=== PATIENT | female | born 1970 | race Caucasian/White ===

== ENCOUNTER 2016-08-11 18:04 | Emergency (ER) | payer MEDICAID ==
[~2016-08-11] VITALS: Ht 172.7 cm; Wt 113.7 kg
[~2016-08-11 18:04] MED LIST: AMLO5TAB2 PO; BENZ100 PO; LANTUS2P SQ; LYRI100C PO; PANT20 PO; ZITHTAB PO
[2016-08-11 18:24] VITALS: BP 126/68; PULSE 84; RESP 16; TEMP 99.2; O2SAT 95
[2016-08-11] MEDS ORDERED: IBUP800T23 PO (18:44)
[2016-08-11] MEDS ORDERED: [UNRECOGNIZED DRUG - OTHER] (18:44)
[2016-08-11] MEDS ORDERED: LOVA40TA PO (18:44)
[2016-08-11] MEDS ORDERED: FURO1TAB60 PO (18:44)
[2016-08-11] MEDS ORDERED: SODIUM CHLORIDE 0.9% FLUSH 5 ML FLUSH IVF PRN (18:45)
--- NOTE | 2016-08-11 18:57 | RADHPO ---
EXAM DATE/TIME: 08/11/2016 18:49 [facility] COMPARISON: CHEST SINGLE AP, July 18, 2016, 20:12. INDICATIONS : Short of breath. cough MEDICAL HISTORY : None. SURGICAL HISTORY : None. ENCOUNTER: Initial ACUITY: 3 weeks PAIN SCORE: 0/10 LOCATION: Bilateral chest FINDINGS: A single view of the chest demonstrates the lungs to be symmetrically aerated without evidence of mas s, infiltrate or effusion. The cardiomediastinal contours are unremarkable. Osseous structures are intact. CONCLUSION: No acute disease. Burak Alvarado MD on August 11, 2016 at 18:55 Board Certified Radiologist. This report was verified electronically.
--- NOTE | 2016-08-11 18:59 | PD ---
HPI . Right knee pain and peripheral edema Chief Complaint: Edema Time Seen by Provider: 18:32 Travel History International Travel<30 days: No Contact w/Intl Traveler<30days: No Traveled to known affect area: No History of Present Illness HPI Patient presents with 2 chief complaints. The first one and she told me about was right knee pain. It is atraumatic. It has been getting progressively worse over the course of the last several weeks. It hurts to move and stand. Her second complaint is peripheral edema. Has also been ongoing for the last 2- 3 weeks. She has been seen by her PCP for same and was treated with Lasix 20 milligrams daily for 15 days. She did not get any better so the dose was increased to 40 mg daily. She states that that was about 5 days ago. She states that her symptoms are not getting any better despite the Lasix. She states that the swelling is associated with dyspnea on exertion and orthopnea. That has been getting progressively worse over the last week or 2. PFSH Past Medical History Arthritis: Yes Cardiovascular Problems: Yes (htn on meds) High Cholesterol: Yes Diabetes: Yes (Insulin dependent ) Patient Takes Glucophage: No Diminished Hearing: No Hypertension: Yes Neurologic: Yes (DIABETIC NEUROPATHY) Influenza Vaccination: No ?: Not Menopausal: Yes Tubal Ligation: Yes Past Surgical History Cholecystectomy: Yes Social History Alcohol Use: No Tobacco Use: Yes (1 PPD) Substance Use: No Allergies-Medications (Allergen,Severity, Reaction): Coded Allergies: Sulfa (Verified Adverse Reaction, Severe, Vomiting, 08/11/16) MILTON Inhibitors (Verified Adverse Reaction, Intermediate, Cough, 08/11/16) Prednisone (Verified Adverse Reaction, Intermediate, Runny nose, cough, ) Reported Meds & Prescriptions Reported Meds & Active Scripts Active Mobic (Meloxicam) 15 Mg Tab 15 Mg PO DAILY Lasix (Furosemide) 80 Mg Tab 80 Mg PO DAILY 5 Days Protonix (Pantoprazole Sodium) 20 Mg Tab 20 Mg PO DAILY Reported Lovastatin 40 Mg Tab 40 Mg PO DAILY [gerd] Lyrica (Pregabalin) 100 Mg Cap 100 Mg PO TID Lantus Inj (Insulin Glargine) 1,000 Unit/10 Ml Vial 40 Units SQ HS Amlodipine (Amlodipine Besylate) 5 Mg Tab 5 Mg PO DAILY Review of Systems Except as stated in HPI: all other systems reviewed are Neg Cardiovascular: Positive: Dyspnea on exertion, Edema, No: Chest Pain or Discomfort Respiratory: Positive: Shortness of Breath, Orthopnea, Other (dyspnea on exertion) Musculoskeletal: Positive: Arthralgias (right knee pain) Physical Exam Narrative GENERAL: This is a 46-year-old woman who appears much older than her stated age. SKIN: Warm and dry. HEAD: Atraumatic. Normocephalic. EYES: Pupils equal and round. ENT: No nasal bleeding or discharge. Mucous membranes pink and moist. NECK: Trachea midline. Neck supple. CARDIOVASCULAR: Regular rate and rhythm. Heart sounds are normal. RESPIRATORY: No accessory muscle use. Lungs are clear with full air movement throughout. GASTROINTESTINAL: Abdomen soft, non-tender, nondistended. She does not have any hitting abdominal wall edema. MUSCULOSKELETAL: No obvious deformities. She has peripheral edema but it is not really pitting. NEUROLOGICAL: Awake and alert. No obvious cranial nerve deficits. Motor grossly within normal limits. Normal speech. PSYCHIATRIC: Appropriate mood and affect; insight and judgment normal. Data Data Last Documented VS Vital Signs Date Time Temp Pulse Resp B/P Pulse Ox O2 Delivery O2 Flow Rate FiO2 08/11/16 20:40 83 18 140/74 94 Room Air 08/11/16 18:24 99.2 Orders Complete Blood Count With Diff (08/11/16 18:35) Basic Metabolic Panel (Bmp) (08/11/16 18:35) B-Type Natriuretic Peptide (08/11/16 18:35) Ckmb (Isoenzyme) Profile (08/11/16 18:35) Troponin I (08/11/16 18:35) Iv Access Insert/Monitor (08/11/16 18:35) Electrocardiogram (08/11/16 18:35) Ecg Monitoring (08/11/16 18:35) Oximetry (08/11/16 18:35) Oxygen Administration (08/11/16 18:35) Chest, Single Ap (08/11/16 18:35) Sodium Chloride 0.9% Flush (Ns Flush) (08/11/16 18:45) Knee, Complete (4vws) (08/11/16 18:59) Furosemide Inj (Lasix Inj) (08/11/16 20:30) Labs Laboratory Tests Test 08/11/16 19:35 White Blood Count 7.7 TH/MM3 Red Blood Count 4.01 MIL/MM3 Hemoglobin 8.6 GM/DL Hematocrit 27.7 % Mean Corpuscular Volume 69.2 FL Mean Corpuscular Hemoglobin 21.4 PG Mean Corpuscular Hemoglobin 30.9 % Concent Red Cell Distribution Width 16.4 % Platelet Count 334 TH/MM3 Mean Platelet Volume 7.8 FL Neutrophils (%) (Auto) 70.2 % Lymphocytes (%) (Auto) 17.5 % Monocytes (%) (Auto) 8.0 % Eosinophils (%) (Auto) 3.9 % Basophils (%) (Auto) 0.4 % Neutrophils # (Auto) 5.5 TH/MM3 Lymphocytes # (Auto) 1.3 TH/MM3 Monocytes # (Auto) 0.6 TH/MM3 Eosinophils # (Auto) 0.3 TH/MM3 Basophils # (Auto) 0.0 TH/MM3 CBC Comment DIFF FINAL Differential Comment Sodium Level 143 MEQ/L Potassium Level 4.1 MEQ/L Chloride Level 104 MEQ/L Carbon Dioxide Level 31.3 MEQ/L Anion Gap 8 MEQ/L Blood Urea Nitrogen 31 MG/DL Creatinine 1.80 MG/DL Estimat Glomerular Filtration 30 ML/MIN Rate Random Glucose 158 MG/DL Calcium Level 7.8 MG/DL Total Creatine Kinase 85 U/L Troponin I LESS THAN 0.02 NG/ML B-Type Natriuretic Peptide 411 PG/ML MDM Medical Decision Making Medical Screen Exam Complete: Yes Emergency Medical Condition: Yes Interpretation(s) EKG shows a sinus rhythm with ventricular rate of 76. She has no ST segment elevation or depression. EKG is unchanged from previous. Differential Diagnosis Differential diagnosis of dyspnea includes but is not limited to congestive heart failure, pneumonia, wheezing, pneumothorax, pulmonary embolism Narrative Course Patient presents with chief complaints. The first is peripheral edema associated with shortness of breath, orthopnea and dyspnea on exertion. She will be evaluated for possible CHF/pulmonary edema. Her second complaint is right knee pain. I suspect arthritic pain as she is obese. Chest x-ray is negative to the radiologist's interpretation. Chest x-ray was independently viewed by me. Right knee x-ray is negative for acute finding. That x-ray was independently reviewed by me. CBC has an H&H of 8.6 and 27.7. The initial aware of her anemia. Blood clots are unremarkable. Troponin is normal. BNP is 411. I will give her a dose of IV Lasix. However, I do not think that she was to be admitted to the hospital. She has no evidence of pulmonary edema. Diagnosis Primary Impression: Peripheral edema Additional Impression: Right knee pain Qualified Code: M25.561 - Acute pain of right knee Scripts Meloxicam (Mobic)15 Mg Tab15 Mg PO DAILY #30 TAB Ref 0 Prov:Mervat Haney MD 08/11/16 Furosemide (Lasix)80 Mg Tab80 Mg PO DAILY 5 Days Ref 0 Prov:Mervat Haney MD 08/11/16 Disposition: 01 DISCHARGE HOME Condition: Stable Mervat Haney MD Aug 11, 2016 18:59
--- NOTE | 2016-08-11 19:30 | RADHPO ---
EXAM DATE/TIME: 08/11/2016 19:02 [facility] COMPARISON: No previous studies available for comparison. INDICATIONS : Right knee pain for two days. No known trauma. MEDICAL HISTORY : None. SURGICAL HISTORY : None. ENCOUNTER: Initial ACUITY: 2 days PAIN SCORE: 10/10 LOCATION: Right knee. FINDINGS: Four view examination of the right knee demonstrates no evidence of fracture or dislocation. Bony mi neralization is normal. The articular surfaces are intact. The suprapatellar soft tissues have a no rmal configuration. There is edema in the subcutaneous tissues. CONCLUSION: No acute bony abnormalities seen. There is superficial soft tissue swelling. Burak Alvarado MD on August 11, 2016 at 19:28 Board Certified Radiologist. This report was verified electronically.
[2016-08-11 19:35] VITALS: O2SAT 96
[2016-08-11 19:55] LABS: AUTOMATED NEUTROPHIL # 5.5 TH/MM3 (1.8-7.7); BASOPHIL % 0.4 % (0.0-2.0); EOSINOPHIL # 0.3 TH/MM3 (0-0.4); EOSINOPHIL % 3.9 % (0.0-4.0); HEMATOCRIT 27.7 % (35.0-46.0); LYMPH % 17.5 % (9.0-44.0); LYMPHOCYTE # 1.3 TH/MM3 (1.0-4.8); MEAN CELL VOLUME 69.2 FL (80.0-100.0); MEAN CORPUSCULAR HEMOGLOBIN 21.4 PG (27.0-34.0); MEAN CORPUSCULAR HGB CONC 30.9 % (32.0-36.0); NEUT % 70.2 % (16.0-70.0); PLATELET COUNT 334 TH/MM3 (150-450); RED BLOOD COUNT 4.01 MIL/MM3 (4.00-5.30); RED CELL DISTRIBUTION WIDTH 16.4 % (11.6-17.2); WHITE BLOOD COUNT 7.7 TH/MM3 (4.0-11.0)
[2016-08-11 19:56] LABS: HEMO FLAGS DIFF FINAL
[2016-08-11 20:01] LABS: CHLORIDE 104 MEQ/L (98-107); POTASSIUM 4.1 MEQ/L (3.5-5.1); SODIUM (NA) 143 MEQ/L (136-145)
[2016-08-11 20:06] LABS: ANION GAP 8 MEQ/L (5-15); BICARBONATE 31.3 MEQ/L (21.0-32.0); BLOOD UREA NITROGEN 31 MG/DL (7-18)
[2016-08-11 20:09] LABS: GLOMERULAR FILTRATION RATE 30 ML/MIN (>89)
[2016-08-11 20:17] LABS: CREATINE KINASE 85 U/L (26-192)
[2016-08-11] MEDS ORDERED: FUROSEMIDE 100 MG/10 ML VIAL IV PUSH ONE (20:30)
[2016-08-11] MEDS ORDERED: MOBI15TA PO (20:30)
[2016-08-11] MEDS ORDERED: FURO1TAB61 PO (20:30)
[2016-08-11 20:40] VITALS: BP 140/74; PULSE 83; RESP 18; O2SAT 94
--- NOTE | 2016-08-12 23:41 | EKG ---
Date Performed: 08/11/2016 Time Performed: 19:00:14 PTAGE: 46 years EKG: Sinus rhythm . Normal ECG PREVIOUS TRACING : 02/09/2015 14.19 Compared to prior tracing no significant change DOCTOR: Zia Ma Interpretating Date/Time 08/12/2016 23:41:23
== END 2016-08-11 21:23 | disposition home or self-care (01) ==
LOC: PHED 18:04
DX: M25.561 Pain in right knee (principal); R60.0 Localized edema; I10 Essential (primary) hypertension; Z79.4 Long term (current) use of insulin; E11.40 Type 2 diabetes mellitus with diabetic neuropathy, unspecified; E78.00 Pure hypercholesterolemia, unspecified; F17.210 Nicotine dependence, cigarettes, uncomplicated
CPT/HCPCS: 71010; 73564; 80048; 82550; 83880; 84484; 85025; 93005; 96374; 99285; J1940

== ENCOUNTER 2016-09-15 14:20 | Emergency (ER) | payer MEDICAID, OTHER ==
[~2016-09-15 14:20] MED LIST changes: -BENZ100 PO; +FURO1TAB61 PO; +LOVA40TA PO; +MOBI15TA PO; -ZITHTAB PO; +[UNRECOGNIZED DRUG - OTHER]
[2016-09-15 14:39] VITALS: BP 143/93; PULSE 90; RESP 16; TEMP 98.4; O2SAT 99
[2016-09-15] MEDS ORDERED: SODIUM CHLOR 0.9% 1000 ML INJ 1,000 ML IV SCH (15:18)
[2016-09-15] MEDS ORDERED: IRON18TA2 PO (15:23)
[2016-09-15] MEDS ORDERED: CHOLESTEROL PILL (15:23)
--- NOTE | 2016-09-15 15:29 | PD ---
HPI . Abdominal pain Chief Complaint: GI Complaint Time Seen by Provider: 15:15 Travel History International Travel<30 days: No Contact w/Intl Traveler<30days: No Traveled to known affect area: No History of Present Illness HPI Patient presents with a 2 day history of left upper quadrant abdominal pain. She's had some dry heaves. She reports one episode of emesis. She denies constipation. She reports chills. She denies any urinary tract symptoms such as dysuria, frequency or urgency. She states that her abdominal pain is worsened by deep respirations. PFSH Past Medical History Arthritis: Yes Cardiovascular Problems: Yes (htn on meds) High Cholesterol: Yes Diabetes: Yes (Insulin dependent ) Diminished Hearing: No Hypertension: Yes Neurologic: Yes (DIABETIC NEUROPATHY) ?: Not LMP: RANI Menopausal: Yes Tubal Ligation: Yes Past Surgical History Cholecystectomy: Yes Social History Alcohol Use: No Tobacco Use: Yes (1 PPD) Substance Use: No Allergies-Medications (Allergen,Severity, Reaction): Coded Allergies: Sulfa (Verified Adverse Reaction, Severe, Vomiting, 09/15/16) MILTON Inhibitors (Verified Adverse Reaction, Intermediate, Cough, 09/15/16) Prednisone (Verified Adverse Reaction, Intermediate, Runny nose, cough, ) Reported Meds & Prescriptions Reported Meds & Active Scripts Active Reported Iron (Ferrous Fumarate) 18 Mg Tab 18 Mg PO DAILY [Cholesterol Pill] Lovastatin 40 Mg Tab 40 Mg PO DAILY Lyrica (Pregabalin) 100 Mg Cap 100 Mg PO TID Lantus Inj (Insulin Glargine) 1,000 Unit/10 Ml Vial 40 Units SQ HS Review of Systems Except as stated in HPI: all other systems reviewed are Neg General / Constitutional: Positive: Chills Gastrointestinal: Positive: Nausea, Vomiting, Abdominal Pain, No: Diarrhea, Constipation Genitourinary: No: Urgency, Frequency, Dysuria Physical Exam Narrative GENERAL: Patient is awake and alert and does not appear to be in any acute distress. SKIN: Warm and dry. HEAD: Atraumatic. Normocephalic. EYES: Pupils equal and round. ENT: No nasal bleeding or discharge. Mucous membranes pink and moist. NECK: Trachea midline. CARDIOVASCULAR: Regular rate and rhythm. Heart sounds are normal. RESPIRATORY: No accessory muscle use. Lungs are clear with full air movement throughout. GASTROINTESTINAL: Abdomen soft. Left upper quadrant tenderness. Nondistended. Normal bowel sounds. MUSCULOSKELETAL: No obvious deformities. No edema. NEUROLOGICAL: Awake and alert. No obvious cranial nerve deficits. Motor grossly within normal limits. Normal speech. PSYCHIATRIC: Appropriate mood and affect; insight and judgment normal. Data Data Last Documented VS Vital Signs Date Time Temp Pulse Resp B/P Pulse Ox O2 Delivery O2 Flow Rate FiO2 09/15/16 14:39 98.4 90 16 143/93 99 Orders Complete Blood Count With Diff (09/15/16 15:18) Comprehensive Metabolic Panel (09/15/16 15:18) Lipase (09/15/16 15:18) Urinalysis - C+S If Indicated (09/15/16 15:18) Iv Access Insert/Monitor (09/15/16 15:18) Morphine Inj (Morphine Inj) (09/15/16 15:30) Ondansetron Inj (Zofran Inj) (09/15/16 15:30) Sodium Chlor 0.9% 1000 Ml Inj (Ns 1000 M (09/15/16 15:18) Sodium Chloride 0.9% Flush (Ns Flush) (09/15/16 15:30) Abdomen, Upright Only (09/15/16 15:18) MDM Medical Decision Making Medical Screen Exam Complete: Yes Emergency Medical Condition: Yes Medical Record Reviewed: Yes (past medical history includes hypertension, chronic kidney disease, diabetes) Differential Diagnosis Differential diagnosis of abdominal pain includes but is not limited to gastritis, pancreatitis, hepatitis, gastroenteritis, gallbladder disease, constipation, urinary retention, UTI, peptic ulcer disease, diverticulitis or appendicitis Narrative Course Patient presents for evaluation of abdominal pain with nausea. She has a benign exam. Her care will be turned over to the oncoming physician. Diagnosis Primary Impression: Abdominal pain Qualified Code: R10.12 - Left upper quadrant pain Condition: Stable Mervat Haney MD Sep 15, 2016 15:29
[2016-09-15] MEDS ORDERED: MORPHINE SULFATE 4 MG/ML INJ IV PUSH ONE (15:30)
[2016-09-15] MEDS ORDERED: SODIUM CHLORIDE 0.9% FLUSH 5 ML FLUSH IVF PRN (15:30)
[2016-09-15] MEDS ORDERED: ONDANSETRON HCL 4 MG/2 ML VIAL IVP ONE (15:30)
[2016-09-15 15:35] LABS: AUTOMATED NEUTROPHIL # 7.1 TH/MM3 (1.8-7.7); BASOPHIL # 0.1 TH/MM3 (0-0.2); BASOPHIL % 0.8 % (0.0-2.0); EOSINOPHIL # 0.1 TH/MM3 (0-0.4); EOSINOPHIL % 0.9 % (0.0-4.0); HEMATOCRIT 33.8 % (35.0-46.0); LYMPH % 14.3 % (9.0-44.0); LYMPHOCYTE # 1.3 TH/MM3 (1.0-4.8); MEAN CORPUSCULAR HEMOGLOBIN 22.4 PG (27.0-34.0); MEAN CORPUSCULAR HGB CONC 32.4 % (32.0-36.0); MONO % 4.4 % (0.0-8.0); NEUT % 79.6 % (16.0-70.0); PLATELET COUNT 368 TH/MM3 (150-450); RED BLOOD COUNT 4.89 MIL/MM3 (4.00-5.30); RED CELL DISTRIBUTION WIDTH 19.4 % (11.6-17.2)
[2016-09-15 15:39] LABS: HEMO FLAGS AUTO DIFF
--- NOTE | 2016-09-15 15:43 | RADHPO ---
EXAM DATE/TIME: 09/15/2016 15:29 [facility] COMPARISON: No previous studies available for comparison. INDICATIONS : Abdomen pain for two days. MEDICAL HISTORY : None. SURGICAL HISTORY : Cholecystectomy. ENCOUNTER: Initial ACUITY: 2 days PAIN SCORE: 9/10 LOCATION: Bilateral upper quadrant FINDINGS: A single erect view of the abdomen demonstrates the lower lungs to be clear. No evidence of free int raperitoneal gas. The visualized bowel loops are unremarkable. Cholecystectomy clips. CONCLUSION: No acute abnormality upper abdomen. Gavin Granados MD on September 15, 2016 at 15:41 Board Certified Radiologist. This report was verified electronically.
[2016-09-15 15:50] LABS: CHLORIDE 106 MEQ/L (98-107); POTASSIUM 4.2 MEQ/L (3.5-5.1); SODIUM (NA) 140 MEQ/L (136-145)
[2016-09-15 15:53] LABS: BLOOD, URINE LARGE (NEG); GLUCOSE,URINE NEG (NEG); KETONE, URINE NEG (NEG); NITRITE,URINE NEG (NEG)
[2016-09-15 15:55] LABS: ANION GAP 7 MEQ/L (5-15); BICARBONATE 26.6 MEQ/L (21.0-32.0); BLOOD UREA NITROGEN 24 MG/DL (7-18)
[2016-09-15 15:56] LABS: METHOD OF COLLECTION CLEAN CATCH; URINE COLOR YELLOW (YELLW/STRAW)
[2016-09-15 15:58] LABS: ALT (GPT) 34 U/L (10-53); AST (GOT) 18 U/L (15-37); GLOMERULAR FILTRATION RATE 44 ML/MIN (>89)
[2016-09-15 15:59] LABS: TOTAL BILIRUBIN ADULT 0.9 MG/DL (0.2-1.0)
[2016-09-15 16:00] LABS: RBC, URINE 15-19 /hpf (0-3)
[2016-09-15 16:01] LABS: COMMENT (UR) CULT NOT INDICATED; COMMENT2 (UR) MUCOUS PRESENT; CULTURE IF INDICATED CULT NOT INDICATED; HYALINE CAST, URINE 0-2 /lpf (RARE); SQUAMOUS EPITHELIAL CELL URINE > 8 /hpf (0-5); TRANSITIONAL EPI CELLS, URINE 0-5 /hpf
[2016-09-15 16:01] LABS: ALKALINE PHOSPHATASE 429 U/L (45-117)
[2016-09-15 16:08] LABS: OVALOCYTES 1+ (NORMAL); PLATELET ESTIMATE SMEAR NORMAL (NORMAL); PLATELET MORPHOLOGY NORMAL (NORMAL); ROULEAUX PRESENT (NORMAL); SCAN/DIFF AUTO DIFF CONFIRMED
--- NOTE | 2016-09-15 16:17 | PD ---
Physical Exam Narrative The patient was initially evaluated by the previous provider and sent out to me at the beginning of my shift pending labs and disposition. See her note for further details. Data Data Last Documented VS Vital Signs Date Time Temp Pulse Resp B/P Pulse Ox O2 Delivery O2 Flow Rate FiO2 09/15/16 18:08 69 15 151/71 98 09/15/16 16:26 Room Air 09/15/16 14:39 98.4 Orders Complete Blood Count With Diff (09/15/16 15:18) Comprehensive Metabolic Panel (09/15/16 15:18) Lipase (09/15/16 15:18) Urinalysis - C+S If Indicated (09/15/16 15:18) Iv Access Insert/Monitor (09/15/16 15:18) Morphine Inj (Morphine Inj) (09/15/16 15:30) Ondansetron Inj (Zofran Inj) (09/15/16 15:30) Sodium Chlor 0.9% 1000 Ml Inj (Ns 1000 M (09/15/16 15:18) Sodium Chloride 0.9% Flush (Ns Flush) (09/15/16 15:30) Abdomen, Upright Only (09/15/16 15:18) Electrocardiogram (09/15/16 ) Ct Abd/Pel W/O Iv Contrast (09/15/16 16:08) Pantoprazole Inj (Protonix Inj) (09/15/16 16:30) Labs Laboratory Tests Test 09/15/16 09/15/16 15:20 15:45 White Blood Count 9.0 TH/MM3 Red Blood Count 4.89 MIL/MM3 Hemoglobin 10.9 GM/DL Hematocrit 33.8 % Mean Corpuscular Volume 69.0 FL Mean Corpuscular Hemoglobin 22.4 PG Mean Corpuscular Hemoglobin 32.4 % Concent Red Cell Distribution Width 19.4 % Platelet Count 368 TH/MM3 Mean Platelet Volume 7.9 FL Neutrophils (%) (Auto) 79.6 % Lymphocytes (%) (Auto) 14.3 % Monocytes (%) (Auto) 4.4 % Eosinophils (%) (Auto) 0.9 % Basophils (%) (Auto) 0.8 % Neutrophils # (Auto) 7.1 TH/MM3 Lymphocytes # (Auto) 1.3 TH/MM3 Monocytes # (Auto) 0.4 TH/MM3 Eosinophils # (Auto) 0.1 TH/MM3 Basophils # (Auto) 0.1 TH/MM3 CBC Comment AUTO DIFF Differential Comment AUTO DIFF CONFIRMED Platelet Estimate NORMAL Platelet Morphology Comment NORMAL Ovalocytes 1+ Rouleau PRESENT Sodium Level 140 MEQ/L Potassium Level 4.2 MEQ/L Chloride Level 106 MEQ/L Carbon Dioxide Level 26.6 MEQ/L Anion Gap 7 MEQ/L Blood Urea Nitrogen 24 MG/DL Creatinine 1.30 MG/DL Estimat Glomerular Filtration 44 ML/MIN Rate Random Glucose 138 MG/DL Calcium Level 9.7 MG/DL Total Bilirubin 0.9 MG/DL Aspartate Amino Transf 18 U/L (AST/SGOT) Alanine Aminotransferase 34 U/L (ALT/SGPT) Alkaline Phosphatase 429 U/L Total Protein 7.8 GM/DL Albumin 3.1 GM/DL Lipase 92 U/L Urine Collection Type CLEAN CATCH Urine Color YELLOW Urine Turbidity SLIGHT Urine pH 6.0 Urine Specific Mcintosh 1.026 Urine Protein 300 OR GREATER mg/dL Urine Glucose (UA) NEG mg/dL Urine Ketones NEG mg/dL Urine Occult Blood LARGE Urine Nitrite NEG Urine Bilirubin NEG Urine Leukocyte Esterase NEG Urine RBC 15-19 /hpf Urine WBC 3-5 /hpf Urine Squamous Epithelial > 8 /hpf Cells Urine Transitional Epithelial 0-5 /hpf Cells Urine Amorphous Sediment LARGE Urine Hyaline Casts 0-2 /lpf Urine Fine Granular Casts 0-2 /lpf Urine Coarse Granular Casts 0-2 /lpf Microscopic Urinalysis Comment CULT NOT INDICATED Urine Collection Time 1545 MDM Supervised Visit with [facility]: No Narrative Course Briefly this a 46-year-old female with history of diabetes with a two-day history of left upper quadrant abdominal pain. Pain is worsened night and after eating. She had one episode of vomiting and dry heaves. No diarrhea or constipation. No urinary symptoms. Pain is worse with movement and palpation as well as deep inspiration. No chest pain. EKG shows sinus, rate 80, normal axis, normal intervals, no stomach abnormalities. Vital signs show slight hypertension with a blood pressure 143/93, otherwise unremarkable. The patient was given morphine and Zofran by the previous provider and on my assessment is feeling much better. Her abdominal exam is benign. CBC is remarkable for hemoglobin of 10.9, hematocrit 33.8 which is around her baseline. CMP is remarkable for BUN 24, creatinine 1.3, GFR 44 which is also around her baseline. Alkaline phosphatase is elevated at 429. Lipase is 92. UA shows 300 protein, large occult blood, 15-19 rbc's, not suggestive of UTI. After I assessed the patient, I decided to order a CT abdomen pelvis to evaluate for possible kidney stone or any other intra-abdominal process to explain her symptoms. CT abdomen pelvis: CONCLUSION: 1. Minimal ascites. 2. Small bilateral pleural effusions and anasarca. 3. No renal calculi or hydronephrosis. 4. Status post cholecystectomy. Upon reassessment the patient is sleeping comfortably. Her abdominal exam is benign. She is stable for discharge home with outpatient follow-up with her primary care physician this week. She was made aware of all findings. I will start her on Protonix that she likely has gastritis or peptic ulcer disease. Patient was also made aware of her hematuria and I stressed importance of follow -up with her primary to make sure that this resolves. She was informed on when to return to the emergency department. She verbalizes understanding and agreement with plan. Diagnosis Primary Impression: Abdominal pain Qualified Code: R10.12 - Left upper quadrant pain Additional Impression: Hematuria Referrals: Primary Care Physician 3 days Additional Instruction: Follow-up with your primary care physician this week. Return to the emergency department for worsening symptoms or any other concerns. Scripts Pantoprazole (Protonix)40 Mg Tab40 Mg PO DAILY #30 TAB Ref 2 Prov:Nakul Yuen MD 09/15/16 Disposition: 01 DISCHARGE HOME Condition: Stable Nakul Yuen MD Sep 15, 2016 16:17
[2016-09-15 16:26] VITALS: BP 163/76; PULSE 81; RESP 17; O2SAT 98
[2016-09-15] MEDS ORDERED: PANTOPRAZOLE SODIUM 40 MG VIAL IV PUSH ONE (16:30)
--- NOTE | 2016-09-15 17:22 | RADHPO ---
EXAM DATE/TIME: 09/15/2016 16:51 [facility] COMPARISON: No previous studies available for comparison. INDICATIONS : Left upper quadrant pain. Evaluate for renal stone. ORAL CONTRAST: No oral contrast ingested. RADIATION DOSE: 23.94 CTDIvol (mGy) MEDICAL HISTORY : Hypertension. SURGICAL HISTORY : Cholecystectomy. Tubal ligation. ENCOUNTER: Initial ACUITY: 2 days PAIN SCALE: 5/10 LOCATION: Left upper quadrant TECHNIQUE: Volumetric scanning of the abdomen and pelvis was performed. Using automated exposure control and ad justment of the mA and/or kV according to patient size, radiation dose was kept as low as reasonably achievable to obtain optimal diagnostic quality images. FINDINGS: LOWER LUNGS: The visualized lower lungs are clear. Small pleural effusions bilaterally. LIVER: Homogeneous density without lesion. There is no dilation of the biliary tree. Cholecystectomy clips. SPLEEN: Normal size without lesion. PANCREAS: Within normal limits. KIDNEYS: Normal in size and shape. There is no mass, stone, or hydronephrosis. ADRENAL GLANDS: Within normal limits. VASCULAR: There is no aortic aneurysm. BOWEL/MESENTERY: The stomach, small bowel, and colon demonstrate no acute abnormality. There is no free intraperitone al air or fluid. ABDOMINAL WALL: Within normal limits. RETROPERITONEUM: There is no lymphadenopathy. BLADDER: No wall thickening or mass. REPRODUCTIVE: Within normal limits. INGUINAL: There is no lymphadenopathy or hernia. MUSCULOSKELETAL: Within normal limits for patient age. CONCLUSION: 1. Minimal ascites. 2. Small bilateral pleural effusions and anasarca. 3. No renal calculi or hydronephrosis. 4. Status post cholecystectomy. Gavin Granados MD on September 15, 2016 at 17:18 Board Certified Radiologist. This report was verified electronically.
[2016-09-15] MEDS ORDERED: PROT40TA PO (17:31)
[2016-09-15 18:08] VITALS: BP 151/71
--- NOTE | 2016-09-15 22:36 | EKG ---
Date Performed: 09/15/2016 Time Performed: 16:11:10 PTAGE: 46 years EKG: Sinus rhythm Normal ECG PREVIOUS TRACING : 08/11/2016 19.00 No significant change from previous tracing noted. DOCTOR: Mynor Singh Interpretating Date/Time 09/15/2016 22:35:34
== END 2016-09-15 17:50 | disposition home or self-care (01) ==
LOC: PHED 14:20
DX: R10.12 Left upper quadrant pain (principal); R31.9 Hematuria, unspecified; I10 Essential (primary) hypertension; E11.40 Type 2 diabetes mellitus with diabetic neuropathy, unspecified; F17.200 Nicotine dependence, unspecified, uncomplicated; Z79.4 Long term (current) use of insulin
CPT/HCPCS: 74000; 74176; 80053; 81001; 83690; 85025; 93005; 96361; 96374; 96375; 99284; C9113; J2270; J2405; J7030

== ENCOUNTER 2016-10-11 19:34 | Inpatient (IN) | payer MEDICAID, OTHER ==
[~2016-10-11] VITALS: Ht 170.2 cm; Wt 111.0 kg
[~2016-10-11 19:34] MED LIST changes: -AMLO5TAB2 PO; +CHOLESTEROL PILL; -FURO1TAB61 PO; +IRON18TA2 PO; -MOBI15TA PO; -PANT20 PO; +PROT40TA PO; -[UNRECOGNIZED DRUG - OTHER]
[2016-10-11 20:24] VITALS: BP 147/82; PULSE 98; RESP 18; TEMP 99.4; O2SAT 97
[2016-10-11 21:50] VITALS: BP 162/76; PULSE 104; RESP 18
[2016-10-11] MEDS ORDERED: SODIUM CHLORIDE 0.9% FLUSH 10 ML FLUSH IV FLUSH PRN (22:00)
[2016-10-11] MEDS ORDERED: VANCOMYCIN INJ 1,650 MG in SODIUM CHLORID 0.9% 500 ML INJ 500 ML IV SCH (22:00)
--- NOTE | 2016-10-11 22:07 | PD ---
HPI Chief Complaint: Bleeding Time Seen by Provider: 21:53 Travel History International Travel<30 days: No Contact w/Intl Traveler<30days: No History of Present Illness HPI Patient is a 46-year-old female with history of hypertension, diabetes, hyperlipidemia, iron deficiency anemia who presents to emergency room with complaints of infection to her left foot. Patient reports that she has had complications after she fell and injured her left heel in 2014. Patient reports that she had to rods placed by Dr. Rajan, reports that after these surgery, she has had increased pain and swelling and has had infection to that foot. Patient reports that 2 weeks ago, she has noticed increased infection to her left foot, reports that she noticed increased redness and swelling and warmth, she did go to her new physician relations manager, Dr. Torre, who started her on antibiotics (Bactrim and Augmentin) and put her in a cam boot and made her non weight bearing for 1 week. Reports that she did go back to the office for follow up last week and she was cleared to go back to work and be weight bearing as long as she wore her Cam Boot. Patient reports that she came home from work today and noticed increased bleeding from a pinpoint area of her left sole of foot. Patient denies any injuries, reports that she did not step on anything, reports that she was wearing her cam boot all day and noticed the bleeding after she took the cam boot off. Reports that she is on a baby aspirin and no other anticoagulations at this time. Patient did call her physician relations manager, Dr. Torre and was instructed to either go to the emergency room or be seen in the office tomorrow. Given her significant bleeding, patient decided to come to emergency room. Patient reports that she has noticed no improvement of the redness to her left lower extremity. Reports no fevers or chills. Patient is a type I diabetic on insulin. Reports that ultimately, she will need these to rods removed by Dr. Torre [facility] Past Medical History Arthritis: Yes Cardiovascular Problems: Yes (htn on meds) High Cholesterol: Yes Diabetes: Yes (Insulin dependent ) Diminished Hearing: No Hypertension: Yes Neurologic: Yes (DIABETIC NEUROPATHY) Menopausal: Yes Tubal Ligation: Yes Past Surgical History Cholecystectomy: Yes Other Surgery: Yes (left foot surgery) Social History Alcohol Use: No Tobacco Use: Yes (1 PPD) Substance Use: No Allergies-Medications (Allergen,Severity, Reaction): Coded Allergies: No Known Allergies (Unverified , 10/11/16) Reported Meds & Prescriptions Reported Meds & Active Scripts Active Reported Ibuprofen 800 Mg Tab 800 Mg PO DAILY Lasix (Furosemide) 40 Mg Tab 40 Mg PO DAILY Bactrim (Sulfamethoxazole-Trimethoprim) 400-80 Mg Tab 1 Tab PO DAILY Tramadol (Tramadol HCl) 50 Mg Tab 50 Mg PO Q4H PRN Losartan (Losartan Potassium) 50 Mg Tab 50 Mg PO DAILY [Cholesterol Pill] Lyrica (Pregabalin) 100 Mg Cap 100 Mg PO TID Lantus Inj (Insulin Glargine) 1,000 Unit/10 Ml Vial 40 Units SQ HS Review of Systems General / Constitutional: No: Fever, Chills Eyes: No: Visual changes HENT: No: Headaches Cardiovascular: No: Chest Pain or Discomfort Respiratory: No: Shortness of Breath Gastrointestinal: No: Abdominal Pain Genitourinary: No: Dysuria Musculoskeletal: Positive: Edema (left foot), Pain (left foot) Skin: No Rash Neurologic: No: Weakness Psychiatric: No: Depression Endocrine: No: Polydipsia Hematologic/Lymphatic: No: Easy Bruising Physical Exam Narrative GENERAL: mild distress SKIN: Warm and dry. HEAD: Atraumatic. Normocephalic. EYES: Pupils equal and round. No scleral icterus. No injection or drainage. ENT: No nasal bleeding or discharge. Mucous membranes pink and moist. NECK: Trachea midline. No JVD. CARDIOVASCULAR: Regular rate and rhythm. No murmur appreciated. RESPIRATORY: No accessory muscle use. Clear to auscultation. Breath sounds equal bilaterally. GASTROINTESTINAL: Abdomen soft, non-tender, nondistended. Hepatic and splenic margins not palpable. MUSCULOSKELETAL: RLE: pt with +2 pitting edema, no calf tenderness, neurovascularly intact LLE: patient with +3 pitting edema, patient with pin point area of bleed to sole of foot, no obvious deformity, pt does have significant swelling as well as increased redness and bruising and increased warmth to her left foot, pulses palpable, neurovascularly intact NEUROLOGICAL: Awake and alert. Normal speech. PSYCHIATRIC: Appropriate mood and affect; insight and judgment normal. Data Data Last Documented VS Vital Signs Date Time Temp Pulse Resp B/P Pulse Ox O2 Delivery O2 Flow Rate FiO2 10/11/16 23:59 18 96 Nasal Cannula 2 10/11/16 23:55 91 154/76 10/11/16 20:24 99.4 Orders Basic Metabolic Panel (Bmp) (10/11/16 21:54) Complete Blood Count With Diff (10/11/16 21:54) Prothrombin Time / Inr (Pt) (10/11/16 21:54) Act Partial Throm Time (Ptt) (10/11/16 21:54) Iv Access Insert/Monitor (10/11/16 21:54) Sodium Chloride 0.9% Flush (Ns Flush) (10/11/16 22:00) Foot, Complete (Cyn0sic) (10/11/16 ) Us Leg Venous Doppler Bilat (10/11/16 ) Vancomycin Inj (Vancomycin Inj) (10/11/16 22:00) Blood Culture (10/11/16 23:14) Consult Podiatry (10/12/16 ) Labs Laboratory Tests Test 10/11/16 22:42 White Blood Count 7.7 TH/MM3 Red Blood Count 4.47 MIL/MM3 Hemoglobin 9.9 GM/DL Hematocrit 30.8 % Mean Corpuscular Volume 69.0 FL Mean Corpuscular Hemoglobin 22.0 PG Mean Corpuscular Hemoglobin 32.0 % Concent Red Cell Distribution Width 19.7 % Platelet Count 316 TH/MM3 Mean Platelet Volume 8.5 FL Neutrophils (%) (Auto) 70.0 % Lymphocytes (%) (Auto) 15.5 % Monocytes (%) (Auto) 10.5 % Eosinophils (%) (Auto) 3.1 % Basophils (%) (Auto) 0.9 % Neutrophils # (Auto) 5.4 TH/MM3 Lymphocytes # (Auto) 1.2 TH/MM3 Monocytes # (Auto) 0.8 TH/MM3 Eosinophils # (Auto) 0.2 TH/MM3 Basophils # (Auto) 0.1 TH/MM3 CBC Comment AUTO DIFF Differential Comment AUTO DIFF CONFIRMED Platelet Estimate NORMAL Platelet Morphology Comment NORMAL Prothrombin Time 11.8 SEC Prothromb Time International 1.1 RATIO Ratio Activated Partial 29.9 SEC Thromboplast Time Sodium Level 138 MEQ/L Potassium Level 4.2 MEQ/L Chloride Level 100 MEQ/L Carbon Dioxide Level 32.0 MEQ/L Anion Gap 6 MEQ/L Blood Urea Nitrogen 33 MG/DL Creatinine 2.10 MG/DL Estimat Glomerular Filtration 25 ML/MIN Rate Random Glucose 180 MG/DL Calcium Level 8.2 MG/DL MDM Medical Decision Making Medical Screen Exam Complete: Yes Emergency Medical Condition: Yes Interpretation(s) Vital Signs Date Time Temp Pulse Resp B/P Pulse Ox O2 Delivery O2 Flow Rate FiO2 10/11/16 20:24 99.4 98 18 147/82 97 Laboratory Tests Test 10/11/16 22:42 White Blood Count 7.7 TH/MM3 (4.0-11.0) Red Blood Count 4.47 MIL/MM3 (4.00-5.30) Hemoglobin 9.9 GM/DL (11.6-15.3) Hematocrit 30.8 % (35.0-46.0) Mean Corpuscular Volume 69.0 FL (80.0-100.0) Mean Corpuscular Hemoglobin 22.0 PG (27.0-34.0) Mean Corpuscular Hemoglobin 32.0 % Concent (32.0-36.0) Red Cell Distribution Width 19.7 % (11.6-17.2) Platelet Count 316 TH/MM3 (150-450) Mean Platelet Volume 8.5 FL (7.0-11.0) Neutrophils (%) (Auto) 70.0 % (16.0-70.0) Lymphocytes (%) (Auto) 15.5 % (9.0-44.0) Monocytes (%) (Auto) 10.5 % (0.0-8.0) Eosinophils (%) (Auto) 3.1 % (0.0-4.0) Basophils (%) (Auto) 0.9 % (0.0-2.0) Neutrophils # (Auto) 5.4 TH/MM3 (1.8-7.7) Lymphocytes # (Auto) 1.2 TH/MM3 (1.0-4.8) Monocytes # (Auto) 0.8 TH/MM3 (0-0.9) Eosinophils # (Auto) 0.2 TH/MM3 (0-0.4) Basophils # (Auto) 0.1 TH/MM3 (0-0.2) CBC Comment AUTO DIFF Differential Comment AUTO DIFF CONFIRMED Platelet Estimate NORMAL (NORMAL) Platelet Morphology Comment NORMAL (NORMAL) Prothrombin Time 11.8 SEC (9.8-11.6) Prothromb Time International 1.1 RATIO Ratio Activated Partial 29.9 SEC Thromboplast Time (24.3-30.1) Sodium Level 138 MEQ/L (136-145) Potassium Level 4.2 MEQ/L (3.5-5.1) Chloride Level 100 MEQ/L (98-107) Carbon Dioxide Level 32.0 MEQ/L (21.0-32.0) Anion Gap 6 MEQ/L (5-15) Blood Urea Nitrogen 33 MG/DL (7-18) Creatinine 2.10 MG/DL (0.50-1.00) Estimat Glomerular Filtration 25 ML/MIN (>89) Rate Random Glucose 180 MG/DL (74-106) Calcium Level 8.2 MG/DL (8.5-10.1) Last Impressions Foot X-Ray 10/11/16 0000 Signed Impressions: Service Date/Time: , October 11, 2016 22:05 - CONCLUSION: 1. Severely comminuted fracture of the calcaneus status post double screw fixation. Pes planus deformity. Locules of air in the soft tissues medially suggest abscess formation. Fracture fragment of distal calcaneus has migrated laterally at the calcaneocuboid joint. Jay Burnett MD Differential Diagnosis Osteomyelitis of left foot, cellulitis which failed outpatient treatment, electrolyte abnormality, anemia, DVT Narrative Course Patient is a 46-year-old female with history of diabetes, hypertension, hyperlipidemia, and the emergency room with complaints of left foot pain, swelling and increased redness. Patient reports that she has been having increased pains to her foot ever since she broke her heel in 2014 and had subsequent surgery with 2 screws placed at that time. Patient reports that 2 weeks ago, she noticed increased swelling, warmth, infection to her left foot. Patient did follow-up with her physician relations manager, now Dr. Torre who started her on antibiotics. Patient reports that she has been compliant with her medications but reports that her infection is not improving and reports that she noticed increased bleeding tonight after she came home from work and took off her cam boot. Patient does have pinpoint area of bleeding to the sole of her foot, pressure dressings were placed. Plan to obtain x-rays of foot to evaluate for possible osteomyelitis. Ultrasound of leg ordered to evaluate for possible DVT. We'll give patient a dose of IV vancomycin for treatment of cellulitis as she failed outpatient treatment and will require admission to the hospital. Last Impressions Foot X-Ray 10/11/16 0000 Signed Impressions: Service Date/Time: September 22:05 - CONCLUSION: 1. Severely comminuted fracture of the calcaneus status post double screw fixation. Pes planus deformity. Locules of air in the soft tissues medially suggest abscess formation. Fracture fragment of distal calcaneus has migrated laterally at the calcaneocuboid joint. Jay Burnett MD Patient will locules of air in the soft tissue medially suggesting abscess formation to her left foot. Call made to physician relations manager Dr. Torre for further recommendations and possible transfer to [facility] for further plan of care. case reviewed with Dr. Luo - reports that patient does need these screws removed, concern as patient does have poor follow up, reports that patient was offered follow up tomorrow in the office but patient could not get a ride there so came to the ER instead. Discussed that it is most likely the best interest the patient admitted to this hospital Call made to on-call physician relations manager, Dr. Garcia Case reviewed with Dr. Garcia, request admission to [facility] if patient is admitted to hospital Patient with abscess and cellulitis to left foot - she has failed course of antibiotics and requires admission to the hospital. I did review previous xrays of foot and the locules of air in the soft tissue is a new findings. Patient will require admission for IV antibiotics. case reviewed with Dr. Garcia who will see patient in consult at [facility]. Request that I order a cerotec wbc scan with spec in the AM. Order placed for Dr. Garcia who will follow up with results of this Case reviewed with Dr. Wolf who accepts pt to service Critical Care Narrative Aggregate critical care time was 30 minutes. Time to perform other separately billable procedures was not included in the critical care time. My time did not include minutes spent treating any other patients simultaneously or on activities that did not directly contribute to the patient's treatment. The services I provided to this patient were to treat and/or prevent clinically significant deterioration that could result in: , decompensation, deterioration I provided critical care services requiring my management, as noted below: Chart data review, documentation time, medication orders and management, vital sign assessments/reviewing monitor data, ordering and reviewing lab tests, ordering and interpreting/reviewing x-rays and diagnostic studies, care of the patient and discussion of the patient with the admitting physicians. Physician Communication Physician Communication case reviewed with Dr. Torre, Dr. Garcia, Dr. Wolf Diagnosis Primary Impression: Abscess of left foot Additional Impressions: Cellulitis and abscess of foot Renal insufficiency Anemia Qualified Code: D64.9 - Anemia, unspecified type Admitting Information Admitting Physician Requests: Admit Sally Cuevas DO Oct 11, 2016 22:07
--- NOTE | 2016-10-11 22:33 | RADHPO ---
EXAM DATE/TIME: 10/11/2016 22:05 [facility] COMPARISON: FOOT LEFT COMPLETE ([id number]), May 25, 2016, 19:43. INDICATIONS : Left foot pain and swelling; infection since foot surgery 2 weeks ago. MEDICAL HISTORY : None. SURGICAL HISTORY : Heel fracture. ENCOUNTER: [facility] ACUITY: 2 weeks PAIN SCORE: 10/10 LOCATION: Left foot. FINDINGS: Today are multiple locules of air and soft tissue swelling over the medial posterior foot suspicious for abscess formation. There is pes planus deformity. There is a severely comminuted fracture of the calcaneus status post screw fixation. There is lateral migration of a fracture fragment of the distal calcaneus at the calcaneocuboid joint compared with May 2016. Bones are osteopenic. CONCLUSION: 1. Severely comminuted fracture of the calcaneus status post double screw fixation. Pes planus deform ity. Locules of air in the soft tissues medially suggest abscess formation. Fracture fragment of dist al calcaneus has migrated laterally at the calcaneocuboid joint. Jay Burnett MD on October 11, 2016 at 22:29 Board Certified Radiologist. This report was verified electronically.
[2016-10-11 23:27] LABS: AUTOMATED NEUTROPHIL # 5.4 TH/MM3 (1.8-7.7); BASOPHIL # 0.1 TH/MM3 (0-0.2); BASOPHIL % 0.9 % (0.0-2.0); EOSINOPHIL # 0.2 TH/MM3 (0-0.4); EOSINOPHIL % 3.1 % (0.0-4.0); HEMATOCRIT 30.8 % (35.0-46.0); LYMPH % 15.5 % (9.0-44.0); LYMPHOCYTE # 1.2 TH/MM3 (1.0-4.8); MONO % 10.5 % (0.0-8.0); PLATELET COUNT 316 TH/MM3 (150-450); RED BLOOD COUNT 4.47 MIL/MM3 (4.00-5.30); RED CELL DISTRIBUTION WIDTH 19.7 % (11.6-17.2); WHITE BLOOD COUNT 7.7 TH/MM3 (4.0-11.0)
[2016-10-11 23:33] LABS: HEMO FLAGS AUTO DIFF
[2016-10-11 23:34] LABS: POTASSIUM 4.2 MEQ/L (3.5-5.1)
[2016-10-11 23:40] LABS: APTT (PATIENT) 29.9 SEC (24.3-30.1); INTERNATIONAL NORMALIZED RATIO 1.1 RATIO; PROTHROMBIN TIME - PATIENT 11.8 SEC (9.8-11.6)
[2016-10-11] MEDS ORDERED: TRAM50TA PO (23:44)
[2016-10-11] MEDS ORDERED: FURO1TAB60 PO (23:44)
[2016-10-11] MEDS ORDERED: IBUP800T23 PO (23:44)
[2016-10-11] MEDS ORDERED: LOSA50TA PO (23:44)
[2016-10-11] MEDS ORDERED: BACT400T PO (23:44)
[2016-10-11 23:45] LABS: PLATELET ESTIMATE SMEAR NORMAL (NORMAL); PLATELET MORPHOLOGY NORMAL (NORMAL); SCAN/DIFF AUTO DIFF CONFIRMED
[2016-10-11 23:55] VITALS: BP 154/76; PULSE 91; RESP 18; O2SAT 96
[2016-10-12] VITALS (8 sets, daily range): BP systolic 123–177; BP diastolic 56–87; PULSE 69–84; RESP 16–20; TEMP 96.8–97.3; O2SAT 93–100
--- NOTE | 2016-10-12 00:25 | RADHPO ---
EXAM DATE/TIME: 10/11/2016 23:21 [facility] COMPARISON: No previous studies available for comparison. INDICATIONS : Bilateral leg swelling. MEDICAL HISTORY : Hypertension. Hypercholesterolemia. Arthritis. Diabetic neuropathy. Diabetes. SURGICAL HISTORY : Cholecystectomy.Tubal ligation. Left heel fracture surgery. ENCOUNTER: Initial ACUITY: 3 months PAIN SCORE: 2/10 LOCATION: Bilateral leg. TECHNIQUE: Venous ultrasound of the left and right leg was performed from the inguinal ligament to the proximal calf. Real-time, color Doppler and spectral tracing, compression and augmentation techniques were us ed. FINDINGS: RIGHT LEG: There is normal compressibility of the deep venous system from the inguinal region to the proximal ca lf. No echogenic clot is seen in the lumen of the common femoral, femoral, popliteal, and posterior tibial veins. There is a normal response of the venous system to proximal and distal augmentation an d respiration. LEFT LEG: There is normal compressibility of the deep venous system from the inguinal region to the proximal ca lf. No echogenic clot is seen in the lumen of the common femoral, femoral, popliteal, and posterior tibial veins. There is a normal response of the venous system to proximal and distal augmentation an d respiration. Bilateral groin adenopathy noted. The largest lymph nodes measure approximately 4 cm. Subcutaneous ed glenroy is seen involving both lower extremities. CONCLUSION: 1. No DVT. 2. Bilateral groin adenopathy. 3. Subcutaneous edema. John Mcintosh Jr., MD on October 12, 2016 at 0:21 Board Certified Radiologist. This report was verified electronically.
[2016-10-12] MEDS ORDERED: NALOXONE HCL 0.4 MG/ML AMP IV PRN (01:15)
[2016-10-12] MEDS ORDERED: SODIUM CHLORIDE 0.9% FLUSH 5 ML FLUSH IV FLUSH PRN (01:15)
[2016-10-12] MEDS ORDERED: PIPERACIL-TAZO 4.5 GM PREMIX 100 ML IV ONE (01:30)
[2016-10-12] MEDS ORDERED: Vancomycin Consult Pharmacy 1 EA OTHER SCH (01:30)
[2016-10-12] MEDS ORDERED: traMADol HCL 50 MG TAB PO PRN (01:30)
[2016-10-12] MEDS ORDERED: PIPERACIL-TAZO 4.5 GM PREMIX 100 ML IV SCH ×2 (01:30→08:00)
[2016-10-12] MEDS ORDERED: PREGABALIN 100 MG CAP PO ONE (02:30)
[2016-10-12] MEDS ORDERED: LOSARTAN 50 MG TAB PO ONE (02:30)
[2016-10-12] MEDS ORDERED: RESP: ALBUTEROL 2.5 MG/IPRATROPIUM 0.5 MG NEB (PRN) NEB (06:15)
[2016-10-12] MEDS ORDERED: SODIUM CHLORIDE 0.9% FLUSH 10 ML FLUSH IV FLUSH SCH (09:00)
[2016-10-12] MEDS ORDERED: LOSARTAN 50 MG TAB PO SCH (09:00)
[2016-10-12] MEDS: FUROSEMIDE 40 MG TAB PO SCH (10:07)
[2016-10-12] MEDS: PREGABALIN 100 MG CAP PO SCH ×3 (10:07→16:52)
[2016-10-12] MEDS: SODIUM CHLORIDE 0.9% FLUSH 5 ML FLUSH IV FLUSH SCH ×2 (10:41→21:00)
[2016-10-12] MEDS: PIPERACIL-TAZO 3.375 GM PREMIX 50 ML IV SCH ×2 (15:12→20:00)
--- NOTE | 2016-10-12 18:02 | PD.POD.CON ---
Patient Intake Chief Complaint Ulceration and infection left heel Consult Requested by Dr. Cuevas from the ER Reason for Consult Evaluation and treatment of a ulceration of the left foot Primary Care Physician Non-Staff History of Present Illness Patient is a 46-year-old diabetic female with peripheral neuropathy and a Charcot deformity of both feet. Patient had a fractured heel bone in 2014 and had placement of 2 surgical screws. She was developing a Charcot deformity of the left foot and heard inspector repairer in town post put her in a fracture brace. Patient went back to work last week and yesterday woke up with draining blood from the left heel. The ED physician thought maybe she had gas in the soft tissues. She was admitted and I ordered a [facility] labeled white blood cell scan which will be completed tomorrow. Patient smokes at least a pack of cigarettes per day. She refuses to quit smoking. Patient was transferred from [facility] to the [facility] for possible surgical management. Coded Allergies: No Known Allergies (Unverified , 10/11/16) Preferred Language to Discuss: Guinean Barriers to Learning: None Teaching Method: Discussion Vital Signs Date Time Temp Pulse Resp B/P Pulse Ox O2 Delivery O2 Flow Rate FiO2 10/12/16 16:00 97.3 19 165/77 94 10/12/16 11:40 69 16 136/66 98 Nasal Cannula 2 10/12/16 09:10 82 20 123/56 100 Nasal Cannula 2 10/12/16 07:08 16 Nasal Cannula 10/12/16 07:08 84 16 143/60 95 2 10/12/16 06:06 80 20 165/87 93 Nasal Cannula 2 10/12/16 04:00 Nasal Cannula 2 10/12/16 04:00 76 18 151/81 96 Nasal Cannula 2 10/12/16 02:04 84 18 177/73 99 Nasal Cannula 2 10/11/16 23:59 18 96 Nasal Cannula 2 10/11/16 23:55 91 18 154/76 96 Nasal Cannula 2 10/11/16 21:50 104 18 162/76 Nasal Cannula 10/11/16 21:50 104 18 96 Room Air 10/11/16 20:24 99.4 98 18 147/82 97 Pain scale used: 0-10 numeric scale Pain score: 1 Medications Current Medications Sodium Chloride 2 ml 2 ml UNSCH PRN IV FLUSH FLUSH AFTER USING IV ACCESS; Start 10/11/16 at 22:00; Stop 10/12/16 at 01:26; Status DC Vancomycin HCl/ Sodium Chloride (Vancomycin Inj/ NS 500 ml Inj) 516.5 ml @ 250 mls/hr Q12H IV Last administered on 10/11/16 23:03; Start 10/11/16 at 22:00; Stop 10/12/16 at 01:27; Status DC IV Flush (NS Flush) 2 ml UNSCH PRN IV FLUSH FLUSH AFTER USING IV ACCESS; Start 10/12/16 at 01:15 Sodium Chloride (NS Flush) 2 ml BID IV FLUSH ; Start 10/12/16 at 09:00; Stop at 10:14; Status DC Naloxone HCl 0.4 mg 0.4 mg UNSCH PRN IV SEE LABEL COMMENTS; Start 10/12/16 at 01:15 Pharmacy Profile Note 0 ml @ 0 mls/hr UNSCH OTHER ; Start 10/12/16 at 01:30 Piperacillin Sod/ Tazobactam Sod (Zosyn 4.5 Gm Premix) 100 ml @ 200 mls/hr Q6H IV ; Start 10/12/16 at 01:30; Stop 10/12/16 at 01:30; Status DC Furosemide (Lasix) 40 mg DAILY PO Last administered on 10/12/16 10:07; Start 10/12/16 at 09:00 Losartan Potassium (Cozaar) 50 mg DAILY PO Last administered on 10/12/16 10:07 ; Start 10/12/16 at 09:00 Pregabalin (Lyrica) 100 mg TID PO Last administered on 10/12/16 16:52; Start 10/12/16 at 09:00 Tramadol HCl 50 mg 50 mg Q4H PRN PO PAIN; Start 10/12/16 at 01:30 Piperacillin Sod/ Tazobactam Sod 100 ml @ 200 mls/hr NOW ONCE IV Last administered on 10/12/16 02:00; Start 10/12/16 at 01:30; Stop 10/12/16 at 01:59 ; Status DC Piperacillin Sod/ Tazobactam Sod (Zosyn 4.5 Gm Premix) 100 ml @ 200 mls/hr Q6H IV Last administered on 10/12/16 08:12; Start 10/12/16 at 08:00; Stop at 09:17; Status DC Losartan Potassium (Cozaar) 50 mg ONCE ONCE PO Last administered on 10/12/16 02:50; Start 10/12/16 at 02:30; Stop 10/12/16 at 02:31; Status DC Pregabalin (Lyrica) 100 mg ONCE ONCE PO Last administered on 10/12/16 02:49; Start 10/12/16 at 02:30; Stop 10/12/16 at 02:31; Status DC Albuterol/ Ipratropium 1 ampule 1 ampule Q4HR NEB PRN NEB wheezing; Start 10/12 at 06:15 Piperacillin Sod/ Tazobactam Sod (Zosyn 3.375 Gm Premix) 50 ml @ 200 mls/hr Q6H IV Last administered on 10/12/16 15:12; Start 10/12/16 at 14:00 IV Flush 2 ml 2 ml BID IV FLUSH Last administered on 10/12/16 10:41; Start at 10:30 Vancomycin HCl/ Sodium Chloride (Vancomycin Inj/ NS 500 ml Inj) 518 ml @ 250 mls/hr Q36H IV ; Start 10/13/16 at 11:00 Miscellaneous Information SPECIFIC LAB TO BE DRAWN:VANCOMY... ONCE ONCE XX ; Start 10/17/16 at 22:45; Stop 10/17/16 at 22:46 Past, Family & Social History Past Medical History Endocrine: REPORTS HX OF: Diabetes mellitus Neurologic: REPORTS HX OF: Peripheral neuropathy Review of Systems Cardiovascular: COMPLAINS OF: Swelling legs / ankles Musculoskeletal: COMPLAINS OF: Deformaties Neurological: COMPLAINS OF: Numbness/tingling, Changes in sensation, Difficulty with balance Exam-Podiatry Constitutional General appearance: comfortable Nutritional status: overweight Orientation: alert and oriented x3 Dermatological Exam Skin Temp - Right: Within Normal Limits Skin Texture - Right: Within Normal Limits Skin Elasticity - Right: Within Normal Limits Skin Tugor - Right: Within Normal Limits Hair Growth - Right: Within Normal Limits Pigmentation - Right: Within Normal Limits Skin Temp - Left: Within Normal Limits Skin Texture - Left: Within Normal Limits Skin Elasticity - Left: Within Normal Limits Skin Tugor - Left: Within Normal Limits Hair Growth - Left: Within Normal Limits Pigmentation - Left: Within Normal Limits Ulcers: Location/Measurements There is an ulceration on the plantar aspect of the left heel which measures 2 mm x 2 mm x 7 cm deep. No areas of fluctuance. No gas expressed with probing. Bloody drainage from the wound is noted. Vascular/Lymphatic Exam R Dorsails Pedis: Palpable L Dorsails Pedis: Palpable R Posterior Tibial: Palpable L Posterior Tibial: Palpable Neurologic Exam Present on right: Tingling, Paraesthesia Present on left: Tingling, Paraesthesia Sensation: Light touch: Dimished Pinprick: Dimished Proprioception: Dimished Vibratory: Dimished Monofilament exam: 1st metatarsal head: absent 5th metatarsal head: absent Great toe: absent Musculoskeletal Exam Details Charcot deformities bilaterally with midfoot breakdown. Muscle Strength Dorsiflexion (Right): Atrophy Plantarflexion (Right): Atrophy Inversion (Right): Atrophy Eversion (Right): Atrophy Digital (Right): Atrophy Dorsiflexion (Left): Atrophy Plantarflexion (Left): Atrophy Inversion (Left): Atrophy Eversion (Left): Atrophy Digital (Left): Atrophy Foot Range of Motion Dorsiflexion (Right): Limited Plantarflexion (Right): Limited Inversion (Right): Limited Eversion (Right): Limited Digital (Right): Limited Dorsiflexion (Left): Limited Plantarflexion (Left): Limited Inversion (Left): Limited Eversion (Left): Limited Digital (Left): Limited Lab and Radiology Results Laboratory Laboratory Tests Test 10/11/16 22:42 White Blood Count 7.7 TH/MM3 Red Blood Count 4.47 MIL/MM3 Hemoglobin 9.9 GM/DL Hematocrit 30.8 % Mean Corpuscular Volume 69.0 FL Mean Corpuscular Hemoglobin 22.0 PG Mean Corpuscular Hemoglobin 32.0 % Concent Red Cell Distribution Width 19.7 % Platelet Count 316 TH/MM3 Mean Platelet Volume 8.5 FL Neutrophils (%) (Auto) 70.0 % Lymphocytes (%) (Auto) 15.5 % Monocytes (%) (Auto) 10.5 % Eosinophils (%) (Auto) 3.1 % Basophils (%) (Auto) 0.9 % Neutrophils # (Auto) 5.4 TH/MM3 Lymphocytes # (Auto) 1.2 TH/MM3 Monocytes # (Auto) 0.8 TH/MM3 Eosinophils # (Auto) 0.2 TH/MM3 Basophils # (Auto) 0.1 TH/MM3 CBC Comment AUTO DIFF Differential Comment AUTO DIFF CONFIRMED Platelet Estimate NORMAL Platelet Morphology Comment NORMAL Laboratory Tests Test 10/11/16 22:42 Sodium Level 138 MEQ/L Potassium Level 4.2 MEQ/L Chloride Level 100 MEQ/L Carbon Dioxide Level 32.0 MEQ/L Anion Gap 6 MEQ/L Blood Urea Nitrogen 33 MG/DL Creatinine 2.10 MG/DL Estimat Glomerular Filtration 25 ML/MIN Rate Random Glucose 180 MG/DL Calcium Level 8.2 MG/DL Microbiology Date/Time Procedure Status Source Growth 10/11/16 22:42 Aerobic Blood Culture - Preliminary Resulted Blood Peripheral NO GROWTH IN 1 DAY 10/11/16 22:42 Anaerobic Blood Culture - Preliminary Resulted Blood Peripheral NO GROWTH IN 1 DAY 10/11/16 22:47 Aerobic Blood Culture - Preliminary Resulted Blood Peripheral NO GROWTH IN 1 DAY 10/11/16 22:47 Anaerobic Blood Culture - Preliminary Resulted Blood Peripheral NO GROWTH IN 1 DAY Radiology Last Impressions Lower Extremity Ultrasound 10/11/16 0000 Signed Impressions: Service Date/Time: September 23:21 - CONCLUSION: 1. No DVT. 2. Bilateral groin adenopathy. 3. Subcutaneous edema. John Mcintosh Jr., MD Foot X-Ray 10/11/16 0000 Signed Impressions: Service Date/Time: September 22:05 - CONCLUSION: 1. Severely comminuted fracture of the calcaneus status post double screw fixation. Pes planus deformity. Locules of air in the soft tissues medially suggest abscess formation. Fracture fragment of distal calcaneus has migrated laterally at the calcaneocuboid joint. Jay Burnett MD Assessment/Plan Problem List: (1) Pathologic calcaneal fracture Status: Chronic (2) Diabetes Status: Acute (3) Cellulitis and abscess of foot Status: Acute (4) Abscess of left foot Status: Acute Additional Plans & Procedures PLAN[facility] If there is no osteomyelitis patient will require I&D of abscess. If the bone is infected she more than likely will need a below-knee amputation. More than likely amputation is the end result was nonfunctional Charcot foot. Discussed with patient. Discussed that her smoking as well as excessive ambulation weightbearing has led her to this point. We'll follow. Problem Qualifiers (1) Pathologic calcaneal fracture: Qualified Code: M84.475A - Pathologic calcaneal fracture, left, initial encounter (2) Diabetes: Qualified Code: E11.42 - Type 2 diabetes mellitus with diabetic polyneuropathy , with long-term current use of insulin Gavin Garcia DPM Oct 12, 2016 18:02
--- NOTE | 2016-10-12 18:44 | HHI.HP ---
HPI Service [facility] Primary Care Physician Non-Staff Admission Diagnosis Foot cellulitis with abscess formation Diagnoses: Chief Complaint: Left foot abscess, bleeding Travel History International Travel<30 Days: No Contact w/Intl Traveler <30 Da: No Traveled to Known Affected Are: No History of Present Illness Ms. Perkins is a 46 year old female with a history of diabetes and fractured left heel who presented to the ED due to infection and bleeding from left foot. She underwent surgical intervention with 2 surgical screw placement back in 2014. She noticed increased pain, swelling and went to her new fleece tier Dr. Torre about two weeks prior to this admission. She was given Bactrim and Augmentin and was advised to use cam boot. Today, patient noticed significant amount of blood from her left heel after she came home from work. Patient's fleece tier advised patient to come to the ED. Patient denies any fever , chills, chest pain, shortness of breath. No changes in bowel or bladder habits. Review of Systems ROS Limitations: Other (Negative except as noted in the HPI. ) Past Family Social History Past Medical History Hypertension Diabetes mellitus Diabetic neuropathy Arthritis Past Surgical History Cholecystectomy Tubal ligation Reported Medications Ibuprofen 800 Mg Tab 800 Mg PO DAILY Lasix (Furosemide) 40 Mg Tab 40 Mg PO DAILY Bactrim (Sulfamethoxazole-Trimethoprim) 400-80 Mg Tab 1 Tab PO DAILY Tramadol (Tramadol HCl) 50 Mg Tab 50 Mg PO Q4H PRN Losartan (Losartan Potassium) 50 Mg Tab 50 Mg PO DAILY [Cholesterol Pill] Lyrica (Pregabalin) 100 Mg Cap 100 Mg PO TID Lantus Inj (Insulin Glargine) 1,000 Unit/10 Ml Vial 40 Units SQ HS Allergies: Coded Allergies: No Known Allergies (Unverified , 10/11/16) Family History Family history significant for stroke, DM, HTN Social History Smokes 1 ppd, does not drink alcohol or use illicit drugs. Physical Exam Vital Signs Vital Signs Date Time Temp Pulse Resp B/P Pulse Ox O2 Delivery O2 Flow Rate FiO2 10/12/16 16:00 97.3 19 165/77 94 10/12/16 11:40 69 16 136/66 98 Nasal Cannula 2 10/12/16 09:10 82 20 123/56 100 Nasal Cannula 2 10/12/16 07:08 16 Nasal Cannula 10/12/16 07:08 84 16 143/60 95 2 10/12/16 06:06 80 20 165/87 93 Nasal Cannula 2 10/12/16 04:00 Nasal Cannula 2 10/12/16 04:00 76 18 151/81 96 Nasal Cannula 2 10/12/16 02:04 84 18 177/73 99 Nasal Cannula 2 10/11/16 23:59 18 96 Nasal Cannula 2 10/11/16 23:55 91 18 154/76 96 Nasal Cannula 2 10/11/16 21:50 104 18 162/76 Nasal Cannula 10/11/16 21:50 104 18 96 Room Air 10/11/16 20:24 99.4 98 18 147/82 97 Physical Exam GENERAL: This is a well-nourished, well-developed patient, in no apparent distress. SKIN: No rashes, ecchymoses or lesions. Warm and dry. HEAD: Atraumatic. Normocephalic. No temporal or scalp tenderness. EYES: Pupils equal round and reactive. No injection or drainage. ENT: Nose without bleeding, purulent drainage or septal hematoma. Airway patent. NECK: Trachea midline. No lymphadenopathy. Supple, nontender, no meningeal signs. CARDIOVASCULAR: Regular rate and rhythm without murmurs, gallops, or rubs. No JVD. RESPIRATORY: Clear to auscultation. Breath sounds equal bilaterally. No wheezes , rales, or rhonchi. GASTROINTESTINAL: Abdomen soft, non-tender, nondistended. No guarding. MUSCULOSKELETAL: Extremities without clubbing, cyanosis, or edema. Left heel is wrapped soaked in blood. NEUROLOGICAL: Awake and alert. Cranial nerves II through XII intact. No focal neurological deficits. Normal speech. Laboratory Laboratory Tests Test 10/11/16 22:42 White Blood Count 7.7 Red Blood Count 4.47 Hemoglobin 9.9 Hematocrit 30.8 Mean Corpuscular Volume 69.0 Mean Corpuscular Hemoglobin 22.0 Mean Corpuscular Hemoglobin 32.0 Concent Red Cell Distribution Width 19.7 Platelet Count 316 Mean Platelet Volume 8.5 Neutrophils (%) (Auto) 70.0 Lymphocytes (%) (Auto) 15.5 Monocytes (%) (Auto) 10.5 Eosinophils (%) (Auto) 3.1 Basophils (%) (Auto) 0.9 Neutrophils # (Auto) 5.4 Lymphocytes # (Auto) 1.2 Monocytes # (Auto) 0.8 Eosinophils # (Auto) 0.2 Basophils # (Auto) 0.1 CBC Comment AUTO DIFF Differential Comment AUTO DIFF CONFIRMED Platelet Estimate NORMAL Platelet Morphology Comment NORMAL Prothrombin Time 11.8 Prothromb Time International 1.1 Ratio Activated Partial 29.9 Thromboplast Time Sodium Level 138 Potassium Level 4.2 Chloride Level 100 Carbon Dioxide Level 32.0 Anion Gap 6 Blood Urea Nitrogen 33 Creatinine 2.10 Estimat Glomerular Filtration 25 Rate Random Glucose 180 Calcium Level 8.2 Date/Time Procedure Status Source Growth 10/11/16 22:47 Aerobic Blood Culture - Preliminary Resulted Blood Peripheral NO GROWTH IN 1 DAY 10/11/16 22:47 Anaerobic Blood Culture - Preliminary Resulted Blood Peripheral NO GROWTH IN 1 DAY Result Diagram: 10/11/162 10/11/16 2242 Imaging Last Impressions Chest X-Ray 10/12/16 0000 Signed Impressions: Service Date/Time: Wednesday, October 12, 2016 20:08 - CONCLUSION: No acute disease. Burak Sibley MD Lower Extremity Ultrasound 10/11/16 0000 Signed Impressions: Service Date/Time: September 23:21 - CONCLUSION: 1. No DVT. 2. Bilateral groin adenopathy. 3. Subcutaneous edema. John Mcintosh Jr., MD Foot X-Ray 10/11/16 0000 Signed Impressions: Service Date/Time: September 22:05 - CONCLUSION: 1. Severely comminuted fracture of the calcaneus status post double screw fixation. Pes planus deformity. Locules of air in the soft tissues medially suggest abscess formation. Fracture fragment of distal calcaneus has migrated laterally at the calcaneocuboid joint. Jay Burnett MD Assessment and Plan Problem List: (1) Abscess of left foot ICD Code: L02.612 Status: Acute (2) DM (diabetes mellitus) ICD Code: E11.9 Status: Acute (3) Hypertension ICD Code: I10 Status: Acute (4) CELSO (acute kidney injury) ICD Code: N17.9 Status: Acute Assessment and Plan Ms. Perkins is a 46 year old female with a history of DM, HTN and previous left heel surgery who presents to the ED with left heel pain, bleeding. - Left heel abscess - Diabetic foot infection - Podiatry following. WBC scan pending. - Continue Vancomycin and Zosyn IV. - Foot x-ray reviewed by me shows calcaneus fracture, soft tissue infection. - Tramadol for pain. - Diabetes mellitus - Diabetic neuropathy - Blood glucose 180 on admission. Last two blood glucose 131, 94. - Will start patient on sliding scale insulin. May need long acting coverage with Levemir. - Hypertension - Hold Losartan for now due to acute on chronic kidney disease. - Start patient on Amlodipine 10mg Qday. - Acute kidney injury - CKD Stage 3 - Monitor BUN, creatinine. - Will hold Losartan for now. Full code. SCDs. Physician Certification 2 Midnight Certification Type: Admission for Inpatient Services Order for Inpatient Services The services are ordered in accordance with Medicare regulations or non- Medicare payer requirements, as applicable. In the case of services not specified as inpatient-only, they are appropriately provided as inpatient services in accordance with the 2-midnight benchmark. Estimated LOS (days): 2 days is the estimated time the patient will need to remain in the hospital, assuming treatment plan goals are met and no additional complications. Post-Hospital Plan: Home Sriram Oh DO Oct 12, 2016 18:44
--- NOTE | 2016-10-12 22:00 | RADRPT ---
EXAM DATE/TIME: 10/12/2016 20:08 [facility] COMPARISON: CHEST SINGLE AP, August 11, 2016, 18:49. INDICATIONS : Evaluate for pneumonia, pneumothorax, or communicable disease. Pre-op foot surgery MEDICAL HISTORY : None. SURGICAL HISTORY : None. ENCOUNTER: Initial ACUITY: 1 day PAIN SCORE: 0/10 LOCATION: Bilateral chest FINDINGS: PA and lateral views of the chest demonstrate the lungs to be symmetrically aerated without evidence of mass, infiltrate or effusion. The cardiomediastinal contours are unremarkable. Osseous structure s are intact. CONCLUSION: No acute disease. Burak Sibley MD on October 12, 2016 at 21:57 Board Certified Radiologist. This report was verified electronically.
[2016-10-12] MEDS ORDERED: DEXTROSE 50% IN WATER 50 ML VIAL(D50) IV PUSH PRN (23:45)
[2016-10-12] MEDS ORDERED: GLUCAGON 1 MG/ML VIAL OTHER PRN (23:45)
[2016-10-13 00:09] VITALS: BP 169/88; PULSE 80; RESP 18; TEMP 98.6; O2SAT 98
[2016-10-13] MEDS: PIPERACIL-TAZO 3.375 GM PREMIX 50 ML IV SCH ×4 (03:22→21:12)
[2016-10-13 04:32] LABS: AUTOMATED NEUTROPHIL # 3.4 TH/MM3 (1.8-7.7); BASOPHIL # 0.1 TH/MM3 (0-0.2); EOSINOPHIL # 0.2 TH/MM3 (0-0.4); EOSINOPHIL % 4.8 % (0.0-4.0); HEMATOCRIT 30.5 % (35.0-46.0); LYMPH % 18.9 % (9.0-44.0); MEAN CELL VOLUME 69.9 FL (80.0-100.0); MEAN CORPUSCULAR HEMOGLOBIN 21.4 PG (27.0-34.0); MEAN CORPUSCULAR HGB CONC 30.6 % (32.0-36.0); NEUT % 65.3 % (16.0-70.0); PLATELET COUNT 246 TH/MM3 (150-450); RED BLOOD COUNT 4.36 MIL/MM3 (4.00-5.30); RED CELL DISTRIBUTION WIDTH 20.2 % (11.6-17.2); WHITE BLOOD COUNT 5.1 TH/MM3 (4.0-11.0)
[2016-10-13 04:39] LABS: HEMO FLAGS AUTO DIFF
[2016-10-13 04:55] LABS: POTASSIUM 4.6 MEQ/L (3.5-5.1)
[2016-10-13] MEDS: INSULIN ASPART SUPPLEMENTAL SCALE SQ SCH ×4 (05:16→21:20)
[2016-10-13 05:31] LABS: OVALOCYTES 1+ (NORMAL)
[2016-10-13 05:32] LABS: SCAN/DIFF AUTO DIFF CONFIRMED
[2016-10-13 08:00] VITALS: BP 168/78; PULSE 88; RESP 18; TEMP 98.5; O2SAT 92
--- NOTE | 2016-10-13 08:41 | HHI.PR ---
Subjective Remarks Follow up for left heel infection. Patient is doing well. She requested nicotine patch but still feels very agitated. No fever, chills. Objective Vitals Vital Signs Date Time Temp Pulse Resp B/P Pulse Ox O2 Delivery O2 Flow Rate FiO2 10/13/16 00:09 98.6 80 18 169/88 98 10/12/16 20:33 96.8 80 18 164/79 95 10/12/16 16:00 97.3 19 165/77 94 10/12/16 11:40 69 16 136/66 98 Nasal Cannula 2 10/12/16 09:10 82 20 123/56 100 Nasal Cannula 2 I/O 10/12/16 10/12/16 10/12/16 10/13/16 10/13/16 10/13/16 07:00 15:00 23:00 07:00 15:00 23:00 Intake Total 588 ml 480 ml Balance 588 ml 480 ml Intake Oral 480 ml 480 ml IV Total 108 ml # Voids 2 3 Result Diagram: 10/13/16 0354 10/13/16 0354 Imaging Last Impressions Tumor Localization 10/12/16 0000 Signed Impressions: Service Date/Time: Wednesday, October 12, 2016 15:28 - CONCLUSION: 1. White cell accumulation within the soft tissues just above the left medial ankle. No definite localization to bone evident. Eric Winkler MD Chest X-Ray 10/12/16 0000 Signed Impressions: Service Date/Time: Wednesday, October 12, 2016 20:08 - CONCLUSION: No acute disease. Burak Sibley MD Lower Extremity Ultrasound 10/11/16 0000 Signed Impressions: Service Date/Time: September 23:21 - CONCLUSION: 1. No DVT. 2. Bilateral groin adenopathy. 3. Subcutaneous edema. John Mcintosh Jr., MD Foot X-Ray 10/11/16 0000 Signed Impressions: Service Date/Time: September 22:05 - CONCLUSION: 1. Severely comminuted fracture of the calcaneus status post double screw fixation. Pes planus deformity. Locules of air in the soft tissues medially suggest abscess formation. Fracture fragment of distal calcaneus has migrated laterally at the calcaneocuboid joint. Jay Burnett MD Objective Remarks GENERAL: Alert, oriented x 3, NAD. SKIN: Warm and dry. HEAD: Normocephalic. EYES: No scleral icterus. No injection or drainage. NECK: Supple, trachea midline. No JVD or lymphadenopathy. CARDIOVASCULAR: Regular rate and rhythm without murmurs, gallops, or rubs. RESPIRATORY: Breath sounds equal bilaterally. No accessory muscle use. GASTROINTESTINAL: Abdomen soft, non-tender, nondistended. MUSCULOSKELETAL: No cyanosis, or edema. Left heel is wrapped - has some drainage. BACK: Nontender without obvious deformity. No CVA tenderness. Procedures None. A/P Problem List: (1) Abscess of left foot ICD Code: L02.612 Status: Acute (2) DM (diabetes mellitus) ICD Code: E11.9 Status: Chronic (3) Hypertension ICD Code: I10 Status: Acute (4) CELSO (acute kidney injury) ICD Code: N17.9 Status: Acute Assessment and Plan Ms. Perkins is a 46 year old female with a history of DM, HTN and previous left heel surgery who presents to the ED with left heel pain, bleeding. - Left heel abscess - Diabetic foot infection - Podiatry following. WBC scan shows no bone involvement. Discussed with Dr. Garcia who will go over the plan with pt. Amputation is not planned at this point. - Continue Vancomycin and Zosyn IV. - Foot x-ray reviewed by me shows calcaneus fracture, soft tissue infection. - Tramadol for pain. - Diabetes mellitus - Diabetic neuropathy - Blood glucose 180 on admission. Blood glucose slightly over 200. - Continue sliding scale and start Levemir 10 units QHS. - Hypertension - Hold Losartan for now due to acute on chronic kidney disease. - Start patient on Amlodipine 10mg Qday. - Acute kidney injury - CKD Stage 3 - Monitor BUN, creatinine. - Will hold Losartan for now. - CBC, BMP in the AM. Full code. SCDs. Problem Qualifiers (1) DM (diabetes mellitus): Qualified Code: E11.42 - Type 2 diabetes mellitus with diabetic polyneuropathy , without long-term current use of insulin Sriram Oh DO Oct 13, 2016 8:41 am
[2016-10-13] MEDS: SODIUM CHLORIDE 0.9% FLUSH 5 ML FLUSH IV FLUSH SCH ×2 (09:00→21:12)
[2016-10-13] MEDS: FUROSEMIDE 40 MG TAB PO SCH (09:17)
[2016-10-13] MEDS: PREGABALIN 100 MG CAP PO SCH ×3 (09:17→18:00)
[2016-10-13] MEDS: NICOTINE 14 MG/24 HR PATCH TD SCH (09:55)
[2016-10-13 12:00] VITALS: BP 169/77; PULSE 89; RESP 18; TEMP 98.5; O2SAT 94
[2016-10-13] MEDS: VANCOMYCIN INJ 1,800 MG in SODIUM CHLORID 0.9% 500 ML INJ 500 ML IV SCH (12:38)
--- NOTE | 2016-10-13 13:06 | RADHPO ---
EXAM DATE/TIME: 10/12/2016 15:28 [facility] COMPARISON: No previous studies available for comparison. INDICATIONS : Left foot abscess for 2 weeks. DOSE: 20.1 mCi Tc99m Ceretec labeled white blood cells IV SPECT IMAGIN hrs, 20 hrs IMAGNG: SPECT/CT imaging with fusion was performed. RADIATION DOSE: 5.53 CTDIvol (mGy) MEDICAL HISTORY : Hypercholesterolemia. Hypertension. Diabetes mellitus type 2. Anemia. SURGICAL HISTORY : Left foot. ENCOUNTER: Initial ACUITY: 2 weeks PAIN SCALE: 2/10 LOCATION: Left Foot. TECHNIQUE: Following the in vitro labeling of autologous white cells and reinjection, whole body scan was perfor med at the specified times. SPECT imaging was performed at the specified time in sagittal, axial and coronal planes. Attenuation correction was performed with the computed tomography and both the atten uation correction and non-attenuation corrected data sets were reviewed. FINDINGS: The examination demonstrates increased tracer accumulation within the medial aspect of the left dista l calf and ankle corresponding to the underlying gas seen on the patient's CT portion of the images. I do not see evidence of localization to bone to indicate osteomyelitis at this time. There are destr uctive changes about the ankle. CONCLUSION: 1. White cell accumulation within the soft tissues just above the left medial ankle. No definite loca lization to bone evident. Eric Winkler MD on October 13, 2016 at 12:59 Board Certified Radiologist. This report was verified electronically.
[2016-10-13 16:00] VITALS: BP 161/72; PULSE 83; RESP 18; TEMP 97.3; O2SAT 96
--- NOTE | 2016-10-13 17:21 | EKG ---
Date Performed: 10/12/2016 Time Performed: 20:46:59 PTAGE: 46 years EKG: Sinus rhythm NONSPECIFIC T-WAVE ABNORMALITY T wave flattening new from the prior tracing BORDERLINE ECG PREVIOUS TRACING : 09/15/2016 16.11 DOCTOR: Charles Rivas Interpretating Date/Time 10/13/2016 17:20:47
[2016-10-13 20:00] VITALS: BP 147/65; PULSE 79; RESP 18; TEMP 97.9; O2SAT 97
[2016-10-13] MEDS: REMOVE OLD NICODERM (NICOTINE) PATCH TD SCH (21:00)
[2016-10-13] MEDS: clonazePAM 0.5 MG TAB PO SCH (21:12)
[2016-10-14] MEDS: PIPERACIL-TAZO 3.375 GM PREMIX 50 ML IV SCH ×4 (02:56→20:16)
[2016-10-14] MEDS: INSULIN ASPART SUPPLEMENTAL SCALE SQ SCH ×4 (05:22→20:24)
[2016-10-14 08:00] VITALS: BP 165/76; PULSE 83; RESP 18; TEMP 98.9; O2SAT 90
[2016-10-14] MEDS: clonazePAM 0.5 MG TAB PO SCH ×2 (08:27→20:15)
[2016-10-14] MEDS: FUROSEMIDE 40 MG TAB PO SCH (08:28)
[2016-10-14] MEDS: NICOTINE 14 MG/24 HR PATCH TD SCH (08:28)
[2016-10-14] MEDS: PREGABALIN 100 MG CAP PO SCH ×3 (08:28→17:18)
[2016-10-14] MEDS: SODIUM CHLORIDE 0.9% FLUSH 5 ML FLUSH IV FLUSH SCH ×2 (09:00→20:16)
--- NOTE | 2016-10-14 10:48 | PD.POD ---
Subjective Podiatric Problems 46-year-old diabetic female with Charcot feet bilaterally. She has an old calcaneal fracture with screws that are not holding the fracture pieces. Patient has a tobacco abuse history which likely led to her nonunion. She's also been ambulating against instructions with the fracture brace at work. She presented to [place] for possible foot infection. She has been afebrile and her white count has been normal. She underwent a [facility] labeled white blood cell scan yesterday which was negative for osteomyelitis. She has small pockets of air and all her soft tissues. I had probed the area and it does not appear to be gas gangrene. Pain scale used: 0-10 numeric scale Pain score: 1 Past Med/Surg/Social History Past Medical History Endocrine: REPORTS HX OF: Diabetes mellitus Neurologic: REPORTS HX OF: Peripheral neuropathy Social History Smoking Status: Current Every Day Smoker Review of Systems Musculoskeletal: COMPLAINS OF: Deformaties Neurological: COMPLAINS OF: Numbness/tingling, Changes in sensation Objective Vital Signs Vital Signs Date Time Temp Pulse Resp B/P Pulse Ox O2 Delivery O2 Flow Rate FiO2 10/14/16 08:00 98.9 83 18 165/76 90 10/13/16 20:00 97.9 79 18 147/65 97 10/13/16 16:00 97.3 83 18 161/72 96 10/13/16 12:00 98.5 89 18 169/77 94 Coded Allergies: No Known Allergies (Unverified , 10/11/16) Medications and IVs Current Medications Sodium Chloride 2 ml 2 ml UNSCH PRN IV FLUSH FLUSH AFTER USING IV ACCESS; Start 10/11/16 at 22:00; Stop 10/12/16 at 01:26; Status DC Vancomycin HCl/ Sodium Chloride (Vancomycin Inj/ NS 500 ml Inj) 516.5 ml @ 250 mls/hr Q12H IV Last administered on 10/11/16t 23:03; Start 10/11/16 at 22:00; Stop 10/12/16 at 01:27; Status DC IV Flush (NS Flush) 2 ml UNSCH PRN IV FLUSH FLUSH AFTER USING IV ACCESS; Start 10/12/16 at 01:15 Sodium Chloride (NS Flush) 2 ml BID IV FLUSH ; Start 10/12/16 at 09:00; Stop at 10:14; Status DC Naloxone HCl 0.4 mg 0.4 mg UNSCH PRN IV SEE LABEL COMMENTS; Start 10/12/16 at 01:15 Pharmacy Profile Note 0 ml @ 0 mls/hr UNSCH OTHER ; Start 10/12/16 at 01:30 Piperacillin Sod/ Tazobactam Sod (Zosyn 4.5 Gm Premix) 100 ml @ 200 mls/hr Q6H IV ; Start 10/12/16 at 01:30; Stop 10/12/16 at 01:30; Status DC Furosemide (Lasix) 40 mg DAILY PO Last administered on 10/13/16 09:17; Start 10/12/16 at 09:00 Losartan Potassium (Cozaar) 50 mg DAILY PO Last administered on 10/12/16 10:07 ; Start 10/12/16 at 09:00; Status Hold Pregabalin (Lyrica) 100 mg TID PO Last administered on 10/14/16 08:28; Start 10/12/16 at 09:00 Tramadol HCl 50 mg 50 mg Q4H PRN PO PAIN Last administered on 10/12/16 21:22; Start 10/12/16 at 01:30; Stop 10/13/16 at 09:21; Status DC Piperacillin Sod/ Tazobactam Sod 100 ml @ 200 mls/hr NOW ONCE IV Last administered on 10/12/16 02:00; Start 10/12/16 at 01:30; Stop 10/12/16 at 01:59 ; Status DC Piperacillin Sod/ Tazobactam Sod (Zosyn 4.5 Gm Premix) 100 ml @ 200 mls/hr Q6H IV Last administered on 10/12/16 08:12; Start 10/12/16 at 08:00; Stop at 09:17; Status DC Losartan Potassium (Cozaar) 50 mg ONCE ONCE PO Last administered on 10/12/16 02:50; Start 10/12/16 at 02:30; Stop 10/12/16 at 02:31; Status DC Pregabalin (Lyrica) 100 mg ONCE ONCE PO Last administered on 10/12/16 02:49; Start 10/12/16 at 02:30; Stop 10/12/16 at 02:31; Status DC Albuterol/ Ipratropium 1 ampule 1 ampule Q4HR NEB PRN NEB wheezing; Start 10/12 at 06:15 Piperacillin Sod/ Tazobactam Sod (Zosyn 3.375 Gm Premix) 50 ml @ 200 mls/hr Q6H IV Last administered on 10/14/16 08:27; Start 10/12/16 at 14:00 IV Flush 2 ml 2 ml BID IV FLUSH Last administered on 10/13/16 21:12; Start at 10:30 Vancomycin HCl/ Sodium Chloride (Vancomycin Inj/ NS 500 ml Inj) 518 ml @ 250 mls/hr Q36H IV Last administered on 10/13/16 12:38; Start 10/13/16 at 11:00 Miscellaneous Information SPECIFIC LAB TO BE DRAWN:VANCOMY... ONCE ONCE XX ; Start 10/17/16 at 22:45; Stop 10/17/16 at 22:46 Amlodipine Besylate (Norvasc) 10 mg DAILY PO Last administered on 10/14/16 08: 27; Start 10/13/16 at 09:00 Dextrose (D50w (Vial) Inj) 25 ml UNSCH PRN IV PUSH HYPOGLYCEMIA-SEE COMMENTS; Start 10/12/16 at 23:45 Glucagon (Glucagon Inj) 1 mg UNSCH PRN OTHER HYPOGLYCEMIA-SEE COMMENTS; Start 10/12/16 at 23:45 Insulin Aspart (NovoLOG SUPPLEMENTAL SCALE) 1 ACHS SLIDING SCALE SQ Last administered on 10/13/16 21:20; Start 10/13/16 at 07:00 Nicotine (Habitrol 14 Mg Patch.24 Hr) 1 patch DAILY TD Last administered on 08:28; Start 10/13/16 at 10:00 Miscellaneous Information 1 HS TD ; Start 10/13/16 at 21:00 Clonazepam (KlonoPIN) 0.5 mg Q12HR PO Last administered on 10/14/16 08:27; Start 10/13/16 at 21:00 Other Results Laboratory Tests Test 10/13/16 03:54 White Blood Count 5.1 TH/MM3 Red Blood Count 4.36 MIL/MM3 Hemoglobin 9.3 GM/DL Hematocrit 30.5 % Mean Corpuscular Volume 69.9 FL Mean Corpuscular Hemoglobin 21.4 PG Mean Corpuscular Hemoglobin 30.6 % Concent Red Cell Distribution Width 20.2 % Platelet Count 246 TH/MM3 Mean Platelet Volume 8.1 FL Neutrophils (%) (Auto) 65.3 % Lymphocytes (%) (Auto) 18.9 % Monocytes (%) (Auto) 10.0 % Eosinophils (%) (Auto) 4.8 % Basophils (%) (Auto) 1.0 % Neutrophils # (Auto) 3.4 TH/MM3 Lymphocytes # (Auto) 1.0 TH/MM3 Monocytes # (Auto) 0.5 TH/MM3 Eosinophils # (Auto) 0.2 TH/MM3 Basophils # (Auto) 0.1 TH/MM3 CBC Comment AUTO DIFF Differential Comment AUTO DIFF CONFIRMED Ovalocytes 1+ Laboratory Tests Test 10/13/16 03:54 Sodium Level 139 MEQ/L Potassium Level 4.6 MEQ/L Chloride Level 103 MEQ/L Carbon Dioxide Level 32.0 MEQ/L Anion Gap 4 MEQ/L Blood Urea Nitrogen 27 MG/DL Creatinine 1.83 MG/DL Estimat Glomerular Filtration 29 ML/MIN Rate Random Glucose 117 MG/DL Calcium Level 8.4 MG/DL Microbiology Date/Time Procedure Status Source Growth 10/11/16 22:42 Aerobic Blood Culture - Preliminary Resulted Blood Peripheral NO GROWTH IN 2 DAYS 10/11/16 22:42 Anaerobic Blood Culture - Preliminary Resulted Blood Peripheral NO GROWTH IN 2 DAYS 10/11/16 22:47 Aerobic Blood Culture - Preliminary Resulted Blood Peripheral NO GROWTH IN 2 DAYS 10/11/16 22:47 Anaerobic Blood Culture - Preliminary Resulted Blood Peripheral NO GROWTH IN 2 DAYS Objective Remarks Last Impressions Tumor Localization 10/12/16 0000 Signed Impressions: Service Date/Time: Wednesday, October 12, 2016 15:28 - CONCLUSION: 1. White cell accumulation within the soft tissues just above the left medial ankle. No definite localization to bone evident. Eric Winkler MD Chest X-Ray 10/12/16 0000 Signed Impressions: Service Date/Time: Wednesday, October 12, 2016 20:08 - CONCLUSION: No acute disease. Burak Sibley MD Lower Extremity Ultrasound 10/11/16 0000 Signed Impressions: Service Date/Time: September 23:21 - CONCLUSION: 1. No DVT. 2. Bilateral groin adenopathy. 3. Subcutaneous edema. John Mcintosh Jr., MD Foot X-Ray 10/11/16 0000 Signed Impressions: Service Date/Time: September 22:05 - CONCLUSION: 1. Severely comminuted fracture of the calcaneus status post double screw fixation. Pes planus deformity. Locules of air in the soft tissues medially suggest abscess formation. Fracture fragment of distal calcaneus has migrated laterally at the calcaneocuboid joint. Jay Burnett MD Exam-Podiatry Constitutional General appearance: comfortable Nutritional status: overweight Orientation: alert and oriented x3 Dermatological Exam Skin Temp - Right: Within Normal Limits Skin Texture - Right: Within Normal Limits Skin Elasticity - Right: Within Normal Limits Skin Tugor - Right: Within Normal Limits Hair Growth - Right: Within Normal Limits Pigmentation - Right: Within Normal Limits Skin Temp - Left: Within Normal Limits Skin Texture - Left: Within Normal Limits Skin Elasticity - Left: Within Normal Limits Skin Tugor - Left: Within Normal Limits Hair Growth - Left: Within Normal Limits Pigmentation - Left: Within Normal Limits Vascular/Lymphatic Exam R Dorsails Pedis: Doppler L Dorsails Pedis: Doppler R Posterior Tibial: Doppler L Posterior Tibial: Doppler Neurologic Exam Present on right: Tingling, Anesthesia Present on left: Tingling, Anesthesia Sensation: Light touch: Absence Pinprick: Absence Proprioception: Absence Vibratory: Absence Monofilament exam: 1st metatarsal head: absent 5th metatarsal head: absent Great toe: absent Musculoskeletal Exam Details Charcot deformities bilaterally Muscle Strength Dorsiflexion (Right): Normal Plantarflexion (Right): Normal Inversion (Right): Normal Eversion (Right): Normal Digital (Right): Normal Dorsiflexion (Left): Normal Plantarflexion (Left): Normal Inversion (Left): Normal Eversion (Left): Normal Digital (Left): Normal Foot Range of Motion Dorsiflexion (Right): Normal Plantarflexion (Right): Normal Inversion (Right): Normal Eversion (Right): Normal Digital (Right): Normal Dorsiflexion (Left): Normal Plantarflexion (Left): Normal Inversion (Left): Normal Eversion (Left): Normal Digital (Left): Normal Joint Instability Present (Right): Pes Planus Present (Left): Pes Planus Assessment & Plan Diagnosis: (1) Cellulitis and abscess of foot Status: Acute (2) DM (diabetes mellitus) Status: Chronic (3) Calcaneal fracture Status: Chronic (4) Charcot foot due to diabetes mellitus Status: Chronic A/P PLAN: Because the patient is afebrile with normal white count and no signs of osteomyelitis I feel she can be discharged on Saturday on oral antibiotics. She can follow-up with her regular learning designer in [place]. Discussed patient with Dr. Oh. We will send her home tomorrow. She was instructed to return if her infection worsens. 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
[2016-10-14 12:00] VITALS: BP 160/72; PULSE 80; RESP 18; TEMP 98.7; O2SAT 89
--- NOTE | 2016-10-14 12:32 | HHI.PR ---
Subjective Remarks Follow up for left heel diabetic infection. Patient is doing well. No fever, chills. Wants to know plan with regards to her foot. Objective Vitals Vital Signs Date Time Temp Pulse Resp B/P Pulse Ox O2 Delivery O2 Flow Rate FiO2 10/14/16 08:00 98.9 83 18 165/76 90 10/13/16 20:00 97.9 79 18 147/65 97 10/13/16 16:00 97.3 83 18 161/72 96 I/O 10/13/16 10/13/16 10/13/16 10/14/16 10/14/16 10/14/16 07:00 15:00 23:00 07:00 15:00 23:00 Intake Total 480 ml 978 ml 530 ml 290 ml Output Total 240 ml Balance 480 ml 978 ml 530 ml 50 ml Intake Oral 480 ml 480 ml 480 ml 240 ml IV Total 498 ml 50 ml 50 ml Output Urine Total 240 ml # Voids 3 5 1 # Bowel Movements 1 Result Diagram: 10/13/16 0354 10/13/16 0354 Imaging Last Impressions Tumor Localization 10/12/16 0000 Signed Impressions: Service Date/Time: Wednesday, October 12, 2016 15:28 - CONCLUSION: 1. White cell accumulation within the soft tissues just above the left medial ankle. No definite localization to bone evident. Eric Winkler MD Chest X-Ray 10/12/16 0000 Signed Impressions: Service Date/Time: Wednesday, October 12, 2016 20:08 - CONCLUSION: No acute disease. Burak Sibley MD Lower Extremity Ultrasound 10/11/16 0000 Signed Impressions: Service Date/Time: September 23:21 - CONCLUSION: 1. No DVT. 2. Bilateral groin adenopathy. 3. Subcutaneous edema. John Mcintosh Jr., MD Foot X-Ray 10/11/16 0000 Signed Impressions: Service Date/Time: September 22:05 - CONCLUSION: 1. Severely comminuted fracture of the calcaneus status post double screw fixation. Pes planus deformity. Locules of air in the soft tissues medially suggest abscess formation. Fracture fragment of distal calcaneus has migrated laterally at the calcaneocuboid joint. Jay Burnett MD Objective Remarks GENERAL: Alert, oriented x 3, NAD. SKIN: Warm and dry. HEAD: Normocephalic. EYES: No scleral icterus. No injection or drainage. NECK: Supple, trachea midline. No JVD or lymphadenopathy. CARDIOVASCULAR: Regular rate and rhythm without murmurs, gallops, or rubs. RESPIRATORY: Breath sounds equal bilaterally. No accessory muscle use. GASTROINTESTINAL: Abdomen soft, non-tender, nondistended. MUSCULOSKELETAL: No cyanosis, or edema. Left heel is wrapped - has some drainage. BACK: Nontender without obvious deformity. No CVA tenderness. Procedures None. A/P Problem List: (1) Abscess of left foot ICD Code: L02.612 Status: Acute (2) DM (diabetes mellitus) ICD Code: E11.9 Status: Chronic (3) Hypertension ICD Code: I10 Status: Acute (4) CELSO (acute kidney injury) ICD Code: N17.9 Status: Acute Assessment and Plan Ms. Perkins is a 46 year old female with a history of DM, HTN and previous left heel surgery who presents to the ED with left heel pain, bleeding. - Left heel abscess - Diabetic foot infection - Podiatry following. WBC scan shows no bone involvement. Discussed with Dr. Garcia who will go over the plan with pt. Amputation is not planned at this point. - Continue Vancomycin and Zosyn IV. - Foot x-ray reviewed by me shows calcaneus fracture, soft tissue infection. - Tramadol for pain. - Diabetes mellitus - Diabetic neuropathy - Blood glucose 180 on admission. Blood glucose slightly over 200. - Continue sliding scale and start Levemir 10 units QHS. May need to add pre- meal coverage. - Hypertension - Hold Losartan for now due to acute on chronic kidney disease. - Start patient on Amlodipine 10mg Qday. - Acute kidney injury - Improving. - CKD Stage 3 - Monitor BUN, creatinine. - Will hold Losartan for now. - CBC, BMP in the AM. Full code. SCDs. Problem Qualifiers (1) DM (diabetes mellitus): Qualified Code: E11.42 - Type 2 diabetes mellitus with diabetic polyneuropathy , without long-term current use of insulin Sriram Oh DO Oct 14, 2016 12:32 pm
[2016-10-14 16:00] VITALS: BP 155/75; PULSE 80; RESP 18; TEMP 98.6; O2SAT 89
[2016-10-14 20:00] VITALS: BP 143/66; PULSE 83; RESP 18; TEMP 98.6; O2SAT 95
[2016-10-14] MEDS ORDERED: INSULIN DETEMIR 100 UNITS/ML VIAL SQ SCH (21:00)
[2016-10-14] MEDS: REMOVE OLD NICODERM (NICOTINE) PATCH TD SCH (21:00)
[2016-10-14] MEDS: VANCOMYCIN INJ 1,800 MG in SODIUM CHLORID 0.9% 500 ML INJ 500 ML IV SCH (23:51)
[2016-10-15] VITALS: BP 129/62; PULSE 80; RESP 17; TEMP 97.9; O2SAT 96
[2016-10-15] MEDS: PIPERACIL-TAZO 3.375 GM PREMIX 50 ML IV SCH ×2 (02:50→08:53)
[2016-10-15] MEDS: INSULIN ASPART SUPPLEMENTAL SCALE SQ SCH (07:32)
[2016-10-15 08:00] VITALS: BP 164/76; PULSE 88; RESP 18; TEMP 98.4; O2SAT 92
[2016-10-15] MEDS: PREGABALIN 100 MG CAP PO SCH (08:53)
[2016-10-15] MEDS: clonazePAM 0.5 MG TAB PO SCH (08:53)
[2016-10-15] MEDS: FUROSEMIDE 40 MG TAB PO SCH (08:53)
[2016-10-15] MEDS: SODIUM CHLORIDE 0.9% FLUSH 5 ML FLUSH IV FLUSH SCH (08:54)
[2016-10-15] MEDS: NICOTINE 14 MG/24 HR PATCH TD SCH (08:54)
[2016-10-15 09:01] LABS: AUTOMATED NEUTROPHIL # 4.1 TH/MM3 (1.8-7.7); BASOPHIL # 0.1 TH/MM3 (0-0.2); BASOPHIL % 1.4 % (0.0-2.0); EOSINOPHIL # 0.3 TH/MM3 (0-0.4); HEMATOCRIT 32.3 % (35.0-46.0); LYMPH % 18.5 % (9.0-44.0); LYMPHOCYTE # 1.1 TH/MM3 (1.0-4.8); MEAN CELL VOLUME 69.8 FL (80.0-100.0); MEAN CORPUSCULAR HEMOGLOBIN 21.4 PG (27.0-34.0); MEAN CORPUSCULAR HGB CONC 30.6 % (32.0-36.0); MONO % 7.2 % (0.0-8.0); NEUT % 67.9 % (16.0-70.0); PLATELET COUNT 278 TH/MM3 (150-450); RED BLOOD COUNT 4.62 MIL/MM3 (4.00-5.30); RED CELL DISTRIBUTION WIDTH 20.3 % (11.6-17.2); WHITE BLOOD COUNT 6.1 TH/MM3 (4.0-11.0)
[2016-10-15 09:05] LABS: HEMO FLAGS AUTO DIFF
[2016-10-15 09:22] LABS: BICARBONATE 33.2 MEQ/L (21.0-32.0); POTASSIUM 4.8 MEQ/L (3.5-5.1)
[2016-10-15] MEDS ORDERED: LANTUS2P SQ (09:37)
[2016-10-15] MEDS ORDERED: BACT800T5 PO (09:37)
[2016-10-15] MEDS ORDERED: CLON.5 PO (09:37)
[2016-10-15] MEDS ORDERED: CEPH-460 PO (09:37)
--- NOTE | 2016-10-15 09:42 | HHI.DS ---
Discharge Summary Admission Date Oct 12, 2016 at 12:30 am Discharge Date: Oct 15, 2016 Admitting Diagnosis Foot cellulitis with abscess formation (1) Abscess of left foot ICD Code: L02.612 Diagnosis: Principal (2) DM (diabetes mellitus) ICD Code: E11.9 Diagnosis: Principal (3) Hypertension ICD Code: I10 (4) CELSO (acute kidney injury) ICD Code: N17.9 Procedures None. Brief History - From Admission Ms. Perkins is a 46 year old female with a history of diabetes and fractured left heel who presented to the ED due to infection and bleeding from left foot. She underwent surgical intervention with 2 surgical screw placement back in 2014. She noticed increased pain, swelling and went to her new construction pit worker Dr. Torre about two weeks prior to this admission. She was given Bactrim and Augmentin and was advised to use cam boot. Today, patient noticed significant amount of blood from her left heel after she came home from work. Patient's construction pit worker advised patient to come to the ED. Patient denies any fever , chills, chest pain, shortness of breath. No changes in bowel or bladder habits. CBC/BMP: 10/15/16 0838 10/15/16 0838 Significant Findings Laboratory Tests Test 10/13/16 10/15/16 03:54 08:38 Hemoglobin 9.3 GM/DL 9.9 GM/DL (11.6-15.3) (11.6-15.3) Hematocrit 30.5 % 32.3 % (35.0-46.0) (35.0-46.0) Mean Corpuscular Volume 69.9 FL 69.8 FL (80.0-100.0) (80.0-100.0) Mean Corpuscular Hemoglobin 21.4 PG 21.4 PG (27.0-34.0) (27.0-34.0) Mean Corpuscular Hemoglobin 30.6 % 30.6 % Concent (32.0-36.0) (32.0-36.0) Red Cell Distribution Width 20.2 % 20.3 % (11.6-17.2) (11.6-17.2) Monocytes (%) (Auto) 10.0 % (0.0-8.0) Eosinophils (%) (Auto) 4.8 % (0.0-4.0) 5.0 % (0.0-4.0) Ovalocytes 1+ (NORMAL) Anion Gap 4 MEQ/L (5-15) Blood Urea Nitrogen 27 MG/DL (7-18) 19 MG/DL (7-18) Creatinine 1.83 MG/DL 1.88 MG/DL (0.50-1.00) (0.50-1.00) Estimat Glomerular Filtration 29 ML/MIN (>89) 29 ML/MIN (>89) Rate Random Glucose 117 MG/DL 187 MG/DL (74-106) (74-106) Calcium Level 8.4 MG/DL (8.5-10.1) Carbon Dioxide Level 33.2 MEQ/L (21.0-32.0) Imaging Last Impressions Tumor Localization 10/12/16 0000 Signed Impressions: Service Date/Time: Wednesday, October 12, 2016 15:28 - CONCLUSION: 1. White cell accumulation within the soft tissues just above the left medial ankle. No definite localization to bone evident. Eric Winkler MD Chest X-Ray 10/12/16 0000 Signed Impressions: Service Date/Time: Wednesday, October 12, 2016 20:08 - CONCLUSION: No acute disease. Burak Sibley MD Lower Extremity Ultrasound 10/11/16 0000 Signed Impressions: Service Date/Time: September 23:21 - CONCLUSION: 1. No DVT. 2. Bilateral groin adenopathy. 3. Subcutaneous edema. John Mcintosh Jr., MD Foot X-Ray 10/11/16 0000 Signed Impressions: Service Date/Time: September 22:05 - CONCLUSION: 1. Severely comminuted fracture of the calcaneus status post double screw fixation. Pes planus deformity. Locules of air in the soft tissues medially suggest abscess formation. Fracture fragment of distal calcaneus has migrated laterally at the calcaneocuboid joint. Jay Burnett MD PE at Discharge GENERAL: Alert, oriented x 3, NAD. SKIN: Warm and dry. HEAD: Normocephalic. EYES: No scleral icterus. No injection or drainage. NECK: Supple, trachea midline. No JVD or lymphadenopathy. CARDIOVASCULAR: Regular rate and rhythm without murmurs, gallops, or rubs. RESPIRATORY: Breath sounds equal bilaterally. No accessory muscle use. GASTROINTESTINAL: Abdomen soft, non-tender, nondistended. MUSCULOSKELETAL: No cyanosis, or edema. Left heel is wrapped - has some drainage. BACK: Nontender without obvious deformity. No CVA tenderness. Pt update on day of discharge Patient is doing well. No fever, chills. No acute concerns. Patient is advised to follow up with her PCP and construction pit worker. Hospital Course Ms. Perkins is a 46 year old female with a history of DM, HTN and previous left heel surgery who presents to the ED with left heel pain, bleeding. - Left heel abscess - Diabetic foot infection - Podiatry following. WBC scan shows no bone involvement. Discussed with Dr. Garcia who will go over the plan with pt. Amputation is not planned at this point. - Continued Vancomycin and Zosyn IV while in the hospital. We switched to PO abx on discharge. - Foot x-ray reviewed by me shows calcaneus fracture, soft tissue infection. - Tramadol for pain. - Diabetes mellitus - Diabetic neuropathy - Blood glucose 180 on admission. Blood glucose slightly over 200. - Patient takes 40 units of Levemir QHS. In the hospital, we gave her 10 units QHS and sliding scale insulin - this regimen kept her blood glucose in the low 200s. - Will increase Levemir to 15 units QHS upon discharge. I would recommend gradual titration in coordination with PCP. 40 units of Levemir QHS may be risky. - Hypertension - Continue Losartan and Amlodipine on discharge. - Anxiety - will discharge on Clonazepam - Acute kidney injury - Improving. - CKD Stage 3 Full code. Pt Condition on Discharge: Good Discharge Disposition: Discharge Home Discharge Time: > 30 minutes Discharge Instructions DIET: Follow Instructions for: Diabetic Diet Activities you can perform: Regular-No Restrictions Follow up Referrals: PCP Follow-up - 1 Week Podiatry - 3-5 Days New Medications: Cephalexin (Keflex) 500 Mg Cap 500 MG PO Q6H Infection #40 Ref 0 CAP Sulfamethoxazole-Trimethoprim (Bactrim DS) 800-160 Mg Tab 1 TAB PO BID Infection #20 Ref 0 TAB Amlodipine (Norvasc) 10 Mg Tab 10 MG PO DAILY Blood Pressure Management #30 TAB Clonazepam (Klonopin) 0.5 Mg Tab 0.5 MG PO Q12HR Anxiety #20 TAB Nicotine Patch (Nicotine Patch) 14 Mg/24 Hr Patch 1 PATCH TD DAILY tobacco cessation #14 BOX Changed Medications: Insulin Glargine Inj (Lantus Inj) 1,000 Unit/10 Ml Vial 15 UNITS SQ HS Blood Sugar Management Days 30 Ref 0 VIAL (Changed from: 40 UNITS ) Continued Medications: Furosemide (Lasix) 40 Mg Tab 40 MG PO DAILY #30 Ref 0 TAB Losartan (Losartan) 50 Mg Tab 50 MG PO DAILY Blood Pressure Management #30 Ref 0 TAB Pregabalin (Lyrica) 100 Mg Cap 100 MG PO TID #90 Ref 0 CAP Tramadol (Tramadol) 50 Mg Tab 50 MG PO Q4H PRN PAIN Ref 0 TAB ([Cholesterol Pill]) Discontinued Medications: Ibuprofen (Ibuprofen) 800 Mg Tab 800 MG PO DAILY Arthritis Pain Ref 0 TAB Sulfamethoxazole-Trimethoprim (Bactrim) 400-80 Mg Tab 1 TAB PO DAILY Infection Ref 0 TAB Sriram Oh DO Oct 15, 2016 09:42
[2016-10-15] MEDS ORDERED: AMLO10 PO (09:43)
[2016-10-15] MEDS ORDERED: NICO14DI TD (09:43)
[2016-10-15 09:44] LABS: SCAN/DIFF AUTO DIFF CONFIRMED
[2016-10-17] MEDS ORDERED: VANCOMYCIN TROUGH XX ONE (22:45)
== END 2016-10-15 11:09 | disposition home or self-care (01) | DRG 638 ==
LOC: PHED 19:34 → PHEDA 10-12 00:30 → PHEDH 10-12 04:30 → N07B 10-12 14:57
PROVIDERS: ADMIT Hospitalist; ATTEND Hospitalist
DX: E10.628 Type 1 diabetes mellitus with other skin complications (principal); L02.612 Cutaneous abscess of left foot; N17.9 Acute kidney failure, unspecified; E10.22 Type 1 diabetes mellitus with diabetic chronic kidney disease; E10.42 Type 1 diabetes mellitus with diabetic polyneuropathy; N18.3 Chronic kidney disease, stage 3 (moderate); L03.116 Cellulitis of left lower limb; S92.012K Displaced fracture of body of left calcaneus, subsequent encounter for fracture with nonunion; I12.9 Hypertensive chronic kidney disease with stage 1 through stage 4 chronic kidney disease, or unspecified chronic kidney disease; E10.610 Type 1 diabetes mellitus with diabetic neuropathic arthropathy; Z79.4 Long term (current) use of insulin; M19.90 Unspecified osteoarthritis, unspecified site; E78.00 Pure hypercholesterolemia, unspecified; E78.5 Hyperlipidemia, unspecified; D64.9 Anemia, unspecified; F17.210 Nicotine dependence, cigarettes, uncomplicated; R45.1 Restlessness and agitation; X58.XXXD Exposure to other specified factors, subsequent encounter; Z91.19 Patient's noncompliance with other medical treatment and regimen; M21.42 Flat foot [pes planus] (acquired), left foot; M21.41 Flat foot [pes planus] (acquired), right foot; E10.65 Type 1 diabetes mellitus with hyperglycemia; F41.9 Anxiety disorder, unspecified
CPT/HCPCS: 71020; 73630; 76937; 78807; 78999; 80048; 82948; 85025; 85610; 85730; 87040; 93005; 93970; 96365; A9569; J1815; J2543; J3370; J7040

== ENCOUNTER 2017-01-09 15:48 | Inpatient (IN) | payer OTHER ==
[~2017-01-09] VITALS: Ht 172.7 cm; Wt 100.3 kg
[~2017-01-09 15:48] MED LIST changes: +AMLO10 PO; +BACT800T5 PO; +CEPH-460 PO; +CLON.5 PO; +FURO1TAB60 PO; -IRON18TA2 PO; +LOSA50TA PO; -LOVA40TA PO; +NICO14DI TD; -PROT40TA PO; +TRAM50TA PO
[2017-01-09 15:52] VITALS: BP 121/66; PULSE 82; RESP 16; TEMP 99.9; O2SAT 95
[2017-01-09] MEDS ORDERED: FERR325C PO (16:04)
[2017-01-09] MEDS ORDERED: LANTUS2P SQ (16:04)
[2017-01-09] MEDS ORDERED: VANCOMYCIN INJ 1,000 MG in SODIUM CHLOR 0.9% 250 ML INJ 250 ML IV STA (16:09)
[2017-01-09] MEDS ORDERED: SODIUM CHLOR 0.9% 1000 ML INJ 1,000 ML IV ONE ×3 (16:09)
[2017-01-09] MEDS ORDERED: PIPERACIL-TAZO 4.5 GM PREMIX 100 ML IV STA (16:09)
[2017-01-09] MEDS ORDERED: ACETAMINOPHEN 325 MG TAB PO ONE (16:15)
--- NOTE | 2017-01-09 16:19 | PD ---
HPI Chief Complaint: Fever Time Seen by Provider: 16:03 Travel History International Travel<30 days: No Contact w/Intl Traveler<30days: No Traveled to known affect area: No History of Present Illness HPI The patient is a 46-year-old female who presents to the emergency department for fever. The patient is a 2 day history of fevers high as 101.3 at home. The patient does have a history of sepsis, cellulitis, foot abscess, and osteomyelitis in the past. The patient is followed by her ironer machine, Dr. Torre, and [place], [place]. The patient notes fever over the last 2 days with some mild myalgias, and occasional headache with cough which she has the fever with chills. However, she denies any chronic cough, sore throat, nausea, diarrhea, abdominal pain, or dysuria. She does complain of drainage out of the right and left foot, recently had an abscess to the right foot with previous prolonged hospitalization per her report. The patient's primary physician is Dr. Hedrick. Symptoms are moderate, possibly exacerbated by chronic feet infection him previous bone infections, and there are no current alleviating factors. The patient took Motrin approximately 3 hours prior to arrival. PFSH Past Medical History Anemia: Yes Arthritis: Yes Cancer: No Cardiovascular Problems: Yes (htn on meds) High Cholesterol: Yes Diabetes: Yes Patient Takes Glucophage: No Diminished Hearing: No Endocrine: Yes Gastrointestinal Disorders: Yes (LEFT SIDED ABDOMINAL PAIN) Genitourinary: Yes Hypertension: Yes Immune Disorder: Yes Implanted Vascular Access Dvce: Yes Musculoskeletal: Yes Neurologic: Yes (DIABETIC NEUROPATHY) Psychiatric: No Reproductive: No Respiratory: No ?: Not LMP: RANI Menopausal: Yes Tubal Ligation: Yes Past Surgical History Abdominal Surgery: Yes (CHOLECYSTECTOMY) Body Medical Devices: 2 SCREWS IN LEFT Cholecystectomy: Yes Gynecologic Surgery: Yes (TUBAL LIGATION) Other Surgery: Yes (left foot surgery) Social History Alcohol Use: No Tobacco Use: Yes (1 PACK/DAY) Substance Use: No Allergies-Medications (Allergen,Severity, Reaction): Coded Allergies: Sulfa (Verified Allergy, Unknown, 01/09/17) Reported Meds & Prescriptions Reported Meds & Active Scripts Active Norvasc (Amlodipine Besylate) 10 Mg Tab 10 Mg PO DAILY Reported Iron (Ferrous Sulfate) 325 Mg Capsule.er 325 Mg PO DAILY Lantus Inj (Insulin Glargine) 1,000 Unit/10 Ml Vial 30 Units SQ HS Lyrica (Pregabalin) 100 Mg Cap 100 Mg PO TID Review of Systems Except as stated in HPI: all other systems reviewed are Neg General / Constitutional: Positive: Fever, Chills HENT: Positive: Headaches, No: Sore Throat, Neck Pain Respiratory: No: Cough, Shortness of Breath Gastrointestinal: Positive: Nausea, No: Vomiting, Diarrhea, Abdominal Pain Genitourinary: No: Dysuria Musculoskeletal: Positive: Edema, Pain Physical Exam Narrative GENERAL: Awake, alert, pleasant 46-year-old female who appears older than her stated age and is in no acute respiratory distress. SKIN: Focused skin assessment warm/dry. HEAD: Atraumatic. Normocephalic. EYES: Pupils equal and round. No scleral icterus. No injection or drainage. ENT: No nasal bleeding or discharge. Mucous membranes pink and moist. No visible upper or lower teeth. NECK: Trachea midline. No JVD. CARDIOVASCULAR: Regular rate and rhythm. No murmur appreciated. Heart rate in the 80s. RESPIRATORY: No accessory muscle use. Clear to auscultation. Breath sounds equal bilaterally. GASTROINTESTINAL: Abdomen soft, obese, no rebound tenderness. MUSCULOSKELETAL: Patient has obvious edema lower extremities with chronic changes to the feet. The patient has an open ulcer on the bottom of the right foot but no drainage. There is slight appears be an old open incision on the plantar surface the left foot but no obvious drainage from the wound, however, the dressing did have serosanguineous type drainage. NEUROLOGICAL: Awake and alert. No obvious cranial nerve deficits. Motor grossly within normal limits. Normal speech. PSYCHIATRIC: Appropriate mood and affect; insight and judgment normal. Data Data Last Documented VS Vital Signs Date Time Temp Pulse Resp B/P Pulse Ox O2 Delivery O2 Flow Rate FiO2 01/09/17 17:06 73 20 114/54 91 01/09/17 15:52 99.9 Orders Electrocardiogram (01/09/17 16:09) Complete Blood Count With Diff (01/09/17 16:09) Comprehensive Metabolic Panel (01/09/17 16:09) Prothrombin Time / Inr (Pt) (01/09/17 16:09) Act Partial Throm Time (Ptt) (01/09/17 16:09) Lactic Acid Sepsis Protocol (01/09/17 16:09) Urinalysis - C+S If Indicated (01/09/17 16:09) Blood Culture (01/09/17 16:09) Chest, Single Ap (01/09/17 16:09) Blood Gas Venous (Vbg) (01/09/17 16:09) Blood Glucose (01/09/17 16:09) Ecg Monitoring (01/09/17 16:09) Iv Access Insert/Monitor (01/09/17 16:09) Oximetry (01/09/17 16:09) Oxygen Administration (01/09/17 16:09) Acetaminophen (Tylenol) (01/09/17 16:15) Piperacil-Tazo 4.5 Gm Premix (Zosyn 4.5 (01/09/17 16:09) Vancomycin Inj (Vancomycin Inj) (01/09/17 16:09) Sodium Chlor 0.9% 1000 Ml Inj (Ns 1000 M (01/09/17 16:09) Sodium Chlor 0.9% 1000 Ml Inj (Ns 1000 M (01/09/17 16:09) Sodium Chlor 0.9% 1000 Ml Inj (Ns 1000 M (01/09/17 16:09) Urine Culture (01/09/17 17:00) Admit Order (Ed Use Only) (01/09/17 17:43) Labs Laboratory Tests Test 01/09/17 01/09/17 01/09/17 01/09/17 16:15 16:18 16:20 17:00 White Blood Count 12.0 TH/MM3 Red Blood Count 3.96 MIL/MM3 Hemoglobin 9.2 GM/DL Hematocrit 28.6 % Mean Corpuscular Volume 72.2 FL Mean Corpuscular Hemoglobin 23.2 PG Mean Corpuscular Hemoglobin 32.1 % Concent Red Cell Distribution Width 17.7 % Platelet Count 246 TH/MM3 Mean Platelet Volume 8.3 FL Neutrophils (%) (Auto) 83.0 % Lymphocytes (%) (Auto) 5.6 % Monocytes (%) (Auto) 7.2 % Eosinophils (%) (Auto) 0.1 % Basophils (%) (Auto) 4.1 % Neutrophils # (Auto) 9.9 TH/MM3 Lymphocytes # (Auto) 0.7 TH/MM3 Monocytes # (Auto) 0.9 TH/MM3 Eosinophils # (Auto) 0.0 TH/MM3 Basophils # (Auto) 0.5 TH/MM3 CBC Comment AUTO DIFF Differential Total Cells 100 Counted Neutrophils % (Manual) 93 % Lymphocytes % 1 % Monocytes % 5 % Neutrophils # (Manual) 11.3 TH/MM3 Metamyelocytes 1 % Differential Comment FINAL DIFF MANUAL Platelet Estimate NORMAL Platelet Morphology Comment NORMAL Rouleau PRESENT Prothrombin Time 12.6 SEC Prothromb Time International 1.1 RATIO Ratio Activated Partial 33.3 SEC Thromboplast Time Sodium Level 135 MEQ/L Potassium Level 3.8 MEQ/L Chloride Level 99 MEQ/L Carbon Dioxide Level 25.2 MEQ/L Anion Gap 11 MEQ/L Blood Urea Nitrogen 40 MG/DL Creatinine 1.90 MG/DL Estimat Glomerular Filtration 28 ML/MIN Rate Random Glucose 246 MG/DL Calcium Level 8.2 MG/DL Total Bilirubin 1.0 MG/DL Aspartate Amino Transf 10 U/L (AST/SGOT) Alanine Aminotransferase 18 U/L (ALT/SGPT) Alkaline Phosphatase 565 U/L Total Protein 7.3 GM/DL Albumin 2.3 GM/DL Blood Gas Puncture Site LT BRACHIAL Blood Gas Patient Temperature 98.6 Venous Blood pH 7.41 Venous Blood Partial Pressure 40 mmHg CO2 Venous Blood Partial Pressure 32 mmHg O2 Venous Blood HCO3 25 mmol/L Venous Blood Oxygen Saturation 57 % Venous Blood Oxygen Content 7.3 Vol % Venous Blood Base Excess 0.3 mmol/L Oxygen Delivery Device NONE Blood Gas Inspired Oxygen 21 % Lactic Acid Level 0.9 mmol/L Urine Color YELLOW Urine Turbidity CLOUDY Urine pH 5.5 Urine Specific Carpenter 1.020 Urine Protein 300 OR GREATER mg/dL Urine Glucose (UA) 100 mg/dL Urine Ketones NEG mg/dL Urine Occult Blood LARGE Urine Nitrite NEG Urine Bilirubin NEG Urine Leukocyte Esterase TRACE Urine RBC 0-3 /hpf Urine WBC Clumps FEW Urine Squamous Epithelial 6-8 /hpf Cells Urine Bacteria FEW /hpf Urine Hyaline Casts 0-2 /lpf Urine Granular Casts 0-2 /lpf Urine White Blood Cell Casts 0-2 /lpf Microscopic Urinalysis Comment CULTURE INDICATED MDM Medical Decision Making Medical Screen Exam Complete: Yes Emergency Medical Condition: Yes Medical Record Reviewed: Yes Interpretation(s) EKG reveals normal sinus rhythm with a rate of 73. Nonspecific T-wave abnormalities. Laboratory Tests Test 6/21/17 6/21/17 6/21/17 6/21/17 16:15 16:18 16:20 17:00 White Blood Count 12.0 TH/MM3 Red Blood Count 3.96 MIL/MM3 Hemoglobin 9.2 GM/DL Hematocrit 28.6 % Mean Corpuscular Volume 72.2 FL Mean Corpuscular Hemoglobin 23.2 PG Mean Corpuscular Hemoglobin 32.1 % Concent Red Cell Distribution Width 17.7 % Platelet Count 246 TH/MM3 Mean Platelet Volume 8.3 FL Neutrophils (%) (Auto) 83.0 % Lymphocytes (%) (Auto) 5.6 % Monocytes (%) (Auto) 7.2 % Eosinophils (%) (Auto) 0.1 % Basophils (%) (Auto) 4.1 % Neutrophils # (Auto) 9.9 TH/MM3 Lymphocytes # (Auto) 0.7 TH/MM3 Monocytes # (Auto) 0.9 TH/MM3 Eosinophils # (Auto) 0.0 TH/MM3 Basophils # (Auto) 0.5 TH/MM3 CBC Comment AUTO DIFF Prothrombin Time 12.6 SEC Prothromb Time International 1.1 RATIO Ratio Activated Partial 33.3 SEC Thromboplast Time Sodium Level 135 MEQ/L Potassium Level 3.8 MEQ/L Chloride Level 99 MEQ/L Carbon Dioxide Level 25.2 MEQ/L Anion Gap 11 MEQ/L Blood Urea Nitrogen 40 MG/DL Creatinine 1.90 MG/DL Estimat Glomerular Filtration 28 ML/MIN Rate Random Glucose 246 MG/DL Calcium Level 8.2 MG/DL Total Bilirubin 1.0 MG/DL Aspartate Amino Transf 10 U/L (AST/SGOT) Alanine Aminotransferase 18 U/L (ALT/SGPT) Alkaline Phosphatase 565 U/L Total Protein 7.3 GM/DL Albumin 2.3 GM/DL Blood Gas Puncture Site LT BRACHIAL Blood Gas Patient Temperature 98.6 Venous Blood pH 7.41 Venous Blood Partial Pressure 40 mmHg CO2 Venous Blood Partial Pressure 32 mmHg O2 Venous Blood HCO3 25 mmol/L Venous Blood Oxygen Saturation 57 % Venous Blood Oxygen Content 7.3 Vol % Venous Blood Base Excess 0.3 mmol/L Oxygen Delivery Device NONE Blood Gas Inspired Oxygen 21 % Lactic Acid Level 0.9 mmol/L Urine Color YELLOW Urine Turbidity CLOUDY Urine pH 5.5 Urine Specific Carpenter 1.020 Urine Protein 300 OR GREATER mg/dL Urine Glucose (UA) 100 mg/dL Urine Ketones NEG mg/dL Urine Occult Blood LARGE Urine Nitrite NEG Urine Bilirubin NEG Urine Leukocyte Esterase TRACE Urine RBC 0-3 /hpf Urine WBC Clumps FEW Urine Squamous Epithelial 6-8 /hpf Cells Urine Bacteria FEW /hpf Urine Hyaline Casts 0-2 /lpf Urine Granular Casts 0-2 /lpf Urine White Blood Cell Casts 0-2 /lpf Microscopic Urinalysis Comment CULTURE INDICATED Last Impressions Chest X-Ray 01/09/17 1609 Signed Impressions: Service Date/Time: Monday, January 09, 2017 16:15 - CONCLUSION: No acute disease. Burak Alvarado MD Differential Diagnosis Differential diagnosis includes sepsis, osteomyelitis, foot abscess, wound infection, UTI, pneumonia, viral syndrome, influenza. Narrative Course IV was established, labs are drawn and sent, and the patient was placed on cardiac telemetry monitoring and continuous pulse oximetry monitoring. The patient was administered IV fluids. Blood cultures and lactic acid were sent to lab and then the patient receive Zosyn and vancomycin. Chest x-rays negative. White count is mildly elevated greater than 12, lactic acid is reassuring at 0.9. Patient does note a temperature at home as high as 101.3, was 99.9 in the emergency department. The patient did take Motrin prior to arrival. The patient does have a history of previous foot abscess and cellulitis with underlying diabetes. She does have open wound infections in the bottom of the feet bilaterally, she may benefit from 23 hour observation for initial blood culture results and possible MRI of the feet to evaluate for underlying abscess and/or osteomyelitis. The patient's primary physician is Dr. Hedrick, therefore, [facility]. UA reveals a few WBC clumps and small leukocyte esterase, I doubt this is the source of the patient's fever, however, Zosyn will cover for her UTI. Sepsis Criteria SIRS Criteria (2 or more): WBC > 51736, < 4000 or > 10% bands Physician Communication Physician Communication [facility] were paged for 23 hour observation. I discussed the patient with Dr. Armas who agrees with 23 hour observation. Diagnosis Primary Impression: Cellulitis and abscess of foot Admitting Information Admitting Physician Requests: Observation Condition: Stable Joel Moore MD Jan 09, 2017 16:19
[2017-01-09 16:25] LABS: BLOOD GAS VENOUS BASE EXCESS 0.3 mmol/L (-2-2); BLOOD GAS VENOUS HCO3 25 mmol/L (22-26); BLOOD GAS VENOUS O2 CONTENT 7.3 Vol % (9.0-17.0); BLOOD GAS VENOUS O2 HGB SAT 57 % (70-76); BLOOD GAS VENOUS PCO2 40 mmHg (44-48); BLOOD GAS VENOUS PO2 32 mmHg (35-40); BLOOD GAS VENOUS pH 7.41 (7.360-7.400); CRITICAL VALUE NO; TEMP CORR TO 98.6
[2017-01-09 16:26] LABS: DRAW SITE LT BRACHIAL; FIO2 21 %; STAT YES
[2017-01-09 16:28] VITALS: O2SAT 97
[2017-01-09 16:33] LABS: AUTOMATED NEUTROPHIL # 9.9 TH/MM3 (1.8-7.7); BASOPHIL # 0.5 TH/MM3 (0-0.2); BASOPHIL % 4.1 % (0.0-2.0); EOSINOPHIL % 0.1 % (0.0-4.0); HEMATOCRIT 28.6 % (35.0-46.0); LYMPH % 5.6 % (9.0-44.0); LYMPHOCYTE # 0.7 TH/MM3 (1.0-4.8); MEAN CELL VOLUME 72.2 FL (80.0-100.0); MEAN CORPUSCULAR HEMOGLOBIN 23.2 PG (27.0-34.0); MEAN CORPUSCULAR HGB CONC 32.1 % (32.0-36.0); MONO % 7.2 % (0.0-8.0); PLATELET COUNT 246 TH/MM3 (150-450); RED BLOOD COUNT 3.96 MIL/MM3 (4.00-5.30); RED CELL DISTRIBUTION WIDTH 17.7 % (11.6-17.2)
[2017-01-09 16:40] LABS: CHLORIDE 99 MEQ/L (98-107); POTASSIUM 3.8 MEQ/L (3.5-5.1); SODIUM (NA) 135 MEQ/L (136-145)
[2017-01-09 16:44] LABS: ANION GAP 11 MEQ/L (5-15); APTT (PATIENT) 33.3 SEC (24.3-30.1); BICARBONATE 25.2 MEQ/L (21.0-32.0); BLOOD UREA NITROGEN 40 MG/DL (7-18); INTERNATIONAL NORMALIZED RATIO 1.1 RATIO; PROTHROMBIN TIME - PATIENT 12.6 SEC (9.8-11.6)
[2017-01-09 16:47] LABS: ALT (GPT) 18 U/L (10-53); AST (GOT) 10 U/L (15-37); GLOMERULAR FILTRATION RATE 28 ML/MIN (>89)
[2017-01-09 16:50] LABS: ALKALINE PHOSPHATASE 565 U/L (45-117)
[2017-01-09 16:54] LABS: HEMO FLAGS AUTO DIFF
--- NOTE | 2017-01-09 16:59 | RADRPT ---
EXAM DATE/TIME: 01/09/2017 16:15 [facility] COMPARISON: CHEST SINGLE AP, August 11, 2016, 18:49. INDICATIONS : Fever. MEDICAL HISTORY : Hypertension. Diabetes mellitus type II. SURGICAL HISTORY : None. ENCOUNTER: Initial ACUITY: 2 days PAIN SCORE: 3/10 LOCATION: Bilateral chest FINDINGS: A single view of the chest demonstrates the lungs to be symmetrically aerated without evidence of mas s, infiltrate or effusion. The cardiomediastinal contours are unremarkable. Osseous structures are intact. CONCLUSION: No acute disease. Burak Alvarado MD on January 09, 2017 at 16:56 Board Certified Radiologist. This report was verified electronically.
[2017-01-09 17:06] VITALS: BP 114/54; PULSE 73; RESP 20; O2SAT 91
[2017-01-09 17:09] LABS: BLOOD, URINE LARGE (NEG); GLUCOSE,URINE 100 mg/dL (NEG); KETONE, URINE NEG (NEG); NITRITE,URINE NEG (NEG); PH, URINE 5.5 (5.0-8.5)
[2017-01-09 17:15] LABS: URINE COLOR YELLOW (YELLW/STRAW)
[2017-01-09 17:16] LABS: HYALINE CAST, URINE 0-2 /lpf (RARE)
[2017-01-09 17:17] LABS: BACTERIA, URINE FEW /hpf; COMMENT (UR) CULTURE INDICATED; CULTURE IF INDICATED CULTURE INDICATED; GRANULAR CAST, URINE 0-2 /lpf; RBC, URINE 0-3 /hpf (0-3); WHITE BLOOD CELL CAST, URINE 0-2 /lpf
[2017-01-09 17:29] LABS: METAMYELOCYTES 1 % (0-1); NEUTROPHIL # MANUAL DIFF 11.3 TH/MM3 (1.8-7.7); POLYS (SEG NEUTROPHILS) 93 % (16-70); WBC DIFF SAMPLE 100
[2017-01-09 17:30] LABS: PLATELET ESTIMATE SMEAR NORMAL (NORMAL); PLATELET MORPHOLOGY NORMAL (NORMAL); ROULEAUX PRESENT (NORMAL)
[2017-01-09 17:31] LABS: SCAN/DIFF FINAL DIFF MANUAL
[2017-01-09 17:51] VITALS: BP 115/57; PULSE 70; RESP 18; O2SAT 94
[2017-01-09] MEDS ORDERED: Vancomycin Consult Pharmacy 1 EA OTHER SCH (18:00)
[2017-01-09] MEDS ORDERED: NALOXONE HCL 0.4 MG/ML AMP IV PRN (18:00)
[2017-01-09] MEDS ORDERED: ACETAMINOPHEN/HYDROcodone 325 MG/5 MG TAB PO PRN (18:00)
[2017-01-09] MEDS ORDERED: TEMAZEPAM 15 MG CAP PO PRN (18:00)
[2017-01-09] MEDS ORDERED: ACETAMINOPHEN 325 MG TAB PO PRN (18:00)
[2017-01-09] MEDS ORDERED: MAGNESIUM HYDROXIDE SUSP 30 ML CUP PO PRN (18:00)
[2017-01-09] MEDS ORDERED: DEXTROSE 50% IN WATER 50 ML VIAL(D50) IV PRN (18:00)
[2017-01-09] MEDS ORDERED: GLUCAGON 1 MG/ML VIAL OTHER PRN (18:00)
[2017-01-09] MEDS ORDERED: SODIUM CHLORIDE 0.9% FLUSH 10 ML FLUSH IV FLUSH PRN (18:00)
[2017-01-09] MEDS ORDERED: ONDANSETRON HCL 4 MG/2 ML VIAL IVP PRN (18:00)
[2017-01-09] MEDS: PREGABALIN 100 MG CAP PO SCH (18:05)
[2017-01-09 20:00] VITALS: BP 108/65; PULSE 69; RESP 18; TEMP 97.2; O2SAT 95
[2017-01-09] MEDS: HEPARIN SODIUM - SQ 10,000 UNITS/ML VIAL SQ SCH ×2 (20:00→22:14)
[2017-01-09] MEDS: INSULIN ASPART SUPPLEMENTAL SCALE SQ SCH (21:00)
[2017-01-09] MEDS: ACETAMINOPHEN 325 MG TAB PO PRN (22:11)
[2017-01-09] MEDS: LACTOBACILLUS ACIDOPHILUS TAB PO SCH (22:13)
[2017-01-09] MEDS: INSULIN DETEMIR 100 UNITS/ML VIAL SQ SCH (22:14)
[2017-01-09] MEDS: SODIUM CHLORIDE 0.9% FLUSH 10 ML FLUSH IV FLUSH SCH (22:16)
[2017-01-10] VITALS: BP 143/83; PULSE 82; RESP 18; TEMP 98.3; O2SAT 96
[2017-01-10 04:00] VITALS: BP 131/71; PULSE 90; RESP 18; TEMP 99.5; O2SAT 96
[2017-01-10] MEDS: PIPERACIL-TAZO 3.375 GM PREMIX 50 ML IV SCH ×3 (04:46→18:40)
[2017-01-10] MEDS: ACETAMINOPHEN/HYDROcodone 325 MG/7.5 MG TAB PO PRN ×2 (04:47→11:31)
[2017-01-10 06:19] LABS: AUTOMATED NEUTROPHIL # 9.4 TH/MM3 (1.8-7.7); BASOPHIL % 0.2 % (0.0-2.0); EOSINOPHIL % 0.4 % (0.0-4.0); HEMATOCRIT 26.2 % (35.0-46.0); HEMO FLAGS AUTO DIFF; LYMPH % 7.9 % (9.0-44.0); LYMPHOCYTE # 0.9 TH/MM3 (1.0-4.8); MEAN CELL VOLUME 72.3 FL (80.0-100.0); MEAN CORPUSCULAR HEMOGLOBIN 22.9 PG (27.0-34.0); MEAN CORPUSCULAR HGB CONC 31.6 % (32.0-36.0); NEUT % 82.5 % (16.0-70.0); PLATELET COUNT 273 TH/MM3 (150-450); RED BLOOD COUNT 3.62 MIL/MM3 (4.00-5.30); RED CELL DISTRIBUTION WIDTH 17.6 % (11.6-17.2); WHITE BLOOD COUNT 11.3 TH/MM3 (4.0-11.0)
[2017-01-10 06:27] LABS: CHLORIDE 102 MEQ/L (98-107); POTASSIUM 3.5 MEQ/L (3.5-5.1); SODIUM (NA) 138 MEQ/L (136-145)
[2017-01-10 06:32] LABS: ANION GAP 9 MEQ/L (5-15); BICARBONATE 26.7 MEQ/L (21.0-32.0)
[2017-01-10 06:38] LABS: PLATELET ESTIMATE SMEAR NORMAL (NORMAL); PLATELET MORPHOLOGY NORMAL (NORMAL); ROULEAUX PRESENT (NORMAL); SCAN/DIFF AUTO DIFF CONFIRMED
[2017-01-10 06:41] LABS: ALKALINE PHOSPHATASE 539 U/L (45-117); ALT (GPT) 17 U/L (10-53); AST (GOT) 14 U/L (15-37); BLOOD UREA NITROGEN 41 MG/DL (7-18); GLOMERULAR FILTRATION RATE 28 ML/MIN (>89); TOTAL BILIRUBIN ADULT 1.6 MG/DL (0.2-1.0)
[2017-01-10] MEDS: INSULIN ASPART SUPPLEMENTAL SCALE SQ SCH ×4 (07:00→20:32)
[2017-01-10 08:00] VITALS: BP 123/70; PULSE 73; RESP 16; TEMP 97.9; O2SAT 95
[2017-01-10] MEDS: HEPARIN SODIUM - SQ 10,000 UNITS/ML VIAL SQ SCH ×2 (08:00→19:25)
[2017-01-10] MEDS: SODIUM CHLORIDE 0.9% FLUSH 10 ML FLUSH IV FLUSH SCH ×2 (09:00→20:36)
[2017-01-10] MEDS ORDERED: VANCOMYCIN INJ 1,000 MG in SODIUM CHLOR 0.9% 250 ML INJ 250 ML IV SCH (09:00)
[2017-01-10] MEDS: PREGABALIN 100 MG CAP PO SCH ×3 (09:03→18:40)
[2017-01-10] MEDS: VANCOMYCIN 1,500 MG/NS 500 ML IV SCH ×2 (09:03)
[2017-01-10] MEDS: LACTOBACILLUS ACIDOPHILUS TAB PO SCH ×2 (09:03→20:36)
[2017-01-10] MEDS: FERROUS SULFATE 325 MG (65 MG ELEMENTAL IRON) TAB PO SCH (09:03)
--- NOTE | 2017-01-10 09:08 | HHI.HP ---
[facility] Primary Care Physician Reyna Hedrick M.D. Admission Diagnosis febrile illness rule out osteomyelitis of the foot, diabetic foot ul Diagnoses: (1) Cellulitis and abscess of foot Diagnosis: Principal (2) Charcot foot due to diabetes mellitus Diagnosis: Principal (3) Diabetes Diagnosis: Secondary (4) Chronic kidney disease, stage 3 Diagnosis: Secondary (5) UTI (urinary tract infection) Chief Complaint: Left foot wound Travel History International Travel<30 Days: No Contact w/Intl Traveler <30 Da: No Traveled to Known Affected Are: No History of Present Illness Written by Markus Sawyer, acting as scribe for Dr. Armas on 01/10/17 at 09: 06. 46-year-old female with known history of diabetes, diabetic neuropathy , hypertension, Charcot's foot, history of osteomyelitis of the foot, chronic kidney disease stage III who presented to hospital because of febrile illness. Patient states that she is in normal state of health until Saturday when she woke up and was just not feeling 100%. Saturday she started spiking fevers 101.4. She noticed that she may have scraped her left foot on Saturday and noticed some blood afterwards. Throughout the next couple days she continued to have fever and developed exudative drainage from the left foot. She did not call her primary medical doctor or facility mechanic for recommendations. Patient came to emergency department to get checked. Patient does have significant problems with her feet with recurrent surgeries due to diabetic Charcot's foot. Approximately 2 month ago she had her bone scraped and screws removed from her right foot area she is being followed by facility mechanic in [place]. Patient denies any runny nose, cough, shortness of breath, dyspnea, abdominal pain, diarrhea. Patient is relatively wheelchair bound, she can ambulate but was told only to his wheelchair due to her bilateral feet condition. Patient had evaluation done emergency department and was recommended by ER physician the patient be admitted for continued management and treatment. Review of Systems Constitutional: DENIES: Diaphoretic episodes, Fatigue, Fever, Weight gain, Weight loss, Chills, Dizziness, Change in appetite, Night Sweats Endocrine: DENIES: Abnorml menstrual pattern, Heat/cold intolerance, Polydipsia , Polyuria, Polyphagia Eyes: DENIES: Blurred vision, Diplopia, Eye inflammation, Eye pain, Vision loss , Double Vision Ears, nose, mouth, throat: DENIES: Hearing loss, Nasal discharge, Throat pain, Ear Pain, Running Nose, Sinus Pain Respiratory: DENIES: Apneas, Cough, Snoring, Wheezing, Hemoptysis, Sputum production, Shortness of breath Cardiovascular: DENIES: Chest pain, Palpitations, Syncope, Dyspnea on Exertion , Lower Extremity Edema, Orthopnea Gastrointestinal: DENIES: Abdominal pain, Black stools, Bloody stools, Constipation, Diarrhea, Nausea, Vomiting, Difficulty Swallowing, Anorexia Genitourinary: DENIES: Dysmenorrhea, Dyspareunia, Urinary frequency, Urinary incontinence, Urgency, Hematuria, Dysuria, Nocturia Musculoskeletal: DENIES: Joint pain, Muscle aches, Stiffness, Joint Swelling Integumentary: DENIES: Abnormal pigmentation, Pruritus, Rash, Nail changes, Breast skin changes, Nipple discharge Hematologic/lymphatic: DENIES: Bruising, Lymphadenopathy Immunologic/allergic: DENIES: Eczema, Urticaria Neurologic: COMPLAINS OF: Abnormal gait Psychiatric: DENIES: Anxiety, Confusion, Mood changes, Depression, Hallucinations, Agitation, Suicidal Ideation, Homicidal Ideation, Delusions Except as stated in HPI: all other systems reviewed are Neg Past Family Social History Past Medical History Hypertension Diabetes Diabetic neuropathy Charcot's foot History of osteomyelitis Chronic kidney disease stage III Past Surgical History Cholecystectomy Tubal ligation Multiple surgeries on her feet due to Charcot's joint, screw removal Reported Medications Reported Meds & Active Scripts Active Norvasc (Amlodipine Besylate) 10 Mg Tab 10 Mg PO DAILY Reported Iron (Ferrous Sulfate) 325 Mg Capsule.er 325 Mg PO DAILY Lantus Inj (Insulin Glargine) 1,000 Unit/10 Ml Vial 30 Units SQ HS Lyrica (Pregabalin) 100 Mg Cap 100 Mg PO TID Allergies: Coded Allergies: Sulfa (Verified Allergy, Unknown, 01/09/17) Family History Reviewed is significant for mother having heart disease, stroke, seizures. Social History Patient continues to smoke one pack a cigarettes a day since she was 13 years old. Denies any alcohol or illicit drugs Physical Exam Vital Signs Vital Signs Date Time Temp Pulse Resp B/P Pulse Ox O2 Delivery O2 Flow Rate FiO2 01/10/17 08:00 97.9 73 16 123/70 95 01/10/17 04:00 99.5 90 18 131/71 96 01/10/17 00:00 98.3 82 18 143/83 96 01/09/17 20:00 97.2 69 18 108/65 95 01/09/17 17:51 70 18 115/57 94 01/09/17 17:06 73 20 114/54 91 01/09/17 16:28 97 01/09/17 15:52 99.9 82 16 121/66 95 Physical Exam GENERAL: Well-developed, well-nourished, in no acute distress. alert and orientated HEENT: Head is normocephalic without any lesions or masses noted. Facial features are symmetric. Eyes: Pupils equal round reactive to light. Extraocular muscles are intact. Conjunctivae were clear. Oropharyngeal: Pharynx without any erythema edema. Tongue is midline without deviation. Buccal mucosa is moist without any masses or lesions NECK: Supple without any masses. Trachea midline no deviation. No JVD, no bruits are appreciated CARDIAC: Regular rhythm, regular rate. S1/S2 are heard. 2/6 ejection murmur noted and tricuspid region. Gallops or rubs. LUNGS: Clear to auscultation bilaterally. No wheeze, rhonchi or rales. No use of accessory muscles on inspiration or expiration. ABDOMEN: Soft, nontender. Nondistended. Bowel sounds heard in all 4 quadrants. No organomegaly or masses. Negative rebound, negative guarding EXTREMITIES: No edema, pulses are equal bilaterally. No cyanosis or clubbing NEUROLOGY: Mood and affect appear appropriate. Cranial nerves II through XII grossly intact. Muscle strength 5/5 in upper and lower extremities bilaterally. Deep tendon reflexes are 2+ in upper and lower extremities bilaterally. RIGHT FOOT: Patient with obvious foot deformities from Charcot's joint. There is a small puncture wound noted in the arch of the foot without any occult drainage LEFT FOOT: Patient with obvious foot deformities from Charcot's joint. There is an avulsion laceration noted in the arch of the foot with mild edema, was unable to express any exudate Laboratory Laboratory Tests Test 01/09/17 01/09/17 01/09/17 01/09/17 16:15 16:18 16:20 17:00 White Blood Count 12.0 Red Blood Count 3.96 Hemoglobin 9.2 Hematocrit 28.6 Mean Corpuscular Volume 72.2 Mean Corpuscular Hemoglobin 23.2 Mean Corpuscular Hemoglobin 32.1 Concent Red Cell Distribution Width 17.7 Platelet Count 246 Mean Platelet Volume 8.3 Neutrophils (%) (Auto) 83.0 Lymphocytes (%) (Auto) 5.6 Monocytes (%) (Auto) 7.2 Eosinophils (%) (Auto) 0.1 Basophils (%) (Auto) 4.1 Neutrophils # (Auto) 9.9 Lymphocytes # (Auto) 0.7 Monocytes # (Auto) 0.9 Eosinophils # (Auto) 0.0 Basophils # (Auto) 0.5 CBC Comment AUTO DIFF Differential Total Cells 100 Counted Neutrophils % (Manual) 93 Lymphocytes % 1 Monocytes % 5 Neutrophils # (Manual) 11.3 Metamyelocytes 1 Differential Comment FINAL DIFF MANUAL Platelet Estimate NORMAL Platelet Morphology Comment NORMAL Rouleau PRESENT Prothrombin Time 12.6 Prothromb Time International 1.1 Ratio Activated Partial 33.3 Thromboplast Time Sodium Level 135 Potassium Level 3.8 Chloride Level 99 Carbon Dioxide Level 25.2 Anion Gap 11 Blood Urea Nitrogen 40 Creatinine 1.90 Estimat Glomerular Filtration 28 Rate Random Glucose 246 Calcium Level 8.2 Total Bilirubin 1.0 Aspartate Amino Transf 10 (AST/SGOT) Alanine Aminotransferase 18 (ALT/SGPT) Alkaline Phosphatase 565 Total Protein 7.3 Albumin 2.3 Blood Gas Puncture Site LT BRACHIAL Blood Gas Patient Temperature 98.6 Venous Blood pH 7.41 Venous Blood Partial Pressure 40 CO2 Venous Blood Partial Pressure 32 O2 Venous Blood HCO3 25 Venous Blood Oxygen Saturation 57 Venous Blood Oxygen Content 7.3 Venous Blood Base Excess 0.3 Oxygen Delivery Device NONE Blood Gas Inspired Oxygen 21 Lactic Acid Level 0.9 Urine Color YELLOW Urine Turbidity CLOUDY Urine pH 5.5 Urine Specific [place] 1.020 Urine Protein 300 OR GREATER Urine Glucose (UA) 100 Urine Ketones NEG Urine Occult Blood LARGE Urine Nitrite NEG Urine Bilirubin NEG Urine Leukocyte Esterase TRACE Urine RBC 0-3 Urine WBC Clumps FEW Urine Squamous Epithelial 6-8 Cells Urine Bacteria FEW Urine Hyaline Casts 0-2 Urine Granular Casts 0-2 Urine White Blood Cell Casts 0-2 Microscopic Urinalysis Comment CULTURE INDICATED Test 01/10/17 05:50 White Blood Count 11.3 Red Blood Count 3.62 Hemoglobin 8.3 Hematocrit 26.2 Mean Corpuscular Volume 72.3 Mean Corpuscular Hemoglobin 22.9 Mean Corpuscular Hemoglobin 31.6 Concent Red Cell Distribution Width 17.6 Platelet Count 273 Mean Platelet Volume 8.4 Neutrophils (%) (Auto) 82.5 Lymphocytes (%) (Auto) 7.9 Monocytes (%) (Auto) 9.0 Eosinophils (%) (Auto) 0.4 Basophils (%) (Auto) 0.2 Neutrophils # (Auto) 9.4 Lymphocytes # (Auto) 0.9 Monocytes # (Auto) 1.0 Eosinophils # (Auto) 0.0 Basophils # (Auto) 0.0 CBC Comment AUTO DIFF Differential Comment AUTO DIFF CONFIRMED Platelet Estimate NORMAL Platelet Morphology Comment NORMAL Rouleau PRESENT Sodium Level 138 Potassium Level 3.5 Chloride Level 102 Carbon Dioxide Level 26.7 Anion Gap 9 Blood Urea Nitrogen 41 Creatinine 1.90 Estimat Glomerular Filtration 28 Rate Random Glucose 37 Calcium Level 8.2 Total Bilirubin 1.6 Aspartate Amino Transf 14 (AST/SGOT) Alanine Aminotransferase 17 (ALT/SGPT) Alkaline Phosphatase 539 Total Protein 6.8 Albumin 2.1 Date/Time Procedure Status Source Growth 01/09/17 18:25 Gram Stain - Final Resulted Wound Foot 01/09/17 18:25 Wound Culture Resulted Wound Foot Pending 01/09/17 17:00 Urine Culture Received Urine Catheterized Urine Pending 01/09/17 16:20 Aerobic Blood Culture Resulted Blood Peripheral Pending 01/09/17 16:20 Anaerobic Blood Culture - Preliminary Resulted Gram Positive Cocci Result Diagram: 01/10/17 0550 01/10/17 0550 Imaging Last Impressions Chest X-Ray 01/09/17 1609 Signed Impressions: Service Date/Time: Monday, January 09, 2017 16:15 - CONCLUSION: No acute disease. Burak Alvarado MD Assessment and Plan Problem List: (1) Cellulitis and abscess of foot ICD Code: L03.119 Status: Acute (2) Charcot foot due to diabetes mellitus ICD Code: E11.610 Status: Chronic (3) Chronic kidney disease, stage 3 ICD Code: N18.3 Status: Acute (4) Diabetes ICD Code: E11.9 Status: Acute (5) UTI (urinary tract infection) ICD Code: N39.0 Status: Acute Assessment and Plan 46-year-old female with Left foot wound with cellulitis Rather complicated foot wound in a patient with diabetes, Charcot's joint, previous osteomyelitis in a patient who presented with subjective febrile illness Patient started on empirical antibiotics to include vancomycin, Zosyn Wound culture is pending [place] for pain control UTI Currently on Zosyn pending urine culture Positive blood culture 1/4 positive culture gram-positive cocci, possible contamination, however, patient did present with fever and foot wound with history of osteomyelitis Repeat blood cultures Leukocytosis with left shift, resolved Continue follow CBC Diabetes Accu-Cheks with sliding scale insulin Levemir 30 units at bedtime Hypertension Amlodipine continued Chronic kidney disease stage III due to diabetic nephropathy Renal functions appear to be stable, continue monitor Avoid nephrotoxins Tobacco abuse Tobacco counseling provided Start nicotine patch DVT prevention Subcutaneous heparin This note was transcribed by mando Sawyer. I, Dr. Gavin Armas personally performed the history, physical exam, and medical decision making; and confirmed the accuracy of the information in the transcribed note. Authenticated by Dr. Gavin Armas on 01/10/17 at 09:09. Code Status Full code Discussed Condition With Patient Physician Certification 2 Midnight Certification Type: Admission for Inpatient Services Order for Inpatient Services The services are ordered in accordance with Medicare regulations or non- Medicare payer requirements, as applicable. In the case of services not specified as inpatient-only, they are appropriately provided as inpatient services in accordance with the 2-midnight benchmark. Estimated LOS (days): 2 days is the estimated time the patient will need to remain in the hospital, assuming treatment plan goals are met and no additional complications. Post-Hospital Plan: Not yet determined Problem Qualifiers (1) Diabetes: Qualified Code: E10.621 - Type 1 diabetes mellitus with foot ulcer Markus Sawyer Jan 10, 2017 09:08 Gavin Armas MD Jan 10, 2017 09:09
[2017-01-10] MEDS: NICOTINE 21 MG/24 HR PATCH T-DERMAL SCH (11:28)
[2017-01-10 12:00] VITALS: BP 150/75; PULSE 89; RESP 20; TEMP 100; O2SAT 93
--- NOTE | 2017-01-10 13:27 | RADRPT ---
EXAM DATE/TIME: 01/10/2017 12:26 [facility] COMPARISON: FOOT LEFT COMPLETE ([id number]), October 11, 2016, 22:05. MRI FOOT LEFT W/O CONTRAST, February 07, 2015, 12:4 2. INDICATIONS : Osteomyelitis. Charcot foot and wound on plantar aspect of left heel. MEDICAL HISTORY : Diabetes mellitus type 2. Hypertension. SURGICAL HISTORY : Tubal ligation. Cholecystectomy. ENCOUNTER: Subsequent ACUITY: 3 months PAIN SCORE: 0/10 LOCATION: Left Foot. TECHNIQUE: Multiplanar, multisequence MRI examination was performed without contrast. FINDINGS: Bone marrow signal within the kidney of forearms, metatarsals, and phalanges are within normal limits . There is abnormal appearance to the hindfoot are characteristic of a Charcot joint. The calcaneus h as an abnormal appearance with what appears to be a chronically ununited fracture. The distal aspect of the calcaneus, talus, cuboid, and navicular bone demonstrate increased T2 signal and decreased T1 signal. There is also increased T2 and decreased T1 signal in the distal aspect of the tibia and fibu la. There is a fluid collection at the plantar aspect of the foot measuring approximately 2.5 x 1.4 c m adjacent to an osseous fragment which may be the distal aspect of the calcaneus. The tendons appear intact. Achilles tendon is not thickened. There is diffuse subcutaneous edema and swelling of the foot. CONCLUSION: 1. Abnormal marrow edema is identified within the talus, calcaneus, navicular, cuboid, and distal tib ia and fibula. No contrast was administered to assess enhancement. However, findings could be related to edema related to Charcot joint but cannot definitely exclude infection in these locations. White blood cell scan may help differentiate. 2. 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 Adjacent to the distal aspect of th e calcaneus is a fluid collection measuring up to 2.5 cm. Burak Aggarwal MD on January 10, 2017 at 13:17 Board Certified Radiologist. This report was verified electronically.
--- NOTE | 2017-01-10 13:48 | RADRPT ---
EXAM DATE/TIME: 01/10/2017 12:51 [facility] COMPARISON: No previous studies available for comparison. INDICATIONS : Osteomyelitis. Charcot foot and wound on plantar aspect of right heel. MEDICAL HISTORY : Hypertension. Diabetes mellitus type 2. SURGICAL HISTORY : Tubal ligation. Cholecystectomy. ENCOUNTER: Initial ACUITY: 2 day PAIN SCORE: 0/10 LOCATION: Right Foot. TECHNIQUE: Multiplanar, multisequence MRI examination was performed without contrast. FINDINGS: There is collapse of the midfoot with loss of the normal plantar arch. There is subluxation at the ar ticulations between the calcaneus and cuboid as well as the talus and navicular and the articulations between the cuneiforms and proximal bones of the foot. This is associated with extensive bone marrow edema and there is soft tissue swelling. There is a possible sinus tract extending from the skin joni face towards the area of the fifth tarsometatarsal joint. There is multiloculated abnormal fluid juancho ection measuring up to 4.7 x 3.8 cm in the posterior aspect of the ankle joint. There may also be ulc eration of the soft tissues of the heel. There is a benign appearing subchondral bone lesion in the c alcaneus is below the subtalar joint. CONCLUSION: 1. Complete collapse of the midfoot with subluxations at the intertarsal joints as above. This is ass ociated with extensive marrow edema and soft tissue edema, abnormal fluid in the intertarsal region a nd abnormal fluid along the posterior aspect of the ankle joint. There is a possible sinus tract exte nding from the skin surface towards the fifth tarsometatarsal joint. The findings are characteristic of a Charcot arthropathy. No contrast administered and cannot exclude associated infection. Jay Burnett MD on January 10, 2017 at 13:35 Board Certified Radiologist. This report was verified electronically.
--- NOTE | 2017-01-10 13:54 | EKG ---
Date Performed: 01/09/2017 Time Performed: 16:29:20 PTAGE: 46 years EKG: Sinus rhythm NONSPECIFIC T-WAVE ABNORMALITY BORDERLINE ECG Compared to prior tracing no significant change PREVIOUS TRACING : 10/12/2016 20.46 DOCTOR: Mariah Sherman Interpretating Date/Time 01/10/2017 13:47:48
[2017-01-10 16:00] VITALS: BP 126/67; PULSE 72; RESP 20; TEMP 99.5; O2SAT 92
[2017-01-10] MEDS: ACETAMINOPHEN 325 MG TAB PO PRN (19:26)
[2017-01-10 20:00] VITALS: BP 146/86; PULSE 87; RESP 20; TEMP 100.1; O2SAT 96
[2017-01-10] MEDS: INSULIN DETEMIR 100 UNITS/ML VIAL SQ SCH (20:33)
[2017-01-11] VITALS: BP 155/79; PULSE 87; RESP 18; TEMP 100; O2SAT 95
[2017-01-11] MEDS: PIPERACIL-TAZO 3.375 GM PREMIX 50 ML IV SCH ×3 (01:45→19:02)
[2017-01-11] MEDS: ACETAMINOPHEN/HYDROcodone 325 MG/7.5 MG TAB PO PRN (02:18)
[2017-01-11 06:46] LABS: AUTOMATED NEUTROPHIL # 5.7 TH/MM3 (1.8-7.7); BASOPHIL % 0.4 % (0.0-2.0); EOSINOPHIL # 0.2 TH/MM3 (0-0.4); HEMATOCRIT 25.3 % (35.0-46.0); LYMPH % 11.9 % (9.0-44.0); LYMPHOCYTE # 0.9 TH/MM3 (1.0-4.8); MEAN CELL VOLUME 72.9 FL (80.0-100.0); MEAN CORPUSCULAR HEMOGLOBIN 23.1 PG (27.0-34.0); MEAN CORPUSCULAR HGB CONC 31.7 % (32.0-36.0); MONO % 10.8 % (0.0-8.0); NEUT % 74.9 % (16.0-70.0); PLATELET COUNT 302 TH/MM3 (150-450); RED BLOOD COUNT 3.47 MIL/MM3 (4.00-5.30); RED CELL DISTRIBUTION WIDTH 17.6 % (11.6-17.2); WHITE BLOOD COUNT 7.6 TH/MM3 (4.0-11.0)
[2017-01-11 06:55] LABS: POTASSIUM 3.7 MEQ/L (3.5-5.1)
[2017-01-11 06:57] LABS: HEMO FLAGS AUTO DIFF
[2017-01-11] MEDS: INSULIN ASPART SUPPLEMENTAL SCALE SQ SCH ×4 (07:00→21:00)
[2017-01-11 07:01] LABS: BICARBONATE 25.3 MEQ/L (21.0-32.0)
[2017-01-11 07:29] LABS: PLATELET ESTIMATE SMEAR NORMAL (NORMAL); PLATELET MORPHOLOGY NORMAL (NORMAL); ROULEAUX PRESENT (NORMAL); SCAN/DIFF AUTO DIFF CONFIRMED
[2017-01-11 08:00] VITALS: BP 148/84; PULSE 81; RESP 20; TEMP 100; O2SAT 91
[2017-01-11] MEDS: HEPARIN SODIUM - SQ 10,000 UNITS/ML VIAL SQ SCH ×3 (08:00→21:16)
[2017-01-11] MEDS: REMOVE OLD PATCH T-DERMAL SCH (09:00)
[2017-01-11] MEDS: VANCOMYCIN 1,500 MG/NS 500 ML IV SCH ×2 (09:50)
[2017-01-11] MEDS: NICOTINE 21 MG/24 HR PATCH T-DERMAL SCH (09:51)
[2017-01-11] MEDS: LACTOBACILLUS ACIDOPHILUS TAB PO SCH ×2 (09:51→21:15)
[2017-01-11] MEDS: FERROUS SULFATE 325 MG (65 MG ELEMENTAL IRON) TAB PO SCH (09:51)
[2017-01-11] MEDS: SODIUM CHLORIDE 0.9% FLUSH 10 ML FLUSH IV FLUSH SCH ×2 (09:55→21:06)
[2017-01-11] MEDS: PREGABALIN 100 MG CAP PO SCH ×3 (10:03→19:02)
--- NOTE | 2017-01-11 11:18 | HHI.PR ---
Subjective Remarks Follow-up left diabetic foot infection/UTI/Charcot foot disease 01/11/17-patient seen and examined, still spiking fevers. Denies any chills overnight however. Left foot MRI with inconclusive results. Leukocytosis resolved. Objective Vitals Vital Signs Date Time Temp Pulse Resp B/P Pulse Ox O2 Delivery O2 Flow Rate FiO2 01/11/17 08:00 100.0 81 20 148/84 91 01/11/17 00:00 100.0 87 18 155/79 95 01/10/17 20:00 100.1 87 20 146/86 96 01/10/17 16:00 99.5 72 20 126/67 92 01/10/17 12:00 100.0 89 20 150/75 93 I/O 01/10/17 01/10/17 01/10/17 01/11/17 01/11/17 01/11/17 07:00 15:00 23:00 07:00 15:00 23:00 Intake Total 240 ml 480 ml 240 ml Balance 240 ml 480 ml 240 ml Intake Oral 240 ml 480 ml 240 ml # Voids 4 5 2 3 # Bowel Movements 0 2 0 1 Result Diagram: 01/11/17 0500 01/11/17 0500 Imaging Last Impressions Foot MRI 01/10/17 0000 Signed Impressions: Service Date/Time: December 12:26 - CONCLUSION: 1. Abnormal marrow edema is identified within the talus, calcaneus, navicular, cuboid, and distal tibia and fibula. No contrast was administered to assess enhancement. However, findings could be related to edema related to Charcot joint but cannot definitely exclude infection in these locations. White blood cell scan may help differentiate. 2. 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 Adjacent to the distal aspect of the calcaneus is a fluid collection measuring up to 2.5 cm. Burak Aggarwal MD Chest X-Ray 01/09/17 1603 Signed Impressions: Service Date/Time: Monday, January 09, 2017 16:15 - CONCLUSION: No acute disease. Burak Alvarado MD Objective Remarks GENERAL: NAD SKIN: Warm and dry. HEAD: Normocephalic. EYES: No scleral icterus. No injection or drainage. NECK: Supple, trachea midline. No JVD or lymphadenopathy. CARDIOVASCULAR: Regular rate and rhythm without murmurs, gallops, or rubs. RESPIRATORY: Breath sounds equal bilaterally. No accessory muscle use. GASTROINTESTINAL: Abdomen soft, non-tender, nondistended. MUSCULOSKELETAL: No cyanosis, or edema. RIGHT FOOT: Patient with obvious foot deformities from Charcot's joint. There is a small puncture wound noted in the arch of the foot without any occult drainage LEFT FOOT: Patient with obvious foot deformities from Charcot's joint. There is an avulsion laceration noted in the arch of the foot with mild edema, was unable to express any exudate BACK: Nontender without obvious deformity. No CVA tenderness. A/P Problem List: (1) Cellulitis and abscess of foot ICD Code: L03.119 Status: Acute (2) Charcot foot due to diabetes mellitus ICD Code: E11.610 Status: Chronic (3) Chronic kidney disease, stage 3 ICD Code: N18.3 Status: Acute (4) Diabetes ICD Code: E11.9 Status: Acute (5) UTI (urinary tract infection) ICD Code: N39.0 Status: Acute Assessment and Plan 46-year-old female with Left foot wound with cellulitis Rather complicated foot wound in a patient with diabetes, Charcot's joint, previous osteomyelitis in a patient who presented with subjective febrile illness Left foot MRI noted and review with abnormal and completely resolved pending [facility] as podiatry consultation Currently on IV antibiotics including vancomycin, Zosyn Wound culture positive for Escherichia coli and beta strep [place] for pain control UTI Urine culture positive for Escherichia coli and beta strep Currently on Zosyn Positive blood culture 1/4 positive culture gram-positive cocci, possible contamination, however, patient did present with fever and foot wound with history of osteomyelitis Repeat blood cultures NTD Leukocytosis with left shift, resolved Continue follow CBC Diabetes Accu-Cheks with sliding scale insulin Levemir 30 units at bedtime Hypertension Amlodipine continued 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
[2017-01-11 12:00] VITALS: BP 135/73; PULSE 82; RESP 20; TEMP 99.3; O2SAT 91
[2017-01-11] MEDS: ACETAMINOPHEN 325 MG TAB PO PRN (14:30)
[2017-01-11 14:31] VITALS: TEMP 100.4
[2017-01-11 16:00] VITALS: BP 143/78; PULSE 86; RESP 20; TEMP 99.5; O2SAT 92
[2017-01-11 20:18] VITALS: BP 121/65; PULSE 77; RESP 18; TEMP 98.1; O2SAT 93
[2017-01-11] MEDS: INSULIN DETEMIR 100 UNITS/ML VIAL SQ SCH (21:05)
--- NOTE | 2017-01-11 22:02 | MB ---
cc: MELANIA YOUNG DPM DATE OF CONSULTATION: 01/11/2017. REASON FOR CONSULTATION: Rule out osteomyelitis of diabetic foot. HISTORY OF PRESENT ILLNESS: The patient is a 46-year-old female with a longstanding history of diabetes, neuropathy, hypertension, Charcot's, osteomyelitis, chronic kidney disease stage III. She presented to the hospital with ill feeling. She related to fevers of 101.4. She noticed that she may have scraped her left foot and there was some blood afterwards. The patient has a longstanding history of Charcot's deformity with previous history of open reduction internal fixation of the left calcaneus with recent hardware removal times 2 months of the left heel from Dr. Torre in [place]. She did see her engine tester approximately a week ago and has a follow up in a weeks time. The patient was seen at bedside today resting comfortably without any discomfort and no shortness of breath. REVIEW OF SYSTEMS: A six point review of systems is unremarkable. PAST MEDICAL HISTORY: 1. Hypertension. 2. Diabetes. 3. Diabetic neuropathy. 4. Charcot's. 5. Osteomyelitis. 6. Chronic kidney disease. PAST SURGICAL HISTORY: 1. Cholecystectomy. 2. Tubal ligation. 3. Multiple bilateral surgical interventions bilateral feet due to Charcot's and calcaneal fractures. MEDICATIONS: Reported medications include: 1. Iron. 2. Lantus. 3. Lyrica. MEDICATION ALLERGIES: 1. SULFA. FAMILY HISTORY: Noncontributory. SOCIAL HISTORY: The patient continues to smoke one pack per day of cigarettes. Denies alcohol or illicit drug use. PHYSICAL EXAMINATION: On the left medial heel, there is mild erythema. There is no active drainage. There is no purulence. There is a significant Charcot's deformity of the foot, ankle and heel areas. There is no warmth. There is no streaking. Protective sensation is grossly absent. +1 pitting edema. On the right foot, there is a plantar central opening that is mildly macerated and once again, no active streaking. No active drainage. No purulence. No fluctuance noted. Muscle strength intact. LABORATORY STUDIES: WBC on 01/11/2017 was 7.6, RBC of 3.47, H&H 8.1 and 25.3, respectively. IMAGING STUDIES: The patient is currently pending a SPECT CT bilateral lower extremity to identify osteomyelitis. MRI of the right foot completed 01/10/[address] Burnett with midfoot subluxations and collapse, positive marrow edema with some fluid along the posterior ankle joint. MRI left foot completed January 10, [address] Aggarwal with marrow edema within the talus, calcaneus, cuboid, navicular and distal tibia. There is an ununited calcaneal fracture and fluid collection 2.5 cm. ASSESSMENT: 1. Left foot cellulitis. 2. Bilateral Charcot's. 3. Diabetes with neuropathy. 4. Chronic kidney disease stage III. PLAN: 1. The patient is pending a stereotactic bone scan. 2. After the bone scan is completed, we can make additional interventions. I did touch on the risks, benefits, and pros and cons and the risk of a lower extremity amputation with significant osteomyelitis and history of Charcot's. The patient understands these risks. She is currently pending [place] boots which have been molded for bilateral feet and follow up with her engine tester in [place]. I will continue to follow the patient while in-house. Melania Young DPM SR/MELODIE /9:26 PM /9:46 PM
[2017-01-12 00:21] VITALS: BP 142/71; PULSE 79; RESP 22; TEMP 98.9; O2SAT 90
[2017-01-12] MEDS: PIPERACIL-TAZO 3.375 GM PREMIX 50 ML IV SCH ×3 (02:59→17:45)
[2017-01-12] MEDS: INSULIN ASPART SUPPLEMENTAL SCALE SQ SCH ×4 (07:00→20:54)
[2017-01-12 08:00] VITALS: BP 128/77; PULSE 79; RESP 18; TEMP 98; O2SAT 95
[2017-01-12] MEDS: NICOTINE 21 MG/24 HR PATCH T-DERMAL SCH (08:45)
[2017-01-12] MEDS: LACTOBACILLUS ACIDOPHILUS TAB PO SCH ×2 (08:45→20:45)
[2017-01-12] MEDS: FERROUS SULFATE 325 MG (65 MG ELEMENTAL IRON) TAB PO SCH (08:45)
[2017-01-12] MEDS: PREGABALIN 100 MG CAP PO SCH ×3 (08:45→17:44)
[2017-01-12] MEDS ORDERED: PHARMACY ORDERED LAB ONE (08:45)
[2017-01-12] MEDS: HEPARIN SODIUM - SQ 10,000 UNITS/ML VIAL SQ SCH (08:46)
[2017-01-12] MEDS: SODIUM CHLORIDE 0.9% FLUSH 10 ML FLUSH IV FLUSH SCH ×2 (08:47→16:38)
--- NOTE | 2017-01-12 08:55 | HHI.PR ---
Subjective Remarks Follow-up left diabetic foot infection/UTI/Charcot foot disease 01/11/17-patient seen and examined, still spiking fevers. Denies any chills overnight however. Left foot MRI with inconclusive results. Leukocytosis resolved. 01/12/17-patient seen and examined; currently afebrile. Seen by podiatry yesterday. Pending second part of WBC SPECT today Objective Vitals Vital Signs Date Time Temp Pulse Resp B/P Pulse Ox O2 Delivery O2 Flow Rate FiO2 01/12/17 08:00 98.0 79 18 128/77 95 01/12/17 04:43 01/12/17 01:30 Nasal Cannula 2.00 01/12/17 00:21 98.9 79 22 142/71 90 01/11/17 20:18 98.1 77 18 121/65 93 01/11/17 16:00 99.5 86 20 143/78 92 01/11/17 14:31 100.4 01/11/17 12:00 99.3 82 20 135/73 91 I/O 01/11/17 01/11/17 01/11/17 01/12/17 01/12/17 01/12/17 07:00 15:00 23:00 07:00 15:00 23:00 Intake Total 240 ml 1020 ml Balance 240 ml 1020 ml Intake Oral 240 ml 720 ml IV Total 300 ml # Voids 3 3 3 # Bowel Movements 1 Result Diagram: 01/11/17 0500 01/11/17 0500 Objective Remarks GENERAL: NAD SKIN: Warm and dry. HEAD: Normocephalic. EYES: No scleral icterus. No injection or drainage. NECK: Supple, trachea midline. No JVD or lymphadenopathy. CARDIOVASCULAR: Regular rate and rhythm without murmurs, gallops, or rubs. RESPIRATORY: Breath sounds equal bilaterally. No accessory muscle use. GASTROINTESTINAL: Abdomen soft, non-tender, nondistended. MUSCULOSKELETAL: No cyanosis, or edema. RIGHT FOOT: Patient with obvious foot deformities from Charcot's joint. There is a small puncture wound noted in the arch of the foot without any occult drainage LEFT FOOT: Patient with obvious foot deformities from Charcot's joint. There is an avulsion laceration noted in the arch of the foot with mild edema, was unable to express any exudate BACK: Nontender without obvious deformity. No CVA tenderness. A/P Problem List: (1) Cellulitis and abscess of foot ICD Code: L03.119 Status: Acute (2) Charcot foot due to diabetes mellitus ICD Code: E11.610 Status: Chronic (3) Chronic kidney disease, stage 3 ICD Code: N18.3 Status: Acute (4) Diabetes ICD Code: E11.9 Status: Acute (5) UTI (urinary tract infection) ICD Code: N39.0 Status: Acute Assessment and Plan 46-year-old female with Left foot wound with cellulitis Rather complicated foot wound in a patient with diabetes, Charcot's joint, previous osteomyelitis in a patient who presented with subjective febrile illness Left foot MRI noted and review with abnormal and completely resolved pending 2nd part of WBC SPECT Appreciate input from podiatry Currently on IV antibiotics including vancomycin, Zosyn Wound culture positive for Escherichia coli and beta strep [place] for pain control UTI Urine culture positive for Escherichia coli and beta strep Currently on Zosyn Positive blood culture 1/4 positive culture gram-positive cocci, possible contamination, however, patient did present with fever and foot wound with history of osteomyelitis Repeat blood cultures NTD Leukocytosis with left shift, resolved Continue follow CBC Diabetes Accu-Cheks with sliding scale insulin Levemir 30 units at bedtime Hypertension Amlodipine continued Chronic kidney disease stage III due to diabetic nephropathy Renal functions appear to be stable, continue monitor Avoid nephrotoxins Tobacco abuse Tobacco counseling provided On nicotine patch DVT prevention Subcutaneous heparin Problem Qualifiers (1) Diabetes: Qualified Code: E10.621 - Type 1 diabetes mellitus with foot ulcer Gavin Armas MD Jan 12, 2017 08:55
[2017-01-12] MEDS: REMOVE OLD PATCH T-DERMAL SCH (09:00)
[2017-01-12] MEDS: VANCOMYCIN 1,500 MG/NS 500 ML IV SCH ×2 (10:26)
--- NOTE | 2017-01-12 10:35 | RADRPT ---
EXAM DATE/TIME: 01/11/2017 12:19 [facility] COMPARISON: MRI FOOT RIGHT W/O CONTRAST, January 10, 2017, 12:51. WBC SPECT CERETEC, October 12, 2016, 15:28. INDICATIONS : Bilateral charcot foot and history of osteomyelitis. DOSE: 20.1 mCi Tc99m Ceretec labeled white blood cells IV SPECT IMAGIN hrs IMAGNG: SPECT/CT imaging with fusion was performed. RADIATION DOSE: 2.66 CTDIvol (mGy) MEDICAL HISTORY : Renal failure, chrnoic. Diabetes mellitus type 2. Hypertension. SURGICAL HISTORY : Tubal ligation. Cholecystectomy. Left foot surgery. ENCOUNTER: Initial ACUITY: 2 days PAIN SCALE: 3/10 LOCATION: Bilateral Foot. TECHNIQUE: Following the in vitro labeling of autologous white cells and reinjection, whole body scan was perfor med at the specified times. SPECT imaging was performed at the specified time in sagittal, axial and coronal planes. Attenuation correction was performed with the computed tomography and both the atten uation correction and non-attenuation corrected data sets were reviewed. FINDINGS: Today's exam is compared to the prior study of 10/12/2016. Today's exam there now appears to be some a ccumulation of white cells within the right mortise joint anteriorly. This is a new finding compared to the prior examination. The previously noted accumulation of white cells in the soft tissue surroun ding the left ankle has improved compared to the prior examination. There continue to be chronic kelly ges at both ankles, left greater than right.. CONCLUSION: 1. There now appears to be accumulation of white cells within the right mortise joint anteriorly sug gesting an inflammatory process of the right mortise joint. 2. The previously noted accumulation of tracer activity in the soft tissues are normal left ankle has improved and essentially resolved. Tyrell Thomas MD on January 12, 2017 at 10:26 Board Certified Radiologist. This report was verified electronically.
[2017-01-12 12:00] VITALS: BP 152/79; PULSE 77; RESP 18; TEMP 98.6; O2SAT 96
[2017-01-12 12:03] VITALS: O2SAT 92
[2017-01-12 16:00] VITALS: BP 136/77; PULSE 76; RESP 17; TEMP 98.5; O2SAT 95
[2017-01-12] MEDS: ACETAMINOPHEN/HYDROcodone 325 MG/7.5 MG TAB PO PRN (16:39)
--- NOTE | 2017-01-12 18:07 | PD.CONS ---
History of Present Illness Service Infectious disease Consult Requested By Arnold Cuenca PA-C Reason for Consult Evaluate patient with [facility] Primary Care Physician Reyna Hedrick M.D. Diagnoses: History of Present Illness Patient seen and examined. Records reviewed. Patient is a 46-year-old female with known diabetes, neuropathy, and Charcot foot, admitted to the hospital for further evaluation of generalized malaise, and fever. She started noticing bloody drainage from her left foot, and she wasn't sure whether she scraped on her left foot couple days prior to coming into the hospital. She has not had any respiratory complaint. She denies any nausea or vomiting, diarrhea, abdominal pain, back pain, or any urinary complaints. On evaluation she had some pyuria on her urinalysis. She has 2 open wounds on both feet, and MRI of both feet is showing findings of Charcot deformity. She also has that chronic finding of fracture on her left calcaneus. 1 out of the 2 blood culture done and had group B strep. Urine culture has Escherichia coli and group B strep. The left foot wound culture has MSSA and group B strep. Tagged WBC scan was done and it lit up the right ankle, but it did not let up the left foot or the right foot. Patient's temperature is better. Her initial WBC was 12,000 and it's down to normal. Patient has some mild serous drainage from her right foot wound. She has bloody drainage and quite a bit on her left foot wound. Infectious disease consultation has been requested to evaluate the patient. Review of Systems Constitutional: COMPLAINS OF: Fever, Chills Eyes: DENIES: Eye pain Ears, nose, mouth, throat: DENIES: Nasal discharge, Oral lesions, Throat pain, Ear Pain, Sinus Pain, Toothache Respiratory: DENIES: Cough, Shortness of breath Cardiovascular: DENIES: Chest pain, Palpitations Gastrointestinal: DENIES: Abdominal pain, Nausea, Vomiting, Difficulty Swallowing Genitourinary: DENIES: Urgency, Dysuria Musculoskeletal: COMPLAINS OF: Joint pain, Joint Swelling, DENIES: Back pain Integumentary: DENIES: Rash Neurologic: DENIES: Headache, Localized weakness Psychiatric: DENIES: Confusion, Hallucinations Past Family Social History Allergies: Coded Allergies: Sulfa (Verified Allergy, Unknown, 01/09/17) Past Medical History Hypertension Diabetes Diabetic neuropathy Charcot's foot History of osteomyelitis Chronic kidney disease stage III Past Surgical History Cholecystectomy Tubal ligation Multiple surgeries on her feet due to Charcot's joint, screw removal Active Ordered Medications Tylenol Carpio Norvasc Ferrous sulfate Heparin Insulin Lactinex MOM Nicotine patch Zofran Lyrica Restoril Zosyn Vancomycin Family History Family history significant for heart disease, stroke, and seizures Social History Patient continues to smoke one pack a cigarettes a day since she was 13 years old. Denies any alcohol or illicit drugs Physical Exam Vital Signs Vital Signs Date Time Temp Pulse Resp B/P Pulse Ox O2 Delivery O2 Flow Rate FiO2 01/12/17 16:00 98.5 76 17 136/77 95 01/12/17 14:24 20 01/12/17 12:03 92 21 01/12/17 12:00 98.6 77 18 152/79 96 01/12/17 08:00 98.0 79 18 128/77 95 01/12/17 04:43 01/12/17 01:30 Nasal Cannula 2.00 01/12/17 00:21 98.9 79 22 142/71 90 01/11/17 20:18 98.1 77 18 121/65 93 Physical Exam GENERAL: Patient is a well-nourished, well-developed CF, awake and alert, not in respiratory distress. SKIN: Warm and dry. No generalized rash, no ecchymoses and no evidence of embolic lesions. HEAD: Atraumatic. Normocephalic. No temporal wasting, or tenderness. EYES: [place] conjunctiva. No petechia or hemorrhage. Pupils equal, round and reactive to light. Extraocular movements full and intact. No scleral icterus. No injection or drainage. EARS, NOSE AND THROAT: Nose without bleeding or purulent nasal discharge. No sinus tenderness. Mucous membranes pink and moist. No oral lesions noted. No exudate. No oral thrush. NECK: Trachea midline. Supple and not tender, no meningeal signs CARDIOVASCULAR: Regular rate and rhythm. No murmurs, rubs or gallops heard RESPIRATORY: Clear to auscultation. Breath sounds equal bilaterally. No rales , wheezing or rhonchi ABDOMEN: Soft, non-tender, nondistended. Bowel sounds present and normoactive. No guarding. No rebound. No organomegaly. EXTREMITIES: No clubbing, cyanosis. Both feet are swollen. R foot has Charcot deformity and there is an ulcer about 1/2 cm size with small amount of serous drainage, no cellulitis, no tenderness, no odor. R ankle has no redness or tenderness or open wound. L foot has Charcot deformity with a slightly larger ulcer that has copious bloody drainage, no odor, no cellulitis, no tenderness on palpation, no crepitus. No calf tenderness. Well perfused and warm. NEUROLOGICAL: Awake and alert. Cranial nerves grossly intact. Motor grossly within normal limits. PSYCHIATRIC: Normal affect, calm and cooperative. LINE: No evidence of infection Laboratory Laboratory Tests Test 01/12/17 09:39 Vancomycin Level Trough 20.1 Date/Time Procedure Status Source Growth 01/10/17 10:30 Aerobic Blood Culture - Preliminary Resulted Blood Peripheral NO GROWTH IN 2 DAYS 01/10/17 10:30 Anaerobic Blood Culture - Preliminary Resulted Blood Peripheral NO GROWTH IN 2 DAYS 01/09/17 18:25 Gram Stain - Final Complete Wound Foot 01/09/17 18:25 Wound Culture - Final Complete Staphylococcus Aureus Group B Beta Strep 01/09/17 17:00 Urine Culture - Final Complete Urine Catheterized Urine Escherichia Coli Group B Beta Strep 01/09/17 16:20 Aerobic Blood Culture Received Blood Peripheral Pending 01/09/17 16:20 Anaerobic Blood Culture Received Blood Peripheral Pending Result Diagram: 01/11/17 0500 01/11/17 0500 Imaging RADIOLOGY STUDIES/FILMS REVIEWED Tumor Localization 01/10/17 0000 Signed Impressions: Service Date/Time: Wednesday, January 11, 2017 12:19 - CONCLUSION: 1. There now appears to be accumulation of white cells within the right mortise joint anteriorly suggesting an inflammatory process of the right mortise joint. 2. The previously noted accumulation of tracer activity in the soft tissues are normal left ankle has improved and essentially resolved. Tyrell Thomas MD Foot MRI 01/10/17 0000 Signed Impressions: Service Date/Time: December 12:26 - CONCLUSION: 1. Abnormal marrow edema is identified within the talus, calcaneus, navicular, cuboid, and distal tibia and fibula. No contrast was administered to assess enhancement. However, findings could be related to edema related to Charcot joint but cannot definitely exclude infection in these locations. White blood cell scan may help differentiate. 2. 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 Adjacent to the distal aspect of the calcaneus is a fluid collection measuring up to 2.5 cm. Burak Aggarwal MD Chest X-Ray 01/09/17 1609 Signed Impressions: Service Date/Time: Monday, January 09, 2017 16:15 - CONCLUSION: No acute disease. Burak Alvarado MD Assessment and Plan Assessment and Plan IMPRESSION GBS sepsis, source, ?, ?cellulitis L foot - has Charcit deformity both feet, WBC scan did not lit up L foot [place] Charcot foot deformity, with ulcers bilaterally Known non-union fracture L calcaneus, previously with hardware, has been removed CKD Tobacco abuse DM RECOMMENDATION Change to Rocephin Follow repeat BC US kidneys to eval for obstruction Wound care per podiatry Monitor temps Monitor progress If no further (+) BC, and US ok, plan to give Levaquin x 14 days I will follow along with you Thank you for this consultation Discussed Condition With D/W Arnold Sawyer PA-C D/W Dr Young (podiatry) Judith Vaughan MD Jan 12, 2017 18:07
--- NOTE | 2017-01-12 19:05 | RADRPT ---
EXAM DATE/TIME: 01/12/2017 18:41 [facility] COMPARISON: No previous studies available for comparison. INDICATIONS : Obstruction. MEDICAL HISTORY : Hypertension. Renal failure. Charcot's foot. herniated disc. diabetes. SURGICAL HISTORY : Tubal ligation. Cholecystectomy. Left foot surgery. ENCOUNTER: Initial ACUITY: 1 day PAIN SCORE: 10 LOCATION: Bilateral flank MEASUREMENTS: RIGHT KIDNEY: 13.2 x 5.2 x 5.1 cm LEFT KIDNEY: 11.7 x 6.1 x 6.2 cm FINDINGS: RIGHT KIDNEY: Renal cortex is normal in thickness and echotexture. No hydronephrosis, stone, or mass. There is an upper pole cyst measuring 1.2 x 1.4 x 1.0 cm. LEFT KIDNEY: Renal cortex is normal in thickness and echotexture. No hydronephrosis, stone, or mass. BLADDER: Within normal limits given the degree of distension. CONCLUSION: Right upper pole renal cyst measuring 1.4 cm. No evidence of hydronephrosis. Abel Issa MD on January 12, 2017 at 19:01 Board Certified Radiologist. This report was verified electronically.
[2017-01-12] MEDS ORDERED: cefTRIAXone INJ 2,000 MG in SODIUM CHLORIDE 0.9% INJ 100 ML IV SCH (20:00)
[2017-01-12 20:24] VITALS: BP 115/62; PULSE 65; RESP 16; TEMP 99.2; O2SAT 93
[2017-01-12] MEDS: INSULIN DETEMIR 100 UNITS/ML VIAL SQ SCH (20:54)
[2017-01-13 00:36] VITALS: BP 148/82; PULSE 63; RESP 20; TEMP 97.7; O2SAT 91
[2017-01-13] MEDS: INSULIN ASPART SUPPLEMENTAL SCALE SQ SCH ×3 (06:38→16:00)
[2017-01-13 08:00] VITALS: BP 120/71; PULSE 64; RESP 17; TEMP 98; O2SAT 95
[2017-01-13] MEDS: HEPARIN SODIUM - SQ 10,000 UNITS/ML VIAL SQ SCH (08:00)
[2017-01-13] MEDS: LACTOBACILLUS ACIDOPHILUS TAB PO SCH (08:22)
[2017-01-13] MEDS: PREGABALIN 100 MG CAP PO SCH ×2 (08:22→14:41)
[2017-01-13] MEDS: FERROUS SULFATE 325 MG (65 MG ELEMENTAL IRON) TAB PO SCH (08:22)
[2017-01-13] MEDS: NICOTINE 21 MG/24 HR PATCH T-DERMAL SCH (08:23)
[2017-01-13 08:40] VITALS: O2SAT 96
[2017-01-13] MEDS: SODIUM CHLORIDE 0.9% FLUSH 10 ML FLUSH IV FLUSH SCH (09:00)
[2017-01-13] MEDS ORDERED: VANCOMYCIN INJ 1,400 MG in SODIUM CHLORID 0.9% 500 ML INJ 500 ML IV SCH (09:00)
--- NOTE | 2017-01-13 09:50 | HHI.PR ---
Subjective Remarks Follow-up left diabetic foot infection/UTI/Charcot foot disease 01/11/17-patient seen and examined, still spiking fevers. Denies any chills overnight however. Left foot MRI with inconclusive results. Leukocytosis resolved. 01/12/17-patient seen and examined; currently afebrile. Seen by podiatry yesterday. Pending second part of WBC SPECT today 01/13/17-patient seen and examined no acute event overnight; WBC SPECT completed. Afebrile. Currently on Rocephin and blood culture NTD Objective Vitals Vital Signs Date Time Temp Pulse Resp B/P Pulse Ox O2 Delivery O2 Flow Rate FiO2 01/13/17 08:40 96 21 01/13/17 08:00 98.0 64 17 120/71 95 01/13/17 05:08 01/13/17 00:36 97.7 63 20 148/82 91 01/13/17 00:00 91 Nasal Cannula 2.00 01/12/17 23:50 Nasal Cannula 3.00 01/12/17 20:38 21 01/12/17 20:24 99.2 65 16 115/62 93 01/12/17 18:44 20 01/12/17 17:39 20 01/12/17 16:00 98.5 76 17 136/77 95 01/12/17 12:03 92 21 01/12/17 12:00 98.6 77 18 152/79 96 I/O 01/12/17 01/12/17 01/12/17 01/13/17 01/13/17 01/13/17 07:00 15:00 23:00 07:00 15:00 23:00 Intake Total 925 ml Balance 925 ml Intake Oral 310 ml IV Total 615 ml # Voids 3 1 # Bowel Movements 1 Result Diagram: 01/11/17 0500 01/11/17 0500 Imaging Last Impressions Renal Ultrasound 01/12/17 0000 Signed Impressions: Service Date/Time: Thursday, January 12, 2017 18:41 - CONCLUSION: Right upper pole renal cyst measuring 1.4 cm. No evidence of hydronephrosis. Abel Issa MD Tumor Localization 01/10/17 0000 Signed Impressions: Service Date/Time: Wednesday, January 11, 2017 12:19 - CONCLUSION: 1. There now appears to be accumulation of white cells within the right mortise joint anteriorly suggesting an inflammatory process of the right mortise joint. 2. The previously noted accumulation of tracer activity in the soft tissues are normal left ankle has improved and essentially resolved. Tyrell Thomas MD Foot MRI 01/10/17 0000 Signed Impressions: Service Date/Time: December 12:26 - CONCLUSION: 1. Abnormal marrow edema is identified within the talus, calcaneus, navicular, cuboid, and distal tibia and fibula. No contrast was administered to assess enhancement. However, findings could be related to edema related to Charcot joint but cannot definitely exclude infection in these locations. White blood cell scan may help differentiate. 2. 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 Adjacent to the distal aspect of the calcaneus is a fluid collection measuring up to 2.5 cm. Burak Aggarwal MD Chest X-Ray 01/09/17 1609 Signed Impressions: Service Date/Time: Monday, January 09, 2017 16:15 - CONCLUSION: No acute disease. Burak Alvarado MD Objective Remarks GENERAL: NAD SKIN: Warm and dry. HEAD: Normocephalic. EYES: No scleral icterus. No injection or drainage. NECK: Supple, trachea midline. No JVD or lymphadenopathy. CARDIOVASCULAR: Regular rate and rhythm without murmurs, gallops, or rubs. RESPIRATORY: Breath sounds equal bilaterally. No accessory muscle use. GASTROINTESTINAL: Abdomen soft, non-tender, nondistended. MUSCULOSKELETAL: No cyanosis, or edema. RIGHT FOOT: Patient with obvious foot deformities from Charcot's joint. There is a small puncture wound noted in the arch of the foot without any occult drainage LEFT FOOT: Patient with obvious foot deformities from Charcot's joint. There is an avulsion laceration noted in the arch of the foot with mild edema, was unable to express any exudate BACK: Nontender without obvious deformity. No CVA tenderness. A/P Problem List: (1) Cellulitis and abscess of foot ICD Code: L03.119 Status: Acute (2) Charcot foot due to diabetes mellitus ICD Code: E11.610 Status: Chronic (3) Chronic kidney disease, stage 3 ICD Code: N18.3 Status: Acute (4) Diabetes ICD Code: E11.9 Status: Acute (5) UTI (urinary tract infection) ICD Code: N39.0 Status: Acute (6) GBS (group B streptococcus) infection ICD Code: A49.1 Status: Acute Assessment and Plan 46-year-old female with Left foot wound with cellulitis Rather complicated foot wound in a patient with diabetes, Charcot's joint, previous osteomyelitis in a patient who presented with subjective febrile illness Left foot MRI noted and review with abnormal and WBC SPECT noted and review pending further recommendation from podiatry Appreciate input from podiatry Currently on IV antibiotics including Rocephin Wound culture positive for Escherichia coli and beta strep [place] for pain control UTI Urine culture positive for Escherichia coli and beta strep Currently on Rocephin Renal ultrasound noted and reviewed by me without any hydronephrosis GBS sepsis Currently on Rocephin / positive culture gram-positive cocci, possible contamination, however, patient did present with fever and foot wound with history of osteomyelitis Repeat blood cultures NTD Appreciate input from infectious disease specialist Leukocytosis with left shift, resolved Continue follow CBC Diabetes Accu-Cheks with sliding scale insulin Levemir 30 units at bedtime Hypertension Amlodipine continued Chronic kidney disease stage III due to diabetic nephropathy Renal functions appear to be stable, continue monitor Avoid nephrotoxins Renal ultrasound noted and review by me Tobacco abuse Tobacco counseling provided On nicotine patch DVT prevention Subcutaneous heparin Problem Qualifiers (1) Diabetes: Qualified Code: E10.621 - Type 1 diabetes mellitus with foot ulcer Gavin Armas MD Jan 13, 2017 09:50
[2017-01-13] MEDS: REMOVE OLD PATCH T-DERMAL SCH (10:05)
[2017-01-13 12:00] VITALS: BP 118/79; PULSE 69; RESP 18; TEMP 97.8; O2SAT 96
--- NOTE | 2017-01-13 14:49 | HHI.IDPN ---
Subjective Subjective Remarks Patient is a 46-year-old female with known diabetes, neuropathy, and Charcot foot, admitted to the hospital for further evaluation of generalized malaise, and fever. She started noticing bloody drainage from her left foot, and she wasn't sure whether she scraped on her left foot couple days prior to coming into the hospital. She has not had any respiratory complaint. She denies any nausea or vomiting, diarrhea, abdominal pain, back pain, or any urinary complaints. On evaluation she had some pyuria on her urinalysis. She has 2 open wounds on both feet, and MRI of both feet is showing findings of Charcot deformity. She also has that chronic finding of fracture on her left calcaneus. 1 out of the 2 blood culture done and had group B strep. Urine culture has Escherichia coli and group B strep. The left foot wound culture has MSSA and group B strep. Tagged WBC scan was done and it lit up the right ankle, but it did not let up the left foot or the right foot. Patient's temperature is better. Her initial WBC was 12,000 and it's down to normal. Patient has some mild serous drainage from her right foot wound. She has bloody drainage and quite a bit on her left foot wound. Notes reviewed Temps normal No new (+) BC Only one out of 2 from admission Renal US ok, no obstruction No new complaint Antibiotics Rocephin Lines PIV Past Medical History Hypertension Diabetes Diabetic neuropathy Charcot's foot History of osteomyelitis Chronic kidney disease stage III Past Surgical History Cholecystectomy Tubal ligation Multiple surgeries on her feet due to Charcot's joint, screw removal Allergies: Coded Allergies: Sulfa (Verified Allergy, Unknown, 01/09/17) Objective . Vital Signs Date Time Temp Pulse Resp B/P Pulse Ox O2 Delivery O2 Flow Rate FiO2 01/13/17 12:00 97.8 69 18 118/79 96 01/13/17 09:22 20 01/13/17 08:40 96 21 01/13/17 08:00 98.0 64 17 120/71 95 01/13/17 05:08 01/13/17 00:36 97.7 63 20 148/82 91 01/13/17 00:00 91 Nasal Cannula 2.00 01/12/17 23:50 Nasal Cannula 3.00 01/12/17 20:38 21 01/12/17 20:24 99.2 65 16 115/62 93 01/12/17 17:39 20 01/12/17 16:00 98.5 76 17 136/77 95 01/12/17 01/12/17 01/13/17 15:00 23:00 07:00 Intake Total 925 ml Balance 925 ml Intake Oral 310 ml IV Total 615 ml # Voids 1 # Bowel Movements 1 Imaging Renal Ultrasound 01/12/17 0000 Signed Impressions: Service Date/Time: Thursday, January 12, 2017 18:41 - CONCLUSION: Right upper pole renal cyst measuring 1.4 cm. No evidence of hydronephrosis. Abel Issa MD Tumor Localization 01/10/17 0000 Signed Impressions: Service Date/Time: Wednesday, January 11, 2017 12:19 - CONCLUSION: 1. There now appears to be accumulation of white cells within the right mortise joint anteriorly suggesting an inflammatory process of the right mortise joint. 2. The previously noted accumulation of tracer activity in the soft tissues are normal left ankle has improved and essentially resolved. Tyrell Thomas MD Foot MRI 01/10/17 0000 Signed Impressions: Service Date/Time: December 12:26 - CONCLUSION: 1. Abnormal marrow edema is identified within the talus, calcaneus, navicular, cuboid, and distal tibia and fibula. No contrast was administered to assess enhancement. However, findings could be related to edema related to Charcot joint but cannot definitely exclude infection in these locations. White blood cell scan may help differentiate. 2. 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 Adjacent to the distal aspect of the calcaneus is a fluid collection measuring up to 2.5 cm. Burak Aggarwal MD Chest X-Ray 01/09/17 1609 Signed Impressions: Service Date/Time: Monday, January 09, 2017 16:15 - CONCLUSION: No acute disease. Burak Alvarado MD Physical Exam GENERAL: awake and alert, not in respiratory distress. SKIN: Warm and dry. No generalized rash, no ecchymoses and no evidence of embolic lesions. HEAD: Atraumatic. Normocephalic. No temporal wasting, or tenderness. EYES: [place] conjunctiva. No petechia or hemorrhage. Pupils equal, round and reactive to light. Extraocular movements full and intact. No scleral icterus. No injection or drainage. EARS, NOSE AND THROAT: Nose without bleeding or purulent nasal discharge. No sinus tenderness. Mucous membranes pink and moist. No oral lesions noted. No exudate. No oral thrush. NECK: Trachea midline. Supple and not tender, no meningeal signs CARDIOVASCULAR: Regular rate and rhythm. No murmurs, rubs or gallops heard RESPIRATORY: Clear to auscultation. Breath sounds equal bilaterally. No rales , wheezing or rhonchi ABDOMEN: Soft, non-tender, nondistended. Bowel sounds present and normoactive. No guarding. No rebound. No organomegaly. EXTREMITIES: No clubbing, cyanosis. Both feet are swollen. R foot has Charcot deformity and there is an ulcer about 1/2 cm size with small amount of serous drainage, no cellulitis, no tenderness, no odor. R ankle has no redness or tenderness or open wound. L foot has Charcot deformity with a slightly larger ulcer with bloody drainage, no odor, no cellulitis, no tenderness on palpation, no crepitus. No calf tenderness. Well perfused and warm. NEUROLOGICAL: Non-focal PSYCHIATRIC: Normal affect, calm and cooperative. LINE: No evidence of infection Assessment & Plan Remarks IMPRESSION GBS sepsis, source, ?, ?cellulitis L foot - has Charcot deformity both feet, WBC scan did not lit up L foot Alonzo Charcot foot deformity, with ulcers bilaterally Known non-union fracture L calcaneus, previously with hardware, has been removed CKD Tobacco abuse DM RECOMMENDATION Continue Raman Spoke with LISA to find out if Levaquin covered by her insurance - will give Levaquin 250 mg daily x 14 days Wound care per podiatry patient has appointment with podiatry this week She also has appointment to get the special boot prescribed by her podiatry Will start Levaquin now. If CM can work on her Levaquin, she should be ok for D/C today from ID standpoint Judith Vaughan MD Jan 13, 2017 14:49
[2017-01-13] MEDS ORDERED: LEVA250T14 OROPHARYNG (14:54)
[2017-01-13] MEDS ORDERED: LEVOFLOXACIN 250 MG TAB PO SCH (15:00)
[2017-01-13] MEDS ORDERED: LACT PO (15:40)
[2017-01-13 15:41] VITALS: RESP 20
--- NOTE | 2017-01-13 15:45 | HHI.DS ---
Discharge Summary Admission Date Jan 09, 2017 at 17:54 Discharge Date: Jan 13, 2017 Admitting Diagnosis febrile illness rule out osteomyelitis of the foot, diabetic foot ul (1) Cellulitis and abscess of foot ICD Code: L03.119 (2) Charcot foot due to diabetes mellitus ICD Code: E11.610 (3) Chronic kidney disease, stage 3 ICD Code: N18.3 (4) Diabetes ICD Code: E11.9 (5) UTI (urinary tract infection) ICD Code: N39.0 (6) GBS (group B streptococcus) infection ICD Code: A49.1 Procedures none Brief History - From Admission Written by Markus Sawyer, acting as scribe for Dr. Armas on 01/10/17 at 09: 06. 46-year-old female with known history of diabetes, diabetic neuropathy , hypertension, Charcot's foot, history of osteomyelitis of the foot, chronic kidney disease stage III who presented to hospital because of febrile illness. Patient states that she is in normal state of health until Saturday when she woke up and was just not feeling 100%. Saturday she started spiking fevers 101.4. She noticed that she may have scraped her left foot on Saturday and noticed some blood afterwards. Throughout the next couple days she continued to have fever and developed exudative drainage from the left foot. She did not call her primary medical doctor or plaster machine operator for recommendations. Patient came to emergency department to get checked. Patient does have significant problems with her feet with recurrent surgeries due to diabetic Charcot's foot. Approximately 2 month ago she had her bone scraped and screws removed from her right foot area she is being followed by plaster machine operator in [place]. Patient denies any runny nose, cough, shortness of breath, dyspnea, abdominal pain, diarrhea. Patient is relatively wheelchair bound, she can ambulate but was told only to his wheelchair due to her bilateral feet condition. Patient had evaluation done emergency department and was recommended by ER physician the patient be admitted for continued management and treatment. CBC/BMP: 01/11/17 0500 01/11/17 0500 Significant Findings Laboratory Tests Test 01/11/17 01/12/17 05:00 09:39 Red Blood Count 3.47 MIL/MM3 (4.00-5.30) Hemoglobin 8.0 GM/DL (11.6-15.3) Hematocrit 25.3 % (35.0-46.0) Mean Corpuscular Volume 72.9 FL (80.0-100.0) Mean Corpuscular Hemoglobin 23.1 PG (27.0-34.0) Mean Corpuscular Hemoglobin 31.7 % Concent (32.0-36.0) Red Cell Distribution Width 17.6 % (11.6-17.2) Neutrophils (%) (Auto) 74.9 % (16.0-70.0) Monocytes (%) (Auto) 10.8 % (0.0-8.0) Lymphocytes # (Auto) 0.9 TH/MM3 (1.0-4.8) Rouleau PRESENT (NORMAL) Blood Urea Nitrogen 42 MG/DL (7-18) Creatinine 1.90 MG/DL (0.50-1.00) Estimat Glomerular Filtration 28 ML/MIN (>89) Rate Calcium Level 7.9 MG/DL (8.5-10.1) Vancomycin Level Trough 20.1 MCG/ML (5.0-10.0) Imaging Last Impressions Renal Ultrasound 01/12/17 0000 Signed Impressions: Service Date/Time: Thursday, January 12, 2017 18:41 - CONCLUSION: Right upper pole renal cyst measuring 1.4 cm. No evidence of hydronephrosis. Abel Issa MD Tumor Localization 01/10/17 0000 Signed Impressions: Service Date/Time: Wednesday, January 11, 2017 12:19 - CONCLUSION: 1. There now appears to be accumulation of white cells within the right mortise joint anteriorly suggesting an inflammatory process of the right mortise joint. 2. The previously noted accumulation of tracer activity in the soft tissues are normal left ankle has improved and essentially resolved. Tyrell Thomas MD Foot MRI 01/10/17 0000 Signed Impressions: Service Date/Time: December 12:26 - CONCLUSION: 1. Abnormal marrow edema is identified within the talus, calcaneus, navicular, cuboid, and distal tibia and fibula. No contrast was administered to assess enhancement. However, findings could be related to edema related to Charcot joint but cannot definitely exclude infection in these locations. White blood cell scan may help differentiate. 2. 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 Adjacent to the distal aspect of the calcaneus is a fluid collection measuring up to 2.5 cm. Burak Aggarwal MD Chest X-Ray 01/09/17 1609 Signed Impressions: Service Date/Time: Saturday, January 09, 2017 16:15 - CONCLUSION: No acute disease. Burak Alvarado MD PE at Discharge GENERAL: NAD SKIN: Warm and dry. HEAD: Normocephalic. EYES: No scleral icterus. No injection or drainage. NECK: Supple, trachea midline. No JVD or lymphadenopathy. CARDIOVASCULAR: Regular rate and rhythm without murmurs, gallops, or rubs. RESPIRATORY: Breath sounds equal bilaterally. No accessory muscle use. GASTROINTESTINAL: Abdomen soft, non-tender, nondistended. MUSCULOSKELETAL: No cyanosis, or edema. RIGHT FOOT: Patient with obvious foot deformities from Charcot's joint. There is a small puncture wound noted in the arch of the foot without any occult drainage LEFT FOOT: Patient with obvious foot deformities from Charcot's joint. There is an avulsion laceration noted in the arch of the foot with mild edema, was unable to express any exudate BACK: Nontender without obvious deformity. No CVA tenderness. Hospital Course Patient was admitted secondary to left foot wound with cellulitis and started on IV antibiotics according vancomycin and Zosyn initially. Secondary to GBS sepsis, infectious disease specialist was consulted and patient switched to Rocephin and podiatry was also consulted. To to abnormal left foot MRI patient underwent WBC SPECT to rule out osteomyelitis. Wound care was provided. She was put back on her long-acting vessel insulin and started on sliding scale insulin. Prior to discharge patient was started on Levaquin 250 mg for total of 14 days per ID. Patient declined HHC with wound care as she does her own per instructions from her plaster machine operator Pt Condition on Discharge: Stable Discharge Disposition: Discharge Home Discharge Time: > 30 minutes Discharge Instructions DIET: Follow Instructions for: Diabetic Diet Activities you can perform: Regular-No Restrictions Follow up Referrals: PCP Follow-up - 1 Week Podiatry New Medications: Levofloxacin (Levaquin) 250 Mg Tablet 250 MG OROPHARYNG DAILY Infection Days 14 Ref 0 TAB Lactobacillus Acidophilus (Acidophilus/l-Sporogenes) 1 Tab Tab 1 TAB PO Q12HR Immunosuppression #60 TAB Continued Medications: Amlodipine (Norvasc) 10 Mg Tab 10 MG PO DAILY Blood Pressure Management #30 TAB Ferrous Sulfate (Iron) 325 Mg Capsule.er 325 MG PO DAILY Insulin Glargine Inj (Lantus Inj) 1,000 Unit/10 Ml Vial 30 UNITS SQ HS Blood Sugar Management Ref 0 VIAL Pregabalin (Lyrica) 100 Mg Cap 100 MG PO TID #90 Ref 0 CAP Gavin Armas MD Jan 13, 2017 15:45
[2017-01-15] MEDS ORDERED: PHARMACY ORDERED LAB ONE (08:45)
== END 2017-01-13 18:08 | disposition home or self-care (01) | DRG 872 ==
LOC: PHED 15:48 → PHEDA 17:44 → OBSVTOIN 17:54 → PH3B 18:41
PROVIDERS: ADMIT Hospitalist; ATTEND Hospitalist
DX: A40.1 Sepsis due to streptococcus, group B (principal); E11.22 Type 2 diabetes mellitus with diabetic chronic kidney disease; E11.610 Type 2 diabetes mellitus with diabetic neuropathic arthropathy; L03.116 Cellulitis of left lower limb; L02.612 Cutaneous abscess of left foot; N39.0 Urinary tract infection, site not specified; E11.69 Type 2 diabetes mellitus with other specified complication; I12.9 Hypertensive chronic kidney disease with stage 1 through stage 4 chronic kidney disease, or unspecified chronic kidney disease; N18.3 Chronic kidney disease, stage 3 (moderate); F17.210 Nicotine dependence, cigarettes, uncomplicated; Z79.4 Long term (current) use of insulin
CPT/HCPCS: 71010; 73718; 76775; 78807; 78999; 80048; 80053; 80202; 81001; 82805; 82948; 83605; 85007; 85025; 85027; 85610; 85730; 86403; 87040; 87070; 87077; 87086; 87147; 87149; 87186; 87205; 93005; A9569; J0696; J1644; J1815; J2405; J2543; J3370; J7030; J7040; J7050

== ENCOUNTER 2017-03-21 18:50 | Inpatient (IN) | payer MEDICAID, OTHER ==
[~2017-03-21] VITALS: Ht 172.7 cm; Wt 99.0 kg
[~2017-03-21 18:50] MED LIST changes: -BACT800T5 PO; -CEPH-460 PO; -CHOLESTEROL PILL; -CLON.5 PO; +FERR325C PO; -FURO1TAB60 PO; +LACT PO; +LACTATED RINGER'S 1000 ML INJ 1,000 ML IV ONE; +LEVA250T14 OROPHARYNG; -LOSA50TA PO; -NICO14DI TD; +ONDANSETRON HCL 4 MG/2 ML VIAL IV PUSH ONE; +PHENYLEPH/NS 1000 MCG/10 ML SYR IV ONE; +PROPOFOL 200 MG/20 ML AMP IV ONE; +SUGAMMADEX SODIUM 200 MG/2 ML VIAL IV PUSH ONE; -TRAM50TA PO
[2017-03-21] MEDS ORDERED: SODIUM CHLOR 0.9% 1000 ML INJ 800 ML IV ONE (19:44)
[2017-03-21] MEDS ORDERED: SODIUM CHLOR 0.9% 1000 ML INJ 1,000 ML IV ONE ×2 (19:44→21:45)
[2017-03-21] MEDS ORDERED: VANCOMYCIN INJ 1,000 MG in SODIUM CHLOR 0.9% 250 ML INJ 250 ML IV STA (19:44)
[2017-03-21] MEDS ORDERED: PIPERACIL-TAZO 4.5 GM PREMIX 100 ML IV STA (19:44)
--- NOTE | 2017-03-21 19:57 | PD ---
HPI Chief Complaint: right foot pain Time Seen by Provider: 19:40 Travel History International Travel<30 days: No Contact w/Intl Traveler<30days: No History of Present Illness HPI Patient comes in complaining of discoloration her right foot at first noticed last night. Patient she had an itch scratch foot and noticed a foul-smell afterwards. Patient states she looked down and noticed some discoloration and a wound from where she had scratched. Patient states she placed a Band-Aid over and went to bed. Patient states when she awoke this morning she noticed there to being more discolored. Patient describes sharp stabbing pain around the site but only with movement of her foot. Denies any radiation of the pain. Patient reports she has neuropathy and is on clindamycin currently for a wound on the bottom of her foot that was prescribed by her multiple punch press operator, Dr. Torre in [place]. Patient denies any fevers, nausea, vomiting, chest pain or shortness breath, or headaches. Patient states she slept most the day today , which caused her to delay coming to the emergency department. PFSH Past Medical History Anemia: Yes Arthritis: No Asthma: No Autoimmune Disease: No Heart Rhythm Problems: No Cancer: No Cardiovascular Problems: No High Cholesterol: No Chemotherapy: No Chest Pain: No Congestive Heart Failure: No COPD: No Cerebrovascular Accident: No Diabetes: Yes Diminished Hearing: No Endocrine: No Gastrointestinal Disorders: Yes (LEFT SIDED ABDOMINAL PAIN) GERD: No Genitourinary: No Hiatal Hernia: No Hypertension: Yes Immune Disorder: No Implanted Vascular Access Dvce: Yes Kidney Stones: No Musculoskeletal: Yes (charkow's foot bilaterally affects her walking) Neurologic: No Psychiatric: No Reproductive: No Respiratory: No Migraines: No Radiation Therapy: No Renal Failure: Yes ( stated to pt shes in 3rd stage renal failure due to DM) Seizures: No Sickle Cell Disease: No Sleep Apnea: No Thyroid Disease: No Ulcer: No Menopausal: Yes Tubal Ligation: Yes Past Surgical History Abdominal Surgery: Yes (lap cholecystectomy) AICD: No Arteriovenous Shunt: No Body Medical Devices: 2 SCREWS IN LEFT Cardiac Surgery: No Cholecystectomy: Yes Ear Surgery: No Endocrine Surgery: No Eye Surgery: No Genitourinary Surgery: No Gynecologic Surgery: Yes (tubal ligation) Insulin Pump: No Joint Replacement: No Oral Surgery: No Thoracic Surgery: No Other Surgery: Yes (left foot surgery) Social History Alcohol Use: No Tobacco Use: Yes (1 PACK/DAY) Substance Use: No Allergies-Medications (Allergen,Severity, Reaction): Coded Allergies: Sulfa (Sulfonamide Antibiotics) (Unverified Allergy, Unknown, 03/06/17) Reported Meds & Prescriptions Reported Meds & Active Scripts Active Acidophilus/l-Sporogenes (Lactobacillus Acidophilus) 1 Tab Tab 1 Tab PO Q12HR Norvasc (Amlodipine Besylate) 10 Mg Tab 10 Mg PO DAILY Reported Iron (Ferrous Sulfate) 325 Mg Capsule.er 325 Mg PO DAILY Lantus Inj (Insulin Glargine) 1,000 Unit/10 Ml Vial 45 Units SQ HS Lyrica (Pregabalin) 100 Mg Cap 100 Mg PO TID Review of Systems Except as stated in HPI: all other systems reviewed are Neg Physical Exam Narrative GENERAL: Well-developed, overly nourished, in no acute distress, and non-ill appearing. SKIN: Necrotic-appearing tissue noted dorsal aspect right foot over the third fourth partial-thickness distal metatarsals and including the fourth toe and part of the third toe. There is no crepitus or fluctuation. There may be an air pocket underneath. There is a foul smell coming from it. HEAD: Atraumatic. Normocephalic. EYES: Pupils equal and round. EOMI. No scleral icterus. No injection or drainage. ENT: No nasal bleeding or discharge. Mucous membranes pink and moist. NECK: Trachea midline. Supple. No nuclear rigidity. RESPIRATORY: No accessory muscle use. No respiratory distress. MUSCULOSKELETAL: No obvious deformities. No clubbing. No cyanosis. No edema. Full range of motion. NEUROLOGICAL: Awake and alert. No obvious cranial nerve deficits. Motor grossly within normal limits. Normal speech. PSYCHIATRIC: Appropriate mood and affect; insight and judgment normal. Data Data Last Documented VS Vital Signs Date Time Temp Pulse Resp B/P (MAP) Pulse Ox O2 Delivery O2 Flow Rate FiO2 03/21/17 21:00 115 16 125/59 (81) 93 Room Air 03/21/17 20:00 103.1 Orders Orders Complete Blood Count With Diff (03/21/17 19:44) Comprehensive Metabolic Panel (03/21/17 19:44) Prothrombin Time / Inr (Pt) (03/21/17 19:44) Act Partial Throm Time (Ptt) (03/21/17 19:44) Lactic Acid Sepsis Protocol (03/21/17 19:44) Magnesium (Mg) (03/21/17 19:44) Urinalysis - C+S If Indicated (03/21/17 19:44) Blood Culture (03/21/17 19:44) Chest, Single Ap (03/21/17 19:44) Blood Glucose (03/21/17 19:44) Ecg Monitoring (03/21/17 19:44) Iv Access Insert/Monitor (03/21/17 19:44) Oximetry (03/21/17 19:44) Oxygen Administration (03/21/17 19:44) Piperacil-Tazo 4.5 Gm Premix (Zosyn 4.5 (03/21/17 19:44) Vancomycin Inj (Vancomycin Inj) (03/21/17 19:44) Sodium Chlor 0.9% 1000 Ml Inj (Ns 1000 M (03/21/17 19:44) Sodium Chlor 0.9% 1000 Ml Inj (Ns 1000 M (03/21/17 19:44) Foot, Complete ([id number]) (03/21/17 ) Clindamycin Inj (Cleocin Inj) (03/21/17 20:30) Tibia/Fibula (Ap/Lat) (03/21/17 ) Femur (Ap & Lat/2vws) (03/21/17 ) Labs Laboratory Tests Test 03/21/17 20:25 MDM Medical Decision Making Medical Screen Exam Complete: Yes Emergency Medical Condition: Yes Differential Diagnosis Cellulitis, gangrene, cellulitis, abscess, sepsis, other Narrative Course Patient was seen and examined. Initial laboratory and radiology studies ordered. Discussed patient with Dr. Yuen, who saw and evaluated patient. After reviewing initial x-ray, patient was signed out to Dr. Yuen. Please see his documentation for final diagnosed with disposition. González Medina Mar 21, 2017 19:57
[2017-03-21 20:00] VITALS: BP 133/62; PULSE 133; RESP 16; TEMP 103.1; O2SAT 92
[2017-03-21] MEDS ORDERED: CLINDAMYCIN INJ 600 MG in SODIUM CHLORIDE 0.9% INJ 100 ML IV ONE (20:30)
--- NOTE | 2017-03-21 20:43 | RADRPT ---
EXAM DATE/TIME: 03/21/2017 20:00 [facility] COMPARISON: No previous studies available for comparison. INDICATIONS : Right foot pain, swelling, and inflammation. MEDICAL HISTORY : Diabetes mellitus type II. Hypertension. Renal failure. Charcot's foot. herniat ed disc. diabetes SURGICAL HISTORY : Tubal ligation. Cholecystectomy. Left foot surgery. ENCOUNTER: Initial ACUITY: 3 days PAIN SCORE: 10/10 LOCATION: Right foot FINDINGS: There are destructive changes seen at the midfoot and the hindfoot. There is some juancho apse at the anterior subtalar joint. There is disruption of the talonavicular joint. There is destr uction of much of the cuneiform bones. There is some lucency at the proximal aspect of the fourth me tatarsal and questionably at the proximal aspect of the fifth metatarsal. The bony structures within the digits appear grossly intact. There is extensive soft tissue swelling and air throughout the so ft tissues. Air is seen in the dorsal aspect of the foot, at the lower leg posteriorly and around th e second through fifth metatarsal regions and the third and fourth digits. CONCLUSION: 1. Extensive very prominent soft tissue swelling with air within the soft tissues concerning for a la rge area of infection. 2. Destructive change is identified at the hind and midfoot. These could be from a Charcot joint. S ome degree of acute ongoing destruction and infection cannot be ruled out. Burak Alvarado MD on March 21, 2017 at 20:15 Board Certified Radiologist. This report was verified electronically.
--- NOTE | 2017-03-21 20:45 | RADRPT ---
EXAM DATE/TIME: 03/21/2017 20:32 [facility] COMPARISON: No previous studies available for comparison. INDICATIONS : Unhealing wound on bottom right foot. MEDICAL HISTORY : Hypertension. Renal failure. Charcot's foot. herniated disc. diabetes SURGICAL HISTORY : Cholecystectomy. Tubal ligation. left foot surgery ENCOUNTER: Initial ACUITY: 3 days PAIN SCORE: 8/10 LOCATION: Right lower extremity FINDINGS: Two view examination of the right tibia demonstrates gas within the soft tissues at the superior and inferior aspects of the lower leg. Superiorly, the gas is seen lateral to the fibula and overlying th e medial proximal tibia on AP view. Air is seen posteriorly at the ankle region around the tibia. The re is prominent soft tissue swelling at the ankle. There is chronic destructive change seen at the hi ndfoot. The knee joint appears grossly normal. CONCLUSION: Air within the soft tissues of the lower leg. Burak Alvarado MD on March 21, 2017 at 20:42 Board Certified Radiologist. This report was verified electronically.
--- NOTE | 2017-03-21 20:47 | RADRPT ---
EXAM DATE/TIME: 03/21/2017 19:57 [facility] COMPARISON: CHEST SINGLE AP, January 09, 2017, 16:15. INDICATIONS : Fever. MEDICAL HISTORY : Hypertension. Renal failure. Charcot's foot. herniated disc. diabetes. SURGICAL HISTORY : Tubal ligation. Cholecystectomy. Left foot surgery. ENCOUNTER: Initial ACUITY: 3 days PAIN SCORE: 0/10 LOCATION: Bilateral chest FINDINGS: The heart size is upper limits of normal for an AP portable chest x-ray. The lungs demonstrate mild prominence of the interstitium. A focal alveolar consolidation is not seen. No effusion is seen. CONCLUSION: Prominence of the interstitium markings which may represent some pulmonary venous hyp ertension or mild edema. Burak Alvarado MD on March 21, 2017 at 20:41 Board Certified Radiologist. This report was verified electronically.
[2017-03-21 21:00] VITALS: BP 125/59; PULSE 115; RESP 16; O2SAT 93
[2017-03-21 21:10] LABS: AUTOMATED NEUTROPHIL # 15.6 TH/MM3 (1.8-7.7); BASOPHIL % 0.2 % (0.0-2.0); HEMATOCRIT 29.3 % (35.0-46.0); HEMO FLAGS DIFF FINAL; LYMPH % 4.9 % (9.0-44.0); LYMPHOCYTE # 0.9 TH/MM3 (1.0-4.8); MEAN CELL VOLUME 68.1 FL (80.0-100.0); MEAN CORPUSCULAR HEMOGLOBIN 21.1 PG (27.0-34.0); NEUT % 87.9 % (16.0-70.0); PLATELET COUNT 405 TH/MM3 (150-450); RED BLOOD COUNT 4.31 MIL/MM3 (4.00-5.30); RED CELL DISTRIBUTION WIDTH 18.7 % (11.6-17.2); WHITE BLOOD COUNT 17.7 TH/MM3 (4.0-11.0)
--- NOTE | 2017-03-21 21:10 | PD ---
Data Data Last Documented VS Vital Signs Date Time Temp Pulse Resp B/P (MAP) Pulse Ox O2 Delivery O2 Flow Rate FiO2 03/21/17 21:00 115 16 125/59 (81) 93 Room Air 03/21/17 20:00 103.1 Orders Orders Complete Blood Count With Diff (03/21/17 19:44) Comprehensive Metabolic Panel (03/21/17 19:44) Prothrombin Time / Inr (Pt) (03/21/17 19:44) Act Partial Throm Time (Ptt) (03/21/17 19:44) Lactic Acid Sepsis Protocol (03/21/17 19:44) Magnesium (Mg) (03/21/17 19:44) Urinalysis - C+S If Indicated (03/21/17 19:44) Blood Culture (03/21/17 19:44) Chest, Single Ap (03/21/17 19:44) Blood Glucose (03/21/17 19:44) Ecg Monitoring (03/21/17 19:44) Iv Access Insert/Monitor (03/21/17 19:44) Oximetry (03/21/17 19:44) Oxygen Administration (03/21/17 19:44) Piperacil-Tazo 4.5 Gm Premix (Zosyn 4.5 (03/21/17 19:44) Vancomycin Inj (Vancomycin Inj) (03/21/17 19:44) Sodium Chlor 0.9% 1000 Ml Inj (Ns 1000 M (03/21/17 19:44) Sodium Chlor 0.9% 1000 Ml Inj (Ns 1000 M (03/21/17 19:44) Foot, Complete ([id number]) (03/21/17 ) Clindamycin Inj (Cleocin Inj) (03/21/17 20:30) Tibia/Fibula (Ap/Lat) (03/21/17 ) Femur (Ap & Lat/2vws) (03/21/17 ) Labs Laboratory Tests Test 03/21/17 20:25 White Blood Count 17.7 TH/MM3 Red Blood Count 4.31 MIL/MM3 Hemoglobin 9.1 GM/DL Hematocrit 29.3 % Mean Corpuscular Volume 68.1 FL Mean Corpuscular Hemoglobin 21.1 PG Mean Corpuscular Hemoglobin Concent 31.0 % Red Cell Distribution Width 18.7 % Platelet Count 405 TH/MM3 Mean Platelet Volume 7.6 FL Neutrophils (%) (Auto) 87.9 % Lymphocytes (%) (Auto) 4.9 % Monocytes (%) (Auto) 7.0 % Eosinophils (%) (Auto) 0.0 % Basophils (%) (Auto) 0.2 % Neutrophils # (Auto) 15.6 TH/MM3 Lymphocytes # (Auto) 0.9 TH/MM3 Monocytes # (Auto) 1.2 TH/MM3 Eosinophils # (Auto) 0.0 TH/MM3 Basophils # (Auto) 0.0 TH/MM3 CBC Comment DIFF FINAL Differential Comment MDM Supervised Visit with CARLOTTA: Yes Narrative Course I, Dr. Yuen, have reviewed the advance practice practitioner's documentation and am in agreement, met with the patient face to face, made the diagnosis, and the medical decision making was done by me. See his note for further details. Briefly this is a 47-year-old female with history of diabetes with Charcot's foot here for evaluation of right foot pain and swelling and possible infection. The patient reports that she scratched the top of her foot yesterday evening. Prior to going to bed she placed a Band-Aid and went to sleep. This morning when she woke up she noticed that her foot was red and swollen and there was an area of dark skin on the dorsum of her foot. Immediately after my PA examined the patient, he asked that I evaluate the patient at the bedside. Patient has significant edema to the right foot with area of necrosis to the dorsum of her foot as well as her fourth toe. The foot is diffusely erythematous and warm and is also foul smelling. There are no signs of lymphangitis. The entire foot is tender to palpation. X-ray of the foot shows gas and soft tissue swelling. This is concerning for necrotizing fasciitis. I discussed case with on-call supervisor paint roller covers Dr. Couch who will present to the emergency department to evaluate the patient. X-ray of the tib-fib was ordered to see how far the gas extends. Before tib-fib x-rays were ordered, the patient was reexamined. There is crepitus to her right foot and ankle, however there is no crepitus to her right calf. Tib-fib x-ray shows gas/free air in the soft tissue up to her knee. 8:50 PM: Case discussed with on-call orthopedic surgeon Dr. Oconnor. I expect my concern that this is a rapidly spreading infection in his likely necrotizing fasciitis that requires immediate attention/OR debridement, however he recommends IV antibiotics, medical admission, and routine orthopedic consultation tomorrow. Sweatband Flanger Dr. Couch was at the patient's bedside during this conversation. Neither he nor I agree with this plan, and believe that the patient should go to the OR as soon as possible for debridement. Vascular surgeon Dr. Burleson was then called and he agrees to evaluate the patient at the bedside and likely take her to the OR. 9:15 PM: Vascular surgeon Dr. Burleson at the bedside and plan to take the patient to the operating room. At the same time orthopedic surgeon Dr. Oconnor was made aware that Dr. Barrett plans on operating on the patient. Critical Care Narrative Aggregate critical care time was 40 minutes. Time to perform other separately billable procedures was not included in the critical care time. My time did not include minutes spent treating any other patients simultaneously or on activities that did not directly contribute to the patient's treatment. The services I provided to this patient were to treat and/or prevent clinically significant deterioration that could result in: , permanent disability, septic shock. I provided critical care services requiring my management, as noted below: Chart data review, documentation time, medication orders and management, vital sign assessments/reviewing monitor data, ordering and reviewing lab tests, ordering and interpreting/reviewing x-rays and diagnostic studies, care of the patient and discussion of the patient with the admitting physicians. Diagnosis Primary Impression: Necrotizing fasciitis Additional Impression: Sepsis Qualified Codes: A41.9 - Sepsis, unspecified organism Admitting Information Admitting Physician Requests: Admit Nakul Yuen MD Mar 21, 2017 21:10
[2017-03-21 21:19] LABS: APTT (PATIENT) 34.4 SEC (24.3-30.1); PROTHROMBIN TIME - PATIENT 11.6 SEC (9.8-11.6)
[2017-03-21 21:24] LABS: ALKALINE PHOSPHATASE 434 U/L (45-117); ALT (GPT) 12 U/L (10-53); ANION GAP 11 MEQ/L (5-15); AST (GOT) 23 U/L (15-37); BICARBONATE 23.2 MEQ/L (21.0-32.0); BLOOD UREA NITROGEN 52 MG/DL (7-18); CHLORIDE 96 MEQ/L (98-107); GLOMERULAR FILTRATION RATE 19 ML/MIN (>89); MAGNESIUM 1.8 MG/DL (1.5-2.5); SODIUM (NA) 130 MEQ/L (136-145); TOTAL BILIRUBIN ADULT 0.7 MG/DL (0.2-1.0)
[2017-03-21 21:25] LABS: POTASSIUM 4.3 MEQ/L (3.5-5.1)
[2017-03-21] MEDS ORDERED: LOSA50TA PO (21:31)
--- NOTE | 2017-03-21 21:48 | RADRPT ---
EXAM DATE/TIME: 03/21/2017 20:37 [facility] COMPARISON: No previous studies available for comparison. INDICATIONS : Patient has oozing wound on bottom of right foot. MEDICAL HISTORY : Diabetes mellitus type II. Hypertension. Renal failure. Charcot's foot. herniated disc. diabete s SURGICAL HISTORY : ENCOUNTER: Initial ACUITY: 2 days PAIN SCORE: 8/10 LOCATION: Right lower extremity FINDINGS: Two view examination of the right femur demonstrates no evidence of fracture or dislocation. There i s air in the soft tissues posterior to the knee seen on the lateral view. Bony mineralization is norm al. CONCLUSION: Air within the soft tissues posterior to the knee. No air is seen above this level. Burak Alvarado MD on March 21, 2017 at 21:45 Board Certified Radiologist. This report was verified electronically.
[2017-03-21] MEDS ORDERED: Post-op Orders (for Pharmacy) MISC XX ONE (22:00)
[2017-03-21] MEDS ORDERED: DEXTROSE 50% IN WATER 50 ML VIAL(D50) IV PRN (22:00)
[2017-03-21] MEDS ORDERED: NALOXONE HCL 0.4 MG/ML AMP IV PRN (22:00)
[2017-03-21] MEDS ORDERED: SODIUM CHLORIDE 0.9% FLUSH 10 ML FLUSH IV FLUSH PRN (22:00)
[2017-03-21] MEDS ORDERED: GLUCAGON 1 MG/ML VIAL OTHER PRN (22:00)
[2017-03-21] MEDS ORDERED: ONDANSETRON HCL 4 MG/2 ML VIAL IV PRN (22:00)
--- NOTE | 2017-03-21 23:42 | PD.CONS ---
HPI Service Critical Care Medicine Consult Requested By Primary Care Physician Reyna Hedrick M.D. History of Present Illness 47-year-old female with history of diabetes with Charcot's foot presented to emergency department today for evaluation of right foot pain and swelling and possible infection. Per chart documentation she scratched the top of her foot yesterday evening. Prior to going to bed she placed a Band-Aid and went to sleep. This morning when she woke up she noticed that her foot was red and swollen and there was an area of dark skin on the dorsum of her foot. In the emergency department the patient has had significant edema to the right foot with area of necrosis to the dorsum of her foot as well as her fourth toe. The foot was diffusely erythematous and warm and is also foul smelling. X-ray of the foot showed a gas and soft tissue swelling. He was taken emergently to operating room for BKA by Dr. Finch. Review of Systems Constitutional: DENIES: Diaphoretic episodes, Fatigue, Fever, Weight gain, Weight loss, Chills, Dizziness, Change in appetite, Night Sweats Endocrine: DENIES: Abnorml menstrual pattern, Heat/cold intolerance, Polydipsia , Polyuria, Polyphagia Eyes: DENIES: Blurred vision, Diplopia, Eye inflammation, Eye pain, Vision loss , Photosensitivity, Double Vision Ears, nose, mouth, throat: DENIES: Tinnitus, Hearing loss, Vertigo, Nasal discharge, Oral lesions, Throat pain, Hoarseness, Ear Pain, Running Nose, Epistaxis, Sinus Pain, Toothache, Odynophagia Respiratory: DENIES: Apneas, Cough, Snoring, Wheezing, Hemoptysis, Sputum production, Shortness of breath Cardiovascular: DENIES: Chest pain, Palpitations, Syncope, Dyspnea on Exertion , PND, Lower Extremity Edema, Orthopnea, Claudication Gastrointestinal: DENIES: Abdominal pain, Black stools, Bloody stools, Constipation, Diarrhea, Nausea, Vomiting, Difficulty Swallowing, Anorexia Genitourinary: DENIES: Abnormal vaginal bleeding, Dysmenorrhea, Dyspareunia, Sexual dysfunction, Urinary frequency, Urinary incontinence, Urgency, Hematuria , Dysuria, Nocturia, Vaginal discharge Musculoskeletal: COMPLAINS OF: Joint pain, Muscle aches, Stiffness, Joint Swelling, DENIES: Back pain, Neck pain Integumentary: COMPLAINS OF: Abnormal pigmentation, DENIES: Pruritus, Rash, Nail changes, Breast masses, Breast skin changes, Nipple discharge Hematologic/lymphatic: DENIES: Bruising, Lymphadenopathy Immunologic/allergic: DENIES: Eczema, Urticaria Neurologic: DENIES: Abnormal gait, Headache, Localized weakness, Paresthesias, Seizures, Speech Problems, Tremor, Poor Balance Psychiatric: DENIES: Anxiety, Confusion, Mood changes, Depression, Hallucinations, Agitation, Suicidal Ideation, Homicidal Ideation, Delusions Past Family Social History Allergies: Coded Allergies: Sulfa (Sulfonamide Antibiotics) (Unverified Allergy, Unknown, 03/06/17) Past Medical History Hypertension Diabetes Diabetic neuropathy Charcot's foot History of osteomyelitis Chronic kidney disease stage III Past Surgical History Cholecystectomy Tubal ligation Multiple surgeries on her feet due to Charcot's joint, screw removal Reported Medications Reported Meds & Active Scripts Active Acidophilus/l-Sporogenes (Lactobacillus Acidophilus) 1 Tab Tab 1 Tab PO Q12HR Norvasc (Amlodipine Besylate) 10 Mg Tab 10 Mg PO DAILY Reported Losartan (Losartan Potassium) Unknown Strength Tab Unknown Dose PO DAILY Iron (Ferrous Sulfate) 325 Mg Capsule.er 325 Mg PO DAILY Lantus Inj (Insulin Glargine) 1,000 Unit/10 Ml Vial 45 Units SQ HS Lyrica (Pregabalin) 100 Mg Cap 100 Mg PO TID Active Ordered Medications Current Medications Medications (Trade) Dose Ordered Sig/Joelle Route PRN Reason Start Time Stop Time Status Last Admin Dose Admin Sodium Chloride 1,000 ml @ 100 mls/hr Q10H IV 03/21/17 21:53 03/22/17 00:51 Sodium Chloride (NS Flush) 2 ml UNSCH PRN IV FLUSH FLUSH AFTER USING IV ACCESS 03/21/17 22:00 Sodium Chloride (NS Flush) 2 ml BID IV FLUSH 03/22/17 09:00 Ondansetron HCl (Zofran Inj) 4 mg Q6H PRN IV NAUSEA OR VOMITING 03/21/17 22:00 03/22/17 00:27 Famotidine (Pepcid Inj) 20 mg Q12HR IV PUSH 03/22/17 09:00 Docusate Sodium (Colace) 100 mg BID PO 03/22/17 09:00 Vancomycin HCl 800 mg/Sodium Chloride 250 ml @ 250 mls/hr Q12H IV 03/22/17 09:00 Clindamycin Phosphate 600 mg/ Sodium Chloride 54 ml @ 108 mls/hr Q8H IV 03/22/17 06:00 Oxycodone/ Acetaminophen (Percocet 5-325 Mg) 1 tab Q4H PRN PO PAIN SCALE 3 TO 5 03/21/17 22:00 03/22/17 01:00 Hydromorphone HCl (Dilaudid Pf Inj) 1 mg Q3H PRN IV Pain 6-10 03/21/17 22:00 03/22/17 04:16 Hydromorphone HCl (Dilaudid) 2 mg Q4H PRN PO PAIN SCALE 6 TO 10 03/21/17 22:00 Naloxone HCl (Narcan Inj) 0.4 mg UNSCH PRN IV SEE LABEL COMMENTS 03/21/17 22:00 Piperacillin Sod/ Tazobactam Sod 50 ml @ 100 mls/hr Q8H IV 03/22/17 04:00 03/22/17 04:15 Dextrose (D50w (Vial) Inj) 50 ml UNSCH PRN IV HYPOGLYCEMIA-SEE COMMENTS 03/21/17 22:00 Glucagon (Glucagon Inj) 1 mg UNSCH PRN OTHER HYPOGLYCEMIA-SEE COMMENTS 03/21/17 22:00 Insulin Human Regular (NovoLIN R SUPPLEMENTAL SCALE) 1 ACHS SLIDING SCALE SQ 03/22/17 07:00 Miscellaneous Information ALL NURSING DEPARTME... UNSCH PRN .XX SEE LABEL COMMENTS 03/22/17 00:15 03/23/17 00:14 Family History Positive for mother had coronary artery disease, seizures, stroke Social History She smokes since she was 13. She denies alcohol or illicit drug abuse Physical Exam Vital Signs Vital Signs Date Time Temp Pulse Resp B/P (MAP) Pulse Ox O2 Delivery O2 Flow Rate FiO2 03/21/17 21:40 03/21/17 21:00 115 16 125/59 (81) 93 Room Air 03/21/17 21:00 Nasal Cannula 2.00 03/21/17 20:00 103.1 133 16 133/62 (85) 92 Physical Exam GENERAL: Well-nourished, well-developed patient. Somewhat lethargic from general anesthesia. SKIN: Warm and dry. HEAD: Normocephalic. EYES: No scleral icterus. No injection or drainage. NECK: Supple, trachea midline. No JVD or lymphadenopathy. CARDIOVASCULAR: Regular rate and rhythm without murmurs, gallops, or rubs. RESPIRATORY: Breath sounds equal bilaterally. No accessory muscle use. GASTROINTESTINAL: Abdomen soft, non-tender, nondistended. MUSCULOSKELETAL: No cyanosis, or edema. Status post right BKA. Dressing dry. BACK: Nontender without obvious deformity. NEURO EXAM: GCS: M6 V5 E4 Mental Status: The patient is alert and oriented to person, place, and time with normal speech. Cranial Nerves: Visual acuity intact bilaterally. Visual wiggins normal in all quadrants. Pupils are round, reactive to light. Extraocular movements are intact without ptosis. Hearing is normal bilaterally. Voice is normal. Tongue protrudes midline and moves symmetrically. Laboratory Laboratory Tests Test 03/21/17 20:25 White Blood Count 17.7 Red Blood Count 4.31 Hemoglobin 9.1 Hematocrit 29.3 Mean Corpuscular Volume 68.1 Mean Corpuscular Hemoglobin 21.1 Mean Corpuscular Hemoglobin Concent 31.0 Red Cell Distribution Width 18.7 Platelet Count 405 Mean Platelet Volume 7.6 Neutrophils (%) (Auto) 87.9 Lymphocytes (%) (Auto) 4.9 Monocytes (%) (Auto) 7.0 Eosinophils (%) (Auto) 0.0 Basophils (%) (Auto) 0.2 Neutrophils # (Auto) 15.6 Lymphocytes # (Auto) 0.9 Monocytes # (Auto) 1.2 Eosinophils # (Auto) 0.0 Basophils # (Auto) 0.0 CBC Comment DIFF FINAL Differential Comment Prothrombin Time 11.6 Prothromb Time International Ratio 1.0 Activated Partial Thromboplast Time 34.4 Blood Urea Nitrogen 52 Creatinine 2.71 Random Glucose 92 Total Protein 7.5 Albumin 1.8 Calcium Level 8.8 Magnesium Level 1.8 Alkaline Phosphatase 434 Aspartate Amino Transf (AST/SGOT) 23 Alanine Aminotransferase (ALT/SGPT) 12 Total Bilirubin 0.7 Sodium Level 130 Potassium Level 4.3 Chloride Level 96 Carbon Dioxide Level 23.2 Anion Gap 11 Estimat Glomerular Filtration Rate 19 Lactic Acid Level 0.8 Date/Time Source Procedure Growth Status 03/21/17 20:25 Blood Peripheral Aerobic Blood Culture Pending Received 03/21/17 20:25 Blood Peripheral Anaerobic Blood Culture Pending Received Result Diagram: 03/21/17202403/21/172024 Imaging Last 24 hours Impressions Chest X-Ray 03/21/17 1944 Signed Impressions: Service Date/Time: February 19:57 - CONCLUSION: Prominence of the interstitium markings which may represent some pulmonary venous hypertension or mild edema. Burak Alvarado MD Assessment and Plan Assessment and Plan Gangrene of the right foot - Status post BKA by Dr. Finch - Empiric antibiotic - Further per infectious disease - Follow-up blood culture - Management per vascular surgery Hypertension - Hold antihypertensive meds due to possibility of septic shock - Only when necessary meds to keep SBP less than 160 - Telemetry Diabetes - Insulin sliding scale Diabetic neuropathy - Gabapentin as an outpatient Chronic kidney disease stage III - IV hydration - Monroy - Strict I's and O's - Monitor creatinine and electrolytes DVT GI prophylaxis - Teds SCDs - Pharmacological DVT prophylaxis per vascular surgeon - Pantoprazole Critical Care: The total critical care time was 35 minutes. Time to perform other separately billable procedures was not included in the critical care time. Thomas Aguilera MD Mar 21, 2017 23:42
[2017-03-21 23:59] LABS: HEMATOCRIT 23.7 % (35.0-46.0); REVIEW FLAG FINAL
[2017-03-22] VITALS (19 sets, daily range): BP systolic 82–120; BP diastolic 44–61; PULSE 59–94; RESP 10–28; TEMP 97.3–99.3; O2SAT 94–98
[2017-03-22] MEDS ORDERED: DO NOT ADM ANY ANTICOAGULANT DRUGS PRN (00:15)
[2017-03-22] MEDS: HYDROmorphone HCL PF 1 MG/ML VIAL IV PRN ×4 (00:27→23:09)
[2017-03-22] MEDS: SODIUM CHLOR 0.9% 1000 ML INJ 1,000 ML IV SCH ×3 (00:51→17:53)
[2017-03-22] MEDS: oxyCODONE/ACETAMINOPHEN 5 MG/325 MG TAB PO PRN ×3 (01:00→22:47)
[2017-03-22 02:02] LABS: AUTOMATED NEUTROPHIL # 14.2 TH/MM3 (1.8-7.7); BASOPHIL % 0.2 % (0.0-2.0); EOSINOPHIL % 0.1 % (0.0-4.0); HEMATOCRIT 23.5 % (35.0-46.0); HEMO FLAGS DIFF FINAL; LYMPH % 6.5 % (9.0-44.0); LYMPHOCYTE # 1.1 TH/MM3 (1.0-4.8); MEAN CELL VOLUME 68.2 FL (80.0-100.0); MEAN CORPUSCULAR HEMOGLOBIN 21.7 PG (27.0-34.0); MEAN CORPUSCULAR HGB CONC 31.8 % (32.0-36.0); MONO % 8.4 % (0.0-8.0); NEUT % 84.8 % (16.0-70.0); PLATELET COUNT 335 TH/MM3 (150-450); RED BLOOD COUNT 3.45 MIL/MM3 (4.00-5.30); RED CELL DISTRIBUTION WIDTH 18.2 % (11.6-17.2); WHITE BLOOD COUNT 16.8 TH/MM3 (4.0-11.0)
[2017-03-22 02:10] LABS: BACTERIA, URINE RARE /hpf; BLOOD, URINE MOD (NEG); GLUCOSE,URINE NEG (NEG); HYALINE CAST, URINE 3 /lpf (RARE); KETONE, URINE NEG (NEG); MUCUS URINE FEW /lpf (OCC); NITRITE,URINE NEG (NEG); PH, URINE 5.5 (5.0-8.5); SQUAMOUS EPITHELIAL CELL URINE 1 /hpf (0-5); URINE COLOR YELLOW (YELLW/STRAW)
[2017-03-22 02:14] LABS: COMMENT (UR) CATH-CULTURE IND; CULTURE IF INDICATED CATH CULTURE IND
[2017-03-22 02:22] LABS: BICARBONATE 24.1 MEQ/L (21.0-32.0); INDIRECT BILIRUBIN 0.2 MG/DL (0.0-0.8); POTASSIUM 3.9 MEQ/L (3.5-5.1); TOTAL BILIRUBIN ADULT 0.8 MG/DL (0.2-1.0)
[2017-03-22] MEDS: PIPERACIL-TAZO 3.375 GM PREMIX 50 ML IV SCH ×3 (04:15→21:52)
[2017-03-22] MEDS: CLINDAMYCIN INJ 600 MG in SODIUM CHLORIDE 0.9% INJ 50 ML IV SCH ×3 (05:32→22:10)
--- NOTE | 2017-03-22 06:36 | MH ---
cc: CHRISTIANO SALINAS MD DATE OF ADMISSION: 03/21/2017 ADMITTING PHYSICIAN MD Benjy ADMISSION DIAGNOSES 1. Gangrene of the right foot. 2. Gas gangrene of the right leg. 3. Septic shock. 4. Diabetes mellitus. HISTORY OF PRESENT DISEASE This 47-year-old female presents to the emergency room with swelling and gangrene of the right foot. Patient says that she scratched her foot a few days ago and had an ulcer before but now suddenly the patient's foot is now discolored and foul-smelling. The patient was seen by the ER physician and three consults were placed in for Dr. Renard Couch, myself and orthopedic surgeon. I discussed with Dr. Couch and the orthopedics and the patient is now being admitted to my service and taken to the operating room because this seemed to be the simplest of the three options. PAST MEDICAL HISTORY 1. Diabetes mellitus, longstanding. 2. Bilateral Charcot joint. 3. Cholelithiasis. 4. Hypertension. 5. Hypercholesteremia. PAST SURGICAL HISTORY 1. Cholecystectomy. 2. Tubal ligation. 3. Left foot surgery of some sort. MEDICATIONS Can find on the record. SOCIAL HISTORY The patient smokes one to 1-1/2 pack-a-day of cigarettes most of her adult life which is over 35 years. PHYSICAL EXAMINATION GENERAL: A 47-year-old female appearing much older than her actual age. HEENT: Normocephalic. No trauma to the head. Pupils equally reactive. Extraocular muscles intact. NECK: Supple. Bilateral carotid pulses, left side with a 3/6 bruit. CHEST: Bilateral breath sounds decreased over both lung wiggins consistent with a moderate degree of COPD. Some degree of pulmonary cachexia noted and loss of chest wall musculature. ABDOMEN: Soft. Active bowel sounds. EXTREMITIES: The patient actually has palpable femoral pulses and palpable popliteal pulses. On the left side she has dopplerable dorsalis pedis and posterior tibial. On the right side she has no distal pulses. The distal foot is involved in wet gangrene in the lateral aspect as well as the fifth, fourth and third toes. The foot is massively stolen with gas distending it and gas gangrene is extending all the way to the calf and almost to the popliteal fossa. The patient has crepitus in the leg, although it is soft in this area and very firm below. The patient also has Charcot's joint. On the left side the situation is better. There is Charcot joint but there is no sign of infection. NEUROLOGICALLY: The patient is grossly intact. IMPRESSION AND PLAN Patient when sepsis and has developing gas gangrene of the leg. The patient needs to go to the operating room immediately. She will undergo below-knee guillotine amputation, opening of the tissue planes and debridement, wound VAC placement and then we will see how she does. This is clearly not only in infection but necrotizing fasciitis and gas myonecrosis so the amount of tissue loss may be significant and in the and patient may and up with above-knee amputation While there is a good chance that the patient may lose leg eventually above the knee and I have explained that to her, there is also a chance that the patient may succumb to all this in the next few days. This is a dire emergency and will be addressed immediately. Appropriate services consulted. The patient will go to ICU. CRITICAL CARE TIME 40 minutes. Christiano ROSENBERG/SSB /10:03 PM /6:01 AM SUSANNA
[2017-03-22] MEDS: INSULIN NovoLIN REGULAR SUPPLEMENTAL SCALE SQ SCH ×3 (07:00→16:00)
[2017-03-22] MEDS: DOCUSATE SODIUM 100 MG CAP PO SCH ×2 (08:11→21:00)
[2017-03-22] MEDS: SODIUM CHLORIDE 0.9% FLUSH 10 ML FLUSH IV FLUSH SCH ×2 (08:12→21:52)
[2017-03-22] MEDS ORDERED: FAMOTIDINE 20 MG/2 ML VIAL IV PUSH SCH (09:00)
[2017-03-22] MEDS ORDERED: VANCOMYCIN INJ 800 MG in SODIUM CHLOR 0.9% 250 ML INJ 250 ML IV SCH (09:00)
--- NOTE | 2017-03-22 09:34 | MB ---
cc: JONATHAN FALLON DPM DATE OF CONSULTATION 03/21/2017 REASON FOR CONSULTATION Right foot gas gangrene necrotizing fasciitis. HISTORY OF PRESENT ILLNESS This is a 47-year-old female who correlates a history of having Charcot foot. She had a small scratch on her foot within the last 1-2 days. A small black area developed and she felt ill and stayed in bed most of the day. Her brother who lives with her noticed that there was an odor about the room and the patient was not feeling well. The patient was then brought into the ED by the patient's brother. Upon evaluating the patient in the ED, Dr. Yuen did plain film x-rays of the foot and clinical examination that this was a gas gangrene with necrotizing fasciitis event. I was notified of this shortly at about 08:15pm. I arrived at the ED approximately 15 minutes after I received this call at which time x-rays of the tib-fib was then ordered and there was noted to be gas along the posterior lateral knee. Currently I am seeing the patient bedside correlating the story. She is verbal, appropriate which she is uncomfortable and not feeling well. PAST MEDICAL HISTORY 1. Positive for diabetes. 2. Peripheral neuropathy. 3. Bilateral Charcot feet. 4. Chronic wounds, currently seen a wrestling coach, Soila Torre. SOCIAL HISTORY She smokes one pack per day. ALLERGIES SULFA. REPORTED MEDICATIONS 1. Iron. 2. Lantus. 3. Lyrica. 4. She apparently took an antibiotic but it made her sick. MEDICATIONS At this point she is receiving - 1. IV Clindamycin. 2. Zosyn. 3. Vancomycin. PHYSICAL EXAMINATION VITAL SIGNS: Temperature is 103.1, pulse rate is 115, blood pressure is 125/59. She is sating 93% on room air. GENERAL: This is an alert and oriented female seen bedside exhibiting nonlabored respirations. She appears to be very uncomfortable. EXTREMITIES: The bilateral lower extremities are examined. In the right lower extremity there is noted to be necrosis of the third digit, severe swelling, erythema and edema and a foul odor is noted. Upon pressure to the dorsum of the foot there is a soft tissue crepitus evidence of air in the tissue. Upon palpating pulses the dorsalis pedis is very hard to palpate. The posterior tibialis is decreased as well. Upon palpating the posterior lateral calf and posterior knee there is noted be soft tissue crepitus that extends to the knee. The left foot is noted to have a rocker bottom type deformity with obvious signs of clinical Charcot. Pulses are palpable. Sensation decreased to light touch. LABORATORY DATA White blood cells 17.7, hemoglobin/hematocrit is 9 and 29. Chem-7 - Sodium is 130, potassium is 4.3, chloride 96, CO2 is 23.2, BUN is 52, creatinine 2.7. Coagulation profile - PT 11.6. INR 1.0. Blood cultures ordered and pending. IMAGING FINDINGS On foot x-ray there is noted to be gas within the tissue. It appears to course along the plantar arch. Tib-fib x-ray showed that there is also gas within the tissue of the posterior lateral just below the ankle. Back to the foot, there are obvious multiple neuropathic fractures consistent with Charcot deformity. ASSESSMENT AND PLAN Right foot gas gangrene with necrotizing fasciitis coursing up the ankle and possibly up to the knee and beyond. Upon discussing the case with Dr. Yuen, we agreed that we should discuss operative intervention beyond my scope. Dr. Oconnor was consulted. He preferred a more passive management, admit for IV antibiotics and routine consult in the a.m. Given the extent of the gas and the possible progression beyond the area, Dr. Egan and I discussed the case further and we opted to consult application release manager vascular surgery. Dr. Burleson was available. I saw the bedside with Dr. Burleson who correlated the extent of the gas and the severity of the infection. He also spoke with Dr. Oconnor and they both discussed the management and they agreed upon a disarticulation of the ankle with open fasciotomy and wound VAC. The patient will be leaving to the OR to have this performed by Dr. Burleson. Dr. Yuen and I have reviewed the case as well. This was out of my scope. I have evaluated the patient in the ED, however, my services are no longer needed. Dr. Burleson is the surgeon of management. SULMA Gonzalez/MEHUL /9:27 PM /9:14 AM SUSANNA
--- NOTE | 2017-03-22 10:55 | HHI.CCPN ---
Subjective Remarks/Hospital Course 47-year-old female with history of diabetes with Charcot's foot presented to emergency department today for evaluation of right foot pain and swelling and possible infection. Per chart documentation she scratched the top of her foot yesterday evening. Prior to going to bed she placed a Band-Aid and went to sleep. This morning when she woke up she noticed that her foot was red and swollen and there was an area of dark skin on the dorsum of her foot. In the emergency department the patient has had significant edema to the right foot with area of necrosis to the dorsum of her foot as well as her fourth toe. The foot was diffusely erythematous and warm and is also foul smelling. X-ray of the foot showed a gas and soft tissue swelling. He was taken emergently to operating room for BKA by Dr. Finch. 03/22: s/p RBKA for necrotizing fasciitis. Remains septic, hypotensive. Hb 7.5 today getting 1 unit of PRBC. WBC count remains elevated at 16.8, it was 17.7 yesterday. Urine output is marginal. I have ordered 1.5 L normal saline bolus , IV albumin 25 g, in addition to the PRBC. Continue normal saline maintenance fluid at 100 ML per hour Objective Vital Signs Date Time Temp Pulse Resp B/P (MAP) Pulse Ox O2 Delivery O2 Flow Rate FiO2 03/22/17 09:30 97.3 62 12 87/50 95 03/22/17 07:53 Nasal Cannula 4.00 Intake and Output 03/22/17 03/22/17 03/22/17 07:59 15:59 23:59 Intake Total 2577 ml 450 ml Output Total 100 ml Balance 2477 ml 450 ml Result Diagram: 03/22/17 0140 03/22/17 0140 Imaging Last 24 hours Impressions Chest X-Ray 03/21/171943 Signed Impressions: Service Date/Time: February 19:57 - CONCLUSION: Prominence of the interstitium markings which may represent some pulmonary venous hypertension or mild edema. Burak Alvarado MD Objective Remarks GENERAL: Well-nourished, well-developed patient. Somewhat lethargic from general anesthesia. SKIN: Warm and dry. HEAD: Normocephalic. EYES: No scleral icterus. No injection or drainage. NECK: Supple, trachea midline. No JVD or lymphadenopathy. CARDIOVASCULAR: Regular rate and rhythm without murmurs, gallops, or rubs. RESPIRATORY: Breath sounds equal bilaterally. No accessory muscle use. GASTROINTESTINAL: Abdomen soft, non-tender, nondistended. MUSCULOSKELETAL: No cyanosis, or edema. Status post right BKA. Dressing, Wound vac in place BACK: Nontender without obvious deformity. NEURO EXAM: Alert oriented x3. no focal deficits Urinary Catheter: Yes Assessment to: Continue A/P Assessment and Plan NEURO: - As needed Dilaudid for pain. Otherwise minimize sedation RESP: - Nasal cannula oxygen. DuoNeb every 6 hours when necessary CV: Severe sepsis Hypotension - Normal saline 1.5 L bolus and 100 ml per hour. IV Albumin 25 GM x1 - Check lactic acid and trend if high. Hold all home antihypertensives - Use Levophed if needed to keep map above 65 GI: - 1800 ADA diet. Protonix : Chronic kidney disease stage III - Baseline creatinine is 1.8-2.2 - IV hydration, [place] - Strict I's and O's ID: Necrotizing fascitis and myonecrosis of RLE Severe sepsis - Status post BKA by Dr. Finch 03/21 - Empiric antibiotic with Vanc and Zosyn, Added clindamycin - Infectious disease - Follow-up blood culture - Management per vascular surgery, multiple washouts planned before closure HEME: Anemia requiring transfusion - Monitor CBC, CMP - Received 2 units PRBC. - Continue home iron supplements ENDO: Type 2 diabetes Diabetic neuropathy - Sliding-scale insulin - Continue Neurontin DVT GI prophylaxis - SCDs to LLE - Pharmacological DVT prophylaxis with Heparin sq - Pantoprazole Critical Care: The total critical care time was 35 minutes. Time to perform other separately billable procedures was not included in the critical care time. Isaac Sumner MD Mar 22, 2017 10:55
[2017-03-22] MEDS ORDERED: ALBUMIN HUMAN 25% 25 GM/100 ML BAGP IV ONE (11:00)
[2017-03-22] MEDS ORDERED: SODIUM CHLOR 0.9% 1000 ML INJ 1,000 ML IV ONE (11:00)
--- NOTE | 2017-03-22 11:29 | PD.CAR.PN ---
CVT Progress Note Subjective/Hospital Course: 03/22/17 Patient is status post below-knee amputation and opening of fascial planes for gas gangrene of the leg and sepsis Patient is doing much better today. She is still slightly hypotensive which is very much expected Besides critical care management, we plan to take patient to the operating room on Saturday for washout of the BKA which is open and placement of a new wound VAC. The same will be repeated again on Saturday and then possibly by the end of next week patient will have a final washout and closure of the stump There is still significant chance that this may not be sufficient patient is still at risk of losing the leg above the knee. Will transfer patient to Dr. Sumner cupola worker service and Dr. Hagan will follow patient in my absence and take her to the OR for washouts. Objective: Vital Signs Date Time Temp Pulse Resp B/P (MAP) Pulse Ox O2 Delivery O2 Flow Rate FiO2 03/22/17 09:30 97.3 62 12 87/50 95 03/22/17 09:15 97.3 62 12 86/51 94 03/22/17 07:53 98 Nasal Cannula 4.00 03/22/17 06:00 67 03/22/17 04:35 98.2 81 26 107/54 97 03/22/17 04:34 98.4 81 26 113/59 97 03/22/17 04:00 81 03/22/17 04:00 98.4 81 26 119/61 (80) 97 03/22/17 02:49 97 Simple Mask 8.00 03/22/17 02:00 85 03/22/17 00:30 99.3 92 10 119/61 (80) 95 03/22/17 00:30 94 03/22/17 00:05 99.8 99 18 100 Simple Mask 10 03/22/17 00:00 98 16 118/57 (77) 100 Simple Mask 10 03/21/17 23:45 102 16 99/55 (70) 100 Simple Mask 10 03/21/17 23:35 99.6 110 16 97/61 (73) 92 Nasal Cannula 6 03/21/17 21:40 03/21/17 21:00 115 16 125/59 (81) 93 Room Air 03/21/17 21:00 Nasal Cannula 2.00 03/21/17 20:00 103.1 133 16 133/62 (85) 92 Labs: Laboratory Tests Test 03/22/17 00:30 03/22/17 01:15 03/22/17 01:40 Nasal Screen MRSA (PCR) MRSA NOT DETECTED (NOT Urine Color YELLOW (YELLW/STRAW) Urine Turbidity HAZY (CLEAR) Urine pH 5.5 (5.0-8.5) Urine Specific [place] 1.024 (1.002-1.035) Urine Protein 100 mg/dL (NEG-TRACE) Urine Glucose (UA) NEG mg/dL (NEG) Urine Ketones NEG mg/dL (NEG) Urine Occult Blood MOD (NEG) Urine Nitrite NEG (NEG) Urine Bilirubin NEG (NEG) Urine Urobilinogen 2.0 MG/DL (LESS THAN Urine Leukocyte Esterase NEG (NEG) Urine RBC 5 /hpf (0-3) Urine WBC 8 /hpf (0-5) Urine Squamous Epithelial Cells 1 /hpf (0-5) Urine Amorphous Sediment RARE Urine Bacteria RARE /hpf (NONE) Urine Hyaline Casts 3 /lpf (RARE) Urine Mucus FEW /lpf (OCC) Microscopic Urinalysis Comment CATH-CULTURE IND White Blood Count 16.8 TH/MM3 (4.0-11.0) Red Blood Count 3.45 MIL/MM3 (4.00-5.30) Hemoglobin 7.5 GM/DL (11.6-15.3) Hematocrit 23.5 % (35.0-46.0) Mean Corpuscular Volume 68.2 FL (80.0-100.0) Mean Corpuscular Hemoglobin 21.7 PG (27.0-34.0) Mean Corpuscular Hemoglobin Concent 31.8 % (32.0-36.0) Red Cell Distribution Width 18.2 % (11.6-17.2) Platelet Count 335 TH/MM3 (150-450) Mean Platelet Volume 7.7 FL (7.0-11.0) Neutrophils (%) (Auto) 84.8 % (16.0-70.0) Lymphocytes (%) (Auto) 6.5 % (9.0-44.0) Monocytes (%) (Auto) 8.4 % (0.0-8.0) Eosinophils (%) (Auto) 0.1 % (0.0-4.0) Basophils (%) (Auto) 0.2 % (0.0-2.0) Neutrophils # (Auto) 14.2 TH/MM3 (1.8-7.7) Lymphocytes # (Auto) 1.1 TH/MM3 (1.0-4.8) Monocytes # (Auto) 1.4 TH/MM3 (0-0.9) Eosinophils # (Auto) 0.0 TH/MM3 (0-0.4) Basophils # (Auto) 0.0 TH/MM3 (0-0.2) CBC Comment DIFF FINAL Differential Comment Blood Urea Nitrogen 49 MG/DL (7-18) Creatinine 2.57 MG/DL (0.50-1.00) Random Glucose 98 MG/DL (74-106) Total Protein 6.4 GM/DL (6.4-8.2) Albumin 1.6 GM/DL (3.4-5.0) Calcium Level 7.7 MG/DL (8.5-10.1) Alkaline Phosphatase 269 U/L (45-117) Aspartate Amino Transf (AST/SGOT) 14 U/L (15-37) Alanine Aminotransferase (ALT/SGPT) 10 U/L (10-53) Total Bilirubin 0.8 MG/DL (0.2-1.0) Direct Bilirubin 0.6 MG/DL (0.0-0.2) Sodium Level 135 MEQ/L (136-145) Potassium Level 3.9 MEQ/L (3.5-5.1) Chloride Level 103 MEQ/L (98-107) Carbon Dioxide Level 24.1 MEQ/L (21.0-32.0) Anion Gap 8 MEQ/L (5-15) Estimat Glomerular Filtration Rate 20 ML/MIN (>89) Indirect Bilirubin 0.2 MG/DL (0.0-0.8) Result Diagram: 03/22/1713903/22/17139 Manuelito Burleson MD Mar 22, 2017 11:29
[2017-03-22] MEDS ORDERED: CLINDAMYCIN INJ 600 MG in SODIUM CHLORIDE 0.9% INJ 100 ML IV SCH (12:00)
[2017-03-22] MEDS: HEPARIN SODIUM - SQ 10,000 UNITS/ML VIAL SQ SCH ×2 (13:11→21:52)
--- NOTE | 2017-03-22 15:34 | PD.ID.CON ---
History of Present Illness Service ID Consult Requested By / Reason for Consult Evaluation and Mment of Sepsis,Necrotizing fascitis and gangrene of foot. Primary Care Physician No Primary Care Physician Diagnoses: History of Present Illness Ms. Perkins is a 47-year-old female with past medical history significant for diabetes type 2 uncontrolled(last A1c 6.9 per patient), with diabetic nephropathy CK V stage III, diabetic retinopathy, Charcot joints bilaterally. Patient reports that she has been treated multiple times with multiple rounds of IV antibiotics using PICC lines. Patient reports that approximately 2 weeks back she noticed swelling and redness of her right foot. She saw her primary care doctor who put her on Bactrim which she stopped because she has a known allergy. She reports having taken an alternative which is sulfa for about 2 days and then stopped because she started having vomiting. Patient also reports the foot started getting progressively worse and she started developing fever chills night sweats. Patient reports that eventually the night before admission for started turning black. Patient's son reports that this has probably been going on for 2-3 days prior to admission and that his mom was very adamant and refused to come to the hospital. Patient's son called 911 and patient was admitted to the hospital for worsening infection and gangrene of the right foot. Upon arrival in the emergency department patient was evaluated by podiatry as well as vascular surgery. Based on clinical presentation and imaging it appeared that patient had gas and soft tissue swelling concerning for necrotizing fasciitis and gangrene. Patient was emergently taken to the OR and patient underwent right below-knee amputation. Postop she is currently in the intensive surgical care unit. At the time of my evaluation she is sitting up in bed having a pleasant conversation with her family members were surrounding her. She was actually joking and laughing when I saw her. Patient is currently not on any pressors. Reports to me that she is normally oliguric. Patient was showing signs of sepsis with fever and tachycardia as well as white count on admission in the source of her infection was a necrotizing fasciitis of the right foot. Patient underwent a sepsis workup. Blood cultures on admission so far negative. Wound cultures so far no growth. Intraoperative cultures are currently pending. Patient has been started on empiric Zosyn IV, vancomycin IV as well as clindamycin IV. ID was consulted for evaluation and management of sepsis, necrotizing fasciitis and gangrene of the foot. Review of Systems ROS Limitations: Poor Historian Constitutional: COMPLAINS OF: Diaphoretic episodes, Fever, Chills, DENIES: Fatigue, Weight gain, Weight loss, Dizziness, Change in appetite, Night Sweats Endocrine: DENIES: Abnorml menstrual pattern, Heat/cold intolerance, Polydipsia , Polyuria, Polyphagia Eyes: DENIES: Blurred vision, Diplopia, Eye inflammation, Eye pain, Vision loss , Photosensitivity, Double Vision Ears, nose, mouth, throat: DENIES: Tinnitus, Hearing loss, Vertigo, Nasal discharge, Oral lesions, Throat pain, Hoarseness, Ear Pain, Running Nose, Epistaxis, Sinus Pain, Toothache, Odynophagia Respiratory: DENIES: Apneas, Cough, Snoring, Wheezing, Hemoptysis, Sputum production, Shortness of breath Cardiovascular: DENIES: Chest pain, Palpitations, Syncope, Dyspnea on Exertion , PND, Lower Extremity Edema, Orthopnea, Claudication Gastrointestinal: DENIES: Abdominal pain, Black stools, Bloody stools, Constipation, Diarrhea, Nausea, Vomiting, Difficulty Swallowing, Anorexia Genitourinary: DENIES: Abnormal vaginal bleeding, Dysmenorrhea, Dyspareunia, Sexual dysfunction, Urinary frequency, Urinary incontinence, Urgency, Hematuria , Dysuria, Nocturia, Vaginal discharge Musculoskeletal: COMPLAINS OF: Joint pain, Joint Swelling, DENIES: Muscle aches , Stiffness, Back pain, Neck pain Integumentary: COMPLAINS OF: Abnormal pigmentation, DENIES: Pruritus, Rash, Nail changes, Breast masses, Breast skin changes, Nipple discharge Hematologic/lymphatic: DENIES: Bruising, Lymphadenopathy Immunologic/allergic: DENIES: Eczema, Urticaria Neurologic: DENIES: Abnormal gait, Headache, Localized weakness, Paresthesias, Seizures, Speech Problems, Tremor, Poor Balance Psychiatric: DENIES: Anxiety, Confusion, Mood changes, Depression, Hallucinations, Agitation, Suicidal Ideation, Homicidal Ideation, Delusions Except as stated in HPI: all other systems reviewed are Neg Past Family Social History Allergies: Coded Allergies: Sulfa (Sulfonamide Antibiotics) (Unverified Allergy, Unknown, 03/06/17) Past Medical History Hypertension Diabetes Diabetic neuropathy Charcot's foot History of osteomyelitis Chronic kidney disease stage III not on HD. Has been on HD Past Surgical History Cholecystectomy Tubal ligation Multiple surgeries on her feet due to Charcot's joint, screw removal Reported Medications Reported Meds & Active Scripts Active Acidophilus/l-Sporogenes (Lactobacillus Acidophilus) 1 Tab Tab 1 Tab PO Q12HR Norvasc (Amlodipine Besylate) 10 Mg Tab 10 Mg PO DAILY Reported Losartan (Losartan Potassium) Unknown Strength Tab Unknown Dose PO DAILY Iron (Ferrous Sulfate) 325 Mg Capsule.er 325 Mg PO DAILY Lantus Inj (Insulin Glargine) 1,000 Unit/10 Ml Vial 45 Units SQ HS Lyrica (Pregabalin) 100 Mg Cap 100 Mg PO TID Active Ordered Medications Current Medications Medications (Trade) Dose Ordered Sig/Joelle Route Start Time Stop Time Status Last Admin Sodium Chloride 1,000 ml @ 100 mls/hr Q10H IV 03/21/17 21:53 03/22/17 00:51 (NS Flush) 2 ml UNSCH PRN IV FLUSH 03/21/17 22:00 (NS Flush) 2 ml BID IV FLUSH 03/22/17 09:00 03/22/17 08:12 (Zofran Inj) 4 mg Q6H PRN IV 03/21/17 22:00 03/22/17 00:27 (Colace) 100 mg BID PO 03/22/17 09:00 03/22/17 08:11 Vancomycin HCl 800 mg/Sodium Chloride 258 ml @ 250 mls/hr Q12H IV 03/22/17 09:00 03/22/17 09:36 Clindamycin Phosphate 600 mg/ Sodium Chloride 54 ml @ 108 mls/hr Q8H IV 03/22/17 06:00 03/22/17 23:00 03/22/17 13:11 (Percocet 5-325 Mg) 1 tab Q4H PRN PO 03/21/17 22:00 03/22/17 14:08 (Dilaudid) 2 mg Q4H PRN PO 03/21/17 22:00 (Narcan Inj) 0.4 mg UNSCH PRN IV 03/21/17 22:00 Piperacillin Sod/ Tazobactam Sod 50 ml @ 100 mls/hr Q8H IV 03/22/17 04:00 03/22/17 11:45 (D50w (Vial) Inj) 50 ml UNSCH PRN IV 03/21/17 22:00 (Glucagon Inj) 1 mg UNSCH PRN OTHER 03/21/17 22:00 (NovoLIN R SUPPLEMENTAL SCALE) 1 ACHS SLIDING SCALE SQ 03/22/17 07:00 Miscellaneous Information ALL NURSING DEPARTME... UNSCH PRN .XX 03/22/17 00:15 03/23/17 00:14 (Dilaudid Pf Inj) 0.5 mg Q3H PRN IV 03/22/17 13:00 (Heparin Inj) 5,000 units Q12HR SQ 03/22/17 13:15 03/22/17 13:11 (Ferrous Sulfate) 325 mg DAILY PO 03/23/17 09:00 Clindamycin Phosphate 600 mg/ Sodium Chloride 104 ml @ 208 mls/hr Q6H IV 03/23/17 04:00 (Lyrica) 100 mg TID PO 03/22/17 14:44 (Pepcid Inj) 10 mg Q12HR IV PUSH 03/22/17 21:00 Family History Positive for mother had coronary artery disease, seizures, stroke Social History She smokes since she was 13. She denies alcohol or illicit drug abuse. Physical Exam Vital Signs Vital Signs Date Time Temp Pulse Resp B/P (MAP) Pulse Ox O2 Delivery O2 Flow Rate FiO2 03/22/17 09:30 97.3 62 12 87/50 95 03/22/17 09:15 97.3 62 12 86/51 94 03/22/17 07:53 98 Nasal Cannula 4.00 03/22/17 06:00 67 03/22/17 04:35 98.2 81 26 107/54 97 03/22/17 04:34 98.4 81 26 113/59 97 03/22/17 04:00 81 03/22/17 04:00 98.4 81 26 119/61 (80) 97 03/22/17 02:49 97 Simple Mask 8.00 03/22/17 02:00 85 03/22/17 00:30 99.3 92 10 119/61 (80) 95 03/22/17 00:30 94 03/22/17 00:05 99.8 99 18 100 Simple Mask 10 03/22/17 00:00 98 16 118/57 (77) 100 Simple Mask 10 03/21/17 23:45 102 16 99/55 (70) 100 Simple Mask 10 03/21/17 23:35 99.6 110 16 97/61 (73) 92 Nasal Cannula 6 03/21/17 21:40 03/21/17 21:00 115 16 125/59 (81) 93 Room Air 03/21/17 21:00 Nasal Cannula 2.00 03/21/17 20:00 103.1 133 16 133/62 (85) 92 Physical Exam GENERAL: This is a well-nourished, well-developed patient, in no apparent distress. SKIN: No rashes, ecchymoses or lesions. Cool and dry. HEAD: Atraumatic. Normocephalic. No temporal or scalp tenderness. EYES: Pupils equal round and reactive. Extraocular motions intact. No scleral icterus. No injection or drainage. ENT: Nose without bleeding, purulent drainage or septal hematoma. NECK: Trachea midline. Supple, nontender, no meningeal signs. CARDIOVASCULAR: Regular rate and rhythm without murmurs. RESPIRATORY: Clear to auscultation. Breath sounds equal bilaterally. GASTROINTESTINAL: Abdomen soft, non-tender, nondistended. MUSCULOSKELETAL: Right BKA site with wound vac in place with minimal surrounding erythema. Left foot with charcot deformity with dry scab but with no e.o active infection. NEUROLOGICAL: Awake and alert. Grossly non focal. Psych: cooperative. IV line sites with no e.o infection. Laboratory Laboratory Tests Test 03/21/17 20:25 03/21/17 22:53 03/22/17 00:30 03/22/17 01:15 White Blood Count 17.7 Red Blood Count 4.31 Hemoglobin 9.1 7.5 Hematocrit 29.3 23.7 Mean Corpuscular Volume 68.1 Mean Corpuscular Hemoglobin 21.1 Mean Corpuscular Hemoglobin Concent 31.0 Red Cell Distribution Width 18.7 Platelet Count 405 Mean Platelet Volume 7.6 Neutrophils (%) (Auto) 87.9 Lymphocytes (%) (Auto) 4.9 Monocytes (%) (Auto) 7.0 Eosinophils (%) (Auto) 0.0 Basophils (%) (Auto) 0.2 Neutrophils # (Auto) 15.6 Lymphocytes # (Auto) 0.9 Monocytes # (Auto) 1.2 Eosinophils # (Auto) 0.0 Basophils # (Auto) 0.0 CBC Comment DIFF FINAL Differential Comment Prothrombin Time 11.6 Prothromb Time International Ratio 1.0 Activated Partial Thromboplast Time 34.4 Blood Urea Nitrogen 52 Creatinine 2.71 Random Glucose 92 Total Protein 7.5 Albumin 1.8 Calcium Level 8.8 Magnesium Level 1.8 Alkaline Phosphatase 434 Aspartate Amino Transf (AST/SGOT) 23 Alanine Aminotransferase (ALT/SGPT) 12 Total Bilirubin 0.7 Sodium Level 130 Potassium Level 4.3 Chloride Level 96 Carbon Dioxide Level 23.2 Anion Gap 11 Estimat Glomerular Filtration Rate 19 Lactic Acid Level 0.8 Nasal Screen MRSA (PCR) MRSA NOT DETECTED Urine Color YELLOW Urine Turbidity HAZY Urine pH 5.5 Urine Specific [place] 1.024 Urine Protein 100 Urine Glucose (UA) NEG Urine Ketones NEG Urine Occult Blood MOD Urine Nitrite NEG Urine Bilirubin NEG Urine Urobilinogen 2.0 Urine Leukocyte Esterase NEG Urine RBC 5 Urine WBC 8 Urine Squamous Epithelial Cells 1 Urine Amorphous Sediment RARE Urine Bacteria RARE Urine Hyaline Casts 3 Urine Mucus FEW Microscopic Urinalysis Comment CATH-CULTURE IND Test 03/22/17 01:40 03/22/17 11:33 03/22/17 14:59 White Blood Count 16.8 Red Blood Count 3.45 Hemoglobin 7.5 Hematocrit 23.5 Mean Corpuscular Volume 68.2 Mean Corpuscular Hemoglobin 21.7 Mean Corpuscular Hemoglobin Concent 31.8 Red Cell Distribution Width 18.2 Platelet Count 335 Mean Platelet Volume 7.7 Neutrophils (%) (Auto) 84.8 Lymphocytes (%) (Auto) 6.5 Monocytes (%) (Auto) 8.4 Eosinophils (%) (Auto) 0.1 Basophils (%) (Auto) 0.2 Neutrophils # (Auto) 14.2 Lymphocytes # (Auto) 1.1 Monocytes # (Auto) 1.4 Eosinophils # (Auto) 0.0 Basophils # (Auto) 0.0 CBC Comment DIFF FINAL Differential Comment Blood Urea Nitrogen 49 Creatinine 2.57 Random Glucose 98 Total Protein 6.4 Albumin 1.6 Calcium Level 7.7 Alkaline Phosphatase 269 Aspartate Amino Transf (AST/SGOT) 14 Alanine Aminotransferase (ALT/SGPT) 10 Total Bilirubin 0.8 Direct Bilirubin 0.6 Sodium Level 135 Potassium Level 3.9 Chloride Level 103 Carbon Dioxide Level 24.1 Anion Gap 8 Estimat Glomerular Filtration Rate 20 Indirect Bilirubin 0.2 Lactic Acid Level 0.7 Date/Time Source Procedure Growth Status 03/21/17 20:25 Blood Peripheral Aerobic Blood Culture - Preliminary NO GROWTH IN 1 DAY Resulted 03/21/17 20:25 Blood Peripheral Anaerobic Blood Culture - Preliminary NO GROWTH IN 1 DAY Resulted 03/22/17 01:15 Urine Catheterized Urine Urine Culture Pending Received 03/21/17 22:30 Abscess Leg Fungal Smear Pending Received 03/21/17 22:30 Abscess Leg Fungal Culture Pending Received Result Diagram: 03/22/17 0140 03/22/17 0140 Imaging Last Impressions Chest X-Ray 03/21/17 1944 Signed Impressions: Service Date/Time: , March 21, 2017 19:57 - CONCLUSION: Prominence of the interstitium markings which may represent some pulmonary venous hypertension or mild edema. Burak Alvarado MD Tibia/Fibula X-Ray 03/21/17 0000 Signed Impressions: Service Date/Time: , March 21, 2017 20:32 - CONCLUSION: Air within the soft tissues of the lower leg. Burak Alvarado MD Foot X-Ray 03/21/17 0000 Signed Impressions: Service Date/Time: , March 21, 2017 20:00 - CONCLUSION: 1. Extensive very prominent soft tissue swelling with air within the soft tissues concerning for a large area of infection. 2. Destructive change is identified at the hind and midfoot. These could be from a Charcot joint. Some degree of acute ongoing destruction and infection cannot be ruled out. Burak Alvarado MD Femur X-Ray 03/21/17 0000 Signed Impressions: Service Date/Time: , March 21, 2017 20:37 - CONCLUSION: Air within the soft tissues posterior to the knee. No air is seen above this level. Burak Alvarado MD Assessment and Plan Assessment and Plan Sepsis present on admission. Right foot necrotizing infection s/p Right BKA infection and wound vac placement 03/20/17. DM2 uncontrolled, with nephropathy, retinopathy, Charcot foot deformities. CKD stage 3 not on HD. Has had only 1 session of HD. Recs DC Vanco IV Avoid Nephrotoxins. Continue Clinda IV for 1 more day then stop if no further tissue destruction. Discuss with about tissue status on follow up exam. Continue Zosyn IV Start Daptomycin IV (8mg/kg IV q24hrs equivalent) Follow cultures Follow clinically to cover for me this weekend. Nemani,Taylor MD Mar 22, 2017 15:34
[2017-03-22 15:50] LABS: HEMATOCRIT 24.1 % (35.0-46.0); REVIEW FLAG FINAL
--- NOTE | 2017-03-22 16:10 | PD.CONS ---
HPI Service Nephrology Consult Requested By Reason for Consult Acute on CKD Primary Care Physician No Primary Care Physician History of Present Illness Ms. Perkins is a 47 y/o female admitted on 03/21 for right foot infection. PMH listed below includes HTN, DM II, iron deficiency anemia, and Charcot's foot bilaterally. She was taken emergently to the OR for a right BKA for gaseous gangrene. Her creatinine is 2.7 on arrival, is 2.5 today. Her potassium is normal. 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 She is on 0.9% NS @ 100 cc/hr. We were consulted for renal management. Of note she reports taking Motrin 800 mg TID at home. (Kerry Arriola) Review of Systems Constitutional: COMPLAINS OF: Fatigue, DENIES: Fever Musculoskeletal: COMPLAINS OF: Joint pain, Muscle aches, Back pain (Kerry Arriola) Past Family Social History Allergies: Coded Allergies: Sulfa (Sulfonamide Antibiotics) (Unverified Allergy, Unknown, 03/06/17) Past Medical History Hypertension Diabetes Diabetic neuropathy Charcot's foot History of osteomyelitis Chronic kidney disease stage III Past Surgical History Cholecystectomy Tubal ligation Multiple surgeries on her feet due to Charcot's joint, screw removal Reported Medications Acidophilus/l-Sporogenes (Lactobacillus Acidophilus) 1 Tab Tab 1 Tab PO Q12HR Norvasc (Amlodipine Besylate) 10 Mg Tab 10 Mg PO DAILY Iron (Ferrous Sulfate) 325 Mg Capsule.er 325 Mg PO DAILY Lantus Inj (Insulin Glargine) 1,000 Unit/10 Ml Vial 45 Units SQ HS Lyrica (Pregabalin) 100 Mg Cap 100 Mg PO TID Active Ordered Medications Current Medications Medications (Trade) Dose Ordered Sig/Joelle Route Start Time Stop Time Status Last Admin Sodium Chloride 1,000 ml @ 100 mls/hr Q10H IV 03/21/17 21:53 03/22/17 00:51 (NS Flush) 2 ml UNSCH PRN IV FLUSH 03/21/17 22:00 (NS Flush) 2 ml BID IV FLUSH 03/22/17 09:00 03/22/17 08:12 (Zofran Inj) 4 mg Q6H PRN IV 03/21/17 22:00 03/22/17 00:27 (Colace) 100 mg BID PO 03/22/17 09:00 03/22/17 08:11 Clindamycin Phosphate 600 mg/ Sodium Chloride 54 ml @ 108 mls/hr Q8H IV 03/22/17 06:00 03/22/17 23:00 03/22/17 13:11 (Percocet 5-325 Mg) 1 tab Q4H PRN PO 03/21/17 22:00 03/22/17 14:08 (Dilaudid) 2 mg Q4H PRN PO 03/21/17 22:00 (Narcan Inj) 0.4 mg UNSCH PRN IV 03/21/17 22:00 Piperacillin Sod/ Tazobactam Sod 50 ml @ 100 mls/hr Q8H IV 03/22/17 04:00 03/22/17 11:45 (D50w (Vial) Inj) 50 ml UNSCH PRN IV 03/21/17 22:00 (Glucagon Inj) 1 mg UNSCH PRN OTHER 03/21/17 22:00 (NovoLIN R SUPPLEMENTAL SCALE) 1 ACHS SLIDING SCALE SQ 03/22/17 07:00 Miscellaneous Information ALL NURSING DEPARTME... UNSCH PRN .XX 03/22/17 00:15 03/23/17 00:14 (Dilaudid Pf Inj) 0.5 mg Q3H PRN IV 03/22/17 13:00 (Heparin Inj) 5,000 units Q12HR SQ 03/22/17 13:15 03/22/17 13:11 (Ferrous Sulfate) 325 mg DAILY PO 03/23/17 09:00 Clindamycin Phosphate 600 mg/ Sodium Chloride 104 ml @ 208 mls/hr Q6H IV 03/23/17 04:00 (Lyrica) 100 mg TID PO 03/22/17 14:44 (Pepcid Inj) 10 mg Q12HR IV PUSH 03/22/17 21:00 Daptomycin 750 mg/ Sodium Chloride 100 ml @ 200 mls/hr Q24H IV 03/22/17 16:00 UNV Family History No hx of renal disorders Social History active smoker denies etoh and illicit substances lives with brother formerly independent full code (Kerry Arriola) Physical Exam Vital Signs Vital Signs Date Time Temp Pulse Resp B/P (MAP) Pulse Ox O2 Delivery O2 Flow Rate FiO2 03/22/17 15:08 13 03/22/17 14:00 69 03/22/17 12:00 65 03/22/17 12:00 97.5 65 17 92/55 (67) 95 03/22/17 10:00 59 03/22/17 09:30 97.3 62 12 87/50 95 03/22/17 09:15 97.3 62 12 86/51 94 03/22/17 08:00 97.3 62 12 82/49 (60) 94 03/22/17 08:00 62 03/22/17 07:53 98 Nasal Cannula 4.00 03/22/17 06:00 67 03/22/17 04:35 98.2 81 26 107/54 97 03/22/17 04:34 98.4 81 26 113/59 97 03/22/17 04:00 81 03/22/17 04:00 98.4 81 26 119/61 (80) 97 03/22/17 02:49 97 Simple Mask 8.00 03/22/17 02:00 85 03/22/17 00:30 99.3 92 10 119/61 (80) 95 03/22/17 00:30 94 03/22/17 00:05 99.8 99 18 100 Simple Mask 10 03/22/17 00:00 98 16 118/57 (77) 100 Simple Mask 10 03/21/17 23:45 102 16 99/55 (70) 100 Simple Mask 10 03/21/17 23:35 99.6 110 16 97/61 (73) 92 Nasal Cannula 6 03/21/17 21:40 03/21/17 21:00 115 16 125/59 (81) 93 Room Air 03/21/17 21:00 Nasal Cannula 2.00 03/21/17 20:00 103.1 133 16 133/62 (85) 92 Physical Exam Middle aged female awake/alert, no neuro deficit S1/S2, RRR no murmurs Lungs clear in all wiggins abdomen soft, non tender no edema; s/p right BKA, mona wrap in place without drainage love in place draining Laboratory Laboratory Tests Test 03/21/17 20:25 03/21/17 22:53 03/22/17 00:30 03/22/17 01:15 White Blood Count 17.7 Red Blood Count 4.31 Hemoglobin 9.1 7.5 Hematocrit 29.3 23.7 Mean Corpuscular Volume 68.1 Mean Corpuscular Hemoglobin 21.1 Mean Corpuscular Hemoglobin Concent 31.0 Red Cell Distribution Width 18.7 Platelet Count 405 Mean Platelet Volume 7.6 Neutrophils (%) (Auto) 87.9 Lymphocytes (%) (Auto) 4.9 Monocytes (%) (Auto) 7.0 Eosinophils (%) (Auto) 0.0 Basophils (%) (Auto) 0.2 Neutrophils # (Auto) 15.6 Lymphocytes # (Auto) 0.9 Monocytes # (Auto) 1.2 Eosinophils # (Auto) 0.0 Basophils # (Auto) 0.0 CBC Comment DIFF FINAL Differential Comment Prothrombin Time 11.6 Prothromb Time International Ratio 1.0 Activated Partial Thromboplast Time 34.4 Blood Urea Nitrogen 52 Creatinine 2.71 Random Glucose 92 Total Protein 7.5 Albumin 1.8 Calcium Level 8.8 Magnesium Level 1.8 Alkaline Phosphatase 434 Aspartate Amino Transf (AST/SGOT) 23 Alanine Aminotransferase (ALT/SGPT) 12 Total Bilirubin 0.7 Sodium Level 130 Potassium Level 4.3 Chloride Level 96 Carbon Dioxide Level 23.2 Anion Gap 11 Estimat Glomerular Filtration Rate 19 Lactic Acid Level 0.8 Nasal Screen MRSA (PCR) MRSA NOT DETECTED Urine Color YELLOW Urine Turbidity HAZY Urine pH 5.5 Urine Specific [place] 1.024 Urine Protein 100 Urine Glucose (UA) NEG Urine Ketones NEG Urine Occult Blood MOD Urine Nitrite NEG Urine Bilirubin NEG Urine Urobilinogen 2.0 Urine Leukocyte Esterase NEG Urine RBC 5 Urine WBC 8 Urine Squamous Epithelial Cells 1 Urine Amorphous Sediment RARE Urine Bacteria RARE Urine Hyaline Casts 3 Urine Mucus FEW Microscopic Urinalysis Comment CATH-CULTURE IND Test 03/22/17 01:40 03/22/17 11:33 03/22/17 14:59 White Blood Count 16.8 Red Blood Count 3.45 Hemoglobin 7.5 7.5 Hematocrit 23.5 24.1 Mean Corpuscular Volume 68.2 Mean Corpuscular Hemoglobin 21.7 Mean Corpuscular Hemoglobin Concent 31.8 Red Cell Distribution Width 18.2 Platelet Count 335 Mean Platelet Volume 7.7 Neutrophils (%) (Auto) 84.8 Lymphocytes (%) (Auto) 6.5 Monocytes (%) (Auto) 8.4 Eosinophils (%) (Auto) 0.1 Basophils (%) (Auto) 0.2 Neutrophils # (Auto) 14.2 Lymphocytes # (Auto) 1.1 Monocytes # (Auto) 1.4 Eosinophils # (Auto) 0.0 Basophils # (Auto) 0.0 CBC Comment DIFF FINAL Differential Comment Blood Urea Nitrogen 49 Creatinine 2.57 Random Glucose 98 Total Protein 6.4 Albumin 1.6 Calcium Level 7.7 Alkaline Phosphatase 269 Aspartate Amino Transf (AST/SGOT) 14 Alanine Aminotransferase (ALT/SGPT) 10 Total Bilirubin 0.8 Direct Bilirubin 0.6 Sodium Level 135 Potassium Level 3.9 Chloride Level 103 Carbon Dioxide Level 24.1 Anion Gap 8 Estimat Glomerular Filtration Rate 20 Indirect Bilirubin 0.2 Lactic Acid Level 0.7 Date/Time Source Procedure Growth Status 03/21/17 20:25 Blood Peripheral Aerobic Blood Culture - Preliminary NO GROWTH IN 1 DAY Resulted 03/21/17 20:25 Blood Peripheral Anaerobic Blood Culture - Preliminary NO GROWTH IN 1 DAY Resulted 03/22/17 01:15 Urine Catheterized Urine Urine Culture Pending Received 03/21/17 22:30 Abscess Leg Fungal Smear Pending Received 03/21/17 22:30 Abscess Leg Fungal Culture Pending Received (Kerry Arriola [facility]) Result Diagram: 03/22/17 1459 03/22/17 0140 Imaging Last Impressions Chest X-Ray 03/21/17 194 Signed Impressions: Service Date/Time: February 19:57 - CONCLUSION: Prominence of the interstitium markings which may represent some pulmonary venous hypertension or mild edema. Burak Alvarado MD Tibia/Fibula X-Ray 03/21/17 0000 Signed Impressions: Service Date/Time: February 20:32 - CONCLUSION: Air within the soft tissues of the lower leg. Burak Alvarado MD Foot X-Ray 03/21/17 0000 Signed Impressions: Service Date/Time: February 20:00 - CONCLUSION: 1. Extensive very prominent soft tissue swelling with air within the soft tissues concerning for a large area of infection. 2. Destructive change is identified at the hind and midfoot. These could be from a Charcot joint. Some degree of acute ongoing destruction and infection cannot be ruled out. Burak Alvarado MD Femur X-Ray 03/21/17 0000 Signed Impressions: Service Date/Time: February 20:37 - CONCLUSION: Air within the soft tissues posterior to the knee. No air is seen above this level. Burak Alvarado MD (Kerry Arriola) Assessment and Plan Problem List: (1) CELSO (acute kidney injury) ICD Codes: N17.9 - Acute kidney failure, unspecified Status: Acute Plan: In a patient with Baseline CKD 3-4, creatinine 1.9, GFR 28 may have underlying diabetic nephropathy CELSO due to infection, hypotension, sepsis syndrome her renal function improved slightly overnight she is non oliguric quantify proteinuria recommend removing love if able obtain renal US avoid nephrotoxic medications, renally dose medications when appropriate continue IVF, taper off if tolerating oral fluids (2) Necrotizing fasciitis ICD Codes: M72.6 - Necrotizing fasciitis Status: Acute Plan: On clindamycin, daptomycin, Zosyn ID following s/p right BKA with Dr. Barrett vascular monitor clinically (3) Hypertension ICD Codes: I10 - Hypertension Status: Acute Plan: she is hypotensive today hold antihypertensive medications continue IVF, treat infection (Kerry Arriola) Assessment and Plan patient was seen and examined. Agree with above assessment and plan. Urine output is low. Also is hypotensive. To receive blood transfusion. May need pressors. Monitor urine output and renal function. (George Somers MD) Kerry Arriola Mar 22, 2017 16:10 George Somers MD Mar 22, 2017 18:19
[2017-03-22] MEDS ORDERED: CALCIUM GLUCONATE INJ 2 GM in SODIUM CHLORIDE 0.9% INJ 100 ML IV ONE (16:45)
[2017-03-22] MEDS ORDERED: HYDROCORTISONE SOD SUCCINATE 100 MG VIAL IV PUSH ONE (17:45)
[2017-03-22] MEDS ORDERED: PHENYLEPHRINE INJ 40 MG in DEXTROSE 5% IN WATE 500 ML INJ 496 ML IV PRN ×2 (17:45)
[2017-03-22] MEDS ORDERED: TERBUTALINE INJ 1 MG/ML AMP SQ PRN (17:45)
[2017-03-22] MEDS: DAPTOmycin INJ 750 MG in SODIUM CHLORIDE 0.9% INJ 100 ML IV SCH (17:58)
[2017-03-22] MEDS: PREGABALIN 100 MG CAP PO SCH ×2 (17:58→18:00)
--- NOTE | 2017-03-22 18:25 | PD.PROCEDR ---
Procedure Note Procedure Procedure: Arterial Line Placement Right radial arterial line Diagnosis: Septic shock Indications: For beat to beat hemodynamic monitoring Consent: Verbal Consent was obtained from the patient Description of the Procedure: The right wrist was prepped and draped sterilely. 1% lidocaine was used for local anesthesia. The pulse was located and a needle was advanced into the artery. A 20 gauge, 12 cm catheter was advanced into the artery using a modified Seldinger technique. The catheter was sutured to the skin and a sterile dressing was applied. The catheter was connected to a pressure transducer and an arterial waveform was noted. There were no immediate complications noted. There was minimal EBL. I personally performed the procedure. Shayne Graham MD Mar 22, 2017 18:25
[2017-03-22 18:34] LABS: HEMATOCRIT 27.7 % (35.0-46.0); REVIEW FLAG FINAL
[2017-03-22] MEDS: FAMOTIDINE 20 MG/2 ML VIAL IV PUSH SCH (21:52)
[2017-03-23] VITALS (12 sets, daily range): BP systolic 119–132; BP diastolic 58–69; PULSE 70–84; RESP 10–20; TEMP 97.1–98.1; O2SAT 95–98
[2017-03-23] MEDS: PIPERACIL-TAZO 3.375 GM PREMIX 50 ML IV SCH ×3 (03:43→20:05)
[2017-03-23] MEDS: CLINDAMYCIN INJ 600 MG in SODIUM CHLORIDE 0.9% INJ 100 ML IV SCH ×4 (04:16→21:38)
[2017-03-23] MEDS: HYDROmorphone HCL 2 MG TAB PO PRN ×2 (04:38→20:05)
[2017-03-23] MEDS: SODIUM CHLOR 0.9% 1000 ML INJ 1,000 ML IV SCH ×2 (06:21→17:36)
[2017-03-23] MEDS: INSULIN NovoLIN REGULAR SUPPLEMENTAL SCALE SQ SCH ×3 (06:33→17:37)
[2017-03-23 07:17] LABS: BICARBONATE 19.3 MEQ/L (21.0-32.0); POTASSIUM 4.3 MEQ/L (3.5-5.1)
--- NOTE | 2017-03-23 08:15 | HHI.CCPN ---
Subjective Remarks/Hospital Course 47-year-old female with history of diabetes with Charcot's foot presented to emergency department today for evaluation of right foot pain and swelling and possible infection. Per chart documentation she scratched the top of her foot yesterday evening. Prior to going to bed she placed a Band-Aid and went to sleep. This morning when she woke up she noticed that her foot was red and swollen and there was an area of dark skin on the dorsum of her foot. In the emergency department the patient has had significant edema to the right foot with area of necrosis to the dorsum of her foot as well as her fourth toe. The foot was diffusely erythematous and warm and is also foul smelling. X-ray of the foot showed a gas and soft tissue swelling. He was taken emergently to operating room for BKA by Dr. Finch. 03/22: s/p RBKA for necrotizing fasciitis. Remains septic, hypotensive. Hb 7.5 today getting 1 unit of PRBC. WBC count remains elevated at 16.8, it was 17.7 yesterday. Urine output is marginal. I have ordered 1.5 L normal saline bolus , IV albumin 25 g, in addition to the PRBC. Continue normal saline maintenance fluid at 100 ML per hour 03/23: Urine output marginal. Glucose intolerance expected. Objective Vital Signs Date Time Temp Pulse Resp B/P (MAP) Pulse Ox O2 Delivery O2 Flow Rate FiO2 03/23/17 02:00 74 03/23/17 00:00 97.4 15 119/58 (78) 98 03/22/17 19:00 Nasal Cannula 3.00 Result Diagram: 03/22/17 1808 03/23/17 0542 Imaging Last 24 hours Impressions Chest X-Ray 03/21/171943 Signed Impressions: Service Date/Time: February 19:57 - CONCLUSION: Prominence of the interstitium markings which may represent some pulmonary venous hypertension or mild edema. Burak Alvarado MD Objective Remarks GENERAL: Ill-appearing woman. SKIN: Warm and dry. HEAD: Normocephalic. EYES: No scleral icterus. No injection or drainage. NECK: Supple, trachea midline. No obstruction. CARDIOVASCULAR: Regular rate and rhythm without murmurs, gallops, or rubs. No JVD. RESPIRATORY: Breath sounds equal bilaterally. No accessory muscle use. GASTROINTESTINAL: Abdomen soft, non-tender, nondistended. BS active. MUSCULOSKELETAL: No cyanosis, or edema. Status post right BKA. Dressing, Wound vac in place NEURO EXAM: Alert, oriented x3. no focal deficits A/P Assessment and Plan NEURO: - As needed Dilaudid for pain. Otherwise minimize sedation RESP: - Nasal cannula oxygen. DuoNeb every 6 hours when necessary CV: Severe sepsis Hypotension - Normal saline 1.5 L bolus and 100 ml per hour. IV Albumin 25 GM x1 - Check lactic acid and trend if high. Hold all home antihypertensives - Use Levophed if needed to keep map above 65 GI: - 1800 ADA diet. Protonix : Chronic kidney disease stage III - Baseline creatinine is 1.8-2.2 - IV hydration, Monroy - Strict I's and O's ID: Necrotizing fascitis and myonecrosis of RLE Severe sepsis - Status post BKA by Dr. Finch 03/21 - Empiric antibiotic with Vanc and Zosyn, Added clindamycin - Infectious disease - Follow-up blood culture - Management per vascular surgery, multiple washouts planned before closure HEME: Anemia requiring transfusion - Monitor CBC, CMP - Received 2 units PRBC. - Continue home iron supplements ENDO: Type 2 diabetes Diabetic neuropathy - Sliding-scale insulin - Continue Neurontin - Add bid levemir DVT GI prophylaxis - SCDs to LLE - Pharmacological DVT prophylaxis with Heparin sq - Pantoprazole Overall impression: Critically ill following source-control amputation for septic shock. Remains unstable. Critical Care 36 mins Jim Wray MD Mar 23, 2017 08:15
[2017-03-23] MEDS: HEPARIN SODIUM - SQ 10,000 UNITS/ML VIAL SQ SCH ×2 (08:41→21:09)
[2017-03-23] MEDS: DOCUSATE SODIUM 100 MG CAP PO SCH ×2 (08:41→21:00)
[2017-03-23] MEDS: FAMOTIDINE 20 MG/2 ML VIAL IV PUSH SCH ×2 (08:41→21:13)
[2017-03-23] MEDS: FERROUS SULFATE 325 MG (65 MG ELEMENTAL IRON) TAB PO SCH (08:41)
[2017-03-23] MEDS: SODIUM CHLORIDE 0.9% FLUSH 10 ML FLUSH IV FLUSH SCH ×2 (08:41→21:11)
[2017-03-23] MEDS: PREGABALIN 100 MG CAP PO SCH ×3 (08:41→17:36)
[2017-03-23] MEDS: HYDROCORTISONE SOD SUCCINATE 100 MG VIAL IV PUSH SCH ×2 (09:41→21:08)
[2017-03-23] MEDS: INSULIN DETEMIR 100 UNITS/ML VIAL SQ SCH ×2 (09:41→21:10)
[2017-03-23] MEDS: oxyCODONE/ACETAMINOPHEN 5 MG/325 MG TAB PO PRN ×2 (10:15→21:10)
--- NOTE | 2017-03-23 11:58 | HHI.NPPN ---
Subjective Renal Failure: Acute, Stage IV History of Present Illness 47 y/o female admitted on 03/21 for right foot infection. PMH listed below includes HTN, DM II, iron deficiency anemia, and Charcot's foot bilaterally. She was taken emergently to the OR for a right BKA for gaseous gangrene. Her creatinine is 2.7 on arrival, is 2.5 today. Her potassium is normal. 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 Additional Remarks Patient is alert, feeling better, now off pressors, and the BP is stable. Objective Data Data Vital Signs Date Time Temp Pulse Resp B/P (MAP) Pulse Ox O2 Delivery O2 Flow Rate FiO2 03/23/17 10:00 77 03/23/17 08:00 97.6 84 20 130/69 (89) 95 03/23/17 08:00 81 03/23/17 07:00 96 Nasal Cannula 2.00 03/23/17 06:00 76 03/23/17 04:00 70 03/23/17 04:00 97.6 70 13 97 125/69 (87) 03/23/17 02:00 74 03/23/17 00:00 74 03/23/17 00:00 97.4 75 15 119/58 (78) 98 03/22/17 22:00 74 03/22/17 20:00 97.5 74 21 120/44 (69) 96 Automatic Cuff 03/22/17 20:00 74 03/22/17 19:00 Nasal Cannula 3.00 03/22/17 18:51 71 107/41 03/22/17 18:00 75 03/22/17 16:56 97.6 62 16 89/51 94 03/22/17 16:00 97.6 69 28 82/50 (61) 96 03/22/17 16:00 69 03/22/17 16:00 69 03/22/17 15:08 13 03/22/17 14:00 69 03/22/17 12:00 65 03/22/17 12:00 97.5 65 17 92/55 (67) 95 -: 03/22/17 1808 03/23/17 0542 Physical Exam General Appearance: No Acute Distress, Comfortable Eyes Eye Exam: Pupils Equal Pulmonary Resp Exam: Breath Sounds Equal, No Distress, Rhonchi, Decreased Bases Cardiology CV Exam: Regular, Normal Sinus Rhythm Gastrointestinal/Abdomen GI Exam: Soft, Non-Tender, Bowel Sounds Present Extremeties Extremities Exam: Trace Edema Neurologic Neuro Exam: Alert, Awake, Oriented Assessment/Plan Assessment Summary: CELSO/Acute Renal Failure, CKD Stage IV Problem List: (1) CELSO (acute kidney injury) ICD Codes: N17.9 - Acute kidney failure, unspecified Status: Acute Plan: In a patient with Baseline CKD 3-4, creatinine 1.9, GFR 28 Possibly have underlying diabetic nephropathy CELSO due to infection, hypotension, sepsis syndrome her renal function improved slightly overnight she is non oliguric quantify proteinuria obtain renal US avoid nephrotoxic medications, renally dose medications when appropriate continue IVF and antibiotics. Now the BP is stable. (2) Necrotizing fasciitis ICD Codes: M72.6 - Necrotizing fasciitis Status: Acute Plan: On clindamycin, daptomycin, Zosyn ID following s/p right BKA with Dr. Barrett vascular monitor clinically (3) Hypertension ICD Codes: I10 - Hypertension Status: Acute Plan: she is hypotensive today hold antihypertensive medications continue IVF, treat infection Marychuy Gomez MD Mar 23, 2017 11:58
--- NOTE | 2017-03-23 12:27 | PD.CAR.PN ---
CVT Progress Note Subjective/Hospital Course: 03/22/17 Patient is status post below-knee amputation and opening of fascial planes for gas gangrene of the leg and sepsis Patient is doing much better today. She is still slightly hypotensive which is very much expected Besides critical care management, we plan to take patient to the operating room on Saturday for washout of the BKA which is open and placement of a new wound VAC. The same will be repeated again on Saturday and then possibly by the end of next week patient will have a final washout and closure of the stump There is still significant chance that this may not be sufficient patient is still at risk of losing the leg above the knee. Will transfer patient to Dr. Sumner ice skater service and Dr. Hagan will follow patient in my absence and take her to the OR for washouts. 03/23/17 Doing better, off pressors. Floor transfer orders have been placed. Will take to OR tomorrow for Wound washout, possible debridement and VAC placement. Objective: A&O, NAD, pain controlled CTA, diminished bilaterally Abdomen soft Wound VAC with minimal drainage Vital Signs Date Time Temp Pulse Resp B/P (MAP) Pulse Ox O2 Delivery O2 Flow Rate FiO2 03/23/17 10:00 77 03/23/17 08:00 97.6 84 20 130/69 (89) 95 03/23/17 08:00 81 03/23/17 07:00 96 Nasal Cannula 2.00 03/23/17 06:00 76 03/23/17 04:00 70 03/23/17 04:00 97.6 70 13 97 125/69 (87) 03/23/17 02:00 74 03/23/17 00:00 74 03/23/17 00:00 97.4 75 15 119/58 (78) 98 03/22/17 22:00 74 03/22/17 20:00 97.5 74 21 120/44 (69) 96 Automatic Cuff 03/22/17 20:00 74 03/22/17 19:00 Nasal Cannula 3.00 03/22/17 18:51 71 107/41 03/22/17 18:00 75 03/22/17 16:56 97.6 62 16 89/51 94 03/22/17 16:00 97.6 69 28 82/50 (61) 96 03/22/17 16:00 69 03/22/17 16:00 69 03/22/17 15:08 13 03/22/17 14:00 69 Labs: Laboratory Tests Test 03/23/17 05:42 Blood Urea Nitrogen 53 MG/DL (7-18) Creatinine 2.44 MG/DL (0.50-1.00) Random Glucose 251 MG/DL (74-106) Albumin 1.8 GM/DL (3.4-5.0) Calcium Level 7.6 MG/DL (8.5-10.1) Phosphorus Level 6.1 MG/DL (2.5-4.9) Sodium Level 138 MEQ/L (136-145) Potassium Level 4.3 MEQ/L (3.5-5.1) Chloride Level 105 MEQ/L (98-107) Carbon Dioxide Level 19.3 MEQ/L (21.0-32.0) Anion Gap 14 MEQ/L (5-15) Estimat Glomerular Filtration Rate 21 ML/MIN (>89) Result Diagram: 03/22/17 1808 03/23/17 0542 Plan: Doing well OR tomorrow for wound washout, possible debridement of further necrotic tissue and wound VAC placement Darrell Hagan MD Mar 23, 2017 12:27
[2017-03-23] MEDS: DAPTOmycin INJ 750 MG in SODIUM CHLORIDE 0.9% INJ 100 ML IV SCH (17:36)
[2017-03-24] VITALS (8 sets, daily range): BP systolic 139–160; BP diastolic 74–84; PULSE 71–81; RESP 12–23; TEMP 96.1–97.9; O2SAT 93–99
[2017-03-24] MEDS: INSULIN NovoLIN REGULAR SUPPLEMENTAL SCALE SQ SCH ×4 (00:46→17:12)
[2017-03-24] MEDS: PIPERACIL-TAZO 3.375 GM PREMIX 50 ML IV SCH ×3 (03:27→23:09)
[2017-03-24] MEDS: CLINDAMYCIN INJ 600 MG in SODIUM CHLORIDE 0.9% INJ 100 ML IV SCH ×4 (04:20→20:50)
[2017-03-24] MEDS: HYDROmorphone HCL 2 MG TAB PO PRN (05:03)
[2017-03-24 05:29] LABS: AUTOMATED NEUTROPHIL # 10.4 TH/MM3 (1.8-7.7); BASOPHIL % 0.1 % (0.0-2.0); HEMATOCRIT 31.2 % (35.0-46.0); LYMPH % 4.7 % (9.0-44.0); LYMPHOCYTE # 0.5 TH/MM3 (1.0-4.8); MEAN CELL VOLUME 74.1 FL (80.0-100.0); MEAN CORPUSCULAR HEMOGLOBIN 24.3 PG (27.0-34.0); MEAN CORPUSCULAR HGB CONC 32.7 % (32.0-36.0); MONO % 2.7 % (0.0-8.0); NEUT % 92.5 % (16.0-70.0); PLATELET COUNT 391 TH/MM3 (150-450); RED BLOOD COUNT 4.21 MIL/MM3 (4.00-5.30); RED CELL DISTRIBUTION WIDTH 21.9 % (11.6-17.2); WHITE BLOOD COUNT 11.2 TH/MM3 (4.0-11.0)
[2017-03-24 05:48] LABS: HEMO FLAGS AUTO DIFF
[2017-03-24 06:02] LABS: BICARBONATE 22.9 MEQ/L (21.0-32.0)
[2017-03-24] MEDS: SODIUM CHLOR 0.9% 1000 ML INJ 1,000 ML IV SCH ×3 (07:08→20:50)
[2017-03-24 07:37] LABS: HYPERSEGMENTED POLYS 1+ (NORMAL); PLATELET ESTIMATE SMEAR NORMAL (NORMAL); PLATELET MORPHOLOGY NORMAL (NORMAL); SCAN/DIFF AUTO DIFF CONFIRMED
--- NOTE | 2017-03-24 08:50 | MP ---
cc: MANUELITO SALINAS DATE OF SURGERY: 03/21/2017 PREOPERATIVE DIAGNOSIS: Sepsis, gangrene of the right foot and purulent gas gangrene of the right leg, diabetes mellitus. POSTOPERATIVE DIAGNOSIS: Sepsis, gangrene of the right foot and purulent gas gangrene of the right leg, diabetes mellitus. OPERATIVE PROCEDURE Below-knee amputation and wound Vac placement. SURGEON: Dr. Salinas ANESTHESIA: General. ESTIMATED BLOOD LOSS: 150 cc. DESCRIPTION OF PROCEDURE: The patient prepped and draped in usual fashion. First a guillotine amputation is carried out at a level an inch above the ankle. This is carried out by making an anterior incision and carrying it down to the tibia and fibula transecting both bones and then removing the posterior flap. Meticulous hemostasis assured with 2-0 Vicryl stick ties. As soon as amputation is donw, victor manuel green pus starts pouring out of the proximal leg about 300 cc of purulent material just simply drains out. Cultures are of course obtained. I opened the skin and fascia laterally in such a fashion in order to preserve the posterior muscles and calf for the future BKA. Once I opened this there is muscle medially and laterally consisting of bundles of extensors which appeared to be green and cruz in color. This is removed. Now it is apparent that the patient has victor manuel pus all the way up 2/3 of the tibia and this is foul-smelling obviously, anaerobic, aerobic combination of infections. There is also purulent material draining out of the tibia itself. Decision is now made to go much higher with this and still try to preserve below-knee amputation. Therefore, incision is made anterior because the tibia is about four inches below the knee and then incisions carried down sharply. Anterior tibial artery and veins are ligated. Fibula and tibia exposed. Periosteum is elevated and then tibia and fibula transected with oscillating saw and posterior flap created with an amputation knife. This, indeed, removes all the grossly infected tissue. Meticulous hemostasis obtained with 0 Vicryl and 2-0 Vicryl stick ties and cautery. Anterior tibial nerve is transected and removed. The area is now irrigated with copious amounts of saline and about 4 liters. Once this is done, the tissue appears to be clean and well perfused. The remaining tissue is covered with a wound Vac which is applied to 125 mmHg continuous suction. The patient is taken from the operating room to ICU in stable condition. It should be noted that this patient will be taken to the operating room for a few more washouts and debridement, and perhaps in about a week we will be able to close this. There is still a high chance that the patient may lose the leg above the knee depending on virulence, infection, behavior of the tissue as far as viability is concerned and other issues. Manuelito ROSENBERG/DALE /11:34 PM /8:32 AM
[2017-03-24] MEDS: INSULIN DETEMIR 100 UNITS/ML VIAL SQ SCH ×2 (09:00→20:54)
[2017-03-24] MEDS: SODIUM CHLORIDE 0.9% FLUSH 10 ML FLUSH IV FLUSH SCH ×2 (09:00→20:49)
[2017-03-24] MEDS: HEPARIN SODIUM - SQ 10,000 UNITS/ML VIAL SQ SCH ×2 (09:00→20:49)
[2017-03-24] MEDS: DOCUSATE SODIUM 100 MG CAP PO SCH ×2 (09:00→20:49)
[2017-03-24] MEDS: FERROUS SULFATE 325 MG (65 MG ELEMENTAL IRON) TAB PO SCH (09:18)
[2017-03-24] MEDS: HYDROCORTISONE SOD SUCCINATE 100 MG VIAL IV PUSH SCH ×2 (09:19→20:49)
[2017-03-24] MEDS: FAMOTIDINE 20 MG/2 ML VIAL IV PUSH SCH ×2 (09:19→20:49)
[2017-03-24] MEDS: PREGABALIN 100 MG CAP PO SCH ×3 (10:15→17:04)
[2017-03-24] MEDS ORDERED: PROPOFOL 200 MG/20 ML AMP IV ONE (12:00)
[2017-03-24] MEDS ORDERED: ONDANSETRON HCL 4 MG/2 ML VIAL IV PUSH ONE (12:00)
[2017-03-24] MEDS ORDERED: DO NOT ADM ANY ANTICOAGULANT DRUGS PRN (12:45)
--- NOTE | 2017-03-24 13:26 | PD.OP ---
Operative Report Open right lower extremity BKA wound secondary to amputation for necrotizing fasciitis Postoperative Diagnosis: Open right lower extremity BKA wound secondary to amputation for necrotizing fasciitis Procedure: Right lower extremity washout of open below-knee amputation wound Negative pressure wound VAC therapy greater than 50 cm - 14 x 14 cm Anesthesia: Gen. endotracheal tube anesthesia Surgeon: Darrell Hagan Emergency Room Nurse(s): None Resident Surgeon: None Operation and Findings: After obtaining informed consent, the patient was taken to the operating room and prepped and draped in the standard sterile manner. 3 L of warm sterile saline was utilized to irrigate the right below-knee amputation site. Bovie electrocautery was utilized to obtain hemostasis where necessary. The wound was clean with no evidence of necrotic muscle or fascia. The skin was clean without erythema or drainage. Once the wound was deemed hemostatic and clean it was measured to be 14 cm wide by 14 cm in length. A black wound VAC sponge was secured in position with a limited amount of carl and covered with the occlusive dressing. It was connected to suction with good seal and no evidence of a leak. All needle sponge and management counts were correct, she tolerated procedure well without complications. She was extubated and sent to PACU in good condition. Darrell Hagan MD Mar 24, 2017 13:26
--- NOTE | 2017-03-24 13:29 | PD.CAR.PN ---
CVT Progress Note Subjective/Hospital Course: 03/22/17 Patient is status post below-knee amputation and opening of fascial planes for gas gangrene of the leg and sepsis Patient is doing much better today. She is still slightly hypotensive which is very much expected Besides critical care management, we plan to take patient to the operating room on Saturday for washout of the BKA which is open and placement of a new wound VAC. The same will be repeated again on Saturday and then possibly by the end of next week patient will have a final washout and closure of the stump There is still significant chance that this may not be sufficient patient is still at risk of losing the leg above the knee. Will transfer patient to Dr. Sumner artificial glass eye maker service and Dr. Hagan will follow patient in my absence and take her to the OR for washouts. 03/23/17 Doing better, off pressors. Floor transfer orders have been placed. Will take to OR tomorrow for Wound washout, possible debridement and VAC placement. 03/24/17 Patient was taken to the operating room today for wound washout and VAC change. The wound was clean with no evidence of necrosis skin edges were clean. Small bleeders were cauterized without incident. She can be placed on diabetic diet resume all preop orders. It is unlikely she will require an above-knee amputation, but this can be determined at a later operation. Objective: Alert and oriented no acute distress Clear to auscultation bilaterally Regular rate and rhythm Abdomen soft, nontender, nondistended Wound VAC in place with good seal no evidence of leak and minimal output Vital Signs Date Time Temp Pulse Resp B/P (MAP) Pulse Ox O2 Delivery O2 Flow Rate FiO2 03/24/17 13:00 84 16 154/81 (105) 97 Nasal Cannula 2 03/24/17 12:50 97.9 88 16 163/80 (107) 97 Nasal Cannula 2 03/24/17 10:00 75 03/24/17 08:00 97.8 77 14 157/84 (108) 99 03/24/17 08:00 77 03/24/17 07:00 98 Nasal Cannula 2.00 03/24/17 06:00 72 03/24/17 04:00 72 03/24/17 04:00 97.9 72 17 146/78 (100) 98 03/24/17 02:00 74 03/24/17 00:00 71 03/24/17 00:00 97.7 71 12 139/79 (99) 98 03/23/17 22:00 76 03/23/17 20:00 74 03/23/17 20:00 98.1 74 17 127/59 (81) 98 03/23/17 19:00 98 Nasal Cannula 2.00 03/23/17 18:00 73 03/23/17 16:00 97.7 74 10 126/69 (88) 97 03/23/17 16:00 74 03/23/17 14:00 73 Labs: Laboratory Tests Test 03/24/17 04:36 White Blood Count 11.2 TH/MM3 (4.0-11.0) Red Blood Count 4.21 MIL/MM3 (4.00-5.30) Hemoglobin 10.2 GM/DL (11.6-15.3) Hematocrit 31.2 % (35.0-46.0) Mean Corpuscular Volume 74.1 FL (80.0-100.0) Mean Corpuscular Hemoglobin 24.3 PG (27.0-34.0) Mean Corpuscular Hemoglobin Concent 32.7 % (32.0-36.0) Red Cell Distribution Width 21.9 % (11.6-17.2) Platelet Count 391 TH/MM3 (150-450) Mean Platelet Volume 7.4 FL (7.0-11.0) Neutrophils (%) (Auto) 92.5 % (16.0-70.0) Lymphocytes (%) (Auto) 4.7 % (9.0-44.0) Monocytes (%) (Auto) 2.7 % (0.0-8.0) Eosinophils (%) (Auto) 0.0 % (0.0-4.0) Basophils (%) (Auto) 0.1 % (0.0-2.0) Neutrophils # (Auto) 10.4 TH/MM3 (1.8-7.7) Lymphocytes # (Auto) 0.5 TH/MM3 (1.0-4.8) Monocytes # (Auto) 0.3 TH/MM3 (0-0.9) Eosinophils # (Auto) 0.0 TH/MM3 (0-0.4) Basophils # (Auto) 0.0 TH/MM3 (0-0.2) CBC Comment AUTO DIFF Differential Comment AUTO DIFF CONFIRMED Hypersegmented Polys 1+ (NORMAL) Platelet Estimate NORMAL (NORMAL) Platelet Morphology Comment NORMAL (NORMAL) Blood Urea Nitrogen 43 MG/DL (7-18) Creatinine 1.74 MG/DL (0.50-1.00) Random Glucose 104 MG/DL (74-106) Calcium Level 7.5 MG/DL (8.5-10.1) Sodium Level 140 MEQ/L (136-145) Potassium Level 4.0 MEQ/L (3.5-5.1) Chloride Level 109 MEQ/L (98-107) Carbon Dioxide Level 22.9 MEQ/L (21.0-32.0) Anion Gap 8 MEQ/L (5-15) Estimat Glomerular Filtration Rate 31 ML/MIN (>89) Result Diagram: 03/24/1743503/24/17 0436 Plan: Patient can continue wound VAC for 3 days Likely return to the OR Saturday for wound washout and formalization of right below-knee amputation Until then continue pain control, tight glucose management and aggressive pulmonary toilet Darrell Hagan MD Mar 24, 2017 13:29
[2017-03-24] MEDS: HYDROmorphone HCL PF 1 MG/ML VIAL IV PRN ×2 (13:30→20:48)
[2017-03-24] MEDS: DAPTOmycin INJ 750 MG in SODIUM CHLORIDE 0.9% INJ 100 ML IV SCH (17:02)
[2017-03-24] MEDS: oxyCODONE/ACETAMINOPHEN 5 MG/325 MG TAB PO PRN (17:03)
--- NOTE | 2017-03-24 17:56 | HHI.PR ---
Subjective Remarks pain controlled denies diarrhea, abdominal pain, nausea denies fevers/chills Objective Vitals Vital Signs Date Time Temp Pulse Resp B/P (MAP) Pulse Ox O2 Delivery O2 Flow Rate FiO2 03/24/17 16:00 96.1 81 16 153/74 (100) 93 03/24/17 14:24 82 16 157/82 (107) 99 Nasal Cannula 2 03/24/17 13:15 85 16 160/88 (112) 97 Nasal Cannula 2 03/24/17 13:00 84 16 154/81 (105) 97 Nasal Cannula 2 03/24/17 12:50 97.9 88 16 163/80 (107) 97 Nasal Cannula 2 03/24/17 10:00 75 03/24/17 08:00 97.8 77 14 157/84 (108) 99 03/24/17 08:00 77 03/24/17 07:00 98 Nasal Cannula 2.00 03/24/17 06:00 72 03/24/17 04:00 72 03/24/17 04:00 97.9 72 17 146/78 (100) 98 03/24/17 02:00 74 03/24/17 00:00 71 03/24/17 00:00 97.7 71 12 139/79 (99) 98 03/23/17 22:00 76 03/23/17 20:00 74 03/23/17 20:00 98.1 74 17 127/59 (81) 98 03/23/17 19:00 98 Nasal Cannula 2.00 03/23/17 18:00 73 I/O 03/23/17 03/23/17 03/23/17 03/24/17 03/24/17 03/24/17 07:00 15:00 23:00 07:00 15:00 23:00 Intake Total 2100 ml 100 ml 1950 ml 1552 ml 1304 ml Output Total 1075 ml 30 ml 1165 ml 600 ml Balance 1025 ml 100 ml 1920 ml 387 ml 704 ml Intake Oral 180 ml 600 ml IV Total 1920 ml 100 ml 1350 ml 1552 ml 1104 ml Other 200 ml Output Urine Total 1025 ml 1150 ml 600 ml Drainage Total 50 ml 30 ml 15 ml 0 ml # Bowel Movements 2 2 2 Result Diagram: 03/24/176 03/24/17 0436 Imaging Last Impressions Chest X-Ray 03/21/17 1944 Signed Impressions: Service Date/Time: February 19:57 - CONCLUSION: Prominence of the interstitium markings which may represent some pulmonary venous hypertension or mild edema. Burak Alvarado MD Tibia/Fibula X-Ray 03/21/17 0000 Signed Impressions: Service Date/Time: February 20:32 - CONCLUSION: Air within the soft tissues of the lower leg. Burak Alvarado MD Foot X-Ray 03/21/17 0000 Signed Impressions: Service Date/Time: February 20:00 - CONCLUSION: 1. Extensive very prominent soft tissue swelling with air within the soft tissues concerning for a large area of infection. 2. Destructive change is identified at the hind and midfoot. These could be from a Charcot joint. Some degree of acute ongoing destruction and infection cannot be ruled out. Burak Alvarado MD Femur X-Ray 03/21/17 0000 Signed Impressions: Service Date/Time: February 20:37 - CONCLUSION: Air within the soft tissues posterior to the knee. No air is seen above this level. Burak Alvarado MD Objective Remarks GENERAL: Ill-appearing woman. SKIN: Warm and dry. HEAD: Normocephalic. EYES: No scleral icterus. No injection or drainage. NECK: Supple, trachea midline. No obstruction. CARDIOVASCULAR: Regular rate and rhythm without murmurs, gallops, or rubs. No JVD. RESPIRATORY: Breath sounds equal bilaterally. No accessory muscle use. GASTROINTESTINAL: Abdomen soft, non-tender, nondistended. BS active. MUSCULOSKELETAL: No cyanosis, or edema. Status post right BKA. Dressing, Wound vac in place NEURO EXAM: Alert, oriented x3. no focal deficits Medications and IVs Current Medications Medications (Trade) Dose Ordered Sig/Joelle Route Start Time Stop Time Status Last Admin Sodium Chloride 1,000 ml @ 100 mls/hr Q10H IV 03/21/17 21:53 03/24/17 07:08 (NS Flush) 2 ml UNSCH PRN IV FLUSH 03/21/17 22:00 (NS Flush) 2 ml BID IV FLUSH 03/22/17 09:00 03/23/17 21:11 (Zofran Inj) 4 mg Q6H PRN IV 03/21/17 22:00 03/22/17 00:27 (Colace) 100 mg BID PO 03/22/17 09:00 03/22/17 08:11 (Percocet 5-325 Mg) 1 tab Q4H PRN PO 03/21/17 22:00 03/24/17 17:03 (Dilaudid) 2 mg Q4H PRN PO 03/21/17 22:00 03/24/17 05:03 (Narcan Inj) 0.4 mg UNSCH PRN IV 03/21/17 22:00 Piperacillin Sod/ Tazobactam Sod 50 ml @ 100 mls/hr Q8H IV 03/22/17 04:00 03/24/17 11:50 (D50w (Vial) Inj) 50 ml UNSCH PRN IV 03/21/17 22:00 (Glucagon Inj) 1 mg UNSCH PRN OTHER 03/21/17 22:00 (Dilaudid Pf Inj) 0.5 mg Q3H PRN IV 03/22/17 13:00 03/24/17 13:30 (Heparin Inj) 5,000 units Q12HR SQ 03/22/17 13:15 03/23/17 21:09 (Ferrous Sulfate) 325 mg DAILY PO 03/23/17 09:00 03/24/17 09:18 Clindamycin Phosphate 600 mg/ Sodium Chloride 104 ml @ 208 mls/hr Q6H IV 03/23/17 04:00 03/24/17 17:02 (Lyrica) 100 mg TID PO 03/22/17 14:44 03/24/17 17:01 (Pepcid Inj) 10 mg Q12HR IV PUSH 03/22/17 21:00 03/24/17 09:19 Daptomycin 750 mg/ Sodium Chloride 100 ml @ 200 mls/hr Q24H IV 03/22/17 16:00 03/24/17 17:02 Phenylephrine HCl 40 mg/Dextrose 500 ml @ 30 mls/hr TITRATE PRN IV 03/22/17 17:45 03/22/17 18:51 (Brethine Inj) 1 mg UNSCH PRN SQ 03/22/17 17:45 (NovoLIN R SUPPLEMENTAL SCALE) 1 Q6H SQ 03/23/17 13:00 9/3/17 00:46 (Levemir Inj) 15 units Q12HR SQ 03/23/17 09:00 03/23/17 21:10 (SoluCORTEF INJ) 50 mg Taper Q12HR IV PUSH 03/23/17 09:00 04/01/17 08:59 03/24/17 09:19 Miscellaneous Information ALL NURSING DEPARTME... UNSCH PRN .XX 03/24/17 12:45 03/25/17 12:44 A/P Assessment and Plan NEURO: - As needed Dilaudid for pain. Otherwise minimize sedation RESP: - Nasal cannula oxygen. DuoNeb every 6 hours when necessary CV: Severe sepsis Hypotension - Normal saline 1.5 L bolus and 100 ml per hour. IV Albumin 25 GM x1 - Check lactic acid and trend if high. Hold all home antihypertensives - Use Levophed if needed to keep map above 65 GI: - 1800 ADA diet. Protonix : Chronic kidney disease stage III - Baseline creatinine is 1.8-2.2 - IV hydration, Monroy - Strict I's and O's ID: Necrotizing fascitis and myonecrosis of RLE Severe sepsis - Status post BKA by Dr. Finch 03/21 - Empiric antibiotic with Vanc and Zosyn, Added clindamycin - Infectious disease - Follow-up blood culture - Management per vascular surgery, multiple washouts planned before closure HEME: Anemia requiring transfusion - Monitor CBC, CMP - Received 2 units PRBC. - Continue home iron supplements ENDO: Type 2 diabetes Diabetic neuropathy - Sliding-scale insulin - Continue Neurontin - Add bid levemir DVT GI prophylaxis - SCDs to LLE - Pharmacological DVT prophylaxis with Heparin sq - Pantoprazole Malcolm Agarwal MD Mar 24, 2017 17:56
[2017-03-24] MEDS ORDERED: MIDAZOLAM HCL 2 MG/2 ML VIAL ONE (19:32)
--- NOTE | 2017-03-24 22:27 | HHI.NPPN ---
Subjective Renal Failure: Acute, Stage IV History of Present Illness 47 y/o female admitted on 03/21 for right foot infection. PMH listed below includes HTN, DM II, iron deficiency anemia, and Charcot's foot bilaterally. She was taken emergently to the OR for a right BKA for gaseous gangrene. Her creatinine is 2.7 on arrival, is 2.5 today. Her potassium is normal. 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 Additional Remarks Patient is alert, feeling better, started eating. Objective Data Data 03/24/17 03/25/17 19:00 07:00 Intake Total 2107 ml Output Total 1300 ml Balance 807 ml Intake Oral 720 ml IV Total 1187 ml Other 200 ml Output Urine Total 1300 ml Drainage Total 0 ml # Bowel Movements 2 Vital Signs Date Time Temp Pulse Resp B/P (MAP) Pulse Ox O2 Delivery O2 Flow Rate FiO2 03/24/17 16:00 96.1 81 16 153/74 (100) 93 03/24/17 14:24 82 16 157/82 (107) 99 Nasal Cannula 2 03/24/17 13:15 85 16 160/88 (112) 97 Nasal Cannula 2 03/24/17 13:00 84 16 154/81 (105) 97 Nasal Cannula 2 03/24/17 12:50 97.9 88 16 163/80 (107) 97 Nasal Cannula 2 03/24/17 10:00 75 03/24/17 08:00 97.8 77 14 157/84 (108) 99 03/24/17 08:00 77 03/24/17 07:00 98 Nasal Cannula 2.00 03/24/17 06:00 72 03/24/17 04:00 72 03/24/17 04:00 97.9 72 17 146/78 (100) 98 03/24/17 02:00 74 03/24/17 00:00 71 03/24/17 00:00 97.7 71 12 139/79 (99) 98 -: 03/24/17 0436 03/24/17 0436 Physical Exam General Appearance: No Acute Distress, Comfortable Eyes Eye Exam: Pupils Equal Pulmonary Resp Exam: Breath Sounds Equal, No Distress, Rhonchi, Decreased Bases Cardiology CV Exam: Regular, Normal Sinus Rhythm Gastrointestinal/Abdomen GI Exam: Soft, Non-Tender, Bowel Sounds Present Extremeties Extremities Exam: Trace Edema Neurologic Neuro Exam: Alert, Awake, Oriented Assessment/Plan Assessment Summary: CELSO/Acute Renal Failure, CKD Stage IV Problem List: (1) CELSO (acute kidney injury) ICD Codes: N17.9 - Acute kidney failure, unspecified Status: Acute Plan: In a patient with Baseline CKD 3-4, creatinine 1.9, GFR 28 Possibly have underlying diabetic nephropathy CELSO due to infection, hypotension, sepsis syndrome her renal function improved slightly overnight she is non oliguric quantify proteinuria obtain renal US avoid nephrotoxic medications, renally dose medications when appropriate continue IVF and antibiotics. Creatinine now 1.7, close to her baseline. Avoid Nephrotoxins. (2) Necrotizing fasciitis ICD Codes: M72.6 - Necrotizing fasciitis Status: Acute Plan: On clindamycin, daptomycin, Zosyn ID following s/p right BKA with Dr. Barrett vascular monitor clinically (3) Hypertension ICD Codes: I10 - Hypertension Status: Acute Plan: she is hypotensive today hold antihypertensive medications continue IVF, treat infection Marychuy Gomez MD Mar 24, 2017 22:26
[2017-03-25] VITALS (7 sets, daily range): BP systolic 160–185; BP diastolic 79–94; PULSE 77–86; RESP 16–23; TEMP 96–98.1; O2SAT 92–98
[2017-03-25] MEDS: INSULIN NovoLIN REGULAR SUPPLEMENTAL SCALE SQ SCH ×4 (01:50→18:32)
[2017-03-25] MEDS: HYDROmorphone HCL PF 1 MG/ML VIAL IV PRN (02:52)
[2017-03-25] MEDS: CLINDAMYCIN INJ 600 MG in SODIUM CHLORIDE 0.9% INJ 100 ML IV SCH ×2 (02:52→10:01)
[2017-03-25] MEDS: SODIUM CHLOR 0.9% 1000 ML INJ 1,000 ML IV SCH (03:36)
[2017-03-25] MEDS: PIPERACIL-TAZO 3.375 GM PREMIX 50 ML IV SCH ×2 (03:36→12:08)
[2017-03-25 05:05] LABS: BASOPHIL % 0.1 % (0.0-2.0); LYMPH % 6.7 % (9.0-44.0); LYMPHOCYTE # 0.6 TH/MM3 (1.0-4.8); MEAN CELL VOLUME 74.1 FL (80.0-100.0); MEAN CORPUSCULAR HEMOGLOBIN 24.4 PG (27.0-34.0); MEAN CORPUSCULAR HGB CONC 32.9 % (32.0-36.0); MONO % 2.1 % (0.0-8.0); NEUT % 91.1 % (16.0-70.0); PLATELET COUNT 416 TH/MM3 (150-450); RED BLOOD COUNT 4.46 MIL/MM3 (4.00-5.30); RED CELL DISTRIBUTION WIDTH 22.2 % (11.6-17.2); WHITE BLOOD COUNT 8.8 TH/MM3 (4.0-11.0)
[2017-03-25 05:12] LABS: HEMO FLAGS AUTO DIFF
[2017-03-25 05:33] LABS: ALKALINE PHOSPHATASE 244 U/L (45-117); ALT (GPT) 8 U/L (10-53); ANION GAP 8 MEQ/L (5-15); AST (GOT) 9 U/L (15-37); BICARBONATE 21.8 MEQ/L (21.0-32.0); BLOOD UREA NITROGEN 34 MG/DL (7-18); CHLORIDE 110 MEQ/L (98-107); GLOMERULAR FILTRATION RATE 40 ML/MIN (>89); POTASSIUM 4.1 MEQ/L (3.5-5.1); SODIUM (NA) 140 MEQ/L (136-145); TOTAL BILIRUBIN ADULT 0.5 MG/DL (0.2-1.0)
[2017-03-25 08:24] LABS: BANDS 2 % (0-6); MYELOCYTES 2 % (0-0); NEUTROPHIL # MANUAL DIFF 7.7 TH/MM3 (1.8-7.7); POLYS (SEG NEUTROPHILS) 84 % (16-70); WBC DIFF SAMPLE 100
[2017-03-25 08:25] LABS: PLATELET ESTIMATE SMEAR NORMAL (NORMAL); PLATELET MORPHOLOGY NORMAL (NORMAL); SCAN/DIFF FINAL DIFF MANUAL
[2017-03-25] MEDS: DOCUSATE SODIUM 100 MG CAP PO SCH ×2 (09:00→21:25)
[2017-03-25] MEDS: SODIUM CHLORIDE 0.9% FLUSH 10 ML FLUSH IV FLUSH SCH ×2 (09:00→21:00)
[2017-03-25] MEDS: HYDROCORTISONE SOD SUCCINATE 100 MG VIAL IV PUSH SCH ×2 (09:54→21:24)
[2017-03-25] MEDS: INSULIN DETEMIR 100 UNITS/ML VIAL SQ SCH ×2 (09:55→21:26)
[2017-03-25] MEDS: FAMOTIDINE 20 MG/2 ML VIAL IV PUSH SCH ×2 (09:57→21:24)
[2017-03-25] MEDS: PREGABALIN 100 MG CAP PO SCH ×3 (09:58→18:05)
[2017-03-25] MEDS: FERROUS SULFATE 325 MG (65 MG ELEMENTAL IRON) TAB PO SCH (09:58)
[2017-03-25] MEDS: HEPARIN SODIUM - SQ 10,000 UNITS/ML VIAL SQ SCH ×2 (10:01→21:24)
[2017-03-25] MEDS: oxyCODONE/ACETAMINOPHEN 5 MG/325 MG TAB PO PRN ×2 (10:15→18:05)
--- NOTE | 2017-03-25 12:01 | HHI.NPPN ---
Subjective Renal Failure: Acute, Stage IV History of Present Illness 47 y/o female admitted on 03/21 for right foot infection. PMH listed below includes HTN, DM II, iron deficiency anemia, and Charcot's foot bilaterally. She was taken emergently to the OR for a right BKA for gaseous gangrene. Her creatinine is 2.7 on arrival, is 2.5 today. Her potassium is normal. 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 Interval History appetite is poor, emotionally upset about the surgery loss of limb, otherwise she is stable, renal function has improved. Objective Data Data Vital Signs Date Time Temp Pulse Resp B/P (MAP) Pulse Ox O2 Delivery O2 Flow Rate FiO2 03/25/17 08:00 97.1 84 18 177/86 (116) 98 03/25/17 06:00 96.1 81 23 185/79 (114) 92 03/25/17 00:00 96.4 80 23 174/94 (120) 94 03/24/17 20:00 96.6 72 23 160/78 (105) 95 03/24/17 16:00 96.1 81 16 153/74 (100) 93 03/24/17 14:24 82 16 157/82 (107) 99 Nasal Cannula 2 03/24/17 13:15 85 16 160/88 (112) 97 Nasal Cannula 2 03/24/17 13:00 84 16 154/81 (105) 97 Nasal Cannula 2 03/24/17 12:50 97.9 88 16 163/80 (107) 97 Nasal Cannula 2 -: 03/25/17 0432 03/25/17 0432 Physical Exam General Appearance: No Acute Distress, Comfortable Eyes Eye Exam: Pupils Equal Pulmonary Resp Exam: Breath Sounds Equal, No Distress, Rhonchi Cardiology CV Exam: Regular, Normal Sinus Rhythm Gastrointestinal/Abdomen GI Exam: Soft, Non-Tender, Bowel Sounds Present Extremeties Extremities Exam: Trace Edema Neurologic Neuro Exam: Alert, Awake, Oriented Assessment/Plan Assessment Summary: CELSO/Acute Renal Failure, CKD Stage IV Problem List: (1) CELSO (acute kidney injury) ICD Codes: N17.9 - Acute kidney failure, unspecified Status: Acute Plan: CELSO due to infection, hypotension, sepsis syndrome She does have CKD, perhaps due to diabetic nephropathy. GFR near her baseline. she is non oliguric Appears to have sub nephrotic proteinuria. avoid nephrotoxic medications, renally dose medications when appropriate Stop IVF. Encourage oral intake. (2) Necrotizing fasciitis ICD Codes: M72.6 - Necrotizing fasciitis Status: Acute Plan: On Zosyn and Daptomycin. ID following s/p right BKA with Dr. Huber monitor clinically (3) Hypertension ICD Codes: I10 - Hypertension Status: Acute Plan: She is now hypertensive. Start Carvedilol. If renal function is stable, start Losartan in the next few days. George Somers MD Mar 25, 2017 12:00
[2017-03-25] MEDS: CARVEDILOL 12.5 MG TAB PO SCH ×2 (12:14→21:24)
--- NOTE | 2017-03-25 13:59 | HHI.IDPN ---
Subjective Subjective Remarks Ms. Perkins is a 47-year-old female with past medical history significant for diabetes type 2 uncontrolled(last A1c 6.9 per patient), with diabetic nephropathy CK V stage III, diabetic retinopathy, Charcot joints bilaterally. Patient reports that she has been treated multiple times with multiple rounds of IV antibiotics using PICC lines. Patient reports that approximately 2 weeks back she noticed swelling and redness of her right foot. She saw her primary care doctor who put her on Bactrim which she stopped because she has a known allergy. She reports having taken an alternative which is sulfa for about 2 days and then stopped because she started having vomiting. Patient also reports the foot started getting progressively worse and she started developing fever chills night sweats. Patient reports that eventually the night before admission for started turning black. Patient's son reports that this has probably been going on for 2-3 days prior to admission and that his mom was very adamant and refused to come to the hospital. Patient's son called 911 and patient was admitted to the hospital for worsening infection and gangrene of the right foot. Upon arrival in the emergency department patient was evaluated by podiatry as well as vascular surgery. Based on clinical presentation and imaging it appeared that patient had gas and soft tissue swelling concerning for necrotizing fasciitis and gangrene. Patient was emergently taken to the OR and patient underwent right below-knee amputation. Postop she is currently in the intensive surgical care unit. At the time of my evaluation she is sitting up in bed having a pleasant conversation with her family members were surrounding her. She was actually joking and laughing when I saw her. Patient is currently not on any pressors. Reports to me that she is normally oliguric. Patient was showing signs of sepsis with fever and tachycardia as well as white count on admission in the source of her infection was a necrotizing fasciitis of the right foot. Patient underwent a sepsis workup. Blood cultures on admission so far negative. Wound cultures so far no growth. Intraoperative cultures are currently pending. Patient has been started on empiric Zosyn IV, vancomycin IV as well as clindamycin IV. ID was consulted for evaluation and management of sepsis, necrotizing fasciitis and gangrene of the foot. Overnight events reviewed. No fever No rash No diarrhea Antibiotics Zosyn IV Dapto IV Clinda IV Lines Line sites with no e.o infection Past Medical History reviewed Allergies: Coded Allergies: Sulfa (Sulfonamide Antibiotics) (Unverified Allergy, Unknown, 03/06/17) Objective . Vital Signs Date Time Temp Pulse Resp B/P (MAP) Pulse Ox O2 Delivery O2 Flow Rate FiO2 03/25/17 12:00 97.0 77 16 166/85 (112) 97 03/25/17 08:00 97.1 84 18 177/86 (116) 98 03/25/17 06:00 96.1 81 23 185/79 (114) 92 03/25/17 00:00 96.4 80 23 174/94 (120) 94 03/24/17 20:00 96.6 72 23 160/78 (105) 95 03/24/17 16:00 96.1 81 16 153/74 (100) 93 03/24/17 14:24 82 16 157/82 (107) 99 Nasal Cannula 2 . Laboratory Tests Test 03/24/17 04:36 03/25/17 04:32 White Blood Count 11.2 TH/MM3 8.8 TH/MM3 Red Blood Count 4.21 MIL/MM3 4.46 MIL/MM3 Hemoglobin 10.2 GM/DL 10.9 GM/DL Hematocrit 31.2 % 33.0 % Mean Corpuscular Volume 74.1 FL 74.1 FL Mean Corpuscular Hemoglobin 24.3 PG 24.4 PG Mean Corpuscular Hemoglobin Concent 32.7 % 32.9 % Red Cell Distribution Width 21.9 % 22.2 % Platelet Count 391 TH/MM3 416 TH/MM3 Mean Platelet Volume 7.4 FL 7.3 FL Neutrophils (%) (Auto) 92.5 % 91.1 % Lymphocytes (%) (Auto) 4.7 % 6.7 % Monocytes (%) (Auto) 2.7 % 2.1 % Eosinophils (%) (Auto) 0.0 % 0.0 % Basophils (%) (Auto) 0.1 % 0.1 % Neutrophils # (Auto) 10.4 TH/MM3 8.0 TH/MM3 Lymphocytes # (Auto) 0.5 TH/MM3 0.6 TH/MM3 Monocytes # (Auto) 0.3 TH/MM3 0.2 TH/MM3 Eosinophils # (Auto) 0.0 TH/MM3 0.0 TH/MM3 Basophils # (Auto) 0.0 TH/MM3 0.0 TH/MM3 CBC Comment AUTO DIFF AUTO DIFF Differential Comment AUTO DIFF CONFIRMED FINAL DIFF MANUAL Hypersegmented Polys 1+ Platelet Estimate NORMAL NORMAL Platelet Morphology Comment NORMAL NORMAL Differential Total Cells Counted 100 Neutrophils % (Manual) 84 % Band Neutrophils % 2 % Lymphocytes % 11 % Monocytes % 1 % Neutrophils # (Manual) 7.7 TH/MM3 Myelocytes 2 % Laboratory Tests Test 03/24/17 04:36 03/25/17 04:32 Blood Urea Nitrogen 43 MG/DL 34 MG/DL Creatinine 1.74 MG/DL 1.40 MG/DL Random Glucose 104 MG/DL 254 MG/DL Calcium Level 7.5 MG/DL 7.6 MG/DL Sodium Level 140 MEQ/L 140 MEQ/L Potassium Level 4.0 MEQ/L 4.1 MEQ/L Chloride Level 109 MEQ/L 110 MEQ/L Carbon Dioxide Level 22.9 MEQ/L 21.8 MEQ/L Anion Gap 8 MEQ/L 8 MEQ/L Estimat Glomerular Filtration Rate 31 ML/MIN 40 ML/MIN Total Protein 7.0 GM/DL Albumin 2.0 GM/DL Phosphorus Level 3.4 MG/DL Magnesium Level 2.0 MG/DL Alkaline Phosphatase 244 U/L Aspartate Amino Transf (AST/SGOT) 9 U/L Alanine Aminotransferase (ALT/SGPT) 8 U/L Total Bilirubin 0.5 MG/DL Imaging Last Impressions Chest X-Ray 03/21/171943 Signed Impressions: Service Date/Time: February 19:57 - CONCLUSION: Prominence of the interstitium markings which may represent some pulmonary venous hypertension or mild edema. Burak Alvarado MD Tibia/Fibula X-Ray 03/21/17 0000 Signed Impressions: Service Date/Time: February 20:32 - CONCLUSION: Air within the soft tissues of the lower leg. Burak Alvarado MD Foot X-Ray 03/21/17 0000 Signed Impressions: Service Date/Time: February 20:00 - CONCLUSION: 1. Extensive very prominent soft tissue swelling with air within the soft tissues concerning for a large area of infection. 2. Destructive change is identified at the hind and midfoot. These could be from a Charcot joint. Some degree of acute ongoing destruction and infection cannot be ruled out. Burak Alvarado MD Femur X-Ray 03/21/17 0000 Signed Impressions: Service Date/Time: February 20:37 - CONCLUSION: Air within the soft tissues posterior to the knee. No air is seen above this level. Burak Alvarado MD Physical Exam GENERAL: This is a well-nourished, well-developed patient, in no apparent distress. SKIN: No rashes, ecchymoses or lesions. Cool and dry. HEAD: Atraumatic. Normocephalic. No temporal or scalp tenderness. EYES: Pupils equal round and reactive. Extraocular motions intact. No scleral icterus. No injection or drainage. ENT: Nose without bleeding, purulent drainage or septal hematoma. NECK: Trachea midline. Supple, nontender, no meningeal signs. CARDIOVASCULAR: Regular rate and rhythm without murmurs. RESPIRATORY: Clear to auscultation. Breath sounds equal bilaterally. GASTROINTESTINAL: Abdomen soft, non-tender, nondistended. MUSCULOSKELETAL: Right BKA site with wound vac in place with minimal surrounding erythema. Left foot with charcot deformity with dry scab but with no e.o active infection. NEUROLOGICAL: Awake and alert. Grossly non focal. Psych: cooperative. IV line sites with no e.o infection. Assessment & Plan Remarks Sepsis present on admission. Right foot necrotizing infection s/p Right BKA infection and wound vac placement 03/20/17. MSSA, Strep and anaerobic infection. DM2 uncontrolled, with nephropathy, retinopathy, Charcot foot deformities. CKD stage 3 not on HD. Has had only 1 session of HD. Recs DC Clinda IV. DC Zosyn IV DC Daptomycin IV Start Ceftriaxone IV Start oral flayl reviewed surgery notes plan for OR for debridement and finalization of BKA on Sat this week. Will d.w Surgeon then if appropriate to deescalate to oral or stop antibiotics as no e/o bacteremia at present time. Follow cultures Follow clinically Taylor Youngblood MD Mar 25, 2017 13:59
[2017-03-25] MEDS: metroNIDAZOLE 500 MG TAB PO SCH ×2 (14:31→21:25)
[2017-03-25] MEDS: HYDROmorphone HCL 2 MG TAB PO PRN ×2 (14:34→21:23)
[2017-03-25] MEDS: cefTRIAXone INJ 2,000 MG in SODIUM CHLORIDE 0.9% INJ 100 ML IV SCH (14:34)
--- NOTE | 2017-03-25 14:46 | HHI.PR ---
Subjective Remarks pain controlled Denies fevers or chills stable vital signs good urine output Creatinine trending down Objective Vitals Vital Signs Date Time Temp Pulse Resp B/P (MAP) Pulse Ox O2 Delivery O2 Flow Rate FiO2 03/25/17 12:00 97.0 77 16 166/85 (112) 97 03/25/17 08:00 97.1 84 18 177/86 (116) 98 03/25/17 06:00 96.1 81 23 185/79 (114) 92 03/25/17 00:00 96.4 80 23 174/94 (120) 94 03/24/17 20:00 96.6 72 23 160/78 (105) 95 03/24/17 16:00 96.1 81 16 153/74 (100) 93 I/O 03/24/17 03/24/17 03/24/17 03/25/17 03/25/17 03/25/17 07:00 15:00 23:00 07:00 15:00 23:00 Intake Total 1552 ml 1304 ml 1243 ml 240 ml Output Total 1165 ml 600 ml 900 ml 250 ml Balance 387 ml 704 ml 343 ml -10 ml Intake Oral 960 ml 240 ml IV Total 1552 ml 1104 ml 283 ml Other 200 ml Output Urine Total 1150 ml 600 ml 900 ml 200 ml Drainage Total 15 ml 0 ml 50 ml # Bowel Movements 2 2 1 1 Result Diagram: 03/25/17 0432 03/25/17 0432 Imaging Last Impressions Chest X-Ray 03/21/17 1944 Signed Impressions: Service Date/Time: February 19:57 - CONCLUSION: Prominence of the interstitium markings which may represent some pulmonary venous hypertension or mild edema. Burak Alvarado MD Tibia/Fibula X-Ray 03/21/17 0000 Signed Impressions: Service Date/Time: February 20:32 - CONCLUSION: Air within the soft tissues of the lower leg. Burak Alvarado MD Foot X-Ray 03/21/17 0000 Signed Impressions: Service Date/Time: February 20:00 - CONCLUSION: 1. Extensive very prominent soft tissue swelling with air within the soft tissues concerning for a large area of infection. 2. Destructive change is identified at the hind and midfoot. These could be from a Charcot joint. Some degree of acute ongoing destruction and infection cannot be ruled out. Burak Alvarado MD Femur X-Ray 03/21/17 0000 Signed Impressions: Service Date/Time: February 20:37 - CONCLUSION: Air within the soft tissues posterior to the knee. No air is seen above this level. Burak Alvarado MD Objective Remarks GENERAL: NAD, no respiratory distress, lying in bed. SKIN: Warm and dry. HEAD: Normocephalic. EYES: No scleral icterus. No injection or drainage. NECK: Supple, trachea midline. No obstruction. CARDIOVASCULAR: Regular rate and rhythm without murmurs, gallops, or rubs. No JVD. RESPIRATORY: Breath sounds equal bilaterally. No accessory muscle use. GASTROINTESTINAL: Abdomen soft, non-tender, nondistended. BS active. MUSCULOSKELETAL: No cyanosis, or edema. Status post right BKA. Dressing, Wound vac in place NEURO EXAM: Alert, oriented x3. no focal deficits Medications and IVs Current Medications Medications (Trade) Dose Ordered Sig/Joelle Route Start Time Stop Time Status Last Admin (NS Flush) 2 ml UNSCH PRN IV FLUSH 03/21/17 22:00 (NS Flush) 2 ml BID IV FLUSH 03/22/17 09:00 03/23/17 21:11 (Zofran Inj) 4 mg Q6H PRN IV 03/21/17 22:00 03/22/17 00:27 (Colace) 100 mg BID PO 03/22/17 09:00 03/24/17 20:49 (Percocet 5-325 Mg) 1 tab Q4H PRN PO 03/21/17 22:00 03/25/17 10:15 (Dilaudid) 2 mg Q4H PRN PO 03/21/17 22:00 03/25/17 14:34 (Narcan Inj) 0.4 mg UNSCH PRN IV 03/21/17 22:00 (D50w (Vial) Inj) 50 ml UNSCH PRN IV 03/21/17 22:00 (Glucagon Inj) 1 mg UNSCH PRN OTHER 03/21/17 22:00 (Dilaudid Pf Inj) 0.5 mg Q3H PRN IV 03/22/17 13:00 03/25/17 02:52 (Heparin Inj) 5,000 units Q12HR SQ 03/22/17 13:15 03/25/17 10:01 (Ferrous Sulfate) 325 mg DAILY PO 03/23/17 09:00 03/25/17 09:58 (Lyrica) 100 mg TID PO 03/22/17 14:44 03/25/17 12:07 (Pepcid Inj) 10 mg Q12HR IV PUSH 03/22/17 21:00 03/25/17 09:57 Phenylephrine HCl 40 mg/Dextrose 500 ml @ 30 mls/hr TITRATE PRN IV 03/22/17 17:45 03/22/17 18:51 (Brethine Inj) 1 mg UNSCH PRN SQ 03/22/17 17:45 (NovoLIN R SUPPLEMENTAL SCALE) 1 Q6H SQ 03/23/17 13:00 03/25/17 05:54 (Levemir Inj) 15 units Q12HR SQ 03/23/17 09:00 03/25/17 09:55 (SoluCORTEF INJ) 50 mg Taper Q12HR IV PUSH 03/23/17 09:00 04/01/17 08:59 03/25/17 09:54 (Norvasc) 10 mg DAILY PO 03/25/17 10:15 03/25/17 10:50 (Coreg) 12.5 mg Q12HR PO 03/25/17 12:15 03/25/17 12:14 Ceftriaxone Sodium 2000 mg/ Sodium Chloride 100 ml @ 200 mls/hr Q24H IV 03/25/17 15:00 03/25/17 14:34 (Flagyl) 500 mg Q8HR PO 03/25/17 14:00 03/25/17 14:31 A/P Problem List: (1) Sepsis ICD Code: A41.9 - Sepsis, unspecified organism Status: Resolved (2) Necrotizing fasciitis ICD Code: M72.6 - Necrotizing fasciitis Status: Acute (3) Hypertension ICD Code: I10 - Hypertension Status: Acute (4) CELSO (acute kidney injury) ICD Code: N17.9 - Acute kidney failure, unspecified Status: Resolved (5) Chronic kidney disease, stage 3 ICD Code: N18.3 - Chronic kidney disease, stage 3 (moderate) Status: Chronic Assessment and Plan Severe sepsis Hypotension - Normal saline 1.5 L bolus and 100 ml per hour. IV Albumin 25 GM x1 - Resolved. 03/25 Patient with uncontrolled severe BP - Will resume losartan and Coreg. GI: - 1800 ADA diet. Protonix : CELSO on Chronic kidney disease stage III - Baseline creatinine is 1.8-2.2 - IV hydration, [place] - Strict I's and O's 03/25 creatinine down to 1.4. Nephrology following. Management as per nephrology. ID: Necrotizing fascitis and myonecrosis of RLE Severe sepsis - Status post BKA by Dr. Finch 03/21 - Empiric antibiotic with Vanc and Zosyn, Added clindamycin - Infectious disease following - Follow-up blood culture - Management per vascular surgery, multiple washouts planned before closure 03/25 antibiotics as per infectious disease. Clindamycin IV, Zosyn IV, daptomycin IV discontinued and the patient started on Rocephin IV and oral Flagyl. PT eval. HEME: Anemia requiring transfusion - Monitor CBC, CMP - Received 2 units PRBC. - Continue home iron supplements - 03/25 Check stool for occult blood. ENDO: Type 2 diabetes Diabetic neuropathy - Sliding-scale insulin - Continue Neurontin - Continue Levemir BID DVT GI prophylaxis - SCDs to LLE - Pharmacological DVT prophylaxis with Heparin sq - Pantoprazole Discharge Planning Continue to monitor in the medical floor. Problem Qualifiers (1) Sepsis: Qualified Codes: A41.9 - Sepsis, unspecified organism (2) Hypertension: Qualified Codes: I10 - Essential (primary) hypertension Malcolm Agarwal MD Mar 25, 2017 14:46
[2017-03-25] MEDS: LOSARTAN 25 MG TAB PO SCH (15:17)
[2017-03-26] VITALS: BP 168/81; PULSE 76; RESP 21; TEMP 97.1; O2SAT 96
[2017-03-26] MEDS: INSULIN NovoLIN REGULAR SUPPLEMENTAL SCALE SQ SCH ×2 (01:09→05:44)
[2017-03-26] MEDS: HYDROmorphone HCL 2 MG TAB PO PRN ×3 (03:04→22:56)
[2017-03-26] MEDS: metroNIDAZOLE 500 MG TAB PO SCH ×3 (04:33→22:53)
[2017-03-26 07:58] LABS: BICARBONATE 24.8 MEQ/L (21.0-32.0); POTASSIUM 3.6 MEQ/L (3.5-5.1)
[2017-03-26 08:00] VITALS: BP 174/88; PULSE 75; RESP 17; TEMP 96.7; O2SAT 97
--- NOTE | 2017-03-26 08:17 | HHI.NPPN ---
Subjective Renal Failure: Acute, Stage IV History of Present Illness 47 y/o female admitted on 03/21 for right foot infection. PMH listed below includes HTN, DM II, iron deficiency anemia, and Charcot's foot bilaterally. She was taken emergently to the OR for a right BKA for gaseous gangrene. Her creatinine is 2.7 on arrival, is 2.5 today. Her potassium is normal. 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 Interval History Renal function has improved. Non oliguric. Objective Data Data Vital Signs Date Time Temp Pulse Resp B/P (MAP) Pulse Ox O2 Delivery O2 Flow Rate FiO2 03/26/17 08:11 Room Air 03/26/17 08:00 96.7 75 17 174/88 (116) 97 03/26/17 00:00 97.1 76 21 168/81 (110) 96 03/25/17 20:00 96.0 86 20 160/79 (106) 96 03/25/17 17:35 97 03/25/17 16:00 98.1 78 17 166/81 (109) 98 03/25/17 12:00 97.0 77 16 166/85 (112) 97 -: 03/25/17 0432 03/26/17 0643 Physical Exam General Appearance: No Acute Distress, Comfortable Eyes Eye Exam: Pupils Equal Pulmonary Resp Exam: Breath Sounds Equal, No Distress, Rhonchi Cardiology CV Exam: Regular, Normal Sinus Rhythm Gastrointestinal/Abdomen GI Exam: Soft, Non-Tender, Bowel Sounds Present Extremeties Extremities Exam: Trace Edema Neurologic Neuro Exam: Alert, Awake, Oriented Assessment/Plan Assessment Summary: CELSO/Acute Renal Failure, CKD Stage IV Problem List: (1) CELSO (acute kidney injury) ICD Codes: N17.9 - Acute kidney failure, unspecified Status: Resolved Plan: CELSO due to infection, hypotension, sepsis syndrome She does have CKD, perhaps due to diabetic nephropathy. GFR near her baseline. she is non oliguric Appears to have sub nephrotic proteinuria. avoid nephrotoxic medications, renally dose medications when appropriate Encourage oral intake. (2) Necrotizing fasciitis ICD Codes: M72.6 - Necrotizing fasciitis Status: Acute Plan: On Zosyn and Daptomycin. ID following s/p right BKA with Dr. Huber monitor clinically (3) Hypertension ICD Codes: I10 - Hypertension Status: Acute Plan: She is now hypertensive. Start Carvedilol. If renal function is stable, start Losartan in the next few days. Plan I will see her as needed. Thanks. Problem Qualifiers (1) Hypertension: Qualified Codes: I10 - Essential (primary) hypertension George Somers MD Mar 26, 2017 08:17
[2017-03-26] MEDS: CARVEDILOL 12.5 MG TAB PO SCH ×2 (09:00→22:53)
[2017-03-26] MEDS: HEPARIN SODIUM - SQ 10,000 UNITS/ML VIAL SQ SCH ×2 (09:00→22:51)
[2017-03-26] MEDS: FAMOTIDINE 20 MG/2 ML VIAL IV PUSH SCH ×2 (09:00→22:53)
[2017-03-26] MEDS: INSULIN DETEMIR 100 UNITS/ML VIAL SQ SCH ×2 (09:00→21:00)
[2017-03-26] MEDS: DOCUSATE SODIUM 100 MG CAP PO SCH ×2 (09:00→22:53)
[2017-03-26] MEDS: LOSARTAN 25 MG TAB PO SCH (09:29)
[2017-03-26] MEDS: FERROUS SULFATE 325 MG (65 MG ELEMENTAL IRON) TAB PO SCH (09:29)
[2017-03-26] MEDS: PREGABALIN 100 MG CAP PO SCH ×3 (09:29→18:10)
[2017-03-26] MEDS: HYDROCORTISONE SOD SUCCINATE 100 MG VIAL IV PUSH SCH ×2 (09:30→22:53)
[2017-03-26] MEDS: SODIUM CHLORIDE 0.9% FLUSH 10 ML FLUSH IV FLUSH SCH ×2 (09:30→22:53)
[2017-03-26] MEDS ORDERED: DEXTROSE 50% IN WATER 50 ML VIAL(D50) IV PRN (10:15)
[2017-03-26] MEDS ORDERED: GLUCAGON 1 MG/ML VIAL OTHER PRN (10:15)
[2017-03-26] MEDS: INSULIN ASPART SUPPLEMENTAL SCALE SQ SCH ×3 (11:58→21:00)
[2017-03-26] MEDS: INSULIN ASPART 1,000 UNITS/10 ML VIAL SQ SCH ×2 (11:58→17:00)
[2017-03-26 12:00] VITALS: BP 170/84; PULSE 77; RESP 16; TEMP 97.7; O2SAT 97
[2017-03-26] MEDS ORDERED: POTASSIUM PHOSPHATE/SODIUM PHOSPHATE 250 MG TAB PO ONE (12:00)
[2017-03-26] MEDS: oxyCODONE/ACETAMINOPHEN 5 MG/325 MG TAB PO PRN ×2 (13:00→21:15)
--- NOTE | 2017-03-26 14:11 | HHI.PR ---
Subjective Remarks denies cp/sob blood sugars uncontrolled Pain controlled Objective Vitals Vital Signs Date Time Temp Pulse Resp B/P (MAP) Pulse Ox O2 Delivery O2 Flow Rate FiO2 03/26/17 12:00 97.7 77 16 170/84 (112) 97 03/26/17 08:11 Room Air 03/26/17 08:00 96.7 75 17 174/88 (116) 97 03/26/17 00:00 97.1 76 21 168/81 (110) 96 03/25/17 20:00 96.0 86 20 160/79 (106) 96 03/25/17 17:35 97 03/25/17 16:00 98.1 78 17 166/81 (109) 98 I/O 03/25/17 03/25/17 03/25/17 03/26/17 03/26/17 03/26/17 06:59 14:59 22:59 06:59 14:59 22:59 Intake Total 240 ml 1040 ml 240 ml 0 ml Output Total 250 ml 1650 ml 1250 ml Balance -10 ml -610 ml -1010 ml 0 ml Intake Oral 240 ml 1040 ml 240 ml IV Total 0 ml Output Urine Total 200 ml 1600 ml 1100 ml Drainage Total 50 ml 50 ml 150 ml # Bowel Movements 1 2 1 Result Diagram: 03/25/17 0432 03/26/17 0643 Objective Remarks GENERAL: NAD, no respiratory distress, lying in bed. SKIN: Warm and dry. HEAD: Normocephalic. EYES: No scleral icterus. No injection or drainage. NECK: Supple, trachea midline. No obstruction. CARDIOVASCULAR: Regular rate and rhythm without murmurs, gallops, or rubs. No JVD. RESPIRATORY: Breath sounds equal bilaterally. No accessory muscle use. GASTROINTESTINAL: Abdomen soft, non-tender, nondistended. BS active. MUSCULOSKELETAL: No cyanosis, or edema. Status post right BKA. Dressing, Wound vac in place NEURO EXAM: Alert, oriented x3. no focal deficits A/P Problem List: (1) Sepsis ICD Code: A41.9 - Sepsis, unspecified organism Status: Resolved (2) Necrotizing fasciitis ICD Code: M72.6 - Necrotizing fasciitis Status: Acute (3) Hypertension ICD Code: I10 - Hypertension Status: Acute (4) CELSO (acute kidney injury) ICD Code: N17.9 - Acute kidney failure, unspecified Status: Resolved (5) Chronic kidney disease, stage 3 ICD Code: N18.3 - Chronic kidney disease, stage 3 (moderate) Status: Chronic Assessment and Plan Severe sepsis Hypotension Hypertension - Normal saline 1.5 L bolus and 100 ml per hour. IV Albumin 25 GM x1 - Resolved. 03/26 BP w better control. Continue with Coreg and amlodipine. GI: - 1800 ADA diet. Protonix : CELSO on Chronic kidney disease stage III - Baseline creatinine is 1.8-2.2 - IV hydration, [place] - Strict I's and O's 03/25 creatinine down to 1.4. Nephrology following. Management as per nephrology. ID: Necrotizing fascitis and myonecrosis of RLE Severe sepsis - Status post BKA by Dr. Finch 03/21 - Empiric antibiotic with Vanc and Zosyn, Added clindamycin - Infectious disease following - Follow-up blood culture - Management per vascular surgery, multiple washouts planned before closure 03/25 antibiotics as per infectious disease. Clindamycin IV, Zosyn IV, daptomycin IV discontinued and the patient started on Rocephin IV and oral Flagyl. PT eval. HEME: Anemia requiring transfusion - Monitor CBC, CMP - Received 2 units PRBC. - Continue home iron supplements - 03/25 Check stool for occult blood. ENDO: Type 2 diabetes Diabetic neuropathy - Sliding-scale insulin - Continue Neurontin - Continue Levemir BID DVT GI prophylaxis - SCDs to LLE - Pharmacological DVT prophylaxis with Heparin sq - Pantoprazole Discharge Planning Continue to monitor in the medical floor. Problem Qualifiers (1) Sepsis: Qualified Codes: A41.9 - Sepsis, unspecified organism (2) Hypertension: Qualified Codes: I10 - Essential (primary) hypertension Malcolm Agarwal MD Mar 26, 2017 14:11
[2017-03-26] MEDS: cefTRIAXone INJ 2,000 MG in SODIUM CHLORIDE 0.9% INJ 100 ML IV SCH (15:22)
[2017-03-26 16:00] VITALS: BP 172/84; PULSE 72; RESP 18; TEMP 97; O2SAT 99
[2017-03-26 20:00] VITALS: BP 171/76; PULSE 74; RESP 16; TEMP 97.1; O2SAT 97
[2017-03-27] VITALS: BP 167/79; PULSE 75; RESP 16; TEMP 96.3; O2SAT 96
[2017-03-27] MEDS: metroNIDAZOLE 500 MG TAB PO SCH ×3 (06:18→21:50)
[2017-03-27] MEDS: INSULIN ASPART SUPPLEMENTAL SCALE SQ SCH ×4 (06:20→21:00)
[2017-03-27] MEDS: oxyCODONE/ACETAMINOPHEN 5 MG/325 MG TAB PO PRN ×4 (06:23→21:51)
[2017-03-27 08:00] VITALS: BP 157/82; PULSE 79; RESP 17; TEMP 96.6; O2SAT 98
[2017-03-27] MEDS: INSULIN ASPART 1,000 UNITS/10 ML VIAL SQ SCH ×3 (08:00→16:25)
[2017-03-27] MEDS: INSULIN DETEMIR 100 UNITS/ML VIAL SQ SCH (09:00)
[2017-03-27] MEDS: HEPARIN SODIUM - SQ 10,000 UNITS/ML VIAL SQ SCH ×2 (09:00→21:00)
[2017-03-27] MEDS: DOCUSATE SODIUM 100 MG CAP PO SCH ×2 (09:47→21:50)
[2017-03-27] MEDS: FERROUS SULFATE 325 MG (65 MG ELEMENTAL IRON) TAB PO SCH (09:48)
[2017-03-27] MEDS: CARVEDILOL 12.5 MG TAB PO SCH ×2 (09:48→21:51)
[2017-03-27] MEDS: FAMOTIDINE 20 MG/2 ML VIAL IV PUSH SCH ×2 (09:50→21:50)
[2017-03-27] MEDS: PREGABALIN 100 MG CAP PO SCH ×3 (09:50→19:16)
[2017-03-27] MEDS: LOSARTAN 25 MG TAB PO SCH (09:50)
[2017-03-27] MEDS: HYDROCORTISONE SOD SUCCINATE 100 MG VIAL IV PUSH SCH ×2 (09:57→21:50)
[2017-03-27] MEDS: SODIUM CHLORIDE 0.9% FLUSH 10 ML FLUSH IV FLUSH SCH ×2 (09:57→21:00)
[2017-03-27 12:00] VITALS: BP 181/81; PULSE 56; RESP 16; TEMP 96.3; O2SAT 97
[2017-03-27] MEDS: cefTRIAXone INJ 2,000 MG in SODIUM CHLORIDE 0.9% INJ 100 ML IV SCH (14:58)
--- NOTE | 2017-03-27 15:25 | PD.CAR.PN ---
CVT Progress Note Subjective/Hospital Course: 03/22/17 Patient is status post below-knee amputation and opening of fascial planes for gas gangrene of the leg and sepsis Patient is doing much better today. She is still slightly hypotensive which is very much expected Besides critical care management, we plan to take patient to the operating room on Saturday for washout of the BKA which is open and placement of a new wound VAC. The same will be repeated again on Saturday and then possibly by the end of next week patient will have a final washout and closure of the stump There is still significant chance that this may not be sufficient patient is still at risk of losing the leg above the knee. Will transfer patient to Dr. Sumner steward/stewardess second service and Dr. Hagan will follow patient in my absence and take her to the OR for washouts. 03/23/17 Doing better, off pressors. Floor transfer orders have been placed. Will take to OR tomorrow for Wound washout, possible debridement and VAC placement. 03/24/17 Patient was taken to the operating room today for wound washout and VAC change. The wound was clean with no evidence of necrosis skin edges were clean. Small bleeders were cauterized without incident. She can be placed on diabetic diet resume all preop orders. It is unlikely she will require an above-knee amputation, but this can be determined at a later operation. 03/27/17 Patient doing well at this time Afebrile with normal white count Staph aureus cultures reviewed and patient remains on antibiotics Underwent washout on [address] Hagan and will irrigate and then close the BKA open stump hopefully tomorrow if clean Objective: Vital Signs Date Time Temp Pulse Resp B/P (MAP) Pulse Ox O2 Delivery O2 Flow Rate FiO2 03/27/17 12:00 96.3 56 16 181/81 (114) 97 03/27/17 08:00 96.6 79 17 157/82 (107) 98 03/27/17 00:00 96.3 75 16 167/79 (108) 96 03/26/17 20:00 97.1 74 16 171/76 (107) 97 03/26/17 19:00 96 Room Air 03/26/17 16:00 97.0 72 18 172/84 (113) 99 Result Diagram: 03/25/17 0432 03/26/17 0643 Manuelito Burleson MD Mar 27, 2017 15:25
[2017-03-27 16:00] VITALS: BP 165/89; PULSE 64; RESP 18; TEMP 97.1; O2SAT 98
--- NOTE | 2017-03-27 16:33 | HHI.IDPN ---
Subjective Subjective Remarks Delayed entry patient seen at ~ 1 pm Ms. Perkins is a 47-year-old female with past medical history significant for diabetes type 2 uncontrolled(last A1c 6.9 per patient), with diabetic nephropathy CK V stage III, diabetic retinopathy, Charcot joints bilaterally. Patient reports that she has been treated multiple times with multiple rounds of IV antibiotics using PICC lines. Patient reports that approximately 2 weeks back she noticed swelling and redness of her right foot. She saw her primary care doctor who put her on Bactrim which she stopped because she has a known allergy. She reports having taken an alternative which is sulfa for about 2 days and then stopped because she started having vomiting. Patient also reports the foot started getting progressively worse and she started developing fever chills night sweats. Patient reports that eventually the night before admission for started turning black. Patient's son reports that this has probably been going on for 2-3 days prior to admission and that his mom was very adamant and refused to come to the hospital. Patient's son called 911 and patient was admitted to the hospital for worsening infection and gangrene of the right foot. Upon arrival in the emergency department patient was evaluated by podiatry as well as vascular surgery. Based on clinical presentation and imaging it appeared that patient had gas and soft tissue swelling concerning for necrotizing fasciitis and gangrene. Patient was emergently taken to the OR and patient underwent right below-knee amputation. Postop she is currently in the intensive surgical care unit. At the time of my evaluation she is sitting up in bed having a pleasant conversation with her family members were surrounding her. She was actually joking and laughing when I saw her. Patient is currently not on any pressors. Reports to me that she is normally oliguric. Patient was showing signs of sepsis with fever and tachycardia as well as white count on admission in the source of her infection was a necrotizing fasciitis of the right foot. Patient underwent a sepsis workup. Blood cultures on admission so far negative. Wound cultures so far no growth. Intraoperative cultures are currently pending. Patient has been started on empiric Zosyn IV, vancomycin IV as well as clindamycin IV. ID was consulted for evaluation and management of sepsis, necrotizing fasciitis and gangrene of the foot. Overnight events reviewed. No fever No rash No diarrhea RN reports periods of morning hypoglycemia. On insulin at night. asked her to d/ w hepas. Also was supposed to have surgery today and not NPO. Asked her to call surgery as patient is curious. Antibiotics Ceftriaxone IV flagyl Lines Line sites with no e.o infection Past Medical History reviewed Allergies: Coded Allergies: Sulfa (Sulfonamide Antibiotics) (Unverified Allergy, Unknown, 03/06/17) Objective . Vital Signs Date Time Temp Pulse Resp B/P (MAP) Pulse Ox O2 Delivery O2 Flow Rate FiO2 03/27/17 12:00 96.3 56 16 181/81 (114) 97 03/27/17 08:00 96.6 79 17 157/82 (107) 98 03/27/17 00:00 96.3 75 16 167/79 (108) 96 03/26/17 20:00 97.1 74 16 171/76 (107) 97 03/26/17 19:00 96 Room Air . Laboratory Tests Test 03/26/17 06:43 Blood Urea Nitrogen 31 MG/DL Creatinine 1.29 MG/DL Random Glucose 214 MG/DL Albumin 2.0 GM/DL Calcium Level 8.1 MG/DL Phosphorus Level 2.4 MG/DL Sodium Level 140 MEQ/L Potassium Level 3.6 MEQ/L Chloride Level 109 MEQ/L Carbon Dioxide Level 24.8 MEQ/L Anion Gap 6 MEQ/L Estimat Glomerular Filtration Rate 44 ML/MIN Imaging Last Impressions Chest X-Ray 03/21/171943 Signed Impressions: Service Date/Time: February 19:57 - CONCLUSION: Prominence of the interstitium markings which may represent some pulmonary venous hypertension or mild edema. Burak Alvarado MD Tibia/Fibula X-Ray 03/21/17 0000 Signed Impressions: Service Date/Time: February 20:32 - CONCLUSION: Air within the soft tissues of the lower leg. Burak Alvarado MD Foot X-Ray 03/21/17 0000 Signed Impressions: Service Date/Time: February 20:00 - CONCLUSION: 1. Extensive very prominent soft tissue swelling with air within the soft tissues concerning for a large area of infection. 2. Destructive change is identified at the hind and midfoot. These could be from a Charcot joint. Some degree of acute ongoing destruction and infection cannot be ruled out. Burak Alvarado MD Femur X-Ray 03/21/17 0000 Signed Impressions: Service Date/Time: February 20:37 - CONCLUSION: Air within the soft tissues posterior to the knee. No air is seen above this level. Burak Alvarado MD Physical Exam GENERAL: This is a well-nourished, well-developed patient, in no apparent distress. SKIN: No rashes, ecchymoses or lesions. Cool and dry. HEAD: Atraumatic. Normocephalic. No temporal or scalp tenderness. EYES: Pupils equal round and reactive. Extraocular motions intact. No scleral icterus. No injection or drainage. ENT: Nose without bleeding, purulent drainage or septal hematoma. NECK: Trachea midline. Supple, nontender, no meningeal signs. CARDIOVASCULAR: Regular rate and rhythm without murmurs. RESPIRATORY: Clear to auscultation. Breath sounds equal bilaterally. GASTROINTESTINAL: Abdomen soft, non-tender, nondistended. MUSCULOSKELETAL: Right BKA site with wound vac in place with minimal surrounding erythema. Left foot with charcot deformity with dry scab but with no e.o active infection. NEUROLOGICAL: Awake and alert. Grossly non focal. Psych: cooperative. IV line sites with no e.o infection. Assessment & Plan Remarks Sepsis present on admission. Right foot necrotizing infection s/p Right BKA infection and wound vac placement 03/20/17. MSSA, Strep and anaerobic infection. DM2 uncontrolled, with nephropathy, retinopathy, Charcot foot deformities. CKD stage 3 not on HD. Has had only 1 session of HD. Recs continue Ceftriaxone IV Continue oral parviz RN to call eladio RN to call surgeon about surgery plans and follow up Follow cultures Follow clinically Taylor Youngblood MD Mar 27, 2017 16:33
[2017-03-27 18:41] LABS: AUTOMATED NEUTROPHIL # 7.6 TH/MM3 (1.8-7.7); BASOPHIL % 0.5 % (0.0-2.0); EOSINOPHIL % 0.2 % (0.0-4.0); HEMATOCRIT 35.4 % (35.0-46.0); HEMO FLAGS DIFF FINAL; LYMPH % 13.2 % (9.0-44.0); LYMPHOCYTE # 1.2 TH/MM3 (1.0-4.8); MEAN CELL VOLUME 73.3 FL (80.0-100.0); MEAN CORPUSCULAR HEMOGLOBIN 23.7 PG (27.0-34.0); MEAN CORPUSCULAR HGB CONC 32.4 % (32.0-36.0); MONO % 2.5 % (0.0-8.0); NEUT % 83.6 % (16.0-70.0); PLATELET COUNT 486 TH/MM3 (150-450); RED BLOOD COUNT 4.83 MIL/MM3 (4.00-5.30); RED CELL DISTRIBUTION WIDTH 22.8 % (11.6-17.2); WHITE BLOOD COUNT 9.1 TH/MM3 (4.0-11.0)
[2017-03-27 18:56] LABS: AST (GOT) 13 U/L (15-37); BICARBONATE 28.2 MEQ/L (21.0-32.0); BLOOD UREA NITROGEN 24 MG/DL (7-18); GLOMERULAR FILTRATION RATE 52 ML/MIN (>89)
[2017-03-27 18:58] LABS: ALT (GPT) 12 U/L (10-53)
[2017-03-27 19:44] LABS: ALKALINE PHOSPHATASE 205 U/L (45-117); ANION GAP 8 MEQ/L (5-15); CHLORIDE 103 MEQ/L (98-107); POTASSIUM 3.6 MEQ/L (3.5-5.1); SODIUM (NA) 139 MEQ/L (136-145); TOTAL BILIRUBIN ADULT 0.3 MG/DL (0.2-1.0)
[2017-03-27] MEDS ORDERED: INSULIN DETEMIR 100 UNITS/ML VIAL SQ SCH (21:00)
[2017-03-27] MEDS ORDERED: DOXAZOSIN MESYLATE 1 MG TAB PO SCH (21:00)
[2017-03-28] VITALS: BP 187/88; PULSE 71; RESP 18; TEMP 96.9; O2SAT 95
--- NOTE | 2017-03-28 00:25 | HHI.PR ---
Subjective Remarks late entry - patient seen on 03/27/17 at 7:30 pm pain is controlled denies cp/sob blood sugars better controlled however slightly low bp elevated Objective Vitals Vital Signs Date Time Temp Pulse Resp B/P (MAP) Pulse Ox O2 Delivery O2 Flow Rate FiO2 03/27/17 16:00 97.1 64 18 165/89 (114) 98 03/27/17 12:00 96.3 56 16 181/81 (114) 97 03/27/17 08:00 96.6 79 17 157/82 (107) 98 I/O 03/27/17 03/27/17 03/27/17 03/28/17 03/28/17 03/28/17 07:00 15:00 23:00 07:00 15:00 23:00 Intake Total 950 ml Output Total 1250 ml 725 ml Balance -1250 ml 225 ml Intake Oral 950 ml Output Urine Total 1250 ml 650 ml Drainage Total 75 ml # Bowel Movements 1 1 Result Diagram: 03/27/17180903/27/171809 Imaging Last Impressions Chest X-Ray 03/21/17 1944 Signed Impressions: Service Date/Time: February 19:57 - CONCLUSION: Prominence of the interstitium markings which may represent some pulmonary venous hypertension or mild edema. Burak Alvarado MD Tibia/Fibula X-Ray 03/21/17 0000 Signed Impressions: Service Date/Time: February 20:32 - CONCLUSION: Air within the soft tissues of the lower leg. Burak Alvarado MD Foot X-Ray 03/21/17 0000 Signed Impressions: Service Date/Time: February 20:00 - CONCLUSION: 1. Extensive very prominent soft tissue swelling with air within the soft tissues concerning for a large area of infection. 2. Destructive change is identified at the hind and midfoot. These could be from a Charcot joint. Some degree of acute ongoing destruction and infection cannot be ruled out. Burak Alvarado MD Femur X-Ray 03/21/17 0000 Signed Impressions: Service Date/Time: February 20:37 - CONCLUSION: Air within the soft tissues posterior to the knee. No air is seen above this level. Burak Alvarado MD Objective Remarks GENERAL: NAD, no respiratory distress, lying in bed. SKIN: Warm and dry. HEAD: Normocephalic. EYES: No scleral icterus. No injection or drainage. NECK: Supple, trachea midline. No obstruction. CARDIOVASCULAR: Regular rate and rhythm without murmurs, gallops, or rubs. No JVD. RESPIRATORY: Breath sounds equal bilaterally. No accessory muscle use. GASTROINTESTINAL: Abdomen soft, non-tender, nondistended. BS active. MUSCULOSKELETAL: No cyanosis, or edema. Status post right BKA. Dressing, Wound vac in place NEURO EXAM: Alert, oriented x3. no focal deficits Medications and IVs Current Medications Medications (Trade) Dose Ordered Sig/Joelle Route Start Time Stop Time Status Last Admin (NS Flush) 2 ml UNSCH PRN IV FLUSH 03/21/17 22:00 (NS Flush) 2 ml BID IV FLUSH 03/22/17 09:00 03/27/17 21:00 (Zofran Inj) 4 mg Q6H PRN IV 03/21/17 22:00 03/22/17 00:27 (Colace) 100 mg BID PO 03/22/17 09:00 03/27/17 21:50 (Percocet 5-325 Mg) 1 tab Q4H PRN PO 03/21/17 22:00 03/27/17 21:51 (Dilaudid) 2 mg Q4H PRN PO 03/21/17 22:00 03/26/17 22:56 (Narcan Inj) 0.4 mg UNSCH PRN IV 03/21/17 22:00 (Dilaudid Pf Inj) 0.5 mg Q3H PRN IV 03/22/17 13:00 03/25/17 02:52 (Heparin Inj) 5,000 units Q12HR SQ 03/22/17 13:15 03/26/17 22:51 (Ferrous Sulfate) 325 mg DAILY PO 03/23/17 09:00 03/27/17 09:48 (Lyrica) 100 mg TID PO 03/22/17 14:44 03/27/17 19:16 (Pepcid Inj) 10 mg Q12HR IV PUSH 03/22/17 21:00 03/27/17 21:50 Phenylephrine HCl 40 mg/Dextrose 500 ml @ 30 mls/hr TITRATE PRN IV 03/22/17:45 03/22/17 18:51 (Brethine Inj) 1 mg UNSCH PRN SQ 03/22/17 17:45 (SoluCORTEF INJ) 50 mg Taper Q12HR IV PUSH 03/23/17 09:00 04/01/17 08:59 03/27/17 21:50 (Norvasc) 10 mg DAILY PO 03/25/17 10:15 03/27/17 09:49 (Coreg) 12.5 mg Q12HR PO 03/25/17 12:15 03/27/17 21:51 Ceftriaxone Sodium 2000 mg/ Sodium Chloride 100 ml @ 200 mls/hr Q24H IV 03/25/17 15:00 03/27/17 14:58 (Flagyl) 500 mg Q8HR PO 03/25/17 14:00 03/27/17 21:50 (Cozaar) 25 mg DAILY PO 03/25/17 15:00 03/27/17 09:50 (D50w (Vial) Inj) 50 ml UNSCH PRN IV 03/26/17 10:15 (Glucagon Inj) 1 mg UNSCH PRN OTHER 03/26/17 10:15 (NovoLOG SUPPLEMENTAL SCALE) 1 ACHS SLIDING SCALE SQ 03/26/17 12:00 03/27/17 16:24 (NovoLOG INJ) 3 units TIDAC SQ 03/26/17 12:00 03/27/17 16:25 (Levemir Inj) 10 units Q12HR SQ 03/27/17 21:00 03/27/17 21:00 (Catapres) 0.1 mg Q6H PRN PO 03/27/17 19:00 (Cardura) 1 mg HS PO 03/27/17 21:00 03/27/17 22:15 A/P Problem List: (1) Sepsis ICD Code: A41.9 - Sepsis, unspecified organism Status: Resolved (2) Necrotizing fasciitis ICD Code: M72.6 - Necrotizing fasciitis Status: Acute (3) Hypertension ICD Code: I10 - Hypertension Status: Acute (4) CELSO (acute kidney injury) ICD Code: N17.9 - Acute kidney failure, unspecified Status: Resolved (5) Chronic kidney disease, stage 3 ICD Code: N18.3 - Chronic kidney disease, stage 3 (moderate) Status: Chronic Assessment and Plan Severe sepsis Hypotension Hypertension - Normal saline 1.5 L bolus and 100 ml per hour. IV Albumin 25 GM x1 - Resolved. 03/27 BP severely elevated. Will add Doxazosin and continue coreg and amlodipine. Monitor BP. GI: - 1800 ADA diet. Protonix : CELSO on Chronic kidney disease stage III - Baseline creatinine is 1.8-2.2 - IV hydration, [place] - Strict I's and O's 03/25 creatinine down to 1.4. Nephrology following. Management as per nephrology. 03/27 Creatinine continues to trend down. ID: Necrotizing fascitis and myonecrosis of RLE Severe sepsis - Status post BKA by Dr. Finch 03/21 - Empiric antibiotic with Vanc and Zosyn, Added clindamycin - Infectious disease following - Follow-up blood culture - Management per vascular surgery, multiple washouts planned before closure 03/25 antibiotics as per infectious disease. Clindamycin IV, Zosyn IV, daptomycin IV discontinued and the patient started on Rocephin IV and oral Flagyl. PT eval. HEME: Anemia requiring transfusion - Monitor CBC, CMP - Received 2 units PRBC. - Continue home iron supplements - 03/25 Check stool for occult blood. ENDO: Type 2 diabetes Diabetic neuropathy - Sliding-scale insulin - Continue Neurontin ---> increase dose to 200 mg po TID. - Continue Levemir BID ---> decrease Levemir to 10 mg SQ BID. DVT GI prophylaxis - SCDs to LLE - Pharmacological DVT prophylaxis with Heparin sq - Pantoprazole Discharge Planning Continue to monitor in the medical floor. Problem Qualifiers (1) Sepsis: Qualified Codes: A41.9 - Sepsis, unspecified organism (2) Hypertension: Qualified Codes: I10 - Essential (primary) hypertension Malcolm Agarwal MD Mar 28, 2017 00:25
[2017-03-28 04:00] VITALS: BP 184/88; PULSE 59; RESP 18; TEMP 96.9; O2SAT 97
[2017-03-28] MEDS: oxyCODONE/ACETAMINOPHEN 5 MG/325 MG TAB PO PRN (04:55)
[2017-03-28] MEDS: metroNIDAZOLE 500 MG TAB PO SCH ×3 (04:55→21:56)
[2017-03-28] MEDS: cloNIDine HCL 0.1 MG TAB PO PRN (06:01)
[2017-03-28] MEDS: INSULIN ASPART SUPPLEMENTAL SCALE SQ SCH ×4 (06:58→21:00)
[2017-03-28 08:00] VITALS: BP 167/80; PULSE 64; RESP 18; TEMP 96.6; O2SAT 98
[2017-03-28] MEDS: CARVEDILOL 12.5 MG TAB PO SCH ×2 (08:19→21:56)
[2017-03-28] MEDS: LOSARTAN 25 MG TAB PO SCH (08:19)
[2017-03-28] MEDS: FERROUS SULFATE 325 MG (65 MG ELEMENTAL IRON) TAB PO SCH (08:19)
[2017-03-28] MEDS: PREGABALIN 100 MG CAP PO SCH ×3 (08:19→18:45)
[2017-03-28] MEDS: DOCUSATE SODIUM 100 MG CAP PO SCH ×2 (08:19→21:55)
[2017-03-28] MEDS: FAMOTIDINE 20 MG/2 ML VIAL IV PUSH SCH ×2 (08:20→21:57)
[2017-03-28] MEDS: HYDROCORTISONE SOD SUCCINATE 100 MG VIAL IV PUSH SCH ×2 (08:20→21:55)
[2017-03-28] MEDS: SODIUM CHLORIDE 0.9% FLUSH 10 ML FLUSH IV FLUSH SCH ×2 (08:22→21:58)
[2017-03-28] MEDS: HEPARIN SODIUM - SQ 10,000 UNITS/ML VIAL SQ SCH ×2 (09:00→21:55)
[2017-03-28] MEDS ORDERED: ACETAMINOPHEN 1000 MG/100 ML 100 ML IV ONE (10:40)
[2017-03-28] MEDS ORDERED: MIDAZOLAM HCL 2 MG/2 ML VIAL ONE (10:40)
[2017-03-28] MEDS ORDERED: FAMOTIDINE 20 MG/2 ML VIAL ONE (10:41)
[2017-03-28] MEDS ORDERED: PROPOFOL 200 MG/20 ML AMP IV ONE (12:00)
[2017-03-28] MEDS ORDERED: DO NOT ADM ANY ANTICOAGULANT DRUGS PRN (12:43)
[2017-03-28] MEDS ORDERED: *morphine SULFATE 8 MG/ML PERIprocedure ONLY ONE (12:51)
[2017-03-28] MEDS ORDERED: *LABETALOL HCL 100 MG/20 ML VIAL PERIprocedural Use ONLY ONE (12:53)
[2017-03-28] MEDS: HYDROmorphone HCL 2 MG TAB PO PRN ×2 (14:02→22:04)
[2017-03-28] MEDS: cefTRIAXone INJ 2,000 MG in SODIUM CHLORIDE 0.9% INJ 100 ML IV SCH (14:03)
[2017-03-28] MEDS: INSULIN ASPART 1,000 UNITS/10 ML VIAL SQ SCH ×2 (14:06→18:47)
--- NOTE | 2017-03-28 15:40 | HHI.PR ---
Subjective Remarks Blood sugars slightly elevated patient c/oo uncontrolled pain denies abdominal pain, nausea or vomiting denies fevers or chills Objective Vitals Vital Signs Date Time Temp Pulse Resp B/P (MAP) Pulse Ox O2 Delivery O2 Flow Rate FiO2 03/28/17 13:30 97.8 75 17 160/81 (107) 97 Room Air 03/28/17 13:15 65 14 179/83 (115) 97 Room Air 03/28/17 13:00 69 16 174/81 (112) 97 Room Air 03/28/17 12:45 97.8 78 18 186/88 (120) 98 Room Air Arterial Line 03/28/17 08:00 96.6 64 18 167/80 (109) 98 03/28/17 04:00 96.9 59 18 184/88 (120) 97 03/28/17 00:00 96.9 71 18 187/88 (121) 95 03/27/17 16:00 97.1 64 18 165/89 (114) 98 I/O 03/27/17 03/27/17 03/27/17 03/28/17 03/28/17 03/28/17 06:59 14:59 22:59 06:59 14:59 22:59 Intake Total 950 ml 500 ml Output Total 1250 ml 725 ml 950 ml 920 ml Balance -1250 ml 225 ml -950 ml -420 ml Intake Oral 950 ml IV Total 500 ml Output Urine Total 1250 ml 650 ml 950 ml 550 ml Stool Total 0 ml Drainage Total 75 ml 350 ml Estimated Blood Loss 20 ml # Bowel Movements 1 1 Result Diagram: 03/27/17180903/27/171809 Imaging Last Impressions Chest X-Ray 03/21/17 1944 Signed Impressions: Service Date/Time: February 19:57 - CONCLUSION: Prominence of the interstitium markings which may represent some pulmonary venous hypertension or mild edema. Burak Alvarado MD Tibia/Fibula X-Ray 03/21/17 0000 Signed Impressions: Service Date/Time: February 20:32 - CONCLUSION: Air within the soft tissues of the lower leg. Burak Alvarado MD Foot X-Ray 03/21/17 0000 Signed Impressions: Service Date/Time: February 20:00 - CONCLUSION: 1. Extensive very prominent soft tissue swelling with air within the soft tissues concerning for a large area of infection. 2. Destructive change is identified at the hind and midfoot. These could be from a Charcot joint. Some degree of acute ongoing destruction and infection cannot be ruled out. Burak Alvarado MD Femur X-Ray 03/21/17 0000 Signed Impressions: Service Date/Time: February 20:37 - CONCLUSION: Air within the soft tissues posterior to the knee. No air is seen above this level. Burak Alvarado MD Objective Remarks GENERAL: NAD, no respiratory distress, lying in bed. SKIN: Warm and dry. HEAD: Normocephalic. EYES: No scleral icterus. No injection or drainage. NECK: Supple, trachea midline. No obstruction. CARDIOVASCULAR: Regular rate and rhythm without murmurs, gallops, or rubs. No JVD. RESPIRATORY: Breath sounds equal bilaterally. No accessory muscle use. GASTROINTESTINAL: Abdomen soft, non-tender, nondistended. BS active. MUSCULOSKELETAL: No cyanosis, or edema. Status post right BKA. Dressing, Wound vac in place NEURO EXAM: Alert, oriented x3. no focal deficits Procedures Below-knee amputation and wound Vac placement. - 03/21/17 Status post right below the knee amputation washout, debridement and wound VAC replacement on 03/24/17. Status post washout and closure of the right BKA stump. 03/28/17 Medications and IVs Current Medications Medications (Trade) Dose Ordered Sig/Joelle Route Start Time Stop Time Status Last Admin (NS Flush) 2 ml UNSCH PRN IV FLUSH 03/21/17 22:00 (NS Flush) 2 ml BID IV FLUSH 03/22/17 09:00 03/28/17 08:22 (Zofran Inj) 4 mg Q6H PRN IV 03/21/17 22:00 03/22/17 00:27 (Colace) 100 mg BID PO 03/22/17 09:00 03/28/17 08:19 (Percocet 5-325 Mg) 1 tab Q4H PRN PO 03/21/17 22:00 03/28/17 04:55 (Dilaudid) 2 mg Q4H PRN PO 03/21/17 22:00 03/28/17 14:02 (Narcan Inj) 0.4 mg UNSCH PRN IV 03/21/17 22:00 (Dilaudid Pf Inj) 0.5 mg Q3H PRN IV 03/22/17 13:00 03/25/17 02:52 (Heparin Inj) 5,000 units Q12HR SQ 03/22/17 13:15 03/26/17 22:51 (Ferrous Sulfate) 325 mg DAILY PO 03/23/17 09:00 03/28/17 08:19 (Pepcid Inj) 10 mg Q12HR IV PUSH 03/22/17 21:00 03/28/17 08:20 Phenylephrine HCl 40 mg/Dextrose 500 ml @ 30 mls/hr TITRATE PRN IV 03/22/17 17:45 03/22/17 18:51 (Brethine Inj) 1 mg UNSCH PRN SQ 03/22/17 17:45 (SoluCORTEF INJ) 25 mg Taper Q12HR IV PUSH 03/23/17 09:00 04/01/17 08:59 03/28/17 08:20 (Norvasc) 10 mg DAILY PO 03/25/17 10:15 03/28/17 08:19 (Coreg) 12.5 mg Q12HR PO 03/25/17 12:15 03/28/17 08:19 Ceftriaxone Sodium 2000 mg/ Sodium Chloride 100 ml @ 200 mls/hr Q24H IV 03/25/17 15:00 03/28/17 14:03 (Flagyl) 500 mg Q8HR PO 03/25/17 14:00 03/28/17 14:02 (Cozaar) 25 mg DAILY PO 03/25/17 15:00 03/28/17 08:19 (D50w (Vial) Inj) 50 ml UNSCH PRN IV 03/26/17 10:15 (Glucagon Inj) 1 mg UNSCH PRN OTHER 03/26/17 10:15 (NovoLOG SUPPLEMENTAL SCALE) 1 ACHS SLIDING SCALE SQ 03/26/17 12:00 03/28/17 14:04 (Catapres) 0.1 mg Q6H PRN PO 03/27/17 19:00 03/28/17 06:01 (Cardura) 1 mg HS PO 03/27/17 21:00 03/27/17 22:15 (Lyrica) 200 mg TID PO 03/28/17 09:00 03/28/17 14:02 (NovoLOG INJ) 5 units TIDAC SQ 03/28/17 12:00 03/28/17 14:06 (Levemir Inj) 12 units Q12HR SQ 03/28/17 21:00 Miscellaneous Information ALL NURSING DEPARTME... UNSCH PRN .XX 03/28/17 12:43 03/29/17 12:42 A/P Problem List: (1) Sepsis ICD Code: A41.9 - Sepsis, unspecified organism Status: Resolved (2) Necrotizing fasciitis ICD Code: M72.6 - Necrotizing fasciitis Status: Acute (3) Hypertension ICD Code: I10 - Hypertension Status: Acute (4) CELSO (acute kidney injury) ICD Code: N17.9 - Acute kidney failure, unspecified Status: Resolved (5) Chronic kidney disease, stage 3 ICD Code: N18.3 - Chronic kidney disease, stage 3 (moderate) Status: Chronic (6) Uncontrolled diabetes mellitus ICD Code: E11.65 - Type 2 diabetes mellitus with hyperglycemia Status: Chronic Assessment and Plan Severe sepsis Hypotension Hypertension - Normal saline 1.5 L bolus and 100 ml per hour. IV Albumin 25 GM x1 - Resolved. 03/27 BP severely elevated. Will add Doxazosin and continue coreg and amlodipine. Monitor BP. 03/28 blood pressure still uncontrolled and severely elevated with systolic blood pressure in the 180s. I will increase Dr. Zosyn dose to 2 mg by mouth at at bedtime. Continue Coreg and amlodipine. Continue to monitor blood pressure. GI: - 1800 ADA diet. Protonix : CELSO on Chronic kidney disease stage III - Baseline creatinine is 1.8-2.2 - IV hydration, [place] - Strict I's and O's. 03/28 Creatinine continues to trend down. Creatinine now 1.1. Continue to monitor BMP. ID: Necrotizing fascitis and myonecrosis of RLE Severe sepsis - Status post BKA by Dr. Finch 03/21 - Empiric antibiotic with Vanc and Zosyn, Added clindamycin - Infectious disease following Blood cultures grew MSSA, strep not A, B, D. Anaerobic gram-negative rods. 03/28 the case was discussed with Dr. Vasquez from vascular surgery. The patient is status post washout and closure of the right BKA stump. He recommended IV antibiotics for a couple more days and then the patient could be discharged. Continue antibiotics as per ID. The patient currently on IV Rocephin. HEME: Anemia requiring transfusion - Monitor CBC, CMP - Received 2 units PRBC. - Continue home iron supplements - 03/25 Check stool for occult blood. ENDO: Type 2 diabetes Diabetic neuropathy Blood sugar seems to be still very elevated in the 200s. I will increase Levemir to 12 units subcutaneous twice a day and prandial insulin NovoLog 25 mg subcutaneous 3 times a day. Continue SSI with insulin NovoLog. Continue Neurontin at 200 mg by mouth twice a day. DVT GI prophylaxis - SCDs to LLE - Pharmacological DVT prophylaxis with Heparin sq Continue PPI. Discharge Planning Continue to monitor in the medical floor. Problem Qualifiers (1) Sepsis: Qualified Codes: A41.9 - Sepsis, unspecified organism (2) Hypertension: Qualified Codes: I10 - Essential (primary) hypertension (3) Uncontrolled diabetes mellitus: Malcolm Agarwal MD Mar 28, 2017 15:40
[2017-03-28 18:01] VITALS: BP 148/72; PULSE 61; RESP 20; TEMP 96.9; O2SAT 99
[2017-03-28] MEDS: HYDROmorphone HCL PF 1 MG/ML VIAL IV PUSH PRN (18:45)
--- NOTE | 2017-03-28 19:28 | MP ---
cc: CHRISTIANO SALINAS MD DATE OF SURGERY 03/28/2017 PREOPERATIVE DIAGNOSIS Gas gangrene of the right leg, septic shock, status post guillotine amputation and washout. POSTOPERATIVE DIAGNOSIS Gas gangrene of the right leg, septic shock, status post guillotine amputation and washout. PROCEDURE Revision and washout of the right BKA stump and closure of the right BKA stump. SURGEON Eh Salinas MD ANESTHESIA General ESTIMATED BLOOD LOSS 20 mL PROCEDURE IN DETAIL The patient prepped and draped usual fashion and the stump is explored. The posterior flap appears to be in excellent shape. A piece of gastrocnemius muscle on the lateral aspect is removed, but soleus muscle and some of the flexors appear to be fine. The patient has excellent flow and started to granulate after 1 week off wound VAC. Bone appears to be clean. There is no purulent drainage. Everything seems to be nice and healthy with normal healthy tissues. The leg is now irrigated with about 3 liters of warm saline. Once this was completed, some of the muscle was trimmed off, some of the fascia was trimmed off and then the flap is turned inward anteriorly. It is closed deep layer of fascia to fascia with 0 Vicryl interrupted stitches and then skin with 2-0 Prolene interrupted stitches. Dressing applied. The patient tolerated the procedure well. Christiano ROSENBERG/ /4:28 PM /7:19 PM
[2017-03-28] MEDS ORDERED: DOXAZOSIN MESYLATE 1 MG TAB PO SCH (21:00)
[2017-03-28] MEDS: INSULIN DETEMIR 100 UNITS/ML VIAL SQ SCH (22:04)
[2017-03-29] VITALS: BP 139/70; PULSE 64; RESP 18; TEMP 96.6; O2SAT 94
[2017-03-29] MEDS: HYDROmorphone HCL 2 MG TAB PO PRN ×4 (04:29→21:53)
[2017-03-29] MEDS: metroNIDAZOLE 500 MG TAB PO SCH ×3 (06:24→21:52)
[2017-03-29] MEDS: HYDROmorphone HCL PF 1 MG/ML VIAL IV PUSH PRN ×3 (06:24→17:42)
[2017-03-29] MEDS: INSULIN ASPART SUPPLEMENTAL SCALE SQ SCH ×4 (06:27→21:00)
[2017-03-29 08:00] VITALS: BP 158/74; PULSE 63; RESP 17; TEMP 98.2; O2SAT 98
[2017-03-29] MEDS: FAMOTIDINE 20 MG/2 ML VIAL IV PUSH SCH ×2 (08:39→21:04)
[2017-03-29] MEDS: DOCUSATE SODIUM 100 MG CAP PO SCH ×2 (08:40→21:00)
[2017-03-29] MEDS: PREGABALIN 100 MG CAP PO SCH ×3 (08:40→17:37)
[2017-03-29] MEDS: FERROUS SULFATE 325 MG (65 MG ELEMENTAL IRON) TAB PO SCH (08:40)
[2017-03-29] MEDS: CARVEDILOL 12.5 MG TAB PO SCH ×2 (08:40→21:08)
[2017-03-29] MEDS: LOSARTAN 25 MG TAB PO SCH (08:41)
[2017-03-29] MEDS: HYDROCORTISONE SOD SUCCINATE 100 MG VIAL IV PUSH SCH ×2 (08:42→21:06)
[2017-03-29] MEDS: HEPARIN SODIUM - SQ 10,000 UNITS/ML VIAL SQ SCH ×2 (08:43→21:08)
[2017-03-29] MEDS: SODIUM CHLORIDE 0.9% FLUSH 10 ML FLUSH IV FLUSH SCH ×2 (08:43→21:02)
[2017-03-29] MEDS: INSULIN DETEMIR 100 UNITS/ML VIAL SQ SCH ×2 (09:08→21:11)
[2017-03-29] MEDS: INSULIN ASPART 1,000 UNITS/10 ML VIAL SQ SCH ×3 (09:09→17:00)
[2017-03-29 12:00] VITALS: BP 160/70; PULSE 61; RESP 17; TEMP 95.8; O2SAT 96
[2017-03-29 12:43] VITALS: O2SAT 97
--- NOTE | 2017-03-29 14:15 | HHI.PR ---
Subjective Remarks Patient states pain is better controlled denies fevers/chills denies abdominal pain, nausea afebrile bp improving Objective Vitals Vital Signs Date Time Temp Pulse Resp B/P (MAP) Pulse Ox O2 Delivery O2 Flow Rate FiO2 03/29/17 12:00 95.8 61 17 160/70 (100) 96 03/29/17 08:00 98.2 63 17 158/74 (102) 98 03/29/17 00:00 96.6 64 18 139/70 (93) 94 03/28/17 20:00 Room Air 03/28/17 18:01 96.9 61 20 148/72 (97) 99 I/O 03/28/17 03/28/17 03/28/17 03/29/17 03/29/17 03/29/17 07:00 15:00 23:00 07:00 15:00 23:00 Intake Total 500 ml 120 ml Output Total 950 ml 920 ml 200 ml 450 ml Balance -950 ml -420 ml -80 ml -450 ml Intake Oral 120 ml IV Total 500 ml Output Urine Total 950 ml 550 ml 200 ml 450 ml Stool Total 0 ml Drainage Total 350 ml Estimated Blood Loss 20 ml # Bowel Movements 1 Result Diagram: 03/27/17 1810 03/27/17 1810 Imaging Last Impressions Chest X-Ray 03/21/17 194 Signed Impressions: Service Date/Time: February 19:57 - CONCLUSION: Prominence of the interstitium markings which may represent some pulmonary venous hypertension or mild edema. Burak Alvarado MD Tibia/Fibula X-Ray 03/21/17 0000 Signed Impressions: Service Date/Time: February 20:32 - CONCLUSION: Air within the soft tissues of the lower leg. Burak Alvarado MD Foot X-Ray 03/21/17 0000 Signed Impressions: Service Date/Time: February 20:00 - CONCLUSION: 1. Extensive very prominent soft tissue swelling with air within the soft tissues concerning for a large area of infection. 2. Destructive change is identified at the hind and midfoot. These could be from a Charcot joint. Some degree of acute ongoing destruction and infection cannot be ruled out. Burak Alvarado MD Femur X-Ray 03/21/17 0000 Signed Impressions: Service Date/Time: February 20:37 - CONCLUSION: Air within the soft tissues posterior to the knee. No air is seen above this level. Burak Alvarado MD Objective Remarks GENERAL: NAD, no respiratory distress, lying in bed. SKIN: Warm and dry. HEAD: Normocephalic. EYES: No scleral icterus. No injection or drainage. NECK: Supple, trachea midline. No obstruction. CARDIOVASCULAR: Regular rate and rhythm without murmurs, gallops, or rubs. No JVD. RESPIRATORY: Breath sounds equal bilaterally. No accessory muscle use. GASTROINTESTINAL: Abdomen soft, non-tender, nondistended. BS active. MUSCULOSKELETAL: No cyanosis, or edema. Status post right BKA. Dressing, Wound vac in place NEURO EXAM: Alert, oriented x3. no focal deficits Procedures Below-knee amputation and wound Vac placement. - 03/21/17 Status post right below the knee amputation washout, debridement and wound VAC replacement on 03/24/17. Status post washout and closure of the right BKA stump. 03/28/17 Medications and IVs Current Medications Medications (Trade) Dose Ordered Sig/Joelle Route Start Time Stop Time Status Last Admin (NS Flush) 2 ml UNSCH PRN IV FLUSH 03/21/17 22:00 (NS Flush) 2 ml BID IV FLUSH 03/22/17 09:00 03/29/17 08:43 (Zofran Inj) 4 mg Q6H PRN IV 03/21/17 22:00 03/22/17 00:27 (Colace) 100 mg BID PO 03/22/17 09:00 03/29/17 08:40 (Percocet 5-325 Mg) 1 tab Q4H PRN PO 03/21/17 22:00 03/28/17 04:55 (Dilaudid) 2 mg Q4H PRN PO 03/21/17 22:00 03/29/17 13:56 (Narcan Inj) 0.4 mg UNSCH PRN IV 03/21/17 22:00 (Dilaudid Pf Inj) 0.5 mg Q3H PRN IV 03/22/17 13:00 03/25/17 02:52 (Heparin Inj) 5,000 units Q12HR SQ 03/22/17 13:15 03/29/17 08:43 (Ferrous Sulfate) 325 mg DAILY PO 03/23/17 09:00 03/29/17 08:40 (Pepcid Inj) 10 mg Q12HR IV PUSH 03/22/17 21:00 03/29/17 08:39 Phenylephrine HCl 40 mg/Dextrose 500 ml @ 30 mls/hr TITRATE PRN IV 03/22/17 17:45 03/22/17 18:51 (Brethine Inj) 1 mg UNSCH PRN SQ 03/22/17 17:45 (SoluCORTEF INJ) 25 mg Taper Q12HR IV PUSH 03/23/17 09:00 04/01/17 08:59 03/29/17 08:42 (Norvasc) 10 mg DAILY PO 03/25/17 10:15 03/29/17 08:40 (Coreg) 12.5 mg Q12HR PO 03/25/17 12:15 03/29/17 08:40 Ceftriaxone Sodium 2000 mg/ Sodium Chloride 100 ml @ 200 mls/hr Q24H IV 03/25/17 15:00 03/28/17 14:03 (Flagyl) 500 mg Q8HR PO 03/25/17 14:00 03/29/17 13:52 (Cozaar) 25 mg DAILY PO 03/25/17 15:00 03/29/17 08:41 (D50w (Vial) Inj) 50 ml UNSCH PRN IV 03/26/17 10:15 (Glucagon Inj) 1 mg UNSCH PRN OTHER 03/26/17 10:15 (NovoLOG SUPPLEMENTAL SCALE) 1 ACHS SLIDING SCALE SQ 03/26/17 12:00 03/29/17 06:27 (Catapres) 0.1 mg Q6H PRN PO 03/27/17 19:00 03/28/17 06:01 (Lyrica) 200 mg TID PO 03/28/17 09:00 03/29/17 13:52 (NovoLOG INJ) 5 units TIDAC SQ 03/28/17 12:00 03/29/17 13:54 (Levemir Inj) 12 units Q12HR SQ 03/28/17 21:00 03/29/17 09:08 (Cardura) 2 mg HS PO 03/28/17 21:00 03/28/17 21:57 (Dilaudid Pf Inj) 1 mg Q4H PRN IV PUSH 03/28/17 17:15 03/29/17 11:28 Urinary Catheter: Yes Assessment to: Remove Vascular Central Line Catheter: No A/P Problem List: (1) Sepsis ICD Code: A41.9 - Sepsis, unspecified organism Status: Resolved (2) Necrotizing fasciitis ICD Code: M72.6 - Necrotizing fasciitis Status: Acute (3) Hypertension ICD Code: I10 - Hypertension Status: Acute (4) CELSO (acute kidney injury) ICD Code: N17.9 - Acute kidney failure, unspecified Status: Resolved (5) Chronic kidney disease, stage 3 ICD Code: N18.3 - Chronic kidney disease, stage 3 (moderate) Status: Chronic (6) Uncontrolled diabetes mellitus ICD Code: E11.65 - Type 2 diabetes mellitus with hyperglycemia Status: Chronic Assessment and Plan Severe sepsis - resolved Hypotension - resolved Hypertension - Normal saline 1.5 L bolus and 100 ml per hour. IV Albumin 25 GM x1 - Resolved. 03/27 BP severely elevated. Will add Doxazosin and continue coreg and amlodipine. Monitor BP. 03/29 BP silghtly better but still severely elevated into the 160's systolic. Increase Doxazosin to 3 mg po daily. Continue Coreg and amlodipine. Continue to monitor blood pressure. GI: - 1800 ADA diet. Protonix : CELSO on Chronic kidney disease stage III - Baseline creatinine is 1.8-2.2 - IV hydration, [place] - Strict I's and O's. 03/28 Creatinine continues to trend down. Creatinine now 1.1. Continue to monitor BMP. ID: Necrotizing fascitis and myonecrosis of RLE Severe sepsis - Status post BKA by Dr. Finch 03/21 - Empiric antibiotic with Vanc and Zosyn, Added clindamycin - Infectious disease following Blood cultures grew MSSA, strep not A, B, D. Anaerobic gram-negative rods. 03/28 the case was discussed with Dr. Vasquez from vascular surgery. The patient is status post washout and closure of the right BKA stump. He recommended IV antibiotics for a couple more days and then the patient could be discharged. Continue antibiotics as per ID. The patient currently on IV Rocephin. HEME: Anemia requiring transfusion - Monitor CBC, CMP - Received 2 units PRBC. - Continue home iron supplements - 03/25 Check stool for occult blood. - ordered and pending ENDO: Type 2 diabetes Diabetic neuropathy Blood sugar seems to be still very elevated in the 200s. I will increase Levemir to 12 units subcutaneous twice a day and prandial insulin NovoLog 25 mg subcutaneous 3 times a day. Continue SSI with insulin NovoLog. 03/29 Blood sugars much improved. continue management as above. Neuropathy improving - Continue Neurontin at same dose. DVT GI prophylaxis - SCDs to LLE - Pharmacological DVT prophylaxis with Heparin sq Continue PPI. Discharge Planning Continue to monitor in the medical floor. Problem Qualifiers (1) Sepsis: Qualified Codes: A41.9 - Sepsis, unspecified organism (2) Hypertension: Qualified Codes: I10 - Essential (primary) hypertension (3) Uncontrolled diabetes mellitus: Malcolm Agarwal MD Mar 29, 2017 14:15
[2017-03-29 16:00] VITALS: BP 157/74; PULSE 63; RESP 17; TEMP 97; O2SAT 96
[2017-03-29] MEDS: cefTRIAXone INJ 2,000 MG in SODIUM CHLORIDE 0.9% INJ 100 ML IV SCH (16:20)
[2017-03-29 20:00] VITALS: BP 150/71; PULSE 67; RESP 20; TEMP 97.8; O2SAT 98
[2017-03-29] MEDS: DOXAZOSIN MESYLATE 1 MG TAB PO SCH (21:07)
[2017-03-29 21:08] LABS: MEAN CELL VOLUME 74.5 FL (80.0-100.0); MEAN CORPUSCULAR HEMOGLOBIN 23.8 PG (27.0-34.0); PLATELET COUNT 514 TH/MM3 (150-450); RED BLOOD COUNT 4.83 MIL/MM3 (4.00-5.30); RED CELL DISTRIBUTION WIDTH 23.7 % (11.6-17.2); WHITE BLOOD COUNT 9.3 TH/MM3 (4.0-11.0)
[2017-03-29 21:22] LABS: HEMO FLAGS AUTO DIFF
[2017-03-29 21:36] LABS: ANION GAP 8 MEQ/L (5-15); AST (GOT) 16 U/L (15-37); BLOOD UREA NITROGEN 27 MG/DL (7-18); CHLORIDE 105 MEQ/L (98-107); GLOMERULAR FILTRATION RATE 53 ML/MIN (>89); MAGNESIUM 1.6 MG/DL (1.5-2.5); POTASSIUM 3.6 MEQ/L (3.5-5.1); SODIUM (NA) 140 MEQ/L (136-145)
[2017-03-29 21:59] LABS: ALKALINE PHOSPHATASE 186 U/L (45-117); ALT (GPT) 16 U/L (10-53); TOTAL BILIRUBIN ADULT 0.2 MG/DL (0.2-1.0)
[2017-03-29 22:00] LABS: BASOPHILS 1 % (0-2); NEUTROPHIL # MANUAL DIFF 7.2 TH/MM3 (1.8-7.7); POLYS (SEG NEUTROPHILS) 77 % (16-70); WBC DIFF SAMPLE 100
[2017-03-29 22:01] LABS: PLATELET ESTIMATE SMEAR HIGH (NORMAL); PLATELET MORPHOLOGY NORMAL (NORMAL); SCAN/DIFF FINAL DIFF MANUAL
[2017-03-30] VITALS: BP 164/79; PULSE 75; RESP 18; TEMP 97.8; O2SAT 94
[2017-03-30] MEDS: HYDROmorphone HCL 2 MG TAB PO PRN ×4 (04:40→21:23)
[2017-03-30] MEDS: INSULIN ASPART SUPPLEMENTAL SCALE SQ SCH ×4 (04:43→21:39)
[2017-03-30] MEDS: metroNIDAZOLE 500 MG TAB PO SCH ×3 (04:44→21:25)
[2017-03-30 08:00] VITALS: BP 174/80; PULSE 74; RESP 20; TEMP 98.4; O2SAT 97
[2017-03-30] MEDS: INSULIN ASPART 1,000 UNITS/10 ML VIAL SQ SCH ×3 (08:00→17:41)
--- NOTE | 2017-03-30 09:06 | HHI.PR ---
Subjective Remarks In bed, eating. Denies having any pain at this time. has phantom leg pain . No fever ror chills. No n/v/d/c. Objective Vitals Vital Signs Date Time Temp Pulse Resp B/P (MAP) Pulse Ox O2 Delivery O2 Flow Rate FiO2 03/30/17 08:00 98.4 74 20 174/80 (111) 97 03/30/17 00:00 97.8 75 18 164/79 (107) 94 03/29/17 20:00 97.8 67 20 150/71 (97) 98 03/29/17 16:00 97.0 63 17 157/74 (101) 96 03/29/17 12:43 97 21 03/29/17 12:00 95.8 61 17 160/70 (100) 96 I/O 03/29/17 03/29/17 03/29/17 03/30/17 03/30/17 03/30/17 07:00 15:00 23:00 07:00 15:00 23:00 Intake Total 840 ml 240 ml Output Total 450 ml 475 ml Balance -450 ml 365 ml 240 ml Intake Oral 740 ml 240 ml IV Total 100 ml Output Urine Total 450 ml 475 ml # Voids 6 # Bowel Movements 1 4 Result Diagram: 03/29/17205003/29/172050 Imaging Last Impressions Chest X-Ray 03/21/171943 Signed Impressions: Service Date/Time: February 19:57 - CONCLUSION: Prominence of the interstitium markings which may represent some pulmonary venous hypertension or mild edema. Burak Alvarado MD Tibia/Fibula X-Ray 03/21/17 0000 Signed Impressions: Service Date/Time: February 20:32 - CONCLUSION: Air within the soft tissues of the lower leg. Burak Alvarado MD Foot X-Ray 03/21/17 0000 Signed Impressions: Service Date/Time: February 20:00 - CONCLUSION: 1. Extensive very prominent soft tissue swelling with air within the soft tissues concerning for a large area of infection. 2. Destructive change is identified at the hind and midfoot. These could be from a Charcot joint. Some degree of acute ongoing destruction and infection cannot be ruled out. Burak Alvarado MD Femur X-Ray 03/21/17 0000 Signed Impressions: Service Date/Time: February 20:37 - CONCLUSION: Air within the soft tissues posterior to the knee. No air is seen above this level. Burak Alvarado MD Objective Remarks GENERAL: middle age female, appears in NAD, no respiratory distress, lying in bed. SKIN: Warm and dry. HEAD: Normocephalic. EYES: No scleral icterus. No injection or drainage. NECK: Supple, trachea midline. No obstruction. CARDIOVASCULAR: Regular rate and rhythm without murmurs, gallops, or rubs. No JVD. RESPIRATORY: Breath sounds equal bilaterally. No accessory muscle use. GASTROINTESTINAL: Abdomen soft, non-tender, nondistended. BS active. MUSCULOSKELETAL: No cyanosis, or edema. Status post right BKA. Dressing, Wound vac in place NEURO EXAM: Alert, oriented x3. no focal deficits Procedures Below-knee amputation and wound Vac placement. - 03/21/17 Status post right below the knee amputation washout, debridement and wound VAC replacement on 03/24/17. Status post washout and closure of the right BKA stump. 03/28/17 A/P Problem List: (1) Sepsis ICD Code: A41.9 - Sepsis, unspecified organism Status: Resolved (2) Necrotizing fasciitis ICD Code: M72.6 - Necrotizing fasciitis Status: Acute (3) Hypertension ICD Code: I10 - Hypertension Status: Acute (4) CELSO (acute kidney injury) ICD Code: N17.9 - Acute kidney failure, unspecified Status: Resolved (5) Chronic kidney disease, stage 3 ICD Code: N18.3 - Chronic kidney disease, stage 3 (moderate) Status: Chronic (6) Uncontrolled diabetes mellitus ICD Code: E11.65 - Type 2 diabetes mellitus with hyperglycemia Status: Chronic Assessment and Plan Severe sepsis - resolved Hypotension - resolved Hypertension - Normal saline 1.5 L bolus and 100 ml per hour. IV Albumin 25 GM x1 - Resolved. 03/27 BP severely elevated. Will add Doxazosin and continue coreg and amlodipine. Monitor BP. 03/29 BP silghtly better but still severely elevated into the 160's systolic. Increase Doxazosin to 3 mg po daily. Continue Coreg and amlodipine. Continue to monitor blood pressure. GI: - 1800 ADA diet. Protonix : CELSO on Chronic kidney disease stage III - Baseline creatinine is 1.8-2.2 - IV hydration, [place] - Strict I's and O's. 03/28 Creatinine continues to trend down. Creatinine now 1.1. Continue to monitor BMP. ID: Necrotizing fascitis and myonecrosis of RLE Severe sepsis - Status post BKA by Dr. Finch 03/21 - Empiric antibiotic with Vanc and Zosyn, Added clindamycin - Infectious disease following Blood cultures grew MSSA, strep not A, B, D. Anaerobic gram-negative rods. 03/28 the case was discussed with Dr. Vasquez from vascular surgery. The patient is status post washout and closure of the right BKA stump. He recommended IV antibiotics for a couple more days and then the patient could be discharged. Continue antibiotics as per ID. The patient currently on IV Rocephin. HEME: Anemia requiring transfusion - Monitor CBC, CMP - Received 2 units PRBC. - Continue home iron supplements - 03/25 Check stool for occult blood. - ordered and pending ENDO: Type 2 diabetes Diabetic neuropathy Blood sugar seems to be still very elevated in the 200s. I will increase Levemir to 12 units subcutaneous twice a day and prandial insulin NovoLog 25 mg subcutaneous 3 times a day. Continue SSI with insulin NovoLog. 03/29 Blood sugars much improved. continue management as above. Neuropathy improving - Continue Neurontin at same dose. DVT GI prophylaxis - SCDs to LLE - Pharmacological DVT prophylaxis with Heparin sq Continue PPI. Discharge Planning Continue to monitor in the medical floor. Per Dr. Burleson patient will need to stay here for IV antibiotics and afterwards when cleared to be discharge him and the patient may be discharged to rehabilitation versus home with home health PT. Problem Qualifiers (1) Sepsis: Qualified Codes: A41.9 - Sepsis, unspecified organism (2) Hypertension: Qualified Codes: I10 - Essential (primary) hypertension (3) Uncontrolled diabetes mellitus: Sandra Marin MD Mar 30, 2017 09:06
[2017-03-30] MEDS: HEPARIN SODIUM - SQ 10,000 UNITS/ML VIAL SQ SCH ×2 (09:25→21:25)
[2017-03-30] MEDS: SODIUM CHLORIDE 0.9% FLUSH 10 ML FLUSH IV FLUSH SCH ×2 (09:25→21:23)
[2017-03-30] MEDS: PREGABALIN 100 MG CAP PO SCH ×3 (09:26→17:42)
[2017-03-30] MEDS: FAMOTIDINE 20 MG/2 ML VIAL IV PUSH SCH ×2 (09:26→21:37)
[2017-03-30] MEDS: CARVEDILOL 12.5 MG TAB PO SCH ×2 (09:27→21:25)
[2017-03-30] MEDS: DOCUSATE SODIUM 100 MG CAP PO SCH ×2 (09:27→21:24)
[2017-03-30] MEDS: LOSARTAN 25 MG TAB PO SCH (09:28)
[2017-03-30] MEDS: FERROUS SULFATE 325 MG (65 MG ELEMENTAL IRON) TAB PO SCH (09:28)
[2017-03-30] MEDS: HYDROCORTISONE SOD SUCCINATE 100 MG VIAL IV PUSH SCH (09:31)
[2017-03-30] MEDS: INSULIN DETEMIR 100 UNITS/ML VIAL SQ SCH ×2 (09:39→21:39)
[2017-03-30 12:00] VITALS: BP 162/71; PULSE 64; RESP 20; TEMP 97.5; O2SAT 97
[2017-03-30] MEDS: HYDROmorphone HCL PF 1 MG/ML VIAL IV PUSH PRN ×2 (12:45→23:11)
[2017-03-30] MEDS: cefTRIAXone INJ 2,000 MG in SODIUM CHLORIDE 0.9% INJ 100 ML IV SCH (15:36)
[2017-03-30 16:00] VITALS: BP 155/69; PULSE 66; RESP 18; TEMP 98.3; O2SAT 96
[2017-03-30 20:00] VITALS: BP 159/72; PULSE 71; RESP 18; TEMP 98.1; O2SAT 96
[2017-03-30] MEDS: DOXAZOSIN MESYLATE 1 MG TAB PO SCH (21:24)
[2017-03-31] VITALS: BP 167/79; PULSE 71; RESP 18; TEMP 98.1; O2SAT 94
[2017-03-31] MEDS: INSULIN ASPART SUPPLEMENTAL SCALE SQ SCH ×3 (06:14→16:00)
[2017-03-31] MEDS: metroNIDAZOLE 500 MG TAB PO SCH ×3 (06:14→22:08)
[2017-03-31] MEDS: HYDROmorphone HCL 2 MG TAB PO PRN ×3 (06:14→19:00)
[2017-03-31 08:00] VITALS: BP 173/82; PULSE 62; RESP 18; TEMP 97.6; O2SAT 92
[2017-03-31] MEDS: FAMOTIDINE 20 MG/2 ML VIAL IV PUSH SCH ×2 (09:00→21:00)
[2017-03-31] MEDS: HYDROmorphone HCL PF 1 MG/ML VIAL IV PUSH PRN ×3 (09:29→22:11)
[2017-03-31] MEDS: CARVEDILOL 12.5 MG TAB PO SCH ×2 (09:30→22:08)
[2017-03-31] MEDS: DOCUSATE SODIUM 100 MG CAP PO SCH (09:30)
[2017-03-31] MEDS: PREGABALIN 100 MG CAP PO SCH ×3 (09:30→19:00)
[2017-03-31] MEDS: FERROUS SULFATE 325 MG (65 MG ELEMENTAL IRON) TAB PO SCH (09:31)
[2017-03-31] MEDS: HYDROCORTISONE SOD SUCCINATE 100 MG VIAL IV PUSH SCH (09:31)
[2017-03-31] MEDS: HEPARIN SODIUM - SQ 10,000 UNITS/ML VIAL SQ SCH ×2 (09:31→22:09)
[2017-03-31] MEDS: LOSARTAN 25 MG TAB PO SCH (09:35)
[2017-03-31] MEDS: INSULIN ASPART 1,000 UNITS/10 ML VIAL SQ SCH ×3 (09:49→16:41)
[2017-03-31] MEDS: INSULIN DETEMIR 100 UNITS/ML VIAL SQ SCH ×2 (09:49→21:00)
[2017-03-31 12:00] VITALS: BP 165/78; PULSE 64; RESP 17; TEMP 97.3; O2SAT 97
[2017-03-31] MEDS: SODIUM CHLORIDE 0.9% FLUSH 10 ML FLUSH IV FLUSH SCH ×2 (15:14→22:10)
[2017-03-31] MEDS: cefTRIAXone INJ 2,000 MG in SODIUM CHLORIDE 0.9% INJ 100 ML IV SCH (15:14)
--- NOTE | 2017-03-31 15:55 | HHI.PR ---
Subjective Remarks Says she has muscle spasm at times with intense pain . pain at the surgical site is fairly controlled. No fever or chills. No n/v/d/c. Also not able to sleep at night will like a sleeping aid. Objective Vitals Vital Signs Date Time Temp Pulse Resp B/P (MAP) Pulse Ox O2 Delivery O2 Flow Rate FiO2 03/31/17 12:00 97.3 64 17 165/78 (107) 97 03/31/17 08:00 97.6 62 18 173/82 (112) 92 03/31/17 00:00 98.1 71 18 167/79 (108) 94 03/30/17 20:00 98.1 71 18 159/72 (101) 96 03/30/17 16:00 98.3 66 18 155/69 (97) 96 I/O 03/30/17 03/30/17 03/30/17 03/31/17 03/31/17 03/31/17 06:59 14:59 22:59 06:59 14:59 22:59 Intake Total 240 ml 120 ml 700 ml Output Total 1200 ml Balance 240 ml 120 ml -500 ml Intake Oral 240 ml 120 ml 600 ml IV Total 100 ml Output Urine Total 1200 ml # Voids 6 1 # Bowel Movements 4 2 1 Result Diagram: 03/29/17205003/29/172050 Imaging Last Impressions Chest X-Ray 03/21/171943 Signed Impressions: Service Date/Time: February 19:57 - CONCLUSION: Prominence of the interstitium markings which may represent some pulmonary venous hypertension or mild edema. Burak Alvarado MD Tibia/Fibula X-Ray 03/21/17 0000 Signed Impressions: Service Date/Time: February 20:32 - CONCLUSION: Air within the soft tissues of the lower leg. Burak Alvarado MD Foot X-Ray 03/21/17 0000 Signed Impressions: Service Date/Time: February 20:00 - CONCLUSION: 1. Extensive very prominent soft tissue swelling with air within the soft tissues concerning for a large area of infection. 2. Destructive change is identified at the hind and midfoot. These could be from a Charcot joint. Some degree of acute ongoing destruction and infection cannot be ruled out. Burak Alvarado MD Femur X-Ray 03/21/17 0000 Signed Impressions: Service Date/Time: February 20:37 - CONCLUSION: Air within the soft tissues posterior to the knee. No air is seen above this level. Burak Alvarado MD Objective Remarks GENERAL: middle age female, appears in NAD, no respiratory distress, lying in bed. SKIN: Warm and dry. HEAD: Normocephalic. EYES: No scleral icterus. No injection or drainage. NECK: Supple, trachea midline. No obstruction. CARDIOVASCULAR: Regular rate and rhythm without murmurs, gallops, or rubs. No JVD. RESPIRATORY: Breath sounds equal bilaterally. No accessory muscle use. GASTROINTESTINAL: Abdomen soft, non-tender, nondistended. BS active. MUSCULOSKELETAL: No cyanosis, or edema. Status post right BKA. Dressing, Wound vac in place NEURO EXAM: Alert, oriented x3. no focal deficits Procedures Below-knee amputation and wound Vac placement. - 03/21/17 Status post right below the knee amputation washout, debridement and wound VAC replacement on 03/24/17. Status post washout and closure of the right BKA stump. 03/28/17 A/P Problem List: (1) Sepsis ICD Code: A41.9 - Sepsis, unspecified organism Status: Resolved (2) Necrotizing fasciitis ICD Code: M72.6 - Necrotizing fasciitis Status: Acute (3) Hypertension ICD Code: I10 - Hypertension Status: Acute (4) CELSO (acute kidney injury) ICD Code: N17.9 - Acute kidney failure, unspecified Status: Resolved (5) Chronic kidney disease, stage 3 ICD Code: N18.3 - Chronic kidney disease, stage 3 (moderate) Status: Chronic (6) Uncontrolled diabetes mellitus ICD Code: E11.65 - Type 2 diabetes mellitus with hyperglycemia Status: Chronic Assessment and Plan Severe sepsis - resolved Hypotension - resolved Hypertension - Normal saline 1.5 L bolus and 100 ml per hour. IV Albumin 25 GM x1 - Resolved. 03/27 BP severely elevated. Will add Doxazosin and continue coreg and amlodipine. Monitor BP. 03/29 BP slightly better but still severely elevated into the 160's systolic. Increase Doxazosin to 4 mg po daily. Continue Coreg and amlodipine. Continue to monitor blood pressure. GI: - 1800 ADA diet. Protonix : CELSO on Chronic kidney disease stage III - Baseline creatinine is 1.8-2.2 - IV hydration, [place] - Strict I's and O's. 03/28 Creatinine continues to trend down. Creatinine now 1.1. Continue to monitor BMP. ID: Necrotizing fascitis and myonecrosis of RLE Severe sepsis - Status post BKA by Dr. Finch 03/21 - Empiric antibiotic with Vanc and Zosyn, Added clindamycin - Infectious disease following Blood cultures grew MSSA, strep not A, B, D. Anaerobic gram-negative rods. 03/28 the case was discussed with Dr. Vasquez from vascular surgery. The patient is status post washout and closure of the right BKA stump. He recommended IV antibiotics for a couple more days and then the patient could be discharged. Continue antibiotics as per ID. The patient currently on IV Rocephin. Muscle spasm. add flexeryl. HEME: Anemia requiring transfusion - Monitor CBC, CMP - Received 2 units PRBC. - Continue home iron supplements - 03/25 Check stool for occult blood. - ordered and pending ENDO: Type 2 diabetes Diabetic neuropathy Blood sugar seems to be still very elevated in the 200s. I will increase Levemir to 12 units subcutaneous twice a day and prandial insulin NovoLog 25 mg subcutaneous 3 times a day. Continue SSI with insulin NovoLog. 03/29 Blood sugars much improved. continue management as above. Neuropathy improving - Continue Neurontin at same dose. Insomnia: temazepam as need at night DVT GI prophylaxis - SCDs to LLE - Pharmacological DVT prophylaxis with Heparin sq Continue PPI. Discharge Planning Continue to monitor in the medical floor. Per Dr. Burleson patient will need to stay here for IV antibiotics and afterwards when cleared to be discharge him and the patient may be discharged to rehabilitation versus home with home health PT. Problem Qualifiers (1) Sepsis: Qualified Codes: A41.9 - Sepsis, unspecified organism (2) Hypertension: Qualified Codes: I10 - Essential (primary) hypertension (3) Uncontrolled diabetes mellitus: Sandra Marin MD Mar 31, 2017 15:55
[2017-03-31 16:00] VITALS: BP 156/72; PULSE 67; RESP 17; TEMP 97.2; O2SAT 97
[2017-03-31] MEDS ORDERED: hydrALAZINE HCL 10 MG TAB PO PRN (16:00)
[2017-03-31 19:00] VITALS: BP 141/65; PULSE 65; RESP 20; TEMP 97.8; O2SAT 98
[2017-03-31] MEDS ORDERED: CYCLOBENZAPRINE HCL 10 MG TAB PO ONE (19:45)
[2017-03-31] MEDS ORDERED: CYCLOBENZAPRINE HCL 10 MG TAB PO PRN (19:45)
[2017-03-31] MEDS: DOXAZOSIN MESYLATE 4 MG TAB PO SCH (22:08)
[2017-03-31] MEDS: TEMAZEPAM 15 MG CAP PO PRN (22:17)
[2017-04-01] VITALS: BP 156/73; PULSE 74; RESP 20; TEMP 97.3; O2SAT 97
[2017-04-01] MEDS: metroNIDAZOLE 500 MG TAB PO SCH ×2 (05:42→12:53)
[2017-04-01] MEDS: oxyCODONE/ACETAMINOPHEN 5 MG/325 MG TAB PO PRN ×3 (05:50→18:33)
[2017-04-01 08:00] VITALS: BP 147/76; PULSE 72; RESP 17; TEMP 97.4; O2SAT 95
[2017-04-01] MEDS: CARVEDILOL 12.5 MG TAB PO SCH ×2 (09:50→21:41)
[2017-04-01] MEDS: HYDROmorphone HCL PF 1 MG/ML VIAL IV PUSH PRN ×2 (09:50→21:41)
[2017-04-01] MEDS: HEPARIN SODIUM - SQ 10,000 UNITS/ML VIAL SQ SCH ×2 (09:51→21:43)
[2017-04-01] MEDS: LOSARTAN 25 MG TAB PO SCH (09:51)
[2017-04-01] MEDS: FAMOTIDINE 20 MG/2 ML VIAL IV PUSH SCH ×2 (09:51→21:00)
[2017-04-01] MEDS: PREGABALIN 100 MG CAP PO SCH ×3 (09:51→18:33)
[2017-04-01] MEDS: FERROUS SULFATE 325 MG (65 MG ELEMENTAL IRON) TAB PO SCH (09:51)
[2017-04-01] MEDS: INSULIN DETEMIR 100 UNITS/ML VIAL SQ SCH ×2 (10:00→21:00)
[2017-04-01] MEDS: INSULIN ASPART 1,000 UNITS/10 ML VIAL SQ SCH ×3 (10:01→17:00)
[2017-04-01] MEDS: SODIUM CHLORIDE 0.9% FLUSH 10 ML FLUSH IV FLUSH SCH ×2 (10:02→21:42)
--- NOTE | 2017-04-01 10:05 | HHI.PR ---
Subjective Remarks In bed, dressing is taken off by Dr Burleson,. Wound is healing very well. No pain at this time. Pain is fairly controlled by meds. No n/v/d/c. No fever ot chills. Objective Vitals Vital Signs Date Time Temp Pulse Resp B/P (MAP) Pulse Ox O2 Delivery O2 Flow Rate FiO2 04/01/17 08:00 97.4 72 17 147/76 (99) 95 04/01/17 00:00 97.3 74 20 156/73 (100) 97 03/31/17 19:00 97.8 65 20 141/65 (90) 98 03/31/17 16:00 97.2 67 17 156/72 (100) 97 03/31/17 12:00 97.3 64 17 165/78 (107) 97 I/O 03/31/17 03/31/17 03/31/17 04/01/17 04/01/17 04/01/17 07:00 15:00 23:00 07:00 15:00 23:00 Intake Total 600 ml 360 ml Balance 600 ml 360 ml Intake Oral 600 ml 360 ml # Voids 1 2 2 # Bowel Movements 1 2 1 Result Diagram: 03/29/17205003/29/172050 Objective Remarks GENERAL: middle age female, appears in NAD, no respiratory distress, lying in bed. CARDIOVASCULAR: Regular rate and rhythm without murmurs, gallops, or rubs. No JVD. RESPIRATORY: Breath sounds equal bilaterally. No accessory muscle use. GASTROINTESTINAL: Abdomen soft, non-tender, nondistended. BS active. MUSCULOSKELETAL: No cyanosis, or edema. Status post right BKA. Dressing was removed, sutures in place, no signs of infection, wound is healing very well. NEURO EXAM: Alert, oriented x3. no focal deficits Procedures Below-knee amputation and wound Vac placement. - 03/21/17 Status post right below the knee amputation washout, debridement and wound VAC replacement on 03/24/17. Status post washout and closure of the right BKA stump. 03/28/17 A/P Problem List: (1) Sepsis ICD Code: A41.9 - Sepsis, unspecified organism Status: Resolved (2) Necrotizing fasciitis ICD Code: M72.6 - Necrotizing fasciitis Status: Acute (3) Hypertension ICD Code: I10 - Hypertension Status: Acute (4) CELSO (acute kidney injury) ICD Code: N17.9 - Acute kidney failure, unspecified Status: Resolved (5) Chronic kidney disease, stage 3 ICD Code: N18.3 - Chronic kidney disease, stage 3 (moderate) Status: Chronic (6) Uncontrolled diabetes mellitus ICD Code: E11.65 - Type 2 diabetes mellitus with hyperglycemia Status: Chronic Assessment and Plan Severe sepsis - resolved Hypotension - resolved Hypertension - Normal saline 1.5 L bolus and 100 ml per hour. IV Albumin 25 GM x1 - Resolved. 03/27 BP severely elevated. Will add Doxazosin and continue coreg and amlodipine. Monitor BP. 03/29 BP slightly better but still severely elevated into the 160's systolic. Increase Doxazosin to 4 mg po daily. Continue Coreg and amlodipine. Continue to monitor blood pressure. GI: - 1800 ADA diet. Protonix : CELSO on Chronic kidney disease stage III - Baseline creatinine is 1.8-2.2 - IV hydration, [place] - Strict I's and O's. 03/28 Creatinine continues to trend down. Creatinine now 1.1. Continue to monitor BMP. ID: Necrotizing fascitis and myonecrosis of RLE Severe sepsis - Status post BKA by Dr. Finch 03/21 - Empiric antibiotic with Vanc and Zosyn, Added clindamycin - Infectious disease following Blood cultures grew MSSA, strep not A, B, D. Anaerobic gram-negative rods. 03/28 the case was discussed with Dr. Vasquez from vascular surgery. The patient is status post washout and closure of the right BKA stump. He recommended IV antibiotics for a couple more days and then the patient could be discharged. Continue antibiotics as per ID. The patient currently on IV Rocephin. Muscle spasm. add flexeryl. HEME: Anemia requiring transfusion - Monitor CBC, CMP - Received 2 units PRBC. - Continue home iron supplements - 03/25 Check stool for occult blood. - ordered and pending ENDO: Type 2 diabetes Diabetic neuropathy Blood sugar seems to be still very elevated in the 200s. I will increase Levemir to 12 units subcutaneous twice a day and prandial insulin NovoLog 25 mg subcutaneous 3 times a day. Continue SSI with insulin NovoLog. 03/29 Blood sugars much improved. continue management as above. Neuropathy improving - Continue Neurontin at same dose. Insomnia: temazepam as need at night DVT GI prophylaxis - SCDs to LLE - Pharmacological DVT prophylaxis with Heparin sq Continue PPI. Discharge Planning Continue to monitor in the medical floor. Per Dr. Burleson wound is healing very well and patient doesn't need antibiotics at discharge. The patient may be discharged to rehabilitation versus home with home health PT. To follow up with Dr Burleson in 2 weeks for suture removal. Patient to f/u as OP with her PCP as well. Problem Qualifiers (1) Sepsis: Qualified Codes: A41.9 - Sepsis, unspecified organism (2) Hypertension: Qualified Codes: I10 - Essential (primary) hypertension (3) Uncontrolled diabetes mellitus: Sandra Marin MD Apr 01, 2017 10:05
[2017-04-01] MEDS ORDERED: CARD4TAB2 PO (10:21)
[2017-04-01] MEDS ORDERED: LYRI100C PO (10:21)
[2017-04-01] MEDS ORDERED: CYCL1TAB29 PO (10:21)
[2017-04-01] MEDS ORDERED: CARV12.5 PO (10:21)
[2017-04-01] MEDS ORDERED: DOCU1CAP39 PO (10:21)
[2017-04-01] MEDS ORDERED: OXYC1TAB63 PO (10:22)
--- NOTE | 2017-04-01 10:23 | HHI.DS ---
Discharge Summary Admission Date Mar 21, 2017 at 21:26 Discharge Date: Apr 02, 2017 Admitting Diagnosis necrotizing fasciitis, sepsis (1) Sepsis ICD Code: A41.9 - Sepsis, unspecified organism Status: Resolved (2) Necrotizing fasciitis ICD Code: M72.6 - Necrotizing fasciitis Status: Acute (3) Hypertension ICD Code: I10 - Hypertension Status: Chronic (4) CELSO (acute kidney injury) ICD Code: N17.9 - Acute kidney failure, unspecified Status: Resolved (5) Chronic kidney disease, stage 3 ICD Code: N18.3 - Chronic kidney disease, stage 3 (moderate) Status: Chronic (6) Uncontrolled diabetes mellitus ICD Code: E11.65 - Type 2 diabetes mellitus with hyperglycemia Status: Chronic Procedures Below-knee amputation and wound Vac placement. - 03/21/17 Status post right below the knee amputation washout, debridement and wound VAC replacement on 03/24/17. Status post washout and closure of the right BKA stump. 03/28/17 Brief History - From Admission This 47-year-old female presents to the emergency room with swelling and gangrene of the right foot. Patient says that she scratched her foot a few days ago and had an ulcer before but now suddenly the patient's foot is now discolored and foul-smelling. The patient was seen by the ER physician and three consults were placed in for Dr. Renard Couch, myself and orthopedic surgeon. I discussed with Dr. Couch and the orthopedics and the patient is now being admitted to my service and taken to the operating room because this seemed to be the simplest of the three options. CBC/BMP: 03/29/17205003/29/172050 Significant Findings Laboratory Tests Test 03/29/17 20:51 Hemoglobin 11.5 GM/DL (11.6-15.3) Mean Corpuscular Volume 74.5 FL (80.0-100.0) Mean Corpuscular Hemoglobin 23.8 PG (27.0-34.0) Red Cell Distribution Width 23.7 % (11.6-17.2) Platelet Count 514 TH/MM3 (150-450) Mean Platelet Volume 6.8 FL (7.0-11.0) Neutrophils % (Manual) 77 % (16-70) Platelet Estimate HIGH (NORMAL) Blood Urea Nitrogen 27 MG/DL (7-18) Creatinine 1.10 MG/DL (0.50-1.00) Random Glucose 145 MG/DL (74-106) Albumin 2.2 GM/DL (3.4-5.0) Calcium Level 7.5 MG/DL (8.5-10.1) Alkaline Phosphatase 186 U/L (45-117) Estimat Glomerular Filtration Rate 53 ML/MIN (>89) Imaging Last Impressions Chest X-Ray 03/21/17 194 Signed Impressions: Service Date/Time: February 19:57 - CONCLUSION: Prominence of the interstitium markings which may represent some pulmonary venous hypertension or mild edema. Burak Alvarado MD Tibia/Fibula X-Ray 03/21/17 0000 Signed Impressions: Service Date/Time: February 20:32 - CONCLUSION: Air within the soft tissues of the lower leg. Burak Alvarado MD Foot X-Ray 03/21/17 0000 Signed Impressions: Service Date/Time: February 20:00 - CONCLUSION: 1. Extensive very prominent soft tissue swelling with air within the soft tissues concerning for a large area of infection. 2. Destructive change is identified at the hind and midfoot. These could be from a Charcot joint. Some degree of acute ongoing destruction and infection cannot be ruled out. Burak Alvarado MD Femur X-Ray 03/21/17 0000 Signed Impressions: Service Date/Time: February 20:37 - CONCLUSION: Air within the soft tissues posterior to the knee. No air is seen above this level. Burak Alvarado MD PE at Discharge GENERAL: middle age female, appears in NAD, no respiratory distress, lying in bed. CARDIOVASCULAR: Regular rate and rhythm without murmurs, gallops, or rubs. No JVD. RESPIRATORY: Breath sounds equal bilaterally. No accessory muscle use. GASTROINTESTINAL: Abdomen soft, non-tender, nondistended. BS active. MUSCULOSKELETAL: No cyanosis, or edema. Status post right BKA. Wound is healing very well. NEURO EXAM: Alert, oriented x3. no focal deficits Hospital Course This 47-year-old female presents to the emergency room with swelling and gangrene of the right foot. Patient with necrotizing fascitis and myonecrosis of RLE and Severe sepsis Status post BKA by Dr. Finch 03/21 Received Empiric antibiotic with Vanc and Zosyn, clindamycin, switched to Rocephin. Infectious disease also consulted. Blood cultures grew MSSA, strep not A, B, D. Anaerobic gram-negative rods. Muscle spasm. add flexeryl. Patient improved, wound healing well, dressing taken off by Dr Burleson, wound healing well no need of antibiotic at DC . The patient was DC in stable condition to rehab to follow up as OP with Dr. Burleson To follow up with Dr Burleson in 2 weeks for suture removal. Patient to f/u as OP with her PCP as well. Pt Condition on Discharge: Stable Discharge Disposition: Discharge to SNF Discharge Time: > 30 minutes Discharge Instructions DIET: Follow Instructions for: Heart Healthy Diet, Diabetic Diet Activities you can perform: Weight Bearing as Becka Follow up Referrals: PCP Follow-up - 2-3 Days Vascular Surgery - 2 Weeks with Manuelito Burleson MD New Medications: Commode 3-in-1 (Commode 3-in-1) 1 Mis Mis EA .ROUTE DIRECTED, #1 0 Refills Oxycodone-Acetaminophen (Oxycodone-Acetaminophen) 5-325 mg Tab 1-2 TAB PO Q4H PRN for PAIN, #60 TAB 0 Refills Walker with Front Wheels (Walker with Front Wheels) 1 Mis Mis EA .ROUTE DIRECTED, #1 0 Refills Carvedilol (Coreg) 12.5 Mg Tab 12.5 MG PO Q12HR for Blood Pressure Management, #60 TAB Cyclobenzaprine (Flexeril) 10 Mg Tab 5 MG PO Q8H PRN for muscle spasm , #30 TAB Docusate Sodium (Dok) 100 Mg Cap 100 MG PO BID for constipation , #60 CAP Doxazosin (Cardura) 4 Mg Tab 4 MG PO HS for Blood Pressure Management, #30 TAB Losartan (Cozaar) 25 Mg Tab 25 MG PO DAILY for Blood Pressure Management, #30 TAB Pregabalin (Lyrica) 100 Mg Cap 200 MG PO TID for neuropathy , #120 CAP Continued Medications: Amlodipine (Norvasc) 10 Mg Tab 10 MG PO DAILY for Blood Pressure Management, #30 TAB Ferrous Sulfate (Iron) 325 Mg Capsule.er 325 MG PO DAILY Insulin Glargine Inj (Lantus Inj) 1,000 Unit/10 Ml Vial 45 UNITS SQ HS for Blood Sugar Management, VIAL 0 Refills Lactobacillus Acidophilus (Acidophilus/l-Sporogenes) 1 Tab Tab 1 TAB PO Q12HR for Immunosuppression, #60 TAB Discontinued Medications: Losartan (Losartan) Unknown Strength Tab Unknown Dose PO DAILY for Blood Pressure Management, #30 TAB 0 Refills Pregabalin (Lyrica) 100 Mg Cap 100 MG PO TID, #90 CAP 0 Refills Sandra aMrin MD Apr 01, 2017 10:23
[2017-04-01] MEDS ORDERED: WALKER WHEELS/F1 MIS (11:07)
[2017-04-01] MEDS ORDERED: COMMODE 3-IN-11 MIS (11:07)
--- NOTE | 2017-04-01 11:55 | PD.CAR.PN ---
CVT Progress Note Subjective/Hospital Course: 03/22/17 Patient is status post below-knee amputation and opening of fascial planes for gas gangrene of the leg and sepsis Patient is doing much better today. She is still slightly hypotensive which is very much expected Besides critical care management, we plan to take patient to the operating room on Saturday for washout of the BKA which is open and placement of a new wound VAC. The same will be repeated again on Saturday and then possibly by the end of next week patient will have a final washout and closure of the stump There is still significant chance that this may not be sufficient patient is still at risk of losing the leg above the knee. Will transfer patient to Dr. Sumner head irrigator service and Dr. Hagan will follow patient in my absence and take her to the OR for washouts. 03/23/17 Doing better, off pressors. Floor transfer orders have been placed. Will take to OR tomorrow for Wound washout, possible debridement and VAC placement. 03/24/17 Patient was taken to the operating room today for wound washout and VAC change. The wound was clean with no evidence of necrosis skin edges were clean. Small bleeders were cauterized without incident. She can be placed on diabetic diet resume all preop orders. It is unlikely she will require an above-knee amputation, but this can be determined at a later operation. 03/27/17 Patient doing well at this time Afebrile with normal white count Staph aureus cultures reviewed and patient remains on antibiotics Underwent washout on [address] Hagan and will irrigate and then close the BKA open stump hopefully tomorrow if clean 04/01/17 Status post closure of the below-knee amputation for necrotizing fasciitis and gas gangrene Incision is nice and clean Posterior flap is well perfused and no drainage is noted At this point patient should keep stitches in for another 2 weeks and she can follow-up in my office in about 2 weeks As far as antibiotics are concerned I do not believe the patient needs further antibiotic regimen and from my point can be discharged any time Objective: Vital Signs Date Time Temp Pulse Resp B/P (MAP) Pulse Ox O2 Delivery O2 Flow Rate FiO2 04/01/17 08:00 97.4 72 17 147/76 (99) 95 04/01/17 00:00 97.3 74 20 156/73 (100) 97 03/31/17 19:00 97.8 65 20 141/65 (90) 98 03/31/17 16:00 97.2 67 17 156/72 (100) 97 03/31/17 12:00 97.3 64 17 165/78 (107) 97 Result Diagram: 03/29/17205003/29/172050 Manuelito Burleson MD Apr 01, 2017 11:55
[2017-04-01 12:00] VITALS: BP 157/67; PULSE 61; RESP 19; TEMP 95.7; O2SAT 100
[2017-04-01 12:01] VITALS: BP 157/67; PULSE 61; RESP 19; TEMP 95.7; O2SAT 100
[2017-04-01] MEDS: cefTRIAXone INJ 2,000 MG in SODIUM CHLORIDE 0.9% INJ 100 ML IV SCH (15:25)
[2017-04-01] MEDS: HYDROmorphone HCL PF 1 MG/ML VIAL IV PRN (15:26)
[2017-04-01 16:00] VITALS: BP 139/64; PULSE 63; RESP 16; TEMP 96.1; O2SAT 98
[2017-04-01 19:00] VITALS: BP 108/52; PULSE 60; RESP 18; TEMP 96.8; O2SAT 98
--- NOTE | 2017-04-01 19:12 | HHI.IDPN ---
Subjective Subjective Remarks ID X cover chart was reviewed Ms. Perkins is a 47-year-old female with past medical history significant for diabetes type 2 uncontrolled(last A1c 6.9 per patient), with diabetic nephropathy CK V stage III, diabetic retinopathy, Charcot joints bilaterally. Pt presented with sepsis, necrotizing fasciitis and gangrene of the foot. sp gulliotine R BKA on 04/20 followed by washout and closure 03/[address] Burleson No fever No rash No diarrhea co vaginal itching Antibiotics Rocephine flagyl Lines Line sites with no e.o infection Past Medical History reviewed Allergies: Coded Allergies: Sulfa (Sulfonamide Antibiotics) (Unverified Allergy, Unknown, 03/06/17) Objective . Vital Signs Date Time Temp Pulse Resp B/P (MAP) Pulse Ox O2 Delivery O2 Flow Rate FiO2 04/01/17 16:00 96.1 63 16 139/64 (89) 98 04/01/17 12:01 95.7 61 19 157/67 (97) 100 04/01/17 12:00 95.7 61 19 157/67 (97) 100 04/01/17 08:00 97.4 72 17 147/76 (99) 95 04/01/17 00:00 97.3 74 20 156/73 (100) 97 03/31/17 19:00 97.8 65 20 141/65 (90) 98 04/01/17 04/01/17 04/02/17 15:00 23:00 07:00 Intake Total 600 ml Balance 600 ml Intake Oral 600 ml # Voids 3 # Bowel Movements 1 Imaging Last Impressions Chest X-Ray 03/21/17 194 Signed Impressions: Service Date/Time: February 19:57 - CONCLUSION: Prominence of the interstitium markings which may represent some pulmonary venous hypertension or mild edema. Burak Alvarado MD Tibia/Fibula X-Ray 03/21/17 0000 Signed Impressions: Service Date/Time: February 20:32 - CONCLUSION: Air within the soft tissues of the lower leg. Burak Alvarado MD Foot X-Ray 03/21/17 0000 Signed Impressions: Service Date/Time: February 20:00 - CONCLUSION: 1. Extensive very prominent soft tissue swelling with air within the soft tissues concerning for a large area of infection. 2. Destructive change is identified at the hind and midfoot. These could be from a Charcot joint. Some degree of acute ongoing destruction and infection cannot be ruled out. Burak Alvarado MD Femur X-Ray 03/21/17 0000 Signed Impressions: Service Date/Time: , March 21, 2017 20:37 - CONCLUSION: Air within the soft tissues posterior to the knee. No air is seen above this level. Burak Alvarado MD Physical Exam GENERAL: This is a well-nourished, well-developed patient, in no apparent distress. SKIN: No rashes, CARDIOVASCULAR: Regular rate and rhythm without murmurs. RESPIRATORY: Clear to auscultation. Breath sounds equal bilaterally. GASTROINTESTINAL: Abdomen soft, non-tender, nondistended. MUSCULOSKELETAL: Right BKA site clean and dry incusion, well approximated, no erythema and drainage NEUROLOGICAL: Awake and alert. Grossly non focal. Psych: cooperative. IV line sites with no e.o infection. Assessment & Plan Remarks Sepsis present on admission. Right foot necrotizing infection s/p Right BKA with delayed closure - no local or systemic sing of infx MSSA, Strep and anaerobic infection. Probable abx induced vainal candidiasis DM2 uncontrolled, with nephropathy, retinopathy, Charcot foot deformities. CKD stage 3 not on HD. Has had only 1 session of HD. Recs: agree with Dr Burleson recommendation to dc abx Fluconazole 150 x 1 dose - longer course if recurrence OK to dc to SNF ID will s/o dw Vi Ravi MD Apr 01, 2017 19:12
[2017-04-01] MEDS ORDERED: FLUCONAZOLE 100 MG TAB PO ONE (19:15)
[2017-04-01] MEDS: DOCUSATE SODIUM 100 MG CAP PO SCH (21:00)
[2017-04-01] MEDS: INSULIN ASPART SUPPLEMENTAL SCALE SQ SCH (21:00)
[2017-04-01] MEDS: DOXAZOSIN MESYLATE 4 MG TAB PO SCH (21:42)
[2017-04-01] MEDS: TEMAZEPAM 15 MG CAP PO PRN (21:54)
[2017-04-02 03:35] VITALS: BP 154/73; PULSE 63; RESP 18; TEMP 97.8; O2SAT 96
[2017-04-02] MEDS: INSULIN ASPART SUPPLEMENTAL SCALE SQ SCH ×3 (07:00→16:50)
[2017-04-02 08:00] VITALS: BP 166/77; PULSE 77; RESP 17; TEMP 96.6; O2SAT 93
[2017-04-02] MEDS: INSULIN ASPART 1,000 UNITS/10 ML VIAL SQ SCH ×3 (08:00→17:00)
[2017-04-02] MEDS: INSULIN DETEMIR 100 UNITS/ML VIAL SQ SCH (08:07)
[2017-04-02] MEDS: LOSARTAN 25 MG TAB PO SCH (08:20)
[2017-04-02] MEDS: FAMOTIDINE 20 MG/2 ML VIAL IV PUSH SCH (08:20)
[2017-04-02] MEDS: DOCUSATE SODIUM 100 MG CAP PO SCH (08:20)
[2017-04-02] MEDS: SODIUM CHLORIDE 0.9% FLUSH 10 ML FLUSH IV FLUSH SCH (08:20)
[2017-04-02] MEDS: FERROUS SULFATE 325 MG (65 MG ELEMENTAL IRON) TAB PO SCH (08:20)
[2017-04-02] MEDS: CARVEDILOL 12.5 MG TAB PO SCH (08:20)
[2017-04-02] MEDS: PREGABALIN 100 MG CAP PO SCH ×3 (08:20→17:49)
[2017-04-02] MEDS: HEPARIN SODIUM - SQ 10,000 UNITS/ML VIAL SQ SCH (08:21)
[2017-04-02] MEDS: HYDROmorphone HCL 2 MG TAB PO PRN ×3 (08:30→16:46)
--- NOTE | 2017-04-02 11:00 | HHI.PR ---
Subjective Remarks Patient is in bed. says pain is controlled by meds. No n/v/d/c. Sleeping better. No fever or chills. Objective Vitals Vital Signs Date Time Temp Pulse Resp B/P (MAP) Pulse Ox O2 Delivery O2 Flow Rate FiO2 04/02/17 09:30 18 04/02/17 09:20 18 04/02/17 08:00 96.6 77 17 166/77 (106) 93 04/02/17 03:35 97.8 63 18 154/73 (100) 96 04/01/17 19:00 96.8 60 18 108/52 (70) 98 04/01/17 16:00 96.1 63 16 139/64 (89) 98 04/01/17 12:01 95.7 61 19 157/67 (97) 100 04/01/17 12:00 95.7 61 19 157/67 (97) 100 I/O 04/01/17 04/01/17 04/01/17 04/02/17 04/02/17 04/02/17 07:00 15:00 23:00 07:00 15:00 23:00 Intake Total 360 ml 600 ml 360 ml Balance 360 ml 600 ml 360 ml Intake Oral 360 ml 600 ml 360 ml # Voids 2 3 2 # Bowel Movements 1 1 1 Result Diagram: 03/29/17205003/29/172050 Imaging Last Impressions Chest X-Ray 03/21/171943 Signed Impressions: Service Date/Time: February 19:57 - CONCLUSION: Prominence of the interstitium markings which may represent some pulmonary venous hypertension or mild edema. Burak Alvarado MD Tibia/Fibula X-Ray 03/21/17 0000 Signed Impressions: Service Date/Time: February 20:32 - CONCLUSION: Air within the soft tissues of the lower leg. Burak Alvarado MD Foot X-Ray 03/21/17 0000 Signed Impressions: Service Date/Time: February 20:00 - CONCLUSION: 1. Extensive very prominent soft tissue swelling with air within the soft tissues concerning for a large area of infection. 2. Destructive change is identified at the hind and midfoot. These could be from a Charcot joint. Some degree of acute ongoing destruction and infection cannot be ruled out. Burak Alvarado MD Femur X-Ray 03/21/17 0000 Signed Impressions: Service Date/Time: February 20:37 - CONCLUSION: Air within the soft tissues posterior to the knee. No air is seen above this level. Burak Alvarado MD Objective Remarks GENERAL: middle age female, appears in NAD, no respiratory distress, lying in bed. CARDIOVASCULAR: Regular rate and rhythm without murmurs, gallops, or rubs. No JVD. RESPIRATORY: Breath sounds equal bilaterally. No accessory muscle use. GASTROINTESTINAL: Abdomen soft, non-tender, nondistended. BS active. MUSCULOSKELETAL: No cyanosis, or edema. Status post right BKA. Wound is healing very well. NEURO EXAM: Alert, oriented x3. no focal deficits Procedures Below-knee amputation and wound Vac placement. - 03/21/17 Status post right below the knee amputation washout, debridement and wound VAC replacement on 03/24/17. Status post washout and closure of the right BKA stump. 03/28/17 A/P Problem List: (1) Sepsis ICD Code: A41.9 - Sepsis, unspecified organism Status: Resolved (2) Necrotizing fasciitis ICD Code: M72.6 - Necrotizing fasciitis Status: Acute (3) Hypertension ICD Code: I10 - Hypertension Status: Acute (4) CELSO (acute kidney injury) ICD Code: N17.9 - Acute kidney failure, unspecified Status: Resolved (5) Chronic kidney disease, stage 3 ICD Code: N18.3 - Chronic kidney disease, stage 3 (moderate) Status: Chronic (6) Uncontrolled diabetes mellitus ICD Code: E11.65 - Type 2 diabetes mellitus with hyperglycemia Status: Chronic Assessment and Plan Severe sepsis - resolved Hypotension - resolved Hypertension - Normal saline 1.5 L bolus and 100 ml per hour. IV Albumin 25 GM x1 - Resolved. 03/27 BP severely elevated. Will add Doxazosin and continue coreg and amlodipine. Monitor BP. 03/29 BP slightly better but still severely elevated into the 160's systolic. Increase Doxazosin to 4 mg po daily. Continue Coreg and amlodipine. Continue to monitor blood pressure. GI: - 1800 ADA diet. Protonix : CELSO on Chronic kidney disease stage III - Baseline creatinine is 1.8-2.2 - IV hydration, [place] - Strict I's and O's. 9/7 Creatinine continues to trend down. Creatinine now 1.1. Continue to monitor BMP. ID: Necrotizing fascitis and myonecrosis of RLE Severe sepsis - Status post BKA by Dr. Finch 03/21 - Empiric antibiotic with Vanc and Zosyn, Added clindamycin - Infectious disease following Blood cultures grew MSSA, strep not A, B, D. Anaerobic gram-negative rods. 03/28 the case was discussed with Dr. Vasquez from vascular surgery. The patient is status post washout and closure of the right BKA stump. He recommended IV antibiotics for a couple more days and then the patient could be discharged. Continue antibiotics as per ID. The patient currently on IV Rocephin. Muscle spasm. add flexeryl. HEME: Anemia requiring transfusion - Monitor CBC, CMP - Received 2 units PRBC. - Continue home iron supplements - 03/25 Check stool for occult blood. - ordered and pending ENDO: Type 2 diabetes Diabetic neuropathy Blood sugar seems to be still very elevated in the 200s. I will increase Levemir to 12 units subcutaneous twice a day and prandial insulin NovoLog 25 mg subcutaneous 3 times a day. Continue SSI with insulin NovoLog. 03/29 Blood sugars much improved. continue management as above. Neuropathy improving - Continue Neurontin at same dose. Insomnia: temazepam as need at night DVT GI prophylaxis - SCDs to LLE - Pharmacological DVT prophylaxis with Heparin sq Continue PPI. Discharge Planning Continue to monitor in the medical floor. Per Dr. Burleson wound is healing very well and patient doesn't need antibiotics at discharge. The patient may be discharged to rehabilitation versus home with home health PT. To follow up with Dr Burleson in 2 weeks for suture removal. Patient to f/u as OP with her PCP as well. Problem Qualifiers (1) Sepsis: Qualified Codes: A41.9 - Sepsis, unspecified organism (2) Hypertension: Qualified Codes: I10 - Essential (primary) hypertension (3) Uncontrolled diabetes mellitus: Sandra Marin MD Apr 02, 2017 11:00
[2017-04-02] MEDS ORDERED: COZA25TA PO (11:04)
[2017-04-02 12:00] VITALS: BP 183/81; PULSE 75; RESP 17; TEMP 97.3; O2SAT 95
[2017-04-02] MEDS: cloNIDine HCL 0.1 MG TAB PO PRN (12:26)
[2017-04-02 13:58] VITALS: BP 148/70; PULSE 72; RESP 18
[2017-04-02 16:00] VITALS: BP 174/78; PULSE 79; RESP 17; TEMP 97; O2SAT 96
[2017-04-02 18:30] VITALS: RESP 18
[2017-04-11] MEDS ORDERED: BEDSIDE COMMODE1 MI1 (14:30)
[2017-04-11] MEDS ORDERED: WHEEMIS3 (14:30)
[2017-04-11] MEDS ORDERED: GETGO ROLLING W1 MI1 (14:30)
[2017-04-16] MEDS ORDERED: HYDR-3583 PO (09:15)
[2017-04-16] MEDS ORDERED: PANT40TA3 PO (09:15)
[2017-04-16] MEDS ORDERED: LYRI100C PO (09:15)
[2017-04-16] MEDS ORDERED: SENN1TAB PO (09:15)
[2017-04-16] MEDS ORDERED: HYDR-3516 PO (09:15)
[2017-04-16] MEDS ORDERED: CARV12.5 PO (09:15)
[2017-04-16] MEDS ORDERED: CARD4TAB2 PO (09:15)
[2017-04-16] MEDS ORDERED: LEVEMIR SQ (09:15)
[2017-04-16] MEDS ORDERED: AMLO10 PO (09:15)
[2017-04-16] MEDS ORDERED: FERR325C PO (09:15)
[2017-04-16] MEDS ORDERED: CYCL1TAB29 PO (09:15)
[2017-04-16] MEDS ORDERED: COZA25TA PO (09:15)
== END 2017-04-02 20:32 | DRG 853 ==
LOC: NEPE 18:50 → NEDA 21:26 → HPAC 21:42 → N03B 03-22 00:15 → N07B 03-24 14:30
PROVIDERS: ADMIT Hospitalist; ATTEND Hospitalist
PROC: 0T9B70Z Drainage of Bladder with Drainage Device, Via Natural or Artificial Opening (ICD-10-PCS; 2017-03-21)
PROC: 0Y6H0Z1 Detachment at Right Lower Leg, High, Open Approach (ICD-10-PCS; principal; 2017-03-21 21:52)
PROC: 03HY32Z Insertion of Monitoring Device into Upper Artery, Percutaneous Approach (ICD-10-PCS; 2017-03-22)
PROC: 4A133B1 Monitoring of Arterial Pressure, Peripheral, Percutaneous Approach (ICD-10-PCS; 2017-03-22)
PROC: 4A133J1 Monitoring of Arterial Pulse, Peripheral, Percutaneous Approach (ICD-10-PCS; 2017-03-22)
PROC: 30233N1 Transfusion of Nonautologous Red Blood Cells into Peripheral Vein, Percutaneous Approach (ICD-10-PCS; 2017-03-22)
PROC: 3E10X8Z Irrigation of Skin and Mucous Membranes using Irrigating Substance (ICD-10-PCS; 2017-03-23)
PROC: 0JDN3ZZ Extraction of Right Lower Leg Subcutaneous Tissue and Fascia, Percutaneous Approach (ICD-10-PCS; 2017-03-28)
PROC: 3E10X8Z Irrigation of Skin and Mucous Membranes using Irrigating Substance (ICD-10-PCS; 2017-03-28)
DX: A41.9 Sepsis, unspecified organism (principal); M72.6 Necrotizing fasciitis; R65.21 Severe sepsis with septic shock; A48.0 Gas gangrene; N17.9 Acute kidney failure, unspecified; N18.4 Chronic kidney disease, stage 4 (severe); D64.9 Anemia, unspecified; B37.9 Candidiasis, unspecified; E11.40 Type 2 diabetes mellitus with diabetic neuropathy, unspecified; E11.610 Type 2 diabetes mellitus with diabetic neuropathic arthropathy; E11.22 Type 2 diabetes mellitus with diabetic chronic kidney disease; I12.9 Hypertensive chronic kidney disease with stage 1 through stage 4 chronic kidney disease, or unspecified chronic kidney disease; F17.210 Nicotine dependence, cigarettes, uncomplicated; E11.65 Type 2 diabetes mellitus with hyperglycemia; E11.319 Type 2 diabetes mellitus with unspecified diabetic retinopathy without macular edema; E11.21 Type 2 diabetes mellitus with diabetic nephropathy; Z79.4 Long term (current) use of insulin; E78.00 Pure hypercholesterolemia, unspecified; J44.9 Chronic obstructive pulmonary disease, unspecified; Z82.3 Family history of stroke; Z82.49 Family history of ischemic heart disease and other diseases of the circulatory system; A49.01 Methicillin susceptible Staphylococcus aureus infection, unspecified site; B95.5 Unspecified streptococcus as the cause of diseases classified elsewhere; G47.00 Insomnia, unspecified; M62.838 Other muscle spasm
CPT/HCPCS: 36430; 36556; 71010; 73552; 73590; 73630; 76937; 80048; 80053; 80069; 80076; 81001; 82043; 82272; 82533; 82948; 83605; 83735; 84100; 85007; 85014; 85018; 85025; 85027; 85610; 85730; 86403; 86850; 86900; 86901; 86920; 87015; 87040; 87070; 87086; 87102; 87116; 87147; 87185; 87186; 87205; 87206; 87641; 88305; 88307; 88311; 94150; 96365; 96368; J0131; J0610; J0696; J0878; J1170; J1644; J1720; J1815; J2250; J2270; J2370; J2405; J2543; J3010; J3370; J7030; J7050; J7060; J7120; P9016; P9047